=== PATIENT | female | born 1950 | race African-American/Black ===

== ENCOUNTER 2021-05-09 13:47 | Outpatient (CLI) | payer MEDICARE, OTHER, SELFPAY ==
--- NOTE | 2021-05-16 09:19 | WPDPFTINT ---
PFT Procedure Performed PFT Procedure Performed Spirometry with Pre/Post Bronchodilator Plethysmography (Lung Vol) Diffusing Cap (DLCO) Flow Vol Loop PFT Interpretation This is a pulmonary function test with pre and post-bronchodilator spirometry, plethysmography and diffusing capacity. The test was performed and results interpreted in accordance with the 2019 and 2005 ATS/ERS Task Force guidelines respectively using the Global Lung Function Initiative-2012 reference equations. Patient demonstrated good effort and cooperation. Reproducibility criteria were met. The quality of the pre bronchodilator spirometry maneuver was Grade A and post bronchodilator spirometry maneuver was Grade A. Findings: Spirometry: There is decreased maximal expiratory airflow at all lung volumes with concave expiratory flow tracing. The pre bronchodilator FVC is 1.08 L, 51% predicted. The pre bronchodilator FEV1 is 0.53 L, 31% predicted. The FEV1: FVC ratio is 49%. The post bronchodilator FVC is 1.04 L, representing a 4% decrease. The post bronchodilator FEV1 is 0.46 L, representing a 13% decrease. Plethysmography: The total lung capacity is 3.74 L, 96% predicted. The functional residual capacity is 2.91 L, 125% predicted. The residual volume is 2.65 L, 147% predicted. Diffusing capacity: The absolute diffusion capacity is 1.3, 7 % predicted, the diffusing capacity corrected for alveolar volume is 1.62, 36% predicted. Impression: There is a very severe obstructive abnormality without significant improvement after inhaling a single dose of albuterol. The increase in residual volume is consistent with air trapping from an obstructive abnormality. The absolute diffusing capacity is severely decreased and remains severely decreased when corrected for alveolar volume. There are no prior studies for comparison
== END 2021-05-09 13:48 | disposition home or self-care (01) ==
LOC: ANHPFT 13:54
PROVIDERS: PCP Internal Medicine; Visit Provider Nurse Practitioner
DX: J44.9 Chronic obstructive pulmonary disease, unspecified (principal); R94.2 Abnormal results of pulmonary function studies
CPT/HCPCS: 94060; 94726; 94729

== ENCOUNTER 2021-09-17 11:42 | Emergency (ER) | payer MEDICARE, OTHER, SELFPAY ==
--- NOTE | ~2021-09-17 | XR_ITS ---
XR chest 2V DATE: 09/17/2021 15:38 INDICATION: Shortness of breath. History of COPD. TECHNIQUE: AP and lateral views COMPARISON: 10/16/2018 portable AP chest 10/11/2018 CTA chest FINDINGS: There is mild discoid atelectasis or scarring in the mid and lower lung zones, greater on t he left. No pulmonary consolidation, pleural effusion, pulmonary vascular congestion or pneumothorax is evident. Emphysema is demonstrated to better advantage on 10/11/2018 CT chest examination. Heart size appears within normal limits. No hilar or mediastinal enlargement. Prominent pancreatic calcifications, consistent with chronic pancreatitis. Diffuse osteopenia. Left glenohumeral joint replacement. IMPRESSION: Mild discoid atelectasis or scarring in the mid and lower lung zones, primarily on the le ft Emphysema Chronic pancreatitis Diffuse atrophy. Left glenohumeral joint replacement Reviewed, dictated and finalized at location B. EL POWERPLANT SUPERVISOR IMPRESSION: Mild discoid atelectasis or scarring in the mid and lower lung zone s, primarily on the left Emphysema Chronic pancreatitis Diffuse atrophy. Left glenohumeral joint replacement
[2021-09-17 11:48] VITALS: BP 153/65; PULSE 66; RESP 20; TEMP 36.2; O2SAT 100
[2021-09-17 14:28] VITALS: BP 159/76; PULSE 80; RESP 23; O2SAT 100
[2021-09-17 14:32] VITALS: BP 173/75; PULSE 72; RESP 20; O2SAT 100
--- NOTE | 2021-09-17 14:35 | ECG_ITS ---
Measurements Intervals [place] Rate: 69 P: 80 TX: 144 QRS: -35 QRSD: 93 T: -10 QT: 383 QTc: 412 Interpretive Statements SINUS RHYTHM LEFT AXIS DEVIATION VOLTAGE CRITERIA FOR LVH BORDERLINE ST-T WAVE ABNORMALITY- INFERIOR LEADS BASELINE ARTIFACT- I, II, III, AVR, AVL,A VF, V2-V6 BORDERLINE ECG Electronically Signed On 09-17-2021 15:03:49 SUSPENSION CORD TIER by Barrington Castano D.O.
[2021-09-17 14:40] VITALS: O2SAT 100
[2021-09-17 17:09] LABS: Basophils Percent Auto 0.3 % (0.2-1.2); Eosinophils Absolute Auto 0.1 K/mm3 (0-0.3); Eosinophils Percent Auto 0.5 % (0-4.4); Hematocrit 33.2 % (37.0-47.0); Hemoglobin 9.3 g/dL (12.0-15.0); Immature Granulocyte Absolute 0.08 K/mm3 (0.00-0.031); Immature Granulocyte Percent A 0.6 % (0-0.5); Lymphocytes Absolute Auto 1.11 K/mm3 (0.9-3.2); Lymphocytes Percent Auto 8.7 % (18.3-44.2); Mean Corpuscular Hemoglobin 30.6 pg (26-34); Mean Corpuscular Volume 109.2 fl (80-100); Mean Platelet Volume 12.9 fl (7.4-10.4); Monocytes Absolute Auto 0.4 K/mm3 (0.1-0.6); Monocytes Percent Auto 3.2 % (2.6-8.5); Neutrophils Absolute Auto 11.1 K/mm3 (1.3-6.7); Neutrophils Percent Auto 86.7 % (45.5-73.1); Platelet Count Result 175 k/mm3 (150-375); Red Blood Count 3.04 M/mm3 (4.2-5.4); Red Cell Distribution Width 14.6 % (11.5-14.5); White Blood Count 12.8 K/mm3 (4.5-10.0)
[2021-09-17 17:19] LABS: Prothrombin Time 12.6 Seconds (11.1-14.7)
[2021-09-17 17:20] LABS: Partial Thromboplastin Time 24.1 SECONDS (22.3-36.8)
[2021-09-17 17:22] LABS: Alanine Aminotransferase 18 U/L (4-35); Albumin Level 3.7 g/dL (3.5-5.1); Alkaline Phosphatase 73 U/L (38-126); Anion Gap 2 mmol/L (8-16); Aspartate Amino Transferase 28 U/L (14-36); Bilirubin,Total 0.3 mg/dL (0.2-1.3); Blood Urea Nitrogen 12 mg/dL (7-17); Calcium 9.1 mg/dL (8.4-10.2); Carbon Dioxide 29 mmol/L (22-30); Chloride 103 mmol/L (98-107); Estimated CRCL calculation 29 ml/min; Estimated Glomerular Filt Rate 49; Glucose 111 mg/dL (65-110); Potassium 5.4 mmol/L (3.4-5.0); Sodium 134 mmol/L (137-145)
[2021-09-17 17:31] LABS: NT Pro B Type Natriuretic Pept 375 pg/mL (5-100)
[2021-09-17 17:35] LABS: Platelet Estimate Adequate (Adequate)
[2021-09-17 17:36] LABS: Anisocytosis 1+ (NORMAL); Hypochromasia 1+ (NORMAL)
[2021-09-17] MEDS: ALBUTEROL SULFATE NEB 2.5 MG/0.5 ML INH 5 MG INHALATION (18:12)
[2021-09-17] MEDS: IPRATROPIUM BR 0.02% INH SOLN 0.5 MG/2.5 ML VIAL INHALATION (18:13)
--- NOTE | 2021-09-17 19:07 | ED.SOB ---
HPI - SOB/Dyspnea General Chief Complaint: Shortness of Breath/Dyspnea Stated Complaint: short of breath/chest pain Time Seen by Provider: 09/17/21 14:36 History of Present Illness HPI Narrative: Patient is a 71-year-old female who presents ER with shortness of breath. Progressed over the last couple of days. Concerned she may have congestive heart failure. No new swelling in her legs. No new oxygen requirement. Wears 4 L chronically. She is on prednisone for which she has been told by her doctor she needs to start tapering down. No fevers or sweats but she has had some mild chills at home. No urinary frequency urgency or dysuria. She denies chest pain or chest pressure. Related Data Home Medications Medication Instructions Recorded Confirmed albuterol sulfate 90 mcg/actuation 2 puff INHALATION Q4H PRN g 11/29/20 aerosol inhaler carvedilol 6.25 mg tablet 6.25 mg PO Q12H 11/29/20 clopidogrel 75 mg tablet 75 mg PO DAILY 11/29/20 fluticasone 250 mcg-salmeterol 50 1 inh INHALATION BID 11/29/20 mcg/dose blistr powdr for inhalation hydralazine 10 mg tablet 10 mg PO BID 11/29/20 [id number]-ccxcikzv-[id number] 1 cap PO TID 11/29/20 24,000-76,000-120,000 unit capsule,delayed rel mirtazapine 15 mg tablet 15 mg PO QHS 11/29/20 pantoprazole 40 mg tablet,delayed 40 mg PO QAM 11/29/20 release prednisone 5 mg tablet 5 mg PO DAILY 11/29/20 thiamine HCl (vitamin B1) 100 mg 100 mg PO DAILY 11/29/20 tablet tiotropium bromide 2.5 1 puff INHALATION QAM g 11/29/20 mcg/actuation mist for inhalation Allergies Allergy/AdvReac Type Severity Reaction Status Date / Time Sulfa (Sulfonamide Allergy Intermediate hives Verified 10/08/18 21:41 Antibiotics) Review of Systems Review of Systems: All systems reviewed & are unremarkable except as noted in HPI and below Constitutional: Constitutional: Reports chills, Denies fever(s) and Denies weakness ENT: Denies nasal congestion and Denies sore throat Cardiovascular: Cardiovascular: Denies chest pain, Denies rapid heart rate and Denies radiating jaw, neck or arm pain Respiratory: Respiratory: Denies chest congestion, Denies cough, Reports dyspnea and Denies wheezing Gastrointestinal: Gastrointestinal: Denies nausea and Denies vomiting PMFSH Past Medical History Medical History (Updated 09/17/21 @ 19:20 by Juve Thornton MD) COPD (chronic obstructive pulmonary disease) CVA (cerebral vascular accident) Diabetes Hyperlipidemia Pancreatitis Surgical History Surgical History (Updated 09/17/21 @ 19:09 by Juve Thornton MD) History of hysterectomy Social History Social History Smoking status: Never smoker Exam Narrative: GENERAL: Well-appearing, well-nourished, and in no acute distress. HEAD: Normocephalic, atraumatic. EYES: PERRL and EOMI. CHEST: Clear to auscultation. No respiratory distress. HEART: Regular rate and rhythm. Normal peripheral pulses. ABDOMEN: Soft, nontender, nondistended. EXTREMITIES: Normal range of motion. No edema. Chronic weakness left leg. SKIN: Warm, dry, no rash. NEURO: Alert and oriented x3. PSYCH: Normal mood and affect. Course Course Emergency Course: Normal lung sounds. Feels improved with nebulizer treatment. White count felt to be elevated related to chronic prednisone use. Patient will follow up with her PCP. Discussed return precautions which patient verbalized. Vital Signs Vital signs: Vital Signs Temperature 97.1 F L 09/17/21 11:48 Pulse Rate 66 09/17/21 11:48 Respiratory Rate 09/17/21 11:48 Blood Pressure 153/65 H 09/17/21 11:48 Pulse Oximetry 100 09/17/21 11:48 Temperature 97.1 F L 09/17/21 11:48 Pulse Rate 72 09/17/21 14:32 Respiratory Rate 20 09/17/21 14:32 Blood Pressure 173/75 H 09/17/21 14:32 Pulse Oximetry 100 09/17/21 14:40 MDM - SOB/Dyspnea Lab Data Result diagrams: 09/17/21 16:50 09/17/21 16:50 Labs:
== END 2021-09-17 19:58 | disposition home or self-care (01) ==
PROVIDERS: Emergency Provider Emergency Medicine; PCP Internal Medicine
DX: R06.00 Dyspnea, unspecified (principal); Z86.73 Personal history of transient ischemic attack (TIA), and cerebral infarction without residual deficits; E11.9 Type 2 diabetes mellitus without complications; E78.5 Hyperlipidemia, unspecified; J43.9 Emphysema, unspecified; K86.1 Other chronic pancreatitis; Z96.612 Presence of left artificial shoulder joint; R94.31 Abnormal electrocardiogram [ECG] [EKG]
CPT/HCPCS: 36415; 71046; 80053; 83880; 85025; 85610; 85730; 93005; 94640; 99283

== ENCOUNTER 2021-11-10 10:18 | Emergency (ER) | payer MEDICARE, OTHER, SELFPAY ==
--- NOTE | ~2021-11-10 | XR_ITS ---
EXAMINATION: XR foot LT min 3V DATE: 11/10/2021 10:47 INDICATION: Left foot pain TECHNIQUE: Dorsoplantar, lateral, and 2 oblique views of the left foot were obtained. COMPARISON: None. FINDINGS: The bones are osteopenic which limits the sensitivity for fracture however none is seen. Th ere is soft tissue swelling of ankle. Mild to moderate osteoarthritis is noted in multiple interphala ngeal joints. IMPRESSION: 1. No acute osseous abnormality comments sensitivity limited by osteopenia. Reviewed, dictated and finalized at location A. RTISING ACCOUNT REPRESENTATIVE
--- NOTE | ~2021-11-10 | XR_ITS ---
EXAMINATION: XR ankle LT min 3V DATE: 11/10/2021 10:47 INDICATION: Left ankle pain TECHNIQUE: Anteroposterior, lateral, mortise, and additional oblique view of the ankle were obtained. COMPARISON: None. FINDINGS: There is soft tissue swelling of ankle. The bones are osteopenic which limits the sensitivi ty for fracture however no ankle fracture is seen. IMPRESSION: 1. Ankle soft tissue swelling without acute osseous abnormality of the ankle identified, sensitivity limited by osteopenia Reviewed, dictated and finalized at location A. MANAGER IMPRESSION: 1. Ankle soft tissue swelling without acute osseous abnormality of the ankle id entified, sensitivity limited by osteopenia
[2021-11-10 10:24] VITALS: BP 145/50; PULSE 52; RESP 18; TEMP 36.4; O2SAT 100
--- NOTE | 2021-11-10 10:32 | ED.LOWEXIN ---
HPI - Extremity Injury (Lower) General Chief Complaint: Extremity Injury, Lower Stated Complaint: Left Foot Pain Time Seen by Provider: 11/10/21 10:21 Source: patient Mode of arrival: wheelchair Limitations: no limitations History of Present Illness HPI Narrative: This is a 71 year old female that presents to the ER for left ankle pain after an injury last night. Reports she slipped and twisted the ankle. Since she has had pain and swelling of the ankle and foot. Reports decreased range of motion of the ankle due to pain. Denies hitting her head or loss of consciousness. Denies other injuries, or numbness. Related Data Home Medications Medication Instructions Recorded Confirmed albuterol sulfate 90 mcg/actuation 2 puff INHALATION Q4H PRN g 11/29/20 aerosol inhaler carvedilol 6.25 mg tablet 6.25 mg PO Q12H 11/29/20 clopidogrel 75 mg tablet 75 mg PO DAILY 11/29/20 fluticasone 250 mcg-salmeterol 50 1 inh INHALATION BID 11/29/20 mcg/dose blistr powdr for inhalation hydralazine 10 mg tablet 10 mg PO BID 11/29/20 [id number]-[id number]-[id number] 1 cap PO TID 11/29/20 24,000-76,000-120,000 unit capsule,delayed rel mirtazapine 15 mg tablet 15 mg PO QHS 11/29/20 pantoprazole 40 mg tablet,delayed 40 mg PO QAM 11/29/20 release prednisone 5 mg tablet 5 mg PO DAILY 11/29/20 thiamine HCl (vitamin B1) 100 mg 100 mg PO DAILY 11/29/20 tablet tiotropium bromide 2.5 1 puff INHALATION QAM g 11/29/20 mcg/actuation mist for inhalation Allergies Allergy/AdvReac Type Severity Reaction Status Date / Time Sulfa (Sulfonamide Allergy Intermediate hives Verified 10/08/18 21:41 Antibiotics) Review of Systems Review of Systems: CONSTITUTIONAL: Denies fever MUSCULOSKELETAL: Reports joint pain, and myalgia. NEUROLOGIC: Denies numbness, or weakness. All systems reviewed & are unremarkable except as noted in HPI and below PMFSH Past Medical History Medical History (Updated 11/10/21 @ 11:30 by Jovita Shane PA-C) COPD (chronic obstructive pulmonary disease) CVA (cerebral vascular accident) Diabetes Hyperlipidemia Pancreatitis Surgical History Surgical History (Updated 09/17/21 @ 19:09 by Juve Thornton MD) History of hysterectomy Social History Social History Smoking status: Never smoker Exam Narrative: GENERAL: Well-appearing, well-nourished, and in no acute distress. HEAD: Normocephalic, atraumatic. EYES: EOMI. CHEST: Clear to auscultation. No respiratory distress. No wheezes rales or rhonchi HEART: Regular rate and rhythm. No murmur heard. Normal peripheral pulses. ABDOMEN: Soft, nontender, nondistended, normal active bowel sounds. EXTREMITIES: Decreased active range of motion in left ankle. No obvious deformities. Normal DP pulses. Normal sensation SKIN: Warm, dry, no rash. NEURO: No focal deficits. Alert and oriented x3. PSYCH: Normal mood and affect Course Vital Signs Vital signs: Vital Signs Temperature 97.6 F 11/10/21 10:24 Pulse Rate 52 L 11/10/21 10:24 Respiratory Rate 18 11/10/21 10:24 Blood Pressure 145/50 H 11/10/21 10:24 Pulse Oximetry 100 11/10/21 10:24 Temperature 97.6 F 11/10/21 10:24 Pulse Rate 52 L 11/10/21 10:24 Respiratory Rate 18 11/10/21 10:24 Blood Pressure 145/50 H 11/10/21 10:24 Pulse Oximetry 100 11/10/21 10:24 MDM - Extremity Injury (Lower) MDM Narrative Medical decision making narrative: Patient presents to the emergency department for left ankle and foot pain after a twisting injury yesterday. Patient is neurovascularly intact. Left ankle x-rays are without acute osseous abnormalities. Patient placed in Darryl wrap and instructed to use her walker. She is to follow-up with primary care doctor. She was given warnings to return to the ER Imaging Data Radiologist's impression: ITS Impressions Ankle X-Ray 11/10/21 11:01 IMPRESSION: 1. Ankle soft tissue swelling without acute osseous abnormality of the
== END 2021-11-10 11:50 | disposition home or self-care (01) ==
PROVIDERS: Emergency Provider Emergency Medicine; PCP Internal Medicine
DX: S93.402A Sprain of unspecified ligament of left ankle, initial encounter (principal); S96.912A Strain of unspecified muscle and tendon at ankle and foot level, left foot, initial encounter; J44.9 Chronic obstructive pulmonary disease, unspecified; Z86.73 Personal history of transient ischemic attack (TIA), and cerebral infarction without residual deficits; E11.9 Type 2 diabetes mellitus without complications; Z79.02 Long term (current) use of antithrombotics/antiplatelets; X50.9XXA Other and unspecified overexertion or strenuous movements or postures, initial encounter
CPT/HCPCS: 73610; 73630; 99283

== ENCOUNTER 2022-06-19 10:25 | Inpatient (IN) | payer MEDICARE, OTHER, SELFPAY ==
[2022-06-19] VITALS (19 sets, daily range): BP systolic 156–177; BP diastolic 63–69; PULSE 63–79; RESP 17–29; TEMP 36.4–36.7; O2SAT 99–100; BMI 20.1
--- NOTE | ~2022-06-19 | XR_ITS ---
XR chest 1V portable 06/19/2022 10:59 Indication: Cough and shortness of breath. History of asthma. Procedure: AP portable chest Comparison: Comparison to multiple prior studies sequentially, with oldest reviewed study dated 10/16. Findings: Heart size normal. No pleural effusion or pneumothorax. Partially visualized left shoulder arthroplasty. Healed right proximal humeral fracture. There are patchy bilateral infiltrates, suspici ous for pneumonia. The lungs are hyperinflated which is consistent with, but not diagnostic of chroni c obstructive pulmonary disease. Impression: 1: Patchy bilateral infiltrates, suspicious for pneumonia. Reviewed, dictated and finalized at location A. Impression: 1: Patchy bilateral infiltrates, suspicious for pneumonia.
--- NOTE | ~2022-06-19 | CT_ITS ---
EXAMINATION:CT chest high resolution wo nc DATE: 06/21/2022 10:03 INDICATION: Cough. Shortness of breath. Chills. Left chest pain. TECHNIQUE: Computed tomography (CT) of the chest was performed without intravenous contrast. Automate d exposure control and iterative reconstruction technique were employed. The dose-length product (DLP ) was 129.75 mGy-cm. COMPARISON: Chest CT 10/11/2018 FINDINGS: There is severe emphysema. There are subsegmental airspace opacities with volume loss in th e lower lobes, consistent with atelectasis. There are subsegmental tree-in-bud opacities in left uppe r lobe, consistent with pneumonia. There is a trace left pleural effusion. The heart size is normal. There is a small pericardial effusion. There are calcifications in the pancreas, consistent with quality assurance calibrator zuly pancreatitis. There is a left shoulder arthroplasty. There is severe right glenohumeral joint ost eoarthritis. There is a chronic compression fracture of L2. IMPRESSION: 1. Mild subsegmental pneumonia in left upper lobe. 2. Severe emphysema. 3. Small pericardial effusion. Reviewed, dictated and finalized at location A.
--- NOTE | 2022-06-19 10:35 | ECG_ITS ---
Measurements Intervals [place] Rate: 72 P: 78 SD: 158 QRS: -39 QRSD: 89 T: 3 QT: 358 QTc: 394 Interpretive Statements SINUS RHYTHM LEFT AXIS DEVIATION LEFT VENTRICULAR HYPERTROPHY AND ST-T CHANGE CANNOT RULE OUT SEPTAL INFARCT, AGE INDETERMINATE BORDERLINE ST-T WAVE ABNORMALITY- INFERIOR LEADS BASELINE ARTIFACT- V6 ABNORMAL ECG COMPARED TO ECG 09/17/2021 14:35:02 NO SIGNIFICANT CHANGES Electronically Signed On 06-19-2022 12:03:08 CDT by Barrington Castano D.O.
--- NOTE | 2022-06-19 10:35 | ED.SOB ---
HPI - SOB/Dyspnea General Chief Complaint: Shortness of Breath/Dyspnea Stated Complaint: SOB, L side pain Time Seen by Provider: 06/19/22 10:27 History of Present Illness HPI Narrative: Patient presents emergency room from home for shortness of breath. Patient symptoms began yesterday. States that she has been feeling short of breath and has been associated with a cough this been nonproductive. States that she has a history of COPD and is chronically on 4 L nasal cannula at all times. She denies any fevers or chills she denies any abdominal pain nausea or vomiting. She states that she has been having some intermittent left-sided chest pain but denies any pain at this Related Data Home Medications Medication Instructions Recorded Confirmed albuterol sulfate 90 mcg/actuation 2 puff inhalation Q4H PRN 11/29/20 aerosol inhaler carvedilol 6.25 mg tablet 6.25 mg PO Q12H 11/29/20 clopidogrel 75 mg tablet (Plavix) 75 mg PO DAILY 11/29/20 fluticasone 250 mcg-salmeterol 50 1 inh inhalation BID 11/29/20 mcg/dose blistr powdr for inhalation (Wixela Inhub) hydralazine 10 mg tablet 10 mg PO BID 11/29/20 mxkelc-wklycedz-zscipnq 1 cap PO TID 11/29/20 24,000-76,000-120,000 unit capsule,delayed rel (Creon) mirtazapine 15 mg tablet 15 mg PO QHS 11/29/20 pantoprazole 40 mg tablet,delayed 40 mg PO QAM 11/29/20 release (Protonix) prednisone 5 mg tablet 5 mg PO DAILY 11/29/20 thiamine HCl (vitamin B1) 100 mg 100 mg PO DAILY 11/29/20 tablet tiotropium bromide 2.5 1 puff inhalation QAM 11/29/20 mcg/actuation mist for inhalation (Spiriva Respimat) Allergies Allergy/AdvReac Type Severity Reaction Status Date / Time Sulfa (Sulfonamide Allergy Intermediate hives Verified 10/08/18 21:41 Antibiotics) Review of Systems Review of Systems: Gen.: Denies fevers or chills Eyes: Denies eye pain or visual change ENT: Denies congestion Respiratory: See HPI CV: Reports intermittent left-sided chest pain GI: Denies abdominal pain nausea, emesis or diarrhea Musculoskeletal: Denies back pain or muscle pain Neuro: Denies numbness, tingling, weakness or focal weakness Skin: Denies rash Except as documented, all other systems reviewed and negative [facility] Past Medical History Medical History COPD (chronic obstructive pulmonary disease) CVA (cerebral vascular accident) Diabetes Hyperlipidemia Pancreatitis Surgical History Surgical History (Updated 09/17/21 @ 19:09 by Juve Thornton MD) History of hysterectomy Social History Social History Smoking status: Never smoker Exam Narrative: APPEARANCE: No acute distress, nontoxic, resting in bed EYES: EOMI HEENT: Normocephalic, atraumatic, OMM RESPIRATORY: No respiratory distress decreased breath sounds throughout the bilateral lung jung with mild wheezing in the upper lung field CARDIOVASCULAR: Regular rate and rhythm without murmurs rubs or gallops. ABDOMINAL: Soft, nontender, nondistended, no rebound or guarding MUSCULOSKELETAl: Moves all extremities. No clubbing, cyanosis or edema. NEURO: Awake and alert. Following commands, speech normal, no focal deficits SKIN:: Warm, dry. No rashes lesions or abrasions PSYCHIATRIC: Normal affect/mood, Course Course Emergency Course: Discussed with Dr. Davila presentation work-up agrees with admission at this time Discussed with patient and family results of workup and diagnosis. Discussed need for admission. Patient and family understand and agree to current treatment plan Vital Signs Vital signs: Vital Signs Temperature 97.6 F 06/19/22 10:34 Pulse Rate 69 06/19/22 10:34 Respiratory Rate 23 H 06/19/22 10:34 Pulse Oximetry 100 06/19/22 10:34 Oxygen Delivery Nasal Cannula 06/19/22 10:34 Oxygen Flow Rate 4 06/19/22 10:34 Temperature 97.6 F 06/19/22 10:34 Pulse Rate 67
[2022-06-19] MEDS: ALBUTEROL SULFATE NEB 2.5 MG/3 ML INH 5 MG INHALATION ×3 (10:50→20:00)
[2022-06-19] MEDS: IPRATROPIUM BR 0.02% INH SOLN 0.5 MG/2.5 ML VIAL INHALATION ×3 (10:51→20:00)
[2022-06-19 11:26] LABS: Basophils Absolute Auto 0.1 K/mm3 (0.0-0.1); Basophils Percent Auto 0.4 % (0.2-1.2); Eosinophils Absolute Auto 0.5 K/mm3 (0-0.3); Eosinophils Percent Auto 3.5 % (0-4.4); Hematocrit 33.8 % (37.0-47.0); Hemoglobin 9.5 g/dL (12.0-15.0); Immature Granulocyte Absolute 0.04 K/mm3 (0.00-0.031); Immature Granulocyte Percent A 0.3 % (0-0.5); Lymphocytes Absolute Auto 1.38 K/mm3 (0.9-3.2); Lymphocytes Percent Auto 10.1 % (18.3-44.2); Mean Corpuscular HGB Conc 28.1 g/dl (32-36); Mean Corpuscular Volume 106.6 fl (80-100); Mean Platelet Volume 12.8 fl (7.4-10.4); Monocytes Absolute Auto 0.4 K/mm3 (0.1-0.6); Monocytes Percent Auto 3.2 % (2.6-8.5); Neutrophils Absolute Auto 11.2 K/mm3 (1.3-6.7); Neutrophils Percent Auto 82.5 % (45.5-73.1); Platelet Count Result 174 k/mm3 (150-375); Red Blood Count 3.17 M/mm3 (4.2-5.4); Red Cell Distribution Width 12.8 % (11.5-14.5); SARS-CoV-2 RNA PCR Negative; White Blood Count 13.6 K/mm3 (4.5-10.0)
[2022-06-19 11:38] LABS: INR 1.1; Partial Thromboplastin Time 21.1 SECONDS (22.3-36.8); Prothrombin Time 13.8 Seconds (11.1-14.7)
[2022-06-19 11:42] LABS: Alanine Aminotransferase 14 U/L (6-35); Albumin Level 3.8 g/dL (3.5-5.1); Alkaline Phosphatase 88 U/L (38-126); Anion Gap 10 mmol/L (8-16); Aspartate Amino Transferase 23 U/L (14-36); Bilirubin,Total 0.2 mg/dL (0.2-1.3); Blood Urea Nitrogen 29 mg/dL (7-17); Calcium 9.8 mg/dL (8.4-10.2); Carbon Dioxide 33 mmol/L (22-30); Chloride 99 mmol/L (98-107); Estimated CRCL calculation 32 ml/min; Estimated Glomerular Filt Rate 60; Glucose 112 mg/dL (65-110); Potassium 4.8 mmol/L (3.4-5.0); Sodium 142 mmol/L (137-145)
[2022-06-19 11:53] LABS: Hypochromasia 1+ (NORMAL); Platelet Estimate Adequate (Adequate); Schistocytes None Seen (NORMAL); Stomatocytes 1+ (NORMAL)
[2022-06-19 11:54] LABS: Atypical Lymphocytes Present; NT Pro B Type Natriuretic Pept 317 pg/mL (5-100); Troponin I 0.012 ng/mL (0.000-0.034)
[2022-06-19] MEDS: methylPREDNISolone SOD SUCC 125 MG VIAL IV PUSH (12:55)
--- NOTE | 2022-06-19 13:35 | ADMGEN ---
This patient, Conchita Espinoza, was admitted to Medical Room 245-. Patient/family oriented to hospital policies and general routines including ID bracelet, bed and alarms, visiting hours, pain management, procedures, bathroom and other care routines, personal items, smoking policy, room service/diet, and visiting hours. Information on how to activate the Rapid Response Team has been discussed. Patient/Family are encouraged to report perceived risks to care and to ask questions if they do not understand what they are told or what they should do.
[2022-06-19 16:09] LABS: Troponin I < 0.012 ng/mL (0.000-0.034)
[2022-06-19 19:13] LABS: Lactic Acid Reflex 2.3 mmol/L (0.7-2.0)
[2022-06-19 19:26] LABS: Troponin I < 0.012 ng/mL (0.000-0.034)
[2022-06-19 22:00] LABS: Reflex Lactic Acid Yes or No Add Lactic
--- NOTE | 2022-06-19 22:39 | PM.IMHP ---
[facility] Past Medical History Medical History COPD (chronic obstructive pulmonary disease) CVA (cerebral vascular accident) Diabetes Hyperlipidemia Pancreatitis Surgical History Surgical History (Updated 09/17/21 @ 19:09 by Juve Thornton MD) History of hysterectomy Family History Family History (Updated 06/19/22 @ 14:27 by Stacey Dozier RN) Mother Hypertension Sibling Hypertension Diabetes mellitus Social History Social History Years smoked: 50 Smoking status: Former smoker Tobacco type: cigarettes Alcohol intake: former Substance use: never Spiritual care concerns: No Meds Home Medications and Allergies Home Medications Medication Instructions Recorded Confirmed Type albuterol sulfate 90 mcg/actuation 2 puff inhalation Q4H PRN 11/29/20 06/19/22 History aerosol inhaler Shortness Of Breath Or Wheezing carvedilol 6.25 mg tablet 6.25 mg PO Q12H 11/29/20 06/19/22 History clopidogrel 75 mg tablet (Plavix) 75 mg PO DAILY 11/29/20 06/19/22 History hydralazine 10 mg tablet 10 mg PO DAILY 11/29/20 06/19/22 History keglmv-dbysefgz-zqgevug 1 cap PO TID 11/29/20 06/19/22 History 24,000-76,000-120,000 unit capsule,delayed rel (Creon) mirtazapine 15 mg tablet 15 mg PO QHS 11/29/20 06/19/22 History prednisone 5 mg tablet 5 mg PO EVERY OTHER DAY 11/29/20 06/19/22 History thiamine HCl (vitamin B1) 100 mg 100 mg PO DAILY 11/29/20 06/19/22 History tablet cholecalciferol (vitamin D3) 50 50 mcg PO DAILY 06/19/22 06/19/22 History mcg (2,000 unit) capsule folic acid 1 mg tablet 1 mg PO DAILY 06/19/22 06/19/22 History tiotropium bromide 2.5 2 puff inhalation DAILY 06/19/22 06/19/22 History mcg/actuation mist for inhalation (Spiriva Respimat) Allergies Allergy/AdvReac Type Severity Reaction Status Date / Time No Known Allergies Allergy Verified 06/19/22 14:09 Vital Signs Vital Signs - 24 hr 06/19/22 10:34 06/19/22 10:51 06/19/22 11:09 Temperature 97.6 F Pulse Rate 69 70 71 Respiratory Rate 23 H 29 H 28 H Blood Pressure Pulse Oximetry 100 Oxygen Delivery Nasal Cannula Oxygen Flow Rate 4 06/19/22 10:47 06/19/22 11:51 06/19/22 12:00 Temperature Pulse Rate 70 64 69 Respiratory Rate 25 H 21 H 27 H Blood Pressure Pulse Oximetry 100 100 100 Oxygen Delivery Oxygen Flow Rate 06/19/22 12:01 06/19/22 14:00 06/19/22 14:33 Temperature 98.0 F Pulse Rate 67 79 Respiratory Rate 23 H 20 Blood Pressure 177/69 H 156/65 H Pulse Oximetry 100 100 100 Oxygen Delivery Nasal Cannula Oxygen Flow Rate 4 06/19/22 14:36 06/19/22 14:46 06/19/22 16:00 Temperature Pulse Rate 73 70 71 Respiratory Rate 24 H 24 H Blood Pressure Pulse Oximetry Oxygen Delivery Oxygen Flow Rate 06/19/22 20:01 06/19/22 20:02 06/19/22 20:12 Temperature Pulse Rate 69 69 63 Respiratory Rate 22 H 22 H Blood Pressure Pulse Oximetry 99 Oxygen Delivery Nasal Cannula Oxygen Flow Rate 4 06/19/22 21:16 06/19/22 14:09 06/19/22 14:39 Temperature 98.0 F 98.0 F Pulse Rate 63 79 73 Respiratory Rate 17 20 24 H Blood Pressure 171/63 H 156/65 H Pulse Oximetry 100 Oxygen Delivery Oxygen Flow Rate
[2022-06-19] MEDS: methylPREDNISolone SOD SUCC 125 MG VIAL 60 MG IV PUSH (22:41)
[2022-06-19 22:52] LABS: Lactic Acid 1.9 mmol/L (0.7-2.0)
[2022-06-20] VITALS (21 sets, daily range): BP systolic 149–152; BP diastolic 55–68; PULSE 62–95; RESP 17–22; TEMP 36.6–36.8; O2SAT 99–100; BMI 20.1
[2022-06-20] MEDS: carvediloL 6.25 MG TABLET PO ×3 (00:32→21:19)
[2022-06-20] MEDS: MIRTAZAPINE 15 MG TABLET PO ×2 (00:32→21:19)
[2022-06-20] MEDS: ALBUTEROL SULFATE NEB 2.5 MG/3 ML INH 5 MG INHALATION ×4 (02:15→20:30)
[2022-06-20] MEDS: IPRATROPIUM BR 0.02% INH SOLN 0.5 MG/2.5 ML VIAL INHALATION ×4 (02:15→20:30)
--- NOTE | 2022-06-20 04:45 | PM.IMHP ---
H&P: HPI History of Present Illness Date/Time: 06/20/22 2734 Chief Complaint: Shortness of breath Narrative: Patient is 71-year-old female with a past medical history of COPD, CVA, diabetes, hyperlipidemia who presented to the ED with complaints shortness of breath. Patient stated that it all started about Friday. She stated that she had a hard time sleeping and could not lay flat. She started getting chills and chest pain yesterday morning. She states that her shortness of breath is happening when she is at rest and gets worse with activity. Patient stated she has not been able to get upper walk around. She also stated that her appetite been liking she has been very weak and tired. She states that she does have a cough however in the ED noted says that she has a nonproductive cough. She is on 4 L nasal cannula chronically. She also stated that her feet are swollen most of the time the left greater than the right. She denies any nausea, vomiting, body aches, sweats, fevers, diarrhea, constipation. She denies any urinary issues including urgency, frequency, retention or burning pain. She did state that she is feeling pretty good. She also states that she is mostly bed ridden she does get up and cooks and does the bathroom however she does not do much activity need further. 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 Currently, the patient appears comfortable and denies any pain. Patient is being admitted to the hospitalist service under observation Review of Systems Review of Systems: All systems reviewed & are unremarkable except as noted in HPI and below PMFSH Past Medical History Medical History (Updated 06/20/22 @ 07:08 by STACEY Perez) CKD (chronic kidney disease) COPD (chronic obstructive pulmonary disease) CVA (cerebral vascular accident) Diabetes Hyperlipidemia Hypertension Pancreatitis Surgical History Surgical History History of hysterectomy Family History Family History Mother Hypertension Cerebrovascular accident Diabetes mellitus Sibling Hypertension Diabetes mellitus Breast cancer Father Hypertension Heart disease Social History Social History Social History: Patient elects Jazmine to be her surrogate with which is her . She wishes to be a full code at this time and denies any pets at the house. 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 Gender identity (if verbalized by the patient): Female Sexual Orientation (if Verbalized by the Patient): Straight or Heterosexual Spiritual care concerns: No Agree to blood products: Yes Meds Home Medications and Allergies Home Medications Medication Instructions Recorded Confirmed Type albuterol sulfate 90 mcg/actuation 2 puff inhalation Q4H PRN 11/29/20 06/19/22 History aerosol inhaler Shortness Of Breath Or Wheezing carvedilol 6.25 mg tablet 6.25 mg PO Q12H 11/29/20 06/19/22 History clopidogrel 75 mg tablet (Plavix) 75 mg PO DAILY 11/29/20 06/19/22 History hydralazine 10 mg tablet 10 mg PO DAILY 11/29/20 06/19/22 History syvoqt-[id number]-[id number] 1 cap PO TID 11/29/20 06/19/22 History 24,000-76,000-120,000 unit capsule,delayed rel (Creon) mirtazapine 15 mg tablet 15 mg PO QHS 11/29/20 06/19/22 History prednisone 5 mg tablet 5 mg PO EVERY OTHER DAY 11/29/20 06/19/22 History thiamine HCl (vitamin B1) 100 mg 100 mg PO DAILY 11/29/20 06/19/22 History tablet cholecalciferol (vitamin D3) 50 50 mcg P
[2022-06-20 05:34] LABS: Basophils Percent Auto 0.1 % (0.2-1.2); Hematocrit 32.9 % (37.0-47.0); Hemoglobin 9.6 g/dL (12.0-15.0); Immature Granulocyte Absolute 0.08 K/mm3 (0.00-0.031); Immature Granulocyte Percent A 0.5 % (0-0.5); Immature Platelet Fraction Pct 15.8 % (0.9-11.2); Lymphocytes Absolute Auto 1.28 K/mm3 (0.9-3.2); Mean Corpuscular HGB Conc 29.2 g/dl (32-36); Mean Corpuscular Hemoglobin 29.9 pg (26-34); Mean Corpuscular Volume 102.5 fl (80-100); Mean Platelet Volume 13.7 fl (7.4-10.4); Monocytes Absolute Auto 0.1 K/mm3 (0.1-0.6); Monocytes Percent Auto 0.6 % (2.6-8.5); Neutrophils Absolute Auto 14.6 K/mm3 (1.3-6.7); Neutrophils Percent Auto 90.8 % (45.5-73.1); Platelet Count Result 182 k/mm3 (150-375); Red Blood Count 3.21 M/mm3 (4.2-5.4); Red Cell Distribution Width 12.4 % (11.5-14.5); White Blood Count 16.1 K/mm3 (4.5-10.0)
[2022-06-20 05:42] LABS: Alanine Aminotransferase 15 U/L (6-35); Albumin Level 3.9 g/dL (3.5-5.1); Alkaline Phosphatase 82 U/L (38-126); Anion Gap 8 mmol/L (8-16); Aspartate Amino Transferase 24 U/L (14-36); Bilirubin,Total < 0.1 mg/dL (0.2-1.3); Blood Urea Nitrogen 28 mg/dL (7-17); Calcium 9.3 mg/dL (8.4-10.2); Carbon Dioxide 34 mmol/L (22-30); Chloride 98 mmol/L (98-107); Estimated CRCL calculation 31 ml/min; Estimated Glomerular Filt Rate 54; Glucose 148 mg/dL (65-110); Potassium 5.8 mmol/L (3.4-5.0); Sodium 140 mmol/L (137-145)
[2022-06-20] MEDS: methylPREDNISolone SOD SUCC 125 MG VIAL 60 MG IV PUSH ×3 (06:36→21:19)
[2022-06-20 07:25] LABS: Hemoglobin A1C 4.5 % (<5.7)
[2022-06-20 07:42] LABS: Cholesterol 173 mg/dL (0-200); HDL Direct 60 mg/dL; Triglycerides 87 mg/dL (<150)
[2022-06-20 07:42] LABS: Iron 39 ug/dL (37-170)
[2022-06-20 07:44] LABS: Transferrin 219 mg/dL (206-381)
[2022-06-20 07:52] LABS: LDL Cholesterol Direct 52 mg/dL
[2022-06-20 07:57] LABS: Percent Iron Saturation 13 % (20-50)
[2022-06-20 08:41] LABS: Folic Acid > 20.0 ng/mL (2.76->20)
[2022-06-20] MEDS: CHOLECALCIFEROL 1,000 UNITS TABLET 2000 UNITS PO (08:53)
[2022-06-20] MEDS: hydrALAZINE 10 MG TABLET PO (08:53)
[2022-06-20] MEDS: CLOPIDOGREL BISULFATE 75 MG TABLET PO (08:53)
[2022-06-20] MEDS: LIPASE/AMYLASE/PROTEASE 12,000 UNITS CAP 2 CAP PO ×3 (08:53→16:49)
[2022-06-20] MEDS: THIAMINE HCL 100 MG TABLET PO (08:53)
[2022-06-20] MEDS: FOLIC ACID 1 MG TABLET PO (08:53)
[2022-06-20] MEDS: FUROSEMIDE INJ 40 MG/4 ML VIAL IV PUSH (08:54)
[2022-06-20] MEDS: ENOXAPARIN 40 MG/0.4 ML SYRINGE SUB-Q (09:19)
--- NOTE | 2022-06-20 14:44 | PCNSR ---
On 06/20/22, the student, Milan Holt, provided care and [facility]. I have reviewed the student's documentation and agree with the findings.
[2022-06-20] MEDS: HYDROcodone/acetaminophen (*CRX) 5-325 MG TABLET 1 TAB PO (16:50)
[2022-06-20 17:28] LABS: Potassium 5.2 mmol/L (3.4-5.0)
[2022-06-21] VITALS (20 sets, daily range): BP systolic 152–170; BP diastolic 66–79; PULSE 64–85; RESP 16–20; TEMP 36.7–37; O2SAT 99–100
[2022-06-21] MEDS: IPRATROPIUM BR 0.02% INH SOLN 0.5 MG/2.5 ML VIAL INHALATION ×4 (02:02→20:26)
[2022-06-21] MEDS: ALBUTEROL SULFATE NEB 2.5 MG/3 ML INH 5 MG INHALATION ×4 (02:02→20:27)
[2022-06-21] MEDS: methylPREDNISolone SOD SUCC 125 MG VIAL 60 MG IV PUSH ×2 (05:52→15:08)
[2022-06-21 05:54] LABS: Basophils Percent Auto 0.1 % (0.2-1.2); Hematocrit 31.6 % (37.0-47.0); Hemoglobin 9.3 g/dL (12.0-15.0); Immature Granulocyte Percent A 0.8 % (0-0.5); Lymphocytes Absolute Auto 0.95 K/mm3 (0.9-3.2); Lymphocytes Percent Auto 3.8 % (18.3-44.2); Mean Corpuscular HGB Conc 29.4 g/dl (32-36); Mean Corpuscular Hemoglobin 30.1 pg (26-34); Mean Corpuscular Volume 102.3 fl (80-100); Mean Platelet Volume 13.9 fl (7.4-10.4); Monocytes Absolute Auto 0.4 K/mm3 (0.1-0.6); Monocytes Percent Auto 1.5 % (2.6-8.5); Neutrophils Absolute Auto 23.2 K/mm3 (1.3-6.7); Neutrophils Percent Auto 93.8 % (45.5-73.1); Platelet Count Result 204 k/mm3 (150-375); Red Blood Count 3.09 M/mm3 (4.2-5.4); Red Cell Distribution Width 12.8 % (11.5-14.5); White Blood Count 24.7 K/mm3 (4.5-10.0)
[2022-06-21 06:32] LABS: Anisocytosis 1+ (NORMAL); Hypochromasia 1+ (NORMAL); Platelet Estimate Adequate (Adequate); Poikilocytosis 1+ (NORMAL); Stomatocytes 1+ (NORMAL)
[2022-06-21 06:36] LABS: Schistocytes None Seen (NORMAL)
[2022-06-21] MEDS: carvediloL 6.25 MG TABLET PO ×2 (09:00→21:07)
[2022-06-21] MEDS: ENOXAPARIN 40 MG/0.4 ML SYRINGE SUB-Q (09:00)
[2022-06-21] MEDS: LIPASE/AMYLASE/PROTEASE 12,000 UNITS CAP 2 CAP PO ×3 (09:03→17:26)
[2022-06-21] MEDS: CHOLECALCIFEROL 1,000 UNITS TABLET 2000 UNITS PO (09:04)
[2022-06-21] MEDS: hydrALAZINE 10 MG TABLET PO (09:04)
[2022-06-21] MEDS: FOLIC ACID 1 MG TABLET PO (09:04)
[2022-06-21] MEDS: CLOPIDOGREL BISULFATE 75 MG TABLET PO (09:04)
[2022-06-21] MEDS: THIAMINE HCL 100 MG TABLET PO (09:04)
[2022-06-21 09:10] LABS: Anion Gap 7 mmol/L (8-16); Blood Urea Nitrogen 44 mg/dL (7-17); Calcium 8.8 mg/dL (8.4-10.2); Carbon Dioxide 32 mmol/L (22-30); Chloride 98 mmol/L (98-107); Estimated CRCL calculation 31 ml/min; Estimated Glomerular Filt Rate 54; Glucose 160 mg/dL (65-110); Potassium 5.3 mmol/L (3.4-5.0); Sodium 137 mmol/L (137-145)
--- NOTE | 2022-06-21 09:18 | PCPTNOTE ---
Patient refused treatment this session due to patient reporting she needs to rest at this time.
--- NOTE | 2022-06-21 09:48 | P.PNIM_ITS ---
Progress Note: A&P Assessment and Plan (1) Sepsis: Code(s): A41.9 - Sepsis, unspecified organism Status: Acute Assessment and Plan: * Meets SIRS criteria with leukocytosis, tachypnea, and lactic acidosis * Source of infection PNA * Chest xray suspects PNA * Blood cultures ordered and pending * Lactic acid has improved * continue Rocephin and azithromycin (2) Community acquired pneumonia: Code(s): J18.9 - Pneumonia, unspecified organism Status: Acute Assessment and Plan: * Chest xray notes patchy bilateral infiltrates, suspicious for PNA * white blood cell count is elevated. She does not feel any better and has no worsening respiratory status. * Will check CT scan (3) COPD (chronic obstructive pulmonary disease): Code(s): J44.9 - Chronic obstructive pulmonary disease, unspecified Status: Acute Assessment and Plan: * Admits to increase in wheezes and shortness of breath * Denies any increase in sputum * Could be in exacerbation * Methylprednisolone 60mg IV Q8H, titrate as appropiate * Supplemental oxygen, 4L chronic at home * Trend SPO2 * Neb treatments ordered (4) Diabetes: Code(s): E11.9 - Type 2 diabetes mellitus without complications Status: Acute Assessment and Plan: * History of diabetes * Not currently treated for diabetes * A1c ordered * Current glucose is 148 * Accu cheks due to hyperglycemia * Consider insulin sliding scale * Trend glucose * Adjust therapy as indicated (5) Hyperlipidemia: Code(s): E78.5 - Hyperlipidemia, unspecified Status: Acute Assessment and Plan: * Not on a statin currently * Lipid panel ordered (6) CKD (chronic kidney disease): Code(s): N18.9 - Chronic kidney disease, unspecified Status: Acute Assessment and Plan: * Current Cr is 1.20 * Baseline appears to be about 1.30 * Continue to trend labs * Stable at this time * Trend labs at this time (7) Hyperkalemia: Code(s): E87.5 - Hyperkalemia Status: Acute Assessment and Plan: * Current K is 5.8 * Continue to trend labs * EKG SR No real T wave changes * Consider Lokelma or Kayexalate * Furosemide 40mg IV x 1 (8) Hypertension: Code(s): I10 - Essential (primary) hypertension Status: Acute Assessment and Plan: * Current BP is 150/68 * Continue hydralazine 10mg PO Daily, carvedilol 6.25mg PO Q12H * Trend BP * adjust therapy as indicated Subjective Date/time seen: 06/21/22 09:48 Patient denies any worsening shortness of breath. Exam Const: General: cooperative, comfortable, no acute distress, well developed, alert, awake, ill appearing and tired appearing Nutritional Appearance: well nourished Orientation/consciousness: oriented to person, oriented to place, oriented to time and patient oriented x3 Limitations: no limitations HENMT: Head: normal to inspection Ears: hearing grossly normal bilaterally General nose exam: Normal external nose present Mouth: Yes Normal oral and palatal mucosa present, Yes lip normal and Yes tongue normal Teeth and gingiva: abnormal tooth and associated gingiva and poor dentition Eyes: General: appearance normal, both eyes and all related structures Pupils: Equal, round a
[2022-06-21] MEDS: MIRTAZAPINE 15 MG TABLET PO (21:07)
[2022-06-22] VITALS (18 sets, daily range): BP systolic 130–167; BP diastolic 57–87; PULSE 60–100; RESP 12–18; TEMP 36.7–37.1; O2SAT 99–100
[2022-06-22] MEDS: IPRATROPIUM BR 0.02% INH SOLN 0.5 MG/2.5 ML VIAL INHALATION ×4 (02:48→20:48)
[2022-06-22] MEDS: ALBUTEROL SULFATE NEB 2.5 MG/3 ML INH 5 MG INHALATION ×4 (02:48→20:48)
[2022-06-22] MEDS: methylPREDNISolone SOD SUCC 125 MG VIAL 60 MG IV PUSH ×3 (06:03→21:21)
[2022-06-22 06:17] LABS: Basophils Percent Auto 0.1 % (0.2-1.2); Eosinophils Percent Auto 0.2 % (0-4.4); Hematocrit 29.5 % (37.0-47.0); Hemoglobin 8.6 g/dL (12.0-15.0); Immature Granulocyte Absolute 0.14 K/mm3 (0.00-0.031); Immature Granulocyte Percent A 0.7 % (0-0.5); Immature Platelet Fraction Pct 20.1 % (0.9-11.2); Lymphocytes Absolute Auto 0.82 K/mm3 (0.9-3.2); Lymphocytes Percent Auto 4.1 % (18.3-44.2); Mean Corpuscular HGB Conc 29.2 g/dl (32-36); Mean Corpuscular Volume 102.8 fl (80-100); Mean Platelet Volume 14.2 fl (7.4-10.4); Monocytes Absolute Auto 0.7 K/mm3 (0.1-0.6); Monocytes Percent Auto 3.4 % (2.6-8.5); Neutrophils Absolute Auto 18.3 K/mm3 (1.3-6.7); Neutrophils Percent Auto 91.5 % (45.5-73.1); Platelet Count Result 164 k/mm3 (150-375); Red Blood Count 2.87 M/mm3 (4.2-5.4); Red Cell Distribution Width 12.9 % (11.5-14.5)
[2022-06-22 06:20] LABS: Anion Gap 8 mmol/L (8-16); Blood Urea Nitrogen 50 mg/dL (7-17); Calcium 8.1 mg/dL (8.4-10.2); Carbon Dioxide 31 mmol/L (22-30); Chloride 98 mmol/L (98-107); Estimated CRCL calculation 31 ml/min; Estimated Glomerular Filt Rate 54; Glucose 216 mg/dL (65-110); Potassium 4.6 mmol/L (3.4-5.0); Sodium 137 mmol/L (137-145)
[2022-06-22 07:32] LABS: Platelet Estimate Adequate (Adequate); Poikilocytosis 1+ (NORMAL)
[2022-06-22 07:33] LABS: Anisocytosis 1+ (NORMAL); Hypochromasia 1+ (NORMAL); Schistocytes None Seen (NORMAL)
[2022-06-22] MEDS: carvediloL 6.25 MG TABLET PO ×2 (09:11→21:22)
[2022-06-22] MEDS: CHOLECALCIFEROL 1,000 UNITS TABLET 2000 UNITS PO (09:11)
[2022-06-22] MEDS: CLOPIDOGREL BISULFATE 75 MG TABLET PO (09:12)
[2022-06-22] MEDS: FOLIC ACID 1 MG TABLET PO (09:12)
[2022-06-22] MEDS: THIAMINE HCL 100 MG TABLET PO (09:12)
[2022-06-22] MEDS: ENOXAPARIN 40 MG/0.4 ML SYRINGE SUB-Q (09:12)
[2022-06-22] MEDS: LIPASE/AMYLASE/PROTEASE 12,000 UNITS CAP 2 CAP PO ×3 (09:12→17:04)
[2022-06-22] MEDS: hydrALAZINE 10 MG TABLET PO (10:07)
--- NOTE | 2022-06-22 10:10 | PM.IMPN ---
Progress Note: A&P Assessment and Plan (1) Sepsis: Code(s): A41.9 - Sepsis, unspecified organism Status: Acute Assessment and Plan: Meets SIRS criteria with leukocytosis, tachypnea, and lactic acidosis Source of infection PNA Chest xray suspects PNA Blood cultures ordered and pending Lactic acid has improved continue Rocephin and azithromycin (2) Community acquired pneumonia: Code(s): J18.9 - Pneumonia, unspecified organism Status: Acute Assessment and Plan: Chest xray notes patchy bilateral infiltrates, suspicious for PNA white blood cell count is elevated. She does not feel any better and has no worsening respiratory status. Will check CT scan (3) COPD (chronic obstructive pulmonary disease): Code(s): J44.9 - Chronic obstructive pulmonary disease, unspecified Status: Acute Assessment and Plan: Admits to increase in wheezes and shortness of breath Denies any increase in sputum Could be in exacerbation Methylprednisolone 60mg IV Q8H, titrate as appropiate Supplemental oxygen, 4L chronic at home Trend SPO2 Neb treatments ordered (4) Diabetes: Code(s): E11.9 - Type 2 diabetes mellitus without complications Status: Acute Assessment and Plan: History of diabetes Not currently treated for diabetes A1c ordered Current glucose is 148 Accu cheks due to hyperglycemia Consider insulin sliding scale Trend glucose Adjust therapy as indicated (5) Hyperlipidemia: Code(s): E78.5 - Hyperlipidemia, unspecified Status: Acute Assessment and Plan: Not on a statin currently Lipid panel ordered (6) CKD (chronic kidney disease): Code(s): N18.9 - Chronic kidney disease, unspecified Status: Acute Assessment and Plan: Current Cr is 1.20 Baseline appears to be about 1.30 Continue to trend labs Stable at this time Trend labs at this time (7) Hyperkalemia: Code(s): E87.5 - Hyperkalemia Status: Acute Assessment and Plan: Current K is 5.8 Continue to trend labs EKG SR No real T wave changes Consider Lokelma or Kayexalate Furosemide 40mg IV x 1 (8) Hypertension: Code(s): I10 - Essential (primary) hypertension Status: Acute Assessment and Plan: Current BP is 150/68 Continue hydralazine 10mg PO Daily, carvedilol 6.25mg PO Q12H Trend BP adjust therapy as indicated Subjective Date/time seen: 06/22/22 10:10 No new complaints Exam Const: General: cooperative, comfortable, no acute distress, well developed, alert, awake, ill appearing and tired appearing Nutritional Appearance: well nourished Orientation/consciousness: oriented to person, oriented to place, oriented to time and patient oriented x3 Limitations: no limitations HENMT: Head: normal to inspection Ears: hearing grossly normal bilaterally General nose exam: Normal external nose present Mouth: Yes Normal oral and palatal mucosa present, Yes lip normal and Yes tongue normal Teeth and gingiva: abnormal tooth and associated gingiva and poor dentition Eyes: General: appearance normal, both eyes and all related structures Pupils: Equal, round and reactive pupils present Neck: Neck: normal visual inspection, full ROM, trachea midline and supple Chest: Chest palpation & inspection: normal inspection of the chest Resp: Effort & Inspection: normal respiratory effort and able to speak in complete sentences Auscultation: clear to auscultation bilaterally and diminished lung sounds bilateral in the lower lung jung Cardio: Jugular venous distension: no JVD Rate: regular rate Rhythm: regular rhythm Heart sounds: S1 normal heart sound present and S2 normal heart sound present Peripheral pulses: Peripheral pulses 2+ throughout GI: Inspection: normal to inspection Auscultation: normal bowel sounds
[2022-06-22] MEDS: MIRTAZAPINE 15 MG TABLET PO (21:22)
[2022-06-23] VITALS (14 sets, daily range): BP systolic 152–180; BP diastolic 68–80; PULSE 65–93; RESP 12–20; TEMP 36.3–36.4; O2SAT 100
[2022-06-23] MEDS: ALBUTEROL SULFATE NEB 2.5 MG/3 ML INH 5 MG INHALATION ×3 (02:14→12:43)
[2022-06-23] MEDS: IPRATROPIUM BR 0.02% INH SOLN 0.5 MG/2.5 ML VIAL INHALATION ×2 (02:14→08:10)
[2022-06-23] MEDS: methylPREDNISolone SOD SUCC 125 MG VIAL 60 MG IV PUSH ×2 (06:47→13:49)
[2022-06-23] MEDS: ENOXAPARIN 40 MG/0.4 ML SYRINGE SUB-Q (09:27)
[2022-06-23] MEDS: LIPASE/AMYLASE/PROTEASE 12,000 UNITS CAP 2 CAP PO ×2 (09:27→11:05)
[2022-06-23] MEDS: carvediloL 6.25 MG TABLET PO (09:27)
[2022-06-23] MEDS: CHOLECALCIFEROL 1,000 UNITS TABLET 2000 UNITS PO (09:27)
[2022-06-23] MEDS: THIAMINE HCL 100 MG TABLET PO (09:28)
[2022-06-23] MEDS: CLOPIDOGREL BISULFATE 75 MG TABLET PO (09:28)
[2022-06-23] MEDS: FOLIC ACID 1 MG TABLET PO (09:28)
[2022-06-23] MEDS: hydrALAZINE 10 MG TABLET PO (09:28)
--- NOTE | 2022-06-23 14:27 | PM.DS ---
DS: Admitting Diagnosis Discharge Date 06/23/22 Admitting Diagnosis pna DS: Discharge Diagnosis Discharge Diagnosis (1) Sepsis: Code(s): A41.9 - Sepsis, unspecified organism Status: Acute (2) Community acquired pneumonia: Code(s): J18.9 - Pneumonia, unspecified organism Status: Acute (3) COPD (chronic obstructive pulmonary disease): Code(s): J44.9 - Chronic obstructive pulmonary disease, unspecified Status: Acute (4) Diabetes: Code(s): E11.9 - Type 2 diabetes mellitus without complications Status: Acute (5) Hyperlipidemia: Code(s): E78.5 - Hyperlipidemia, unspecified Status: Acute (6) CKD (chronic kidney disease): Code(s): N18.9 - Chronic kidney disease, unspecified Status: Acute (7) Hyperkalemia: Code(s): E87.5 - Hyperkalemia Status: Acute (8) Hypertension: Code(s): I10 - Essential (primary) hypertension Status: Acute DS: Summary Hospital Course Hospital Course: admited for pneumonia - started on rocephin and azithromycin - did well clinically, never required additional oxygen from baseline. CX negative, will be sent homeon oral omnicef Time Spent with Patient Time attestation: Total time spent providing and/or coordinating discharge services: Exam Narrative: General: alert and oriented Psych: appropriate mood nad affect Eyes: PERRLA Neck: Trachea midline, no new lesions Skin: no changes Lungs: CTA Cardiac: Normal S1,S2, no MGR ABD: soft, nd, nt, nbs Ext: no new lesions, no cce Vasc: Pulses intact DS: Data Data Completed and Pending Labs on day of discharge: Preliminary micro results at discharge 06/19/22 15:33 Blood Culture - Preliminary Blood 06/19/22 15:31 Blood Culture - Preliminary Blood Discharge Plan Discharge Attending physician on discharge: Vivek Quijano Discharging Clinician: Vivek Quijano Patient Disposition: Home, Self-Care Activity: no preference Diet: as tolerated Discharge Instructions: per care coordination, [facility] is arranged for RN, PT/OT evaluations and treatment. [facility] can be reached at [phone]. [facility] will contact you to arrange first visit. RN, please fax discharge instructions to [phone] once complete. Thank you. Patient Instructions: Antibiotic Form, Clopidogrel (By mouth), Heart Failure (GEN) Stand Alone Forms: General Discharge Information Follow-up/Referrals: Gm,Kael Tate MD [Primary Care Provider] - Discharge Medications: New cefdinir 300 mg capsule 300 mg PO Q12H Qty: 10 0RF Continued albuterol sulfate 90 mcg/actuation HFA aerosol inhaler 2 puff inhalation Q4H PRN (Reason: Shortness Of Breath Or Wheezing) carvedilol 6.25 mg tablet 6.25 mg PO Q12H Rx Instructions: must administer with a meal/food Creon 24,000-76,000 -120,000 unit capsule,delayed release(DR/EC) 1 cap PO TID Rx Instructions: administer with meals and/or snacks mirtazapine 15 mg tablet 15 mg PO QHS clopidogrel [Plavix] 75 mg tablet 75 mg PO DAILY prednisone 5 mg tablet 5 mg PO EVERY OTHER DAY thiamine HCl (vitamin B1) 100 mg tablet 100 mg PO DAILY hydralazine 10 mg tablet 10 mg PO DAILY folic acid 1 mg tablet 1 mg PO DAILY cholecalciferol (vitamin D3) 50 mcg (2,000 unit) Capsule 50 mcg PO DAILY Spiriva Respimat 2.5 mcg/actuation Mist 2 puff INHALATION DAILY Date of admission: 06/21/22 10:52 Primary Care Provider: GmKael Admitting Provider: Meagan Davila Attending physician on admission: Meagan Davila Condition: Stable
== END 2022-06-23 15:19 | disposition home health service (06) | DRG 194 ==
LOC: ANHED 12:06 → ANH2MED 12:26
PROVIDERS: Nurse Practitioner; Admitting Provider Family Medicine; Emergency Provider Emergency Medicine; PCP Internal Medicine Gastroenterology; Visit Provider Chiropractor
DX: J18.9 Pneumonia, unspecified organism (principal); J44.0 Chronic obstructive pulmonary disease with (acute) lower respiratory infection; E87.5 Hyperkalemia; I12.9 Hypertensive chronic kidney disease with stage 1 through stage 4 chronic kidney disease, or unspecified chronic kidney disease; N18.9 Chronic kidney disease, unspecified; E11.22 Type 2 diabetes mellitus with diabetic chronic kidney disease; E78.5 Hyperlipidemia, unspecified; D64.9 Anemia, unspecified; Z20.822 Contact with and (suspected) exposure to COVID-19; Z99.81 Dependence on supplemental oxygen; Z86.73 Personal history of transient ischemic attack (TIA), and cerebral infarction without residual deficits; Z79.01 Long term (current) use of anticoagulants; Z87.891 Personal history of nicotine dependence
CPT/HCPCS: 36415; 36569; 71045; 71250; 80048; 80053; 80061; 82607; 82728; 82746; 83036; 83540; 83550; 83605; 83880; 84132; 84443; 84466; 84484; 85025; 85055; 85610; 85730; 87040; 93005; 94640; 96365; 96366; 96368; 96372; 96375; 96376; 97161; 97165; 97530; 97535; 99285; A9270; C1751; C9803; G0378; J0456; J0696; J1650; J1940; J2930; U0003; U0005

== ENCOUNTER 2022-09-02 21:40 | Inpatient (IN) | payer MEDICARE, OTHER, SELFPAY ==
--- NOTE | ~2022-09-02 | XR_ITS ---
EXAMINATION: XR chest PICC line DATE: 09/12/2022 13:54 INDICATION: Central line placement. TECHNIQUE: A single frontal view of the chest was obtained. COMPARISON: Chest single view 09/08/2022 FINDINGS: The lungs demonstrate lucencies and interstitial opacities, consistent with emphysema. Ther e are mild airspace opacities in right lower lung zone and left mid and lower lung zones. No pleural effusion or pneumothorax. The heart size is normal. There is a left shoulder arthroplasty. There is a dvanced osteoarthritis of right glenohumeral joint. A right upper extremity peripherally inserted lavern tral venous catheter (PICC) is seen with tip in the superior vena cava. IMPRESSION: 1. PICC tip in the superior vena cava. 2. Stable airspace opacities in right lower lung zone and left mid and lower lung zones, consistent w ith atelectasis/scarring versus pneumonia. 3. Severe emphysema. Reviewed, dictated and finalized at location A. CAR INSPECTOR IMPRESSION: 1. PICC tip in the superior vena cava. 2. Stable airspace opacities in right lower lung zone and left mid and lower gonzalez ng zones, consistent with atelectasis/scarring versus pneumonia. 3. Severe emphysema.
--- NOTE | ~2022-09-02 | XR_ITS ---
EXAMINATION: XR chest 1V portable Exam Date/Time: 09/02/2022 22:50 TOPOLOGY TEACHER HISTORY: dyspnea, LETHARGIC, HX COPD, HX HTN Comparison: 06/19/2022, CT chest 06/21/2022. RESULT: Lines, tubes, and devices: Left shoulder arthroplasty. Lungs and pleura: Slightly increased peripheral reticular reticulonodular opacities, overlying a jakob kground of emphysematous change and scarring. Tenting of the left hemidiaphragm. Cardiomediastinal silhouette: Stable. Other: No acute osseous or upper abdominal finding. IMPRESSION: Pulmonary opacities may reflect mild interstitial edema and/or atypical infection. Reviewed, dictated and finalized at location K. LOGY TEACHER IMPRESSION: Pulmonary opacities may reflect mild interstitial edema and/or atypical infecti on.
--- NOTE | ~2022-09-02 | CT_ITS ---
EXAMINATION: CT forearm LT wo con DATE: 09/11/2022 21:04 INDICATION: Left arm swelling. TECHNIQUE: Computed tomography (CT) of the left upper limb was performed without intravenous contrast . Automated exposure control and iterative reconstruction technique were employed. The dose-length pr oduct was 665.19 mGy-cm. COMPARISON: None FINDINGS: The left upper limb demonstrates normal bone alignment. No fracture. There is a large subcu taneous hematoma in the left forearm. There is a large predominantly intramuscular hematoma in the me dial left upper arm. There is soft tissue edema in the left upper limb. IMPRESSION: 1. Large hematomas in the left forearm and left upper arm. Reviewed, dictated and finalized at location A. S OPERATOR [employer]
--- NOTE | ~2022-09-02 | XR_ITS ---
EXAMINATION: XR chest 1V portable DATE: 09/08/2022 00:13 INDICATION: Atrial fibrillation. Shortness of breath. TECHNIQUE: A single frontal view of the chest was obtained. COMPARISON: Chest single view 09/04/2022, chest CT 06/21/2022 FINDINGS: The lungs are hyperexpanded with chronic interstitial opacities, consistent with emphysema. There is mild atelectasis versus scarring in the lower lung zones and left midlung zone. No pleural effusion or pneumothorax. The heart size is normal. There is a total left shoulder arthroplasty. Ther e is an old healed fracture deformity of proximal right humerus. IMPRESSION: 1. Stable mild atelectasis versus scarring in the lower lung zones and left midlung zone. 2. Emphysema. Reviewed, dictated and finalized at location A. ENT SUPPORT ASSOCIATE IMPRESSION: 1. Stable mild atelectasis versus scarring in the lower lung zones and left mid lung zone. 2. Emphysema.
--- NOTE | ~2022-09-02 | US_ITS ---
EXAMINATION: US soft tissue UE LT DATE: 09/09/2022 22:42 INDICATION: New mass on lower arm. . TECHNIQUE: Grayscale and Doppler ultrasound images of the left arm were obtained. COMPARISON: None. FINDINGS: Hypoechoic heterogeneous subcutaneous collection in the area of interest measuring 7.0 x 3. 9 x 5.4 cm no significant internal color flow. IMPRESSION: 7 cm subcutaneous cystic mass or fluid collection at the medial elbow. This may represent a hematoma, or depending on its precise location, bursitis could also be considered. Abscess is not excluded, bu t considered less likely based on the sonographic appearance. Reviewed, dictated and finalized at location K. LESOFT HR DEVELOPER IMPRESSION: 7 cm subcutaneous cystic mass or fluid collection at the medial elbow. This may represent a hematoma, or depending on its precise location, bursitis could als o be considered. Abscess is not excluded, but considered less likely based on t he sonographic appearance.
--- NOTE | ~2022-09-02 | CT_ITS ---
EXAMINATION: CT chest abdomen pelvis wo con DATE: 09/11/2022 21:03 INDICATION: Anemia. TECHNIQUE: Computed tomography (CT) of the chest, abdomen, and pelvis was performed without intraveno us contrast. Automated exposure control and iterative reconstruction technique were employed. The dos e-length product was 441.23 mGy-cm. COMPARISON: Chest CT 06/21/2022, ultrasound 09/09/2022 FINDINGS: CHEST CT: There is severe emphysema. There are airspace opacities in the lower lobes and posterior aspects of t he upper lobes. There is a small left pleural effusion. The heart size is normal. There is a small pe ricardial effusion. There is a left shoulder arthroplasty. Partially visualized is a hematoma in left upper arm. ABDOMEN/PELVIS CT: The liver, gallbladder, spleen, and normal. There are calcifications in the pancreas, consistent with chronic pancreatitis. The adrenal glands and kidneys are normal. There is no urolithiasis. There is diverticulosis of the colon without evidence of diverticulitis. The appendix is normal. There are no dilated loops of bowel. There is fat stranding at the root of the small bowel mesentery. There are no pathologically enlarged lymph nodes. There is no free intraperitoneal fluid. Small subcutaneous mass es in anterior abdominal wall are likely injection sites. There are old healed fractures of left supe rior and inferior pubic rami. There are bilateral hip arthroplasties. A plate and cables are noted in proximal left femur. There is no fracture deformity of right sacral ala. There is a chronic compress ion fracture of L2. IMPRESSION: 1. Airspace opacities in the lower lobes and posterior aspects of the upper lobes, consistent with at electasis/scarring versus pneumonia. 2. Severe emphysema. 3. Small left pleural effusion. 4. Chronic small pericardial effusion. 5. Partially visualized hematoma in left upper arm. 6. Fat stranding at the root of the small bowel mesentery, consistent with edema versus inflammation/ scarring (mesenteric panniculitis). Reviewed, dictated and finalized at location A. DITOR IMPRESSION: 1. Airspace opacities in the lower lobes and posterior aspects of the upper lob es, consistent with atelectasis/scarring versus pneumonia. 2. Severe emphysema. 3. Small left pleural effusion. 4. Chronic small pericardial effusion. 5. Partially visualized hematoma in left upper arm. 6. Fat stranding at the root of the small bowel mesentery, consistent with jason a versus inflammation/scarring (mesenteric panniculitis).
--- NOTE | ~2022-09-02 | XR_ITS ---
EXAMINATION: XR chest 1V portable DATE: 09/04/2022 06:21 INDICATION: Shortness of breath TECHNIQUE: frontal view of the chest was obtained. COMPARISON: Chest radiograph dated 09/02/[address] dated 06/21/2022 FINDINGS: Stable appearance of small triangular opacity along the left hemidiaphragm and scattered linear and m ild interstitial opacities in the bilateral mid and lower lung zones. Underlying emphysema better vish reciated on prior CT. No pleural effusion or pneumothorax. The cardiomediastinal silhouette is within normal limits for AP technique. Old proximal right humeral fracture. Left total shoulder arthroplast y. IMPRESSION: 1. Emphysema with interval appearance of opacities in bilateral mid and lower lung zones consistent w ith atelectasis and potentially superimposed mild pulmonary edema and/or pneumonia. Reviewed, dictated and finalized at location A. PATIAL DEVELOPER IMPRESSION: 1. Emphysema with interval appearance of opacities in bilateral mid and lower l jairo zones consistent with atelectasis and potentially superimposed mild pulmona ry edema and/or pneumonia.
[2022-09-02 22:00] VITALS: BP 178/97; PULSE 103; RESP 26; O2SAT 100
[2022-09-02 22:07] VITALS: O2SAT 100
[2022-09-02 23:00] VITALS: PULSE 100; RESP 40
[2022-09-02] MEDS: ALBUTEROL SULFATE NEB 2.5 MG/3 ML INH 5 MG INHALATION (23:00)
[2022-09-02] MEDS: IPRATROPIUM BR 0.02% INH SOLN 0.5 MG/2.5 ML VIAL INHALATION (23:00)
[2022-09-02 23:08] LABS: Alveolar/Arterial O2 Gradient 14.1 mmHg; Base Excess ABG 4.3 mEq/l (+/-2.0); Fractional Inspired Oxygen 40 %; HCO3 ABG 32.6 mEq/l (22.0-26.0); Oxygen Content ABG 15.8 %vol (16.0-22.0); Oxygen Saturation ABG 99.1 % (95.0-100.0); Oxyhemoglobin 97.9 % THb (90.0-100.0); PO2 ABG 190.4 mmHg (80.0-100.0); PO2 FiO2 Ratio Arterial Blood 4.76 %; Total Hemoglobin 11.2 g/dL (12.0-18.0)
[2022-09-02 23:12] LABS: Device NASAL CANNULA; Modified Allen's Test Pass; PCO2 ABG 70.2 mmHg (35.0-45.0); Site Drawn RIGHT BRACHIAL
[2022-09-02 23:20] VITALS: PULSE 100; RESP 39; O2SAT 100
[2022-09-02 23:23] LABS: Basophils Percent Auto 0.4 % (0.2-1.2); Eosinophils Absolute Auto 0.3 K/mm3 (0-0.3); Eosinophils Percent Auto 2.8 % (0-4.4); Hematocrit 36.3 % (37.0-47.0); Hemoglobin 10.7 g/dL (12.0-15.0); Immature Granulocyte Absolute 0.04 K/mm3 (0.00-0.031); Immature Granulocyte Percent A 0.4 % (0-0.5); Immature Platelet Fraction Pct 14.9 % (0.9-11.2); Lymphocytes Absolute Auto 1.13 K/mm3 (0.9-3.2); Lymphocytes Percent Auto 11.4 % (18.3-44.2); Mean Corpuscular HGB Conc 29.5 g/dl (32-36); Mean Corpuscular Hemoglobin 30.4 pg (26-34); Mean Corpuscular Volume 103.1 fl (80-100); Mean Platelet Volume 13.5 fl (7.4-10.4); Monocytes Absolute Auto 0.9 K/mm3 (0.1-0.6); Neutrophils Absolute Auto 7.5 K/mm3 (1.3-6.7); Platelet Count Result 161 k/mm3 (150-375); Red Blood Count 3.52 M/mm3 (4.2-5.4); Red Cell Distribution Width 12.6 % (11.5-14.5); White Blood Count 9.9 K/mm3 (4.5-10.0)
[2022-09-02 23:32] LABS: INR 1.1; Prothrombin Time 14.1 Seconds (11.1-14.7)
[2022-09-02 23:33] LABS: Partial Thromboplastin Time 26.5 SECONDS (22.3-36.8)
[2022-09-02 23:39] LABS: Appearance Urine Clear (Clear); Bilirubin Urine Negative (Negative); Blood Urine 1+ (Negative); Color Urine Yellow (Yellow); Glucose Urine UA Negative (Negative); Ketones Urine Negative (Negative); Leukocyte Esterase Ur Negative LEU/UL (Negative); Nitrate Urine Negative (Negative); Protein Urine 2+ mg/dL (Negative); Urobilinogen Urine 0.2 mg/dL (<2.0); pH Urine 5.5 (5.0-9.0)
[2022-09-02 23:43] LABS: Alanine Aminotransferase 10 U/L (6-35); Albumin Level 4.2 g/dL (3.5-5.1); Alkaline Phosphatase 99 U/L (38-126); Anion Gap 5 mmol/L (8-16); Aspartate Amino Transferase 29 U/L (14-36); Bilirubin,Total 0.3 mg/dL (0.2-1.3); Blood Urea Nitrogen 28 mg/dL (7-17); Calcium 9.5 mg/dL (8.4-10.2); Carbon Dioxide 34 mmol/L (22-30); Chloride 95 mmol/L (98-107); Estimated CRCL calculation 29 ml/min; Estimated Glomerular Filt Rate 49; Glucose 97 mg/dL (65-110); Magnesium 1.4 mg/dL (1.6-2.3); Potassium 6.8 mmol/L (3.4-5.0); Sodium 134 mmol/L (137-145)
[2022-09-02 23:47] LABS: WBC Urine 0-3 /hpf
[2022-09-02 23:53] LABS: Add Urine Microscopic? YES
[2022-09-02 23:54] LABS: NT Pro B Type Natriuretic Pept 710 pg/mL (5-100); Troponin I 0.072 ng/mL (0.000-0.034)
[2022-09-02] MEDS: methylPREDNISolone SOD SUCC 125 MG VIAL IV PUSH (23:54)
[2022-09-02 23:57] LABS: Influenza A QL RT-PCR Negative (Negative); Influenza B QL RT-PCR Negative (Negative); RSV RNA, RT-PCR Positive (Negative); SARS-CoV-2 RNA PCR Negative
[2022-09-03] VITALS (30 sets, daily range): BP systolic 135–179; BP diastolic 64–100; PULSE 83–110; RESP 16–26; TEMP 36.4–37.7; O2SAT 90–100; BMI 23.1
--- NOTE | 2022-09-03 00:13 | ECG_ITS ---
Measurements Intervals [place] Rate: 99 P: AK: 0 QRS: -53 QRSD: 95 T: 55 QT: 306 QTc: 394 Interpretive Statements SINUS RHYTHM LEFT ANTERIOR FASCICULAR BLOCK [QRS AXIS <= -45, QR IN I, RS IN II] NONSPECIFIC ST AND T-WAVE ABNORMALITY COMPARED TO ECG 06/19/2022 10:32:55 NO SIGNIFICANT CHANGES Electronically Signed On 09-03-2022 15:28:05 UM NURSE by Luther Kendrick M.D.
[2022-09-03 00:15] LABS: Procalcitonin 0.2 ng/mL
--- NOTE | 2022-09-03 01:21 | ED.GENADULT ---
HPI - General Adult General Chief complaint: Shortness of Breath/Dyspnea Stated complaint: Unspecified Time Seen by Provider: 09/02/22 22:37 History of Present Illness HPI narrative: Patient is a 72-year-old female presents emerged department with chief complaint of shortness of breath. Patient reports that she is a little cough at home and reports that she has history of COPD and has been having increasing shortness of breath throughout the day. Patient states she had very shallow respirations and reports it feels similar to whenever she had pneumonia a couple months ago. Related Data Home Medications Medication Instructions Recorded Confirmed albuterol sulfate 90 mcg/actuation 2 puff inhalation Q4H PRN 11/29/20 06/19/22 aerosol inhaler Shortness Of Breath Or Wheezing carvedilol 6.25 mg tablet 6.25 mg PO Q12H 11/29/20 06/19/22 clopidogrel 75 mg tablet (Plavix) 75 mg PO DAILY 11/29/20 06/19/22 hydralazine 10 mg tablet 10 mg PO DAILY 11/29/20 06/19/22 [id number] 1 cap PO TID 11/29/20 06/19/22 24,000-76,000-120,000 unit capsule,delayed rel (Creon) mirtazapine 15 mg tablet 15 mg PO QHS 11/29/20 06/19/22 prednisone 5 mg tablet 5 mg PO EVERY OTHER DAY 11/29/20 06/19/22 thiamine HCl (vitamin B1) 100 mg 100 mg PO DAILY 11/29/20 06/19/22 tablet cholecalciferol (vitamin D3) 50 50 mcg PO DAILY 06/19/22 06/19/22 mcg (2,000 unit) capsule folic acid 1 mg tablet 1 mg PO DAILY 06/19/22 06/19/22 tiotropium bromide 2.5 2 puff inhalation DAILY 06/19/22 06/19/22 mcg/actuation mist for inhalation (Spiriva Respimat) Allergies Allergy/AdvReac Type Severity Reaction Status Date / Time No Known Allergies Allergy Verified 06/19/22 14:09 Review of Systems Review of Systems: A 10 system review of systems was completed on the patient and is negative except for what is stated in the HPI. Nursing and ancillary documentation was reviewed. [facility] Past Medical History Medical History CKD (chronic kidney disease) COPD (chronic obstructive pulmonary disease) CVA (cerebral vascular accident) Diabetes Hyperlipidemia Hypertension Pancreatitis Surgical History Surgical History History of hysterectomy Family History Family History Mother Hypertension Cerebrovascular accident Diabetes mellitus Sibling Hypertension Diabetes mellitus Breast cancer Father Hypertension Heart disease Social History Social History Social History: Patient elects Jazmine to be her surrogate with which is her . She wishes to be a full code at this time and denies any pets at the house. 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 HEAD: Normocephalic, atraumatic. EYES: PERRLA and EOMI. ENT: Nares clear, no rhinorrhea or epistaxis. Mucous membranes moist. NECK: Supple. CHEST: Respirations scattered wheezes present. HEART: Regular rate and rhythm. No murmur heard. Normal peripheral pulses. ABDOMEN: Soft, nontender, nondistended, normal active bowel sounds. EXTREMITIES: Normal range of motion. No edema. SKIN: Warm, dry, no rash. NEURO: No focal deficits. Alert and oriented x3. PSYCH: Normal mood and affect.
[2022-09-03] MEDS: DEXTROSE 50% 25 GM/50 ML SYRINGE IV PUSH (01:41)
[2022-09-03] MEDS: CALCIUM GLUCONATE 1,000 MG/10 ML VIAL 1000 MG IV PUSH (01:41)
[2022-09-03] MEDS: INSULIN HUMAN REGULAR (*BKC) 100 UNITS/ML 10 UNITS IV PUSH (01:42)
[2022-09-03] MEDS: ASPIRIN 81 MG CHEWABLE TABLET 324 MG PO (01:53)
[2022-09-03] MEDS: MAGNESIUM SULF 2 GM/WATER 50ML 2 GM/50 ML BAG IVPB (01:59)
[2022-09-03 02:01] LABS: Potassium 5.6 mmol/L (3.4-5.0)
[2022-09-03] MEDS: SODIUM ZIRCONIUM CYCLOSILICATE 10 GM POWD.PACK PO (02:10)
[2022-09-03 02:30] LABS: Troponin I 0.229 ng/mL (0.000-0.034)
[2022-09-03] MEDS: SODIUM CHLORIDE 0.9% IV 1,000 ML 125 ML IV CONT (03:09)
[2022-09-03] MEDS: IPRATROPIUM BR 0.02% INH SOLN 0.5 MG/2.5 ML VIAL INHALATION ×4 (03:47→21:36)
[2022-09-03] MEDS: ALBUTEROL SULFATE NEB 2.5 MG/3 ML INH 5 MG INHALATION ×4 (03:47→21:36)
--- NOTE | 2022-09-03 07:05 | PC.NURSE ---
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 pt laying in darkened room for comfort with family member at bedside. pt tolerating bipap well. continue waiting bed in imu
[2022-09-03 07:21] LABS: Troponin I 0.466 ng/mL (0.000-0.034)
[2022-09-03 07:47] LABS: Creatine Kinase 47 U/L (30-135)
--- NOTE | 2022-09-03 08:07 | PC.NURSE ---
pt sleeping on stretcher with family at bedside. no distress noted.
[2022-09-03] MEDS: methylPREDNISolone SOD SUCC 125 MG VIAL 60 MG IV PUSH ×4 (08:12→23:37)
--- NOTE | 2022-09-03 08:25 | PM.IMHP ---
H&P: HPI History of Present Illness Date/Time: 09/03/22 08:25 Chief Complaint: shortness of breath Narrative: Patient is a 72-year-old female presents emerged department with chief complaint of shortness of breath.? Patient reports that she is a little cough at home and reports that she has history of COPD and has been having increasing shortness of breath throughout the day and hence came to the ER via ambulance.? Patient states she had very shallow respirations and reports it feels similar to whenever she had pneumonia a couple months ago patient was tested positive for RSV and was febrile. ABG showed evidence of it has CO2 retention and was started on BiPAP. She also was hyperkalemic at 6.8 for which is she received treatment in the ER lactic acid was normal procalcitonin was 0.2 ABG was 7.28/70/190. She was diagnosed with acute exacerbation of COPD along with RSV infection and was admitted for further evaluation and treatment Review of Systems Review of Systems: - CONSTITUTIONAL: Denies weight loss, reports fever and chills. - HEENT: Denies changes in vision and hearing - RESPIRATORY: reports SOB and cough. - CV: Denies palpitations and CP. - GI: Denies abdominal pain, nausea, vomiting and diarrhea. - : Denies dysuria and urinary frequency. - MSK: Denies myalgia and joint pain. - SKIN: Denies rash and pruritus. - NEUROLOGICAL: Denies headache and syncope. - PSYCHIATRIC: Denies recent changes in mood. Denies anxiety and depression. PMFSH Past Medical History Medical History CKD (chronic kidney disease) COPD (chronic obstructive pulmonary disease) CVA (cerebral vascular accident) Diabetes Hyperlipidemia Hypertension Pancreatitis Surgical History Surgical History History of hysterectomy Family History Family History Mother Hypertension Cerebrovascular accident Diabetes mellitus Sibling Hypertension Diabetes mellitus Breast cancer Father Hypertension Heart disease Social History Social History Social History: Patient elects Jazmine to be her surrogate with which is her . She wishes to be a full code at this time and denies any pets at the house. 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 Gender identity (if verbalized by the patient): Female Sexual Orientation (if Verbalized by the Patient): Straight or Heterosexual Spiritual care concerns: No (Holiness) Agree to blood products: Yes Meds Home Medications and Allergies Home Medications Medication Instructions Recorded Confirmed Type albuterol sulfate 90 mcg/actuation 2 puff inhalation Q4H PRN 11/29/20 09/03/22 History aerosol inhaler Shortness Of Breath Or Wheezing carvedilol 6.25 mg tablet 6.25 mg PO Q12H 11/29/20 09/03/22 History clopidogrel 75 mg tablet (Plavix) 75 mg PO DAILY 11/29/20 09/03/22 History hydralazine 10 mg tablet 10 mg PO DAILY 11/29/20 09/03/22 History [id number]-[id number] 1 cap PO TID 11/29/20 09/03/22 History 24,000-76,000-120,000 unit capsule,delayed rel (Creon) mirtazapine 15 mg tablet 15 mg PO QHS 11/29/20
[2022-09-03 08:55] LABS: Alanine Aminotransferase 10 U/L (6-35); Albumin Level 3.6 g/dL (3.5-5.1); Alkaline Phosphatase 92 U/L (38-126); Anion Gap 8 mmol/L (8-16); Aspartate Amino Transferase 38 U/L (14-36); Bilirubin,Total 0.3 mg/dL (0.2-1.3); Blood Urea Nitrogen 27 mg/dL (7-17); Calcium 9.6 mg/dL (8.4-10.2); Carbon Dioxide 28 mmol/L (22-30); Chloride 95 mmol/L (98-107); Estimated CRCL calculation 29 ml/min; Estimated Glomerular Filt Rate 49; Glucose 126 mg/dL (65-110); Magnesium 2.5 mg/dL (1.6-2.3); Potassium 4.6 mmol/L (3.4-5.0); Sodium 131 mmol/L (137-145)
[2022-09-03 08:57] LABS: Alveolar/Arterial O2 Gradient 74.7 mmHg; Base Excess ABG 3.9 mEq/l (+/-2.0); Fractional Inspired Oxygen 30 %; HCO3 ABG 30.5 mEq/l (22.0-26.0); Oxygen Content ABG 13.7 %vol (16.0-22.0); Oxygen Saturation ABG 93.6 % (95.0-100.0); Oxyhemoglobin 93.4 % THb (90.0-100.0); PCO2 ABG 56.5 mmHg (35.0-45.0); PO2 ABG 72.8 mmHg (80.0-100.0); PO2 FiO2 Ratio Arterial Blood 2.43 %; Total Hemoglobin 10.4 g/dL (12.0-18.0)
[2022-09-03 08:58] LABS: Device NON-INVASIVE VENT; Site Drawn RIGHT BRACHIAL
[2022-09-03 08:59] LABS: Non-Invasive Expiratory Pressure 5 CMH2O; Non-Invasive Vent Rate 16 /MIN
[2022-09-03 09:00] LABS: Non-Invasive Inspiratory Pressure 14 CMH2O
[2022-09-03 09:36] LABS: Basophils Percent Auto 0.2 % (0.2-1.2); Hemoglobin 9.7 g/dL (12.0-15.0); Immature Granulocyte Absolute 0.04 K/mm3 (0.00-0.031); Immature Granulocyte Percent A 0.4 % (0-0.5); Immature Platelet Fraction Pct 12.6 % (0.9-11.2); Lymphocytes Absolute Auto 0.91 K/mm3 (0.9-3.2); Lymphocytes Percent Auto 10.1 % (18.3-44.2); Mean Corpuscular HGB Conc 29.4 g/dl (32-36); Mean Corpuscular Hemoglobin 30.4 pg (26-34); Mean Corpuscular Volume 103.4 fl (80-100); Mean Platelet Volume 13.4 fl (7.4-10.4); Monocytes Absolute Auto 0.1 K/mm3 (0.1-0.6); Neutrophils Absolute Auto 7.9 K/mm3 (1.3-6.7); Neutrophils Percent Auto 88.3 % (45.5-73.1); Platelet Count Result 134 k/mm3 (150-375); Red Blood Count 3.19 M/mm3 (4.2-5.4); Red Cell Distribution Width 12.5 % (11.5-14.5)
[2022-09-03] MEDS: ENOXAPARIN 30 MG/0.3 ML SYRINGE SUB-Q (09:42)
[2022-09-03] MEDS: carvediloL 6.25 MG TABLET PO ×2 (17:34→21:30)
[2022-09-03] MEDS: LIPASE/AMYLASE/PROTEASE 12,000 UNITS CAP 2 CAP PO (17:35)
[2022-09-03] MEDS: CLOPIDOGREL BISULFATE 75 MG TABLET PO (17:37)
[2022-09-03] MEDS: FOLIC ACID 1 MG TABLET PO (17:38)
[2022-09-03] MEDS: hydrALAZINE 10 MG TABLET PO (17:38)
[2022-09-03] MEDS: MIRTAZAPINE 15 MG TABLET PO (21:30)
[2022-09-03] MEDS: FLUTICASONE/SALMETEROL 115-21 MCG INHALER 1 PUFF 2 PUFF INHALATION (21:36)
[2022-09-04] VITALS (23 sets, daily range): BP systolic 150–176; BP diastolic 70–88; PULSE 78–108; RESP 16–26; TEMP 36.5–37.3; O2SAT 98–100; BMI 20.9
--- NOTE | 2022-09-04 | ECHO_ITS ---
Patient Info Name: Conchita Espinoza Age: 72 years : 1950 Gender: Female Ht: 62 in Wt: 114 lbs BSA: 1.50 m2 HR: 101 bpm BP: 179 / 84 mmHg Heart Rhythm: Sinus Rhythm Technical Quality: Fair Exam Date: 09/04/2022 1:45 PM Exam Location: [facility] Patient Status: Inpatient Admit Date: 09/03/2022 Staff Ordering Physician: Emeka Astudillo MD Crocheter Hand: Theodora Jones RDCS Attending Provider: Emeka Astudillo MD Exam Type: CA echo doppler color flow Study Info Indications - elevated troponin Complete two-dimensional, color flow and Doppler transthoracic echocardiogram is performed. Summary 1. Complete two-dimensional, color flow and Doppler transthoracic echocardiogram is performed. 2. Left ventricular systolic function is normal, estimated at 50-55%. 3. The left ventricular diastolic function is grade I diastolic dysfunction. 4. Right ventricular systolic function is normal. 5. There is mild tricuspid valve regurgitation. Left Ventricle Left ventricular chamber dimension is normal. Left ventricular systolic function is normal, estimated at 50-55%. There is no increased left ventricular wall thickness. The left ventricular diastolic function is grade I diastolic dysfunction. Right Ventricle Right ventricular chamber dimension is normal. Right ventricular systolic function is normal. Left Atria Left atrial chamber dimension is normal. Right Atria Right atrial chamber dimension is normal. Atrial Septum Intact interatrial septum visualized by color flow imaging. Aortic Valve The aortic valve is probable trileaflet. There is mild aortic valve sclerosis. There is no aortic valve stenosis. There is no aortic valve regurgitation. Pulmonic Valve The pulmonic valve is not well visualized. Mitral Valve The mitral valve has thickened leaflets. There is no mitral valve stenosis. There is no mitral valve regurgitation. Tricuspid Valve There is no significant tricuspid valve stenosis. There is mild tricuspid valve regurgitation. Pericardium/Pleural There is no pericardial effusion. Inferior Vena Cava Normal inferior vena cava with <50% collapse upon inspiration consistent with elevated right atrial pressure. Aorta The aortic root size at the sinus of Valsalva is normal. Left Ventricular Outflow Tract Name Value Normal LVOT 2D LVOT Diameter 2.0 cm LVOT Doppler LVOT Peak Gradient 3 mmHg LVOT Mean Gradient 1 mmHg LVOT VTI 17 cm LVOT VTI/AV VTI Ratio 0.8 LVOT Stroke Volume 52 ml LVOT CO 4.1 l/min LVOT CI 2.7 l/min/m2 Pulmonic Valve Name Value Normal RVOT Doppler RVOT Peak Gradient
[2022-09-04] MEDS: ALBUTEROL SULFATE NEB 2.5 MG/3 ML INH 5 MG INHALATION ×4 (02:15→21:35)
[2022-09-04] MEDS: IPRATROPIUM BR 0.02% INH SOLN 0.5 MG/2.5 ML VIAL INHALATION ×4 (02:15→21:35)
[2022-09-04] MEDS: ACETAMINOPHEN 500 MG TABLET PO (03:25)
[2022-09-04 04:52] LABS: Basophils Percent Auto 0.2 % (0.2-1.2); Hematocrit 29.2 % (37.0-47.0); Hemoglobin 8.9 g/dL (12.0-15.0); Immature Granulocyte Absolute 0.07 K/mm3 (0.00-0.031); Immature Granulocyte Percent A 0.6 % (0-0.5); Immature Platelet Fraction Pct 15.7 % (0.9-11.2); Lymphocytes Absolute Auto 0.78 K/mm3 (0.9-3.2); Lymphocytes Percent Auto 6.6 % (18.3-44.2); Mean Corpuscular HGB Conc 30.5 g/dl (32-36); Mean Corpuscular Volume 98.3 fl (80-100); Mean Platelet Volume 13.8 fl (7.4-10.4); Monocytes Absolute Auto 0.4 K/mm3 (0.1-0.6); Monocytes Percent Auto 3.4 % (2.6-8.5); Neutrophils Absolute Auto 10.6 K/mm3 (1.3-6.7); Neutrophils Percent Auto 89.2 % (45.5-73.1); Platelet Count Result 138 k/mm3 (150-375); Red Blood Count 2.97 M/mm3 (4.2-5.4); Red Cell Distribution Width 12.6 % (11.5-14.5); White Blood Count 11.9 K/mm3 (4.5-10.0)
[2022-09-04 05:24] LABS: Alveolar/Arterial O2 Gradient 54.7 mmHg; Base Excess ABG 6.8 mEq/l (+/-2.0); Carboxyhemoglobin 0.3 % THb (0-2.0); Fractional Inspired Oxygen 32 %; HCO3 ABG 34.5 mEq/l (22.0-26.0); Methemoglobin ABG 0.5 %THb (0-1.5); Oxygen Content ABG 17.7 %vol (16.0-22.0); Oxyhemoglobin 96.1 % THb (90.0-100.0); PO2 ABG 98.5 mmHg (80.0-100.0); PO2 FiO2 Ratio Arterial Blood 3.08 %; Reduced Hemoglobin 3.1 %THb (0-5.0); pH ABG 7.349 (7.350-7.450)
[2022-09-04 05:27] LABS: Device NASAL CANNULA; Modified Allen's Test Pass; PCO2 ABG 64.1 mmHg (35.0-45.0); Site Drawn RIGHT BRACHIAL
[2022-09-04 08:18] LABS: Alanine Aminotransferase 11 U/L (6-35); Albumin Level 3.4 g/dL (3.5-5.1); Alkaline Phosphatase 71 U/L (38-126); Anion Gap 3 mmol/L (8-16); Aspartate Amino Transferase 26 U/L (14-36); Bilirubin,Total 0.1 mg/dL (0.2-1.3); Blood Urea Nitrogen 30 mg/dL (7-17); Calcium 8.4 mg/dL (8.4-10.2); Carbon Dioxide 36 mmol/L (22-30); Chloride 96 mmol/L (98-107); Estimated CRCL calculation 31 ml/min; Estimated Glomerular Filt Rate 54; Glucose 216 mg/dL (65-110); Magnesium 1.9 mg/dL (1.6-2.3); Potassium 4.4 mmol/L (3.4-5.0); Sodium 135 mmol/L (137-145)
[2022-09-04] MEDS: CHOLECALCIFEROL 1,000 UNITS TABLET 2000 UNITS PO (08:54)
[2022-09-04] MEDS: THIAMINE HCL 100 MG TABLET PO (08:55)
[2022-09-04] MEDS: FERROUS SULFATE 324 MG TABLET PO (08:55)
[2022-09-04] MEDS: CLOPIDOGREL BISULFATE 75 MG TABLET PO (08:55)
[2022-09-04] MEDS: ENOXAPARIN 30 MG/0.3 ML SYRINGE SUB-Q (08:55)
[2022-09-04] MEDS: LIPASE/AMYLASE/PROTEASE 12,000 UNITS CAP 2 CAP PO ×3 (08:56→18:06)
[2022-09-04] MEDS: predniSONE 5 MG TABLET PO (08:56)
[2022-09-04] MEDS: traMADol HCL (*CRX) 50 MG TABLET 100 MG PO (08:56)
[2022-09-04] MEDS: hydrALAZINE 10 MG TABLET PO (08:59)
[2022-09-04] MEDS: carvediloL 6.25 MG TABLET PO ×2 (08:59→21:29)
[2022-09-04] MEDS: MULTIVITAMINS THERAPEUTIC TAB (*BKC) 1 TABLET PO (09:11)
[2022-09-04] MEDS: ASPIRIN 81 MG ENTERIC TABLET PO (09:11)
[2022-09-04] MEDS: UMECLIDINIUM BROMIDE 62.5 MCG ELLIPTA 1 PUFF INHALATION (09:28)
[2022-09-04] MEDS: FLUTICASONE/SALMETEROL 115-21 MCG INHALER 1 PUFF 2 PUFF INHALATION ×2 (09:29→21:36)
--- NOTE | 2022-09-04 09:38 | PM.IMPN ---
Progress Note: A&P Assessment and Plan (1) Acute exacerbation of chronic obstructive airways disease: Code(s): J44.1 - Chronic obstructive pulmonary disease with (acute) exacerbation Status: Acute Assessment and Plan: Initially requiring BiPAP support, now weaned to 3 L nasal cannula Continue steroids, nebulizers Started on Rocephin azithromycin in the ER, will continue this for now (2) Respiratory syncytial virus (RSV) infection: Code(s): B33.8 - Other specified viral diseases Status: Acute Assessment and Plan: Supportive care, as above (3) Elevated troponin: Code(s): R77.8 - Other specified abnormalities of plasma proteins Status: Acute Assessment and Plan: Do not suspect acute cardiac etiology, likely type 2 demand ischemia (4) Acute hypercapnic respiratory failure: Code(s): J96.02 - Acute respiratory failure with hypercapnia Status: Acute Assessment and Plan: As above (5) Hypertension: Code(s): I10 - Essential (primary) hypertension Status: Acute Assessment and Plan: Stable, monitor (6) Hyperkalemia: Code(s): E87.5 - Hyperkalemia Status: Acute Assessment and Plan: Given Lokelma in the ER, monitor, resolved (7) CKD (chronic kidney disease): Code(s): N18.9 - Chronic kidney disease, unspecified Status: Acute Assessment and Plan: Stable, at baseline (8) Diabetes: Code(s): E11.9 - Type 2 diabetes mellitus without complications Status: Acute Assessment and Plan: Accu-Cheks plus sliding scale insulin, A1c pending Last A1c was 4.5, uncertain if patient officially has diabetes diagnosis (9) Hyperlipidemia: Code(s): E78.5 - Hyperlipidemia, unspecified Status: Acute Assessment and Plan: Stable (10) Sepsis: Code(s): A41.9 - Sepsis, unspecified organism Status: Acute Assessment and Plan: As above Blood cultures pending (11) Community acquired pneumonia: Code(s): J18.9 - Pneumonia, unspecified organism Status: Acute Assessment and Plan: Continue antibiotics Plan DVT prophylaxis with Lovenox GI prophylaxis with Pepcid Code status full code Subjective Date/time seen: 09/04/22 09:38 Interval history: No overnight events noted. No chest pain or shortness of breath. No nausea, vomiting or diarrhea. No fevers or chills. Patient states she feels better than yesterday. She states she feels quite weak. Stable on 3 L nasal cannula. Review of Systems Review of Systems: 12 point review of systems was assessed and was negative except as noted in the HPI Exam Narrative: General: No acute distress, alert and oriented per baseline HEENT: Atraumatic, normocephalic, mucous membranes moist CV: Regular rate and rhythm, S1, S2 Lungs: Clear to auscultation bilaterally, no rales or crackles noted, no wheezes, good air entry Abdomen: Soft, nontender, nondistended Extremities: Normal to inspection Skin: No rashes noted, no lesions or wounds seen Psych: Euthymic, normal affect Objective Data Vital Signs Vital Signs: Vital Signs - 24 hr 09/03/22 10:45 09/03/22 10:48 09/03/22 11:49 Temperature Pulse Rate 92 90 96 Respiratory Rate 25 H 25 H 23 H Blood Pressure 172/80 H Pulse Oximetry 100 100 96 Oxygen Delivery BiPAP Oxygen Flow Rate 09/03/22 12:25 09/03/22 12:50 09/03/22 14:15 Temperature Pulse Rate 101 H 91 Respiratory Rate 20 16 Blood Pressure 167/91 H Pulse Oximetry 100 100 100 Oxygen Delivery Nasal Cannula Oxygen Flow Rate 4 09/03/22 14:40 09/03/22 15:13 09/03/22 15:23 Temperature 97.6 F Pulse Rate 101 H 110 H 103 H Respiratory Rate 20 22 H 20 Blood Pressure 179/84 H Pulse Oximetry 100 Oxygen Delivery Oxygen Flow Rate 09/03/22 16:00 09/03/22 16:00 09/03/22 17:34 Temperature 98.7 F Pulse Rate 94 96 97 Respiratory Rate 18 Blood
[2022-09-04] MEDS: FOLIC ACID 1 MG TABLET PO (10:27)
[2022-09-04] MEDS: FAMOTIDINE 20 MG/2 ML VIAL IV PUSH ×2 (10:30→21:28)
[2022-09-04] MEDS: methylPREDNISolone SOD SUCC 125 MG VIAL 60 MG IV PUSH ×2 (12:59→18:07)
[2022-09-04] MEDS: SENNA/DOCUSATE SODIUM TABLET 1 TAB PO ×2 (15:44→21:28)
[2022-09-04 16:38] LABS: Glucose Point of Care 243 mg/dl (65-105)
[2022-09-04 19:33] LABS: Hemoglobin A1C 5.1 % (<5.7)
[2022-09-04 21:07] LABS: Glucose Point of Care 214 mg/dl (65-105)
[2022-09-04] MEDS: MIRTAZAPINE 15 MG TABLET PO (21:28)
[2022-09-05] VITALS (19 sets, daily range): BP systolic 154–197; BP diastolic 82–102; PULSE 80–112; RESP 16–24; TEMP 36.6–37; O2SAT 96–100
[2022-09-05] MEDS: methylPREDNISolone SOD SUCC 125 MG VIAL 60 MG IV PUSH ×5 (01:12→23:38)
[2022-09-05] MEDS: IPRATROPIUM BR 0.02% INH SOLN 0.5 MG/2.5 ML VIAL INHALATION ×3 (02:45→21:25)
[2022-09-05] MEDS: ALBUTEROL SULFATE NEB 2.5 MG/3 ML INH 5 MG INHALATION ×3 (02:45→21:25)
[2022-09-05 08:35] LABS: Glucose Point of Care 210 mg/dl (65-105)
[2022-09-05] MEDS: UMECLIDINIUM BROMIDE 62.5 MCG ELLIPTA 1 PUFF INHALATION (08:48)
[2022-09-05] MEDS: FLUTICASONE/SALMETEROL 115-21 MCG INHALER 1 PUFF 2 PUFF INHALATION ×2 (08:48→21:25)
[2022-09-05] MEDS: CLOPIDOGREL BISULFATE 75 MG TABLET PO (09:12)
[2022-09-05] MEDS: ENOXAPARIN 30 MG/0.3 ML SYRINGE SUB-Q (09:12)
[2022-09-05] MEDS: SENNA/DOCUSATE SODIUM TABLET 1 TAB PO (09:12)
[2022-09-05] MEDS: CHOLECALCIFEROL 1,000 UNITS TABLET 2000 UNITS PO (09:12)
[2022-09-05] MEDS: FAMOTIDINE 20 MG/2 ML VIAL IV PUSH ×2 (09:12→20:57)
[2022-09-05] MEDS: FOLIC ACID 1 MG TABLET PO (09:12)
[2022-09-05] MEDS: THIAMINE HCL 100 MG TABLET PO (09:13)
[2022-09-05] MEDS: hydrALAZINE 10 MG TABLET PO (09:13)
[2022-09-05] MEDS: FERROUS SULFATE 324 MG TABLET PO (09:13)
[2022-09-05] MEDS: MULTIVITAMINS THERAPEUTIC TAB (*BKC) 1 TABLET PO (09:13)
[2022-09-05] MEDS: carvediloL 6.25 MG TABLET PO ×2 (09:13→20:57)
[2022-09-05] MEDS: LIPASE/AMYLASE/PROTEASE 12,000 UNITS CAP 2 CAP PO ×3 (09:15→17:03)
[2022-09-05] MEDS: ASPIRIN 81 MG ENTERIC TABLET PO (09:20)
--- NOTE | 2022-09-05 10:48 | PM.IMPN ---
Progress Note: A&P Assessment and Plan (1) Acute exacerbation of chronic obstructive airways disease: Code(s): J44.1 - Chronic obstructive pulmonary disease with (acute) exacerbation Status: Acute Assessment and Plan: Initially requiring BiPAP support, now weaned to 2 L nasal cannula Continue steroids, nebulizers Started on Rocephin and azithromycin in the ER, will continue this for now (2) Respiratory syncytial virus (RSV) infection: Code(s): B33.8 - Other specified viral diseases Status: Acute Assessment and Plan: Supportive care, as above (3) Elevated troponin: Code(s): R77.8 - Other specified abnormalities of plasma proteins Status: Acute Assessment and Plan: Do not suspect acute cardiac etiology, likely type 2 demand ischemia Echo showed EF of 50-55% with grade 1 diastolic dysfunction, no significant valvular abnormalities noted (4) Acute hypercapnic respiratory failure: Code(s): J96.02 - Acute respiratory failure with hypercapnia Status: Acute Assessment and Plan: As above (5) Hypertension: Code(s): I10 - Essential (primary) hypertension Status: Acute Assessment and Plan: Stable, monitor (6) Hyperkalemia: Code(s): E87.5 - Hyperkalemia Status: Acute Assessment and Plan: Given Lokelma in the ER, monitor, resolved (7) CKD (chronic kidney disease): Code(s): N18.9 - Chronic kidney disease, unspecified Status: Acute Assessment and Plan: Stable, at baseline (8) Diabetes: Code(s): E11.9 - Type 2 diabetes mellitus without complications Status: Acute Assessment and Plan: No diagnosis of diabetes, d/c accuchecks and SSI (9) Hyperlipidemia: Code(s): E78.5 - Hyperlipidemia, unspecified Status: Acute Assessment and Plan: Stable (10) Sepsis: Code(s): A41.9 - Sepsis, unspecified organism Status: Acute Assessment and Plan: As above Blood cultures NGTD (11) Community acquired pneumonia: Code(s): J18.9 - Pneumonia, unspecified organism Status: Acute Assessment and Plan: Continue antibiotics Plan DVT prophylaxis with Lovenox GI prophylaxis with Pepcid Code status full code Subjective Date/time seen: 09/05/22 10:48 Interval history: No overnight events noted. No chest pain or shortness of breath. No nausea, vomiting or diarrhea. No fevers or chills. Patient states she feels about the same as yesterday. Stable on 2 L nasal cannula. Review of Systems Review of Systems: 12 point review of systems was assessed and was negative except as noted in the HPI Exam Narrative: General: No acute distress, alert and oriented per baseline HEENT: Atraumatic, normocephalic, mucous membranes moist CV: Regular rate and rhythm, S1, S2 Lungs: Moderate air entry, somewhat diminished Abdomen: Soft, nontender, nondistended Extremities: Normal to inspection Skin: No rashes noted, no lesions or wounds seen Objective Data Vital Signs Vital Signs: Vital Signs - 24 hr 09/04/22 12:00 09/04/22 14:30 09/04/22 14:49 Temperature 99.2 F Pulse Rate 81 78 82 Respiratory Rate 20 20 20 Blood Pressure 165/71 H Pulse Oximetry 100 Oxygen Delivery Oxygen Flow Rate 09/04/22 12:00 09/04/22 12:00 09/04/22 14:00 Temperature Pulse Rate 81 78 Respiratory Rate Blood Pressure Pulse Oximetry 100 Oxygen Delivery Nasal Cannula Oxygen Flow Rate 2 09/04/22 16:00 09/04/22 16:00 09/04/22 18:00 Temperature 97.7 F Pulse Rate 87 87 88 Respiratory Rate 16 Blood Pressure 155/70 H Pulse Oximetry 100 Oxygen Delivery Oxygen Flow Rate 09/04/22 16:00 09/04/22 20:00 09/04/22 20:00 Temperature 98.4 F Pulse Rate 82 82 Respiratory Rate 18 18 Blood Pressure 161/83 H Pulse Oximetry 100 100 100 Oxygen Delivery Nasal Cannula Nasal Cannula Oxygen Flow Rate 2 2
--- NOTE | 2022-09-05 10:59 | ECG_ITS ---
Measurements Intervals [place] Rate: 79 P: 86 [place]: 149 QRS: -37 QRSD: 95 T: -55 QT: 400 QTc: 460 Interpretive Statements SINUS RHYTHM MARKED LEFT AXIS DEVIATION [QRS AXIS < -30] MARKED T-WAVE ABNORMALITY, CONSIDER ANTERIOR ISCHEMIA [-0.5+ mV T WAVE IN V3/V4] MODERATE T-WAVE ABNORMALITY, CONSIDER INFERIOR ISCHEMIA [-0.1+ mV T WAVE IN II/aVF] COMPARED TO ECG 09/03/2022 00:13:10 THERE IS NOW SIGNIFICANT T-WAVE ABNORMALITY Electronically Signed On 09-06-2022 7:40:59 PAD HAND by Vivek Berg M.D.
[2022-09-05 11:30] LABS: Alanine Aminotransferase 13 U/L (6-35); Albumin Level 3.8 g/dL (3.5-5.1); Alkaline Phosphatase 75 U/L (38-126); Anion Gap 5 mmol/L (8-16); Aspartate Amino Transferase 31 U/L (14-36); Bilirubin,Total 0.2 mg/dL (0.2-1.3); Blood Urea Nitrogen 30 mg/dL (7-17); Calcium 8.1 mg/dL (8.4-10.2); Carbon Dioxide 34 mmol/L (22-30); Chloride 96 mmol/L (98-107); Estimated CRCL calculation 31 ml/min; Estimated Glomerular Filt Rate 54; Glucose 144 mg/dL (65-110); Potassium 4.1 mmol/L (3.4-5.0); Sodium 135 mmol/L (137-145)
[2022-09-05 11:31] LABS: Basophils Percent Auto 0.1 % (0.2-1.2); Hemoglobin 9.8 g/dL (12.0-15.0); Immature Granulocyte Absolute 0.15 K/mm3 (0.00-0.031); Immature Granulocyte Percent A 1.1 % (0-0.5); Immature Platelet Fraction Pct 16.5 % (0.9-11.2); Lymphocytes Absolute Auto 0.67 K/mm3 (0.9-3.2); Lymphocytes Percent Auto 4.9 % (18.3-44.2); Mean Corpuscular HGB Conc 28.8 g/dl (32-36); Mean Corpuscular Hemoglobin 29.7 pg (26-34); Mean Platelet Volume 13.7 fl (7.4-10.4); Monocytes Absolute Auto 0.4 K/mm3 (0.1-0.6); Monocytes Percent Auto 2.6 % (2.6-8.5); Neutrophils Absolute Auto 12.4 K/mm3 (1.3-6.7); Neutrophils Percent Auto 91.3 % (45.5-73.1); Nucleated Red Blood Cells Perc 0.1 % (0.0-0.2); Platelet Count Result 148 k/mm3 (150-375); Red Cell Distribution Width 12.7 % (11.5-14.5); White Blood Count 13.6 K/mm3 (4.5-10.0)
[2022-09-05 11:48] LABS: Troponin I 0.075 ng/mL (0.000-0.034)
[2022-09-05 11:58] LABS: Hypochromasia 1+ (NORMAL); Platelet Estimate Adequate (Adequate); Poikilocytosis 1+ (NORMAL); Schistocytes None Seen (NORMAL)
[2022-09-05 12:55] LABS: Glucose Point of Care 141 mg/dl (65-105)
--- NOTE | 2022-09-05 15:56 | PCRCNOTE ---
Window of time for administration has passed. See next scheduled administration.
[2022-09-05 17:32] LABS: Glucose Point of Care 305 mg/dl (65-105)
[2022-09-05] MEDS: hydrOXYzine HCL 25 MG TABLET PO ×2 (18:42→23:39)
[2022-09-05 20:57] LABS: Glucose Point of Care 149 mg/dl (65-105)
[2022-09-05] MEDS: MIRTAZAPINE 15 MG TABLET PO (20:57)
[2022-09-06] VITALS (22 sets, daily range): BP systolic 154–188; BP diastolic 68–87; PULSE 75–100; RESP 16–20; TEMP 36.3–36.5; O2SAT 88–100
[2022-09-06] MEDS: ALBUTEROL SULFATE NEB 2.5 MG/3 ML INH 5 MG INHALATION ×4 (02:32→21:57)
[2022-09-06] MEDS: IPRATROPIUM BR 0.02% INH SOLN 0.5 MG/2.5 ML VIAL INHALATION ×4 (02:33→21:58)
[2022-09-06] MEDS: hydrOXYzine HCL 25 MG TABLET PO ×3 (05:16→17:15)
[2022-09-06 06:03] LABS: Basophils Percent Auto 0.2 % (0.2-1.2); Hematocrit 33.9 % (37.0-47.0); Hemoglobin 10.1 g/dL (12.0-15.0); Immature Granulocyte Absolute 0.12 K/mm3 (0.00-0.031); Immature Platelet Fraction Pct 17.6 % (0.9-11.2); Lymphocytes Absolute Auto 0.84 K/mm3 (0.9-3.2); Lymphocytes Percent Auto 6.7 % (18.3-44.2); Mean Corpuscular HGB Conc 29.8 g/dl (32-36); Mean Corpuscular Hemoglobin 29.4 pg (26-34); Mean Corpuscular Volume 98.5 fl (80-100); Mean Platelet Volume 13.5 fl (7.4-10.4); Monocytes Absolute Auto 0.5 K/mm3 (0.1-0.6); Monocytes Percent Auto 4.3 % (2.6-8.5); Neutrophils Percent Auto 87.8 % (45.5-73.1); Nucleated Red Blood Cells Perc 0.2 % (0.0-0.2); Platelet Count Result 138 k/mm3 (150-375); Red Blood Count 3.44 M/mm3 (4.2-5.4); Red Cell Distribution Width 12.5 % (11.5-14.5); White Blood Count 12.5 K/mm3 (4.5-10.0)
[2022-09-06 06:14] LABS: Alanine Aminotransferase 15 U/L (6-35); Albumin Level 3.7 g/dL (3.5-5.1); Alkaline Phosphatase 71 U/L (38-126); Aspartate Amino Transferase 32 U/L (14-36); Bilirubin,Total 0.2 mg/dL (0.2-1.3); Blood Urea Nitrogen 30 mg/dL (7-17); Calcium 7.8 mg/dL (8.4-10.2); Carbon Dioxide > 40 mmol/L (22-30); Chloride 94 mmol/L (98-107); Estimated CRCL calculation 30 ml/min; Estimated Glomerular Filt Rate 54; Glucose 146 mg/dL (65-110); Potassium 3.6 mmol/L (3.4-5.0); Sodium 136 mmol/L (137-145)
[2022-09-06] MEDS: LIPASE/AMYLASE/PROTEASE 12,000 UNITS CAP 2 CAP PO ×3 (08:28→17:13)
[2022-09-06] MEDS: carvediloL 6.25 MG TABLET PO ×2 (08:29→22:19)
[2022-09-06] MEDS: CLOPIDOGREL BISULFATE 75 MG TABLET PO (08:29)
[2022-09-06] MEDS: THIAMINE HCL 100 MG TABLET PO (08:30)
[2022-09-06] MEDS: CHOLECALCIFEROL 1,000 UNITS TABLET 2000 UNITS PO (08:30)
[2022-09-06] MEDS: MULTIVITAMINS THERAPEUTIC TAB (*BKC) 1 TABLET PO (08:30)
[2022-09-06] MEDS: FERROUS SULFATE 324 MG TABLET PO (08:30)
[2022-09-06] MEDS: FAMOTIDINE 20 MG/2 ML VIAL IV PUSH ×2 (08:30→22:19)
[2022-09-06] MEDS: FOLIC ACID 1 MG TABLET PO (08:30)
[2022-09-06] MEDS: hydrALAZINE 10 MG TABLET PO (08:30)
[2022-09-06] MEDS: methylPREDNISolone SOD SUCC 125 MG VIAL 60 MG IV PUSH ×3 (08:31→17:15)
[2022-09-06] MEDS: predniSONE 5 MG TABLET PO (08:31)
[2022-09-06] MEDS: ENOXAPARIN 30 MG/0.3 ML SYRINGE SUB-Q (08:32)
[2022-09-06] MEDS: traMADol HCL (*CRX) 50 MG TABLET 100 MG PO (08:41)
[2022-09-06] MEDS: UMECLIDINIUM BROMIDE 62.5 MCG ELLIPTA 1 PUFF INHALATION (08:55)
[2022-09-06] MEDS: FLUTICASONE/SALMETEROL 115-21 MCG INHALER 1 PUFF 2 PUFF INHALATION (08:55)
[2022-09-06] MEDS: ASPIRIN 81 MG ENTERIC TABLET PO (09:57)
--- NOTE | 2022-09-06 12:33 | PM.IMPN ---
Progress Note: A&P Assessment and Plan (1) Acute exacerbation of chronic obstructive airways disease: Code(s): J44.1 - Chronic obstructive pulmonary disease with (acute) exacerbation Status: Acute Assessment and Plan: Initially requiring BiPAP support, now weaned to 2 L nasal cannula Continue steroids, nebulizers Started on Rocephin and azithromycin in the ER, will continue this, 09/07 his last stay for azithromycin, 09/09 will be last day for Rocephin or cefdinir if transitioned to oral (2) Respiratory syncytial virus (RSV) infection: Code(s): B33.8 - Other specified viral diseases Status: Acute Assessment and Plan: Supportive care, as above (3) Elevated troponin: Code(s): R77.8 - Other specified abnormalities of plasma proteins Status: Acute Assessment and Plan: Do not suspect acute cardiac etiology, likely type 2 demand ischemia Echo showed EF of 50-55% with grade 1 diastolic dysfunction, no significant valvular abnormalities noted (4) Acute hypercapnic respiratory failure: Code(s): J96.02 - Acute respiratory failure with hypercapnia Status: Acute Assessment and Plan: As above (5) Hypertension: Code(s): I10 - Essential (primary) hypertension Status: Acute Assessment and Plan: Stable, monitor (6) Hyperkalemia: Code(s): E87.5 - Hyperkalemia Status: Acute Assessment and Plan: Given Lokelma in the ER, monitor, resolved (7) CKD (chronic kidney disease): Code(s): N18.9 - Chronic kidney disease, unspecified Status: Acute Assessment and Plan: Stable, at baseline (8) Diabetes: Code(s): E11.9 - Type 2 diabetes mellitus without complications Status: Acute Assessment and Plan: No diagnosis of diabetes, d/c accuchecks and SSI (9) Hyperlipidemia: Code(s): E78.5 - Hyperlipidemia, unspecified Status: Acute Assessment and Plan: Stable (10) Sepsis: Code(s): A41.9 - Sepsis, unspecified organism Status: Acute Assessment and Plan: As above Blood cultures NGTD (11) Community acquired pneumonia: Code(s): J18.9 - Pneumonia, unspecified organism Status: Acute Assessment and Plan: Continue antibiotics (12) Hallucination, visual: Code(s): R44.1 - Visual hallucinations Status: Acute Assessment and Plan: Unsure of etiology, completely resolved at this time, suspect secondary to delirium/sundowning, will monitor for now Plan DVT prophylaxis with Lovenox GI prophylaxis with Pepcid Code status full code Subjective Date/time seen: 09/06/22 12:33 Interval history: No overnight events noted. No chest pain or shortness of breath. No nausea, vomiting or diarrhea. No fevers or chills. Patient reported some hallucinations this morning. She is requesting cough syrup. Stable at 94% on 2 L nasal cannula. Review of Systems Review of Systems: 12 point review of systems was assessed and was negative except as noted in the HPI Exam Narrative: General: No acute distress, alert and oriented per baseline HEENT: Atraumatic, normocephalic, mucous membranes moist CV: Regular rate and rhythm, S1, S2 Lungs: Moderate air entry, somewhat diminished Abdomen: Soft, nontender, nondistended Extremities: Normal to inspection Skin: No rashes noted, no lesions or wounds seen Objective Data Vital Signs Vital Signs: Vital Signs - 24 hr 09/05/22 15:08 09/05/22 16:00 09/05/22 16:00 Temperature 98.6 F Pulse Rate 112 H 104 H Respiratory Rate 16 Blood Pressure 189/96 H Pulse Oximetry 99 Oxygen Delivery Nasal Cannula Oxygen Flow Rate 2 09/05/22 20:57 09/05/22 20:00 09/05/22 21:26 Temperature 98.3 F Pulse Rate 110 H 80 90 Respiratory Rate 18 20 Blood Pressure 197/102 H Pulse Oximetry 100 Oxygen Delivery Oxygen Flow Rate 09/05/22 20:00 09/05/22 23:46 09/06/22
--- NOTE | 2022-09-06 14:39 | PCRCNOTE ---
HOME O2 EVAL: PT HAS HOME O2 AND WEARS IT AT 4 L CONTINUOUSLY, HAS BEEN WEANED DOWN BUT STATED SHE IS GOING TO USE 4L BECAUSE IT HELPS HER BREATHE. WE DISCUSSED THAT SHE NEEDS TO KEEP IT ON 1 L AT REST AND UP TO 2 WITH EXERTION. WE SAT UP, STOOD AND BACK INTO BED. PT FEELS WEAK. PT HAS O2 AT HOME WITH [facility].
[2022-09-06] MEDS: MIRTAZAPINE 15 MG TABLET PO (22:18)
[2022-09-07] VITALS (28 sets, daily range): BP systolic 96–172; BP diastolic 40–89; PULSE 66–137; RESP 16–24; TEMP 36.1–36.9; O2SAT 96–100
[2022-09-07] MEDS: hydrOXYzine HCL 25 MG TABLET PO ×4 (01:00→17:10)
[2022-09-07] MEDS: methylPREDNISolone SOD SUCC 125 MG VIAL 60 MG IV PUSH ×4 (01:00→17:10)
[2022-09-07] MEDS: ALBUTEROL SULFATE NEB 2.5 MG/3 ML INH 5 MG INHALATION ×4 (03:16→20:41)
[2022-09-07] MEDS: IPRATROPIUM BR 0.02% INH SOLN 0.5 MG/2.5 ML VIAL INHALATION ×4 (03:17→20:41)
[2022-09-07 06:35] LABS: Basophils Percent Auto 0.2 % (0.2-1.2); Hemoglobin 9.9 g/dL (12.0-15.0); Immature Granulocyte Absolute 0.12 K/mm3 (0.00-0.031); Immature Granulocyte Percent A 1.2 % (0-0.5); Immature Platelet Fraction Pct 18.3 % (0.9-11.2); Lymphocytes Absolute Auto 0.93 K/mm3 (0.9-3.2); Lymphocytes Percent Auto 9.6 % (18.3-44.2); Mean Corpuscular Hemoglobin 34.5 pg (26-34); Mean Corpuscular Volume 104.5 fl (80-100); Mean Platelet Volume 13.8 fl (7.4-10.4); Monocytes Absolute Auto 0.3 K/mm3 (0.1-0.6); Neutrophils Absolute Auto 8.3 K/mm3 (1.3-6.7); Platelet Count Result 140 k/mm3 (150-375); Red Blood Count 2.87 M/mm3 (4.2-5.4); Red Cell Distribution Width 13.3 % (11.5-14.5); White Blood Count 9.6 K/mm3 (4.5-10.0)
[2022-09-07 06:53] LABS: Alanine Aminotransferase 16 U/L (6-35); Albumin Level 3.5 g/dL (3.5-5.1); Alkaline Phosphatase 69 U/L (38-126); Aspartate Amino Transferase 29 U/L (14-36); Bilirubin,Total 0.2 mg/dL (0.2-1.3); Blood Urea Nitrogen 38 mg/dL (7-17); Calcium 7.5 mg/dL (8.4-10.2); Carbon Dioxide > 40 mmol/L (22-30); Chloride 95 mmol/L (98-107); Estimated CRCL calculation 30 ml/min; Estimated Glomerular Filt Rate 54; Glucose 136 mg/dL (65-110); Potassium 3.8 mmol/L (3.4-5.0); Sodium 139 mmol/L (137-145)
[2022-09-07] MEDS: LIPASE/AMYLASE/PROTEASE 12,000 UNITS CAP 2 CAP PO ×3 (10:10→17:10)
[2022-09-07] MEDS: THIAMINE HCL 100 MG TABLET PO (10:10)
[2022-09-07] MEDS: hydrALAZINE 10 MG TABLET PO (10:10)
[2022-09-07] MEDS: ENOXAPARIN 30 MG/0.3 ML SYRINGE SUB-Q (10:10)
[2022-09-07] MEDS: MULTIVITAMINS THERAPEUTIC TAB (*BKC) 1 TABLET PO (10:10)
[2022-09-07] MEDS: ASPIRIN 81 MG ENTERIC TABLET PO (10:10)
[2022-09-07] MEDS: FAMOTIDINE 20 MG/2 ML VIAL IV PUSH ×2 (10:10→21:38)
[2022-09-07] MEDS: CLOPIDOGREL BISULFATE 75 MG TABLET PO (10:10)
[2022-09-07] MEDS: FOLIC ACID 1 MG TABLET PO (10:10)
[2022-09-07] MEDS: FERROUS SULFATE 324 MG TABLET PO (10:10)
[2022-09-07] MEDS: CHOLECALCIFEROL 1,000 UNITS TABLET 2000 UNITS PO (10:10)
[2022-09-07] MEDS: carvediloL 6.25 MG TABLET PO ×2 (10:10→21:38)
[2022-09-07 10:55] LABS: Alanine Aminotransferase 17 U/L (6-35); Alkaline Phosphatase 74 U/L (38-126); Anion Gap 7 mmol/L (8-16); Aspartate Amino Transferase 33 U/L (14-36); Bilirubin,Total 0.3 mg/dL (0.2-1.3); Blood Urea Nitrogen 39 mg/dL (7-17); Calcium 7.9 mg/dL (8.4-10.2); Carbon Dioxide 35 mmol/L (22-30); Chloride 93 mmol/L (98-107); Estimated CRCL calculation 30 ml/min; Estimated Glomerular Filt Rate 54; Glucose 167 mg/dL (65-110); Sodium 135 mmol/L (137-145)
--- NOTE | 2022-09-07 11:48 | PCRCNOTE ---
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 See next scheduled administration.
[2022-09-07] MEDS: UMECLIDINIUM BROMIDE 62.5 MCG ELLIPTA 1 PUFF INHALATION (11:50)
[2022-09-07] MEDS: FLUTICASONE/SALMETEROL 115-21 MCG INHALER 1 PUFF 2 PUFF INHALATION ×2 (11:51→20:41)
--- NOTE | 2022-09-07 13:05 | PM.IMPN ---
Progress Note: A&P Assessment and Plan (1) Acute exacerbation of chronic obstructive airways disease: Code(s): J44.1 - Chronic obstructive pulmonary disease with (acute) exacerbation Status: Acute Assessment and Plan: Patient advice to quit smoking. Bronchodilators. Routine exercises. Pneumoniae and flu vaccines as advised Pulmonary rehab if indicated. 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 now weaned to 2 L nasal cannula Rocephin and azithromycin ER, will continue this, 09/09 will be last day for Rocephin or cefdinir if transitioned to oral (2) Respiratory syncytial virus (RSV) infection: Code(s): B33.8 - Other specified viral diseases Status: Acute Assessment and Plan: Supportive care, as above (3) Elevated troponin: Code(s): R77.8 - Other specified abnormalities of plasma proteins Status: Acute Assessment and Plan: Echo showed EF of 50-55% with grade 1 diastolic dysfunction, no significant valvular abnormalities noted (4) Acute hypercapnic respiratory failure: Code(s): J96.02 - Acute respiratory failure with hypercapnia Status: Acute Assessment and Plan: As above (5) Hypertension: Code(s): I10 - Essential (primary) hypertension Status: Acute Assessment and Plan: blood pressure still running a little high. Will start amlodipine 5 mg q.day patient already on carvedilol and hydralazine (6) Hyperkalemia: Code(s): E87.5 - Hyperkalemia Status: Acute Assessment and Plan: she has halfresolved (7) CKD (chronic kidney disease): Code(s): N18.9 - Chronic kidney disease, unspecified Status: Acute Assessment and Plan: Stable, at baseline (8) Diabetes: Code(s): E11.9 - Type 2 diabetes mellitus without complications Status: Acute Assessment and Plan: No diagnosis of diabetes, d/c accuchecks and SSI (9) Hyperlipidemia: Code(s): E78.5 - Hyperlipidemia, unspecified Status: Acute Assessment and Plan: Stable (10) Sepsis: Code(s): A41.9 - Sepsis, unspecified organism Status: Acute Assessment and Plan: As above Blood cultures NGTD (11) Community acquired pneumonia: Code(s): J18.9 - Pneumonia, unspecified organism Status: Acute Assessment and Plan: Continue antibiotics (12) Hallucination, visual: Code(s): R44.1 - Visual hallucinations Status: Acute Assessment and Plan: , completely resolved at this time, suspect secondary to delirium/sundowning, will monitor for now Plan DVT prophylaxis. GI prophylaxis. All records reviewed Discussed plan of care with the nursing staff and with the patient in detail. Answered all questions and concerns from the patient. All labs have been reviewed. Code status updated dictation may have been done utilizing a voice recognition system. Attempts have been made to correct errors. However, there may be uncorrected grammatical, spelling, and recognition errors present. she Code status full code Time Spent With Patient Time with patient: 25 - 35 minutes Subjective Date/time seen: 09/07/22 13:05 Interval history: still has cough with yellow sputum Review of Systems Review of Systems: All systems reviewed & are unremarkable except as noted in HPI and below Exam Const: General: comfortable HENMT: Ears: TM's normal bilaterally Mouth: Yes moist mucous membranes Eyes: General: appearance normal, both eyes and all related structures Pupils: Equal, round and reactive pupils present Neck: Neck: supple and no JVD Resp: Effort & Inspection: normal respiratory effort Auscultation: clear to auscultation bilaterally Cardio: Rate: regular rate Rhythm: regular rhythm GI: GI Palp: Yes Soft to palpation Auscultation: normal bowel sounds Skin: General
--- NOTE | 2022-09-07 13:21 | PC.NURSE ---
called pharmacy to ask for 0900 amlodipine dose that was added recently to morning medications by provider. will give when received
[2022-09-07] MEDS: amLODIPine BESYLATE 5 MG TABLET PO (13:52)
[2022-09-07] MEDS: guaiFENesin/CODEINE (*CRX) 200/20 MG 10 ML SYRUP PO (17:10)
[2022-09-07] MEDS: MIRTAZAPINE 15 MG TABLET PO (21:38)
[2022-09-07] MEDS: CEFDINIR 300 MG CAPSULE PO (21:38)
--- NOTE | 2022-09-07 22:20 | ECG_ITS ---
Measurements Intervals Anthony Rate: 111 P: ND: 0 QRS: -37 QRSD: 98 T: -85 QT: 353 QTc: 481 Interpretive Statements ATRIAL FIBRILLATION WITH RAPID VENTRICULAR RESPONSE WITH ABERRANT CONDUCTION OR VENTRICULAR PREMATURE COMPLEXES LEFTWARD AXIS PRECORDIAL AND INFERIOR T-WAVE INVERSION LEFT VENTRICULAR HYPERTROPHY BY VOLTAGE CRITERIA COMPARED TO ECG 09/05/2022 14:11:34 ATRIAL FIBRILLATION HAS REPLACED SINUS RHYTHM T-WAVE INVERSIONS WHILE STILL PRESENT HAVE IMPROVED Electronically Signed On 09-08-2022 8:38:48 [employer] by Vivek Berg M.D.
[2022-09-07] MEDS: METOPROLOL TARTRATE INJ 5 MG/5 ML VIAL IV PUSH (22:30)
[2022-09-07] MEDS: dilTIAZem HCL 30 MG TABLET PO (23:23)
[2022-09-07] MEDS: dilTIAZem HCl INJ 25 MG/5 ML VIAL IV PUSH (23:24)
[2022-09-07 23:50] LABS: Troponin I 0.048 ng/mL (0.000-0.034)
[2022-09-08] VITALS (26 sets, daily range): BP systolic 101–176; BP diastolic 57–81; PULSE 72–110; RESP 14–22; TEMP 35.9–36.9; O2SAT 97–100
[2022-09-08] MEDS: FUROSEMIDE INJ 40 MG/4 ML VIAL 20 MG IV PUSH (00:10)
[2022-09-08] MEDS: hydrOXYzine HCL 25 MG TABLET PO ×5 (01:16→23:13)
[2022-09-08] MEDS: methylPREDNISolone SOD SUCC 125 MG VIAL 60 MG IV PUSH ×5 (01:16→23:13)
[2022-09-08 02:19] LABS: Troponin I 0.045 ng/mL (0.000-0.034)
--- NOTE | 2022-09-08 02:25 | PM.EVENT ---
Event Note Event Note Event Note: The patient went into new onset of AFib with RVR. She was given Lopressor and the charge nurse gave her IV Cardizem. She was started on p.o. Cardizem. The patient was ordered Lasix. The patient was diaphoretic and restless during the event. Cardiology has been consulted. The patient was started on subcu Lovenox
[2022-09-08] MEDS: ALBUTEROL SULFATE NEB 2.5 MG/3 ML INH 5 MG INHALATION ×4 (03:30→20:11)
[2022-09-08] MEDS: IPRATROPIUM BR 0.02% INH SOLN 0.5 MG/2.5 ML VIAL INHALATION ×4 (03:30→20:11)
[2022-09-08] MEDS: ENOXAPARIN 60 MG/0.6 ML SYRINGE 50 MG SUB-Q ×2 (03:32→18:21)
[2022-09-08] MEDS: dilTIAZem HCL 30 MG TABLET PO ×4 (06:41→23:13)
[2022-09-08 07:01] LABS: Alanine Aminotransferase 17 U/L (6-35); Albumin Level 3.7 g/dL (3.5-5.1); Alkaline Phosphatase 89 U/L (38-126); Anion Gap 5 mmol/L (8-16); Aspartate Amino Transferase 26 U/L (14-36); Bilirubin,Total 0.3 mg/dL (0.2-1.3); Blood Urea Nitrogen 54 mg/dL (7-17); Calcium 7.7 mg/dL (8.4-10.2); Carbon Dioxide 39 mmol/L (22-30); Chloride 92 mmol/L (98-107); Estimated CRCL calculation 26 ml/min; Estimated Glomerular Filt Rate 45; Glucose 191 mg/dL (65-110); Potassium 3.5 mmol/L (3.4-5.0); Sodium 136 mmol/L (137-145)
[2022-09-08 07:35] LABS: Basophils Percent Auto 0.3 % (0.2-1.2); Hematocrit 31.8 % (37.0-47.0); Hemoglobin 9.7 g/dL (12.0-15.0); Immature Granulocyte Absolute 0.19 K/mm3 (0.00-0.031); Immature Granulocyte Percent A 1.7 % (0-0.5); Lymphocytes Absolute Auto 0.81 K/mm3 (0.9-3.2); Lymphocytes Percent Auto 7.2 % (18.3-44.2); Mean Corpuscular HGB Conc 30.5 g/dl (32-36); Mean Corpuscular Hemoglobin 29.8 pg (26-34); Mean Corpuscular Volume 97.8 fl (80-100); Mean Platelet Volume 14.3 fl (7.4-10.4); Monocytes Absolute Auto 0.3 K/mm3 (0.1-0.6); Monocytes Percent Auto 2.8 % (2.6-8.5); Neutrophils Absolute Auto 9.9 K/mm3 (1.3-6.7); Nucleated Red Blood Cells Perc 0.4 % (0.0-0.2); Platelet Count Result 158 k/mm3 (150-375); Red Blood Count 3.25 M/mm3 (4.2-5.4); Red Cell Distribution Width 13.2 % (11.5-14.5); White Blood Count 11.2 K/mm3 (4.5-10.0)
--- NOTE | 2022-09-08 07:45 | PC.NURSE ---
Pt converted to A-fib/RVR at 09/07. Kimberly Cancino on floor and notified at 2209. 5mg IV Lopressor given at 2229 and EKG taken confirming A-fib/RVR at 2237. Higher acuity bed was not available and at 2319 order was received to push 25mg IV cardizem, this medication was administered by the warehouse hand Kenny and patient was closely monitored. Pt rate control was achieved after IV cardizem admin. Pt remains in Afib at this time.
[2022-09-08] MEDS: UMECLIDINIUM BROMIDE 62.5 MCG ELLIPTA 1 PUFF INHALATION (08:50)
[2022-09-08] MEDS: FLUTICASONE/SALMETEROL 115-21 MCG INHALER 1 PUFF 2 PUFF INHALATION ×2 (08:50→20:11)
[2022-09-08] MEDS: carvediloL 6.25 MG TABLET PO ×2 (09:58→20:31)
[2022-09-08] MEDS: ASPIRIN 81 MG ENTERIC TABLET PO (09:58)
[2022-09-08] MEDS: CEFDINIR 300 MG CAPSULE PO ×2 (09:59→20:31)
[2022-09-08] MEDS: FERROUS SULFATE 324 MG TABLET PO (09:59)
[2022-09-08] MEDS: CLOPIDOGREL BISULFATE 75 MG TABLET PO (09:59)
[2022-09-08] MEDS: THIAMINE HCL 100 MG TABLET PO (09:59)
[2022-09-08] MEDS: predniSONE 5 MG TABLET PO (09:59)
[2022-09-08] MEDS: FAMOTIDINE 20 MG/2 ML VIAL IV PUSH ×2 (09:59→20:31)
[2022-09-08] MEDS: LIPASE/AMYLASE/PROTEASE 12,000 UNITS CAP 2 CAP PO ×3 (09:59→18:21)
[2022-09-08] MEDS: FOLIC ACID 1 MG TABLET PO (09:59)
[2022-09-08] MEDS: CHOLECALCIFEROL 1,000 UNITS TABLET 2000 UNITS PO (09:59)
[2022-09-08] MEDS: MULTIVITAMINS THERAPEUTIC TAB (*BKC) 1 TABLET PO (09:59)
[2022-09-08 11:59] LABS: Hematocrit 30.3 % (37.0-47.0); Hemoglobin 10.2 g/dL (12.0-15.0); Mean Corpuscular HGB Conc 33.7 g/dl (32-36); Mean Corpuscular Hemoglobin 34.8 pg (26-34); Mean Corpuscular Volume 103.4 fl (80-100); Mean Platelet Volume 13.3 fl (7.4-10.4); Platelet Count Result 179 k/mm3 (150-375); Red Blood Count 2.93 M/mm3 (4.2-5.4); White Blood Count 10.3 K/mm3 (4.5-10.0)
[2022-09-08] MEDS: ALBUTEROL SULFATE (*SP) AEROSOL 1 PUFF 2 PUFF INHALATION (11:59)
[2022-09-08 12:19] LABS: Alanine Aminotransferase 20 U/L (6-35); Albumin Level 3.8 g/dL (3.5-5.1); Alkaline Phosphatase 84 U/L (38-126); Anion Gap 6 mmol/L (8-16); Aspartate Amino Transferase 29 U/L (14-36); Bilirubin,Total 0.3 mg/dL (0.2-1.3); Blood Urea Nitrogen 55 mg/dL (7-17); Calcium 7.8 mg/dL (8.4-10.2); Carbon Dioxide 39 mmol/L (22-30); Chloride 93 mmol/L (98-107); Estimated CRCL calculation 26 ml/min; Estimated Glomerular Filt Rate 45; Glucose 315 mg/dL (65-110); Potassium 3.8 mmol/L (3.4-5.0); Sodium 138 mmol/L (137-145)
--- NOTE | 2022-09-08 13:00 | PM.IMPN ---
Progress Note: A&P Assessment and Plan (1) Acute exacerbation of chronic obstructive airways disease: Code(s): J44.1 - Chronic obstructive pulmonary disease with (acute) exacerbation Status: Acute Assessment and Plan: Patient advice to quit smoking. Bronchodilators. Routine exercises. Pneumoniae and flu vaccines as advised Pulmonary rehab if indicated. O2 is currently 2 L Rocephin and azithromycin has been discontinued started cefdinir 300 mg twice a day (2) Respiratory syncytial virus (RSV) infection: Code(s): B33.8 - Other specified viral diseases Status: Acute Assessment and Plan: Supportive care, as above (3) Elevated troponin: Code(s): R77.8 - Other specified abnormalities of plasma proteins Status: Acute Assessment and Plan: Echo showed EF of 50-55% with grade 1 diastolic dysfunction, no significant valvular abnormalities noted (4) Acute hypercapnic respiratory failure: Code(s): J96.02 - Acute respiratory failure with hypercapnia Status: Acute Assessment and Plan: As above (5) Hypertension: Code(s): I10 - Essential (primary) hypertension Status: Acute Assessment and Plan: patient's blood pressure has started improved dramatically after Cardizem drip. Will discontinue amlodipine discontinue hydralazine, optimize carvedilol (6) Hyperkalemia: Code(s): E87.5 - Hyperkalemia Status: Acute Assessment and Plan: she has halfresolved (7) CKD (chronic kidney disease): Code(s): N18.9 - Chronic kidney disease, unspecified Status: Acute Assessment and Plan: Stable, at baseline (8) Diabetes: Code(s): E11.9 - Type 2 diabetes mellitus without complications Status: Acute Assessment and Plan: No diagnosis of diabetes, d/c accuchecks and SSI (9) Hyperlipidemia: Code(s): E78.5 - Hyperlipidemia, unspecified Status: Acute Assessment and Plan: Stable (10) Sepsis: Code(s): A41.9 - Sepsis, unspecified organism Status: Acute Assessment and Plan: As above Blood cultures NGTD (11) Community acquired pneumonia: Code(s): J18.9 - Pneumonia, unspecified organism Status: Acute Assessment and Plan: Continue antibiotics (12) Hallucination, visual: Code(s): R44.1 - Visual hallucinations Status: Acute Assessment and Plan: , completely resolved at this time, suspect secondary to delirium/sundowning, will monitor for now (13) Atrial fibrillation with rapid ventricular response: Code(s): I48.91 - Unspecified atrial fibrillation Status: Acute Assessment and Plan: patient has new onset AFib with rapid ventricular rate. Cardizem drip has been started and also started on Lovenox. Check for 2D echo. ejection fraction 55% no valvular or ventricular abnormality noted Cardiology consult Optimize beta blockers. Monitor blood pressure. Possible cause of AFib could be nebulized treatments will check thyroid panel as well keeping in view patient's age continue aspirin and Lovenox and discontinue Plavix continue GI prophylaxis Plan DVT prophylaxis. GI prophylaxis. All records reviewed Discussed plan of care with the nursing staff and with the patient in detail. Answered all questions and concerns from the patient. All labs have been reviewed. Code status updated dictation may have been done utilizing a voice recognition system. Attempts have been made to correct errors. However, there may be uncorrected grammatical, spelling, and recognition errors present. she Code status full code Time Spent With Patient Time with patient: 25 - 35 minutes Subjective Date/time seen: 09/08/22 13:00 Interval history: patient complains of shortness of breath last night she converted to atrial fibrillation with rapid ventricular rate Cardizem drip was started cardiology Ibrahima
[2022-09-08] MEDS: PANTOPRAZOLE 40 MG TABLET PO (13:38)
[2022-09-08] MEDS: MIRTAZAPINE 15 MG TABLET PO (20:31)
[2022-09-08] MEDS: ACETAMINOPHEN 500 MG TABLET PO (22:18)
[2022-09-09] VITALS (20 sets, daily range): BP systolic 128–177; BP diastolic 61–73; PULSE 63–108; RESP 16–24; TEMP 36.1–36.9; O2SAT 99–100
[2022-09-09] MEDS: IPRATROPIUM BR 0.02% INH SOLN 0.5 MG/2.5 ML VIAL INHALATION ×4 (02:52→20:42)
[2022-09-09] MEDS: ALBUTEROL SULFATE NEB 2.5 MG/3 ML INH 5 MG INHALATION ×4 (02:52→20:42)
[2022-09-09] MEDS: ENOXAPARIN 60 MG/0.6 ML SYRINGE 50 MG SUB-Q (03:12)
[2022-09-09] MEDS: dilTIAZem HCL 30 MG TABLET PO (05:04)
[2022-09-09] MEDS: hydrOXYzine HCL 25 MG TABLET PO ×4 (05:04→23:55)
[2022-09-09] MEDS: methylPREDNISolone SOD SUCC 125 MG VIAL 60 MG IV PUSH ×2 (05:04→12:24)
[2022-09-09 05:52] LABS: Alanine Aminotransferase 18 U/L (6-35); Albumin Level 3.6 g/dL (3.5-5.1); Alkaline Phosphatase 85 U/L (38-126); Anion Gap 6 mmol/L (8-16); Aspartate Amino Transferase 26 U/L (14-36); Bilirubin,Total 0.3 mg/dL (0.2-1.3); Blood Urea Nitrogen 58 mg/dL (7-17); Calcium 7.8 mg/dL (8.4-10.2); Carbon Dioxide 39 mmol/L (22-30); Chloride 90 mmol/L (98-107); Estimated CRCL calculation 27 ml/min; Estimated Glomerular Filt Rate 45; Glucose 210 mg/dL (65-110); Potassium 3.7 mmol/L (3.4-5.0); Sodium 135 mmol/L (137-145)
[2022-09-09 06:06] LABS: Basophils Percent Auto 0.1 % (0.2-1.2); Hematocrit 27.7 % (37.0-47.0); Hemoglobin 9.7 g/dL (12.0-15.0); Immature Granulocyte Absolute 0.32 K/mm3 (0.00-0.031); Immature Platelet Fraction Pct 7.2 % (0.9-11.2); Lymphocytes Absolute Auto 0.96 K/mm3 (0.9-3.2); Lymphocytes Percent Auto 5.9 % (18.3-44.2); Mean Corpuscular Hemoglobin 36.2 pg (26-34); Mean Corpuscular Volume 103.4 fl (80-100); Mean Platelet Volume 13.2 fl (7.4-10.4); Monocytes Absolute Auto 0.2 K/mm3 (0.1-0.6); Monocytes Percent Auto 1.4 % (2.6-8.5); Neutrophils Absolute Auto 14.7 K/mm3 (1.3-6.7); Neutrophils Percent Auto 90.6 % (45.5-73.1); Nucleated Red Blood Cells Perc 0.2 % (0.0-0.2); Platelet Count Result 203 k/mm3 (150-375); Red Blood Count 2.68 M/mm3 (4.2-5.4); Red Cell Distribution Width 13.3 % (11.5-14.5); White Blood Count 16.3 K/mm3 (4.5-10.0)
--- NOTE | 2022-09-09 07:14 | PM.CNCAR ---
Assessment and Plan Assessment and plan (1) Atrial fibrillation with rapid ventricular response: Code(s): I48.91 - Unspecified atrial fibrillation Status: Acute Plan This is a 72-year-old black female who has severe COPD and is hospitalized for the last 6 days to treated exacerbation of this. Yesterday she had an episode of atrial fibrillation that appears to have been self-limited. She was given some diltiazem to treat this but no other specific antiarrhythmic therapy. She is back in sinus rhythm and I do not believe has any previous history of AFib. Almost certainly this is triggered by her chronic lung disease and/or the beta agonist inhalers that are being used to treat this. At this time I believe the only significant decision is that she should be systemically anticoagulated. She reports a prior history of a stroke about 5 or 6 years ago which left her with some left hemiparesis. I will discontinue her aspirin/clopidogrel and replace that with Xarelto. We will follow her cardiac rhythm with you but at this time I do not believe I would start specific antiarrhythmic therapy. Vivek Berg MD [facility] History of Present Illness History of Present Illness Consult date/time: 09/09/22 07:14 Consult reason: atrial fibrillation Reason For Visit: COPD Exac,hypercapnic resp,elevated troponin,RSV, Narrative: This is a 72-year-old woman who I am seeing this morning at the request of the hospitalist because of atrial fibrillation. I do not believe I have seen her in the past. She is a lady with chronic relatively severe COPD who is hospitalized for shortness of breath and COPD exacerbation Force the last 6 days. Yesterday the patient went into atrial fibrillation with moderately rapid ventricular response. Looks like she was given some diltiazem and at this time she is back in sinus rhythm. The nursing staff were caring for her today can not really tell me when she converted back to sinus rhythm or whether she had any symptoms or hemodynamic disturbances when she was in atrial fibrillation. She does not report any significant previous cardiac history other than she states she was evaluated by a ladle repairer a number of years ago at [place] and there was some discussion as to whether she might need a pacemaker implanted or not. She states that after being followed for a while it was determined that was not necessary. I had do not have access to those records as I dictate this note. She was sleeping flat in bed when I came in the room to see her. The patient does not report any symptoms of chest pain pressure or heaviness. She she thinks that when the she was atrial fibrillation yesterday and the staff or attending to her sure her shortness of breath was somewhat worse although she states she is always somewhat short of breath with her chronic lung disease. PFTs that are in the chart indicated severe obstructive lung disease. Her chest x-ray also is consistent with pad. She did have an echocardiogram done earlier in the hospitalization which was read by 1 of my partners as demonstrating normal left ventricular systolic function I do not believe there was any significant valvular disease identified. She does have an abnormal electrocardiogram with inferolateral T-wave inversions. She does report that she had a stroke about 5 or 6 years ago. Was evaluated/hospitalized elsewhere. She cannot remember any of the details of that other than she it has left her with a mild left hemiplegia she says her left foot does drag. Review of Systems Constitutional: Constitutional: Reports lethargy Eyes: Eyes: Reports no additional eye complaints ENT: Reports system reviewed and no additional complaints, except as documented Cardiovascular: Cardiovascular: Reports no additional cardiovascular complaints Respiratory: Respiratory: Reports cough and Reports dyspnea Gastrointestinal: Gastrointestinal: Reports no additional gastrointestinal compla
[2022-09-09] MEDS: carvediloL 6.25 MG TABLET PO ×2 (08:00→22:56)
[2022-09-09] MEDS: CEFDINIR 300 MG CAPSULE PO (08:00)
[2022-09-09] MEDS: CHOLECALCIFEROL 1,000 UNITS TABLET 2000 UNITS PO (08:01)
[2022-09-09] MEDS: FAMOTIDINE 20 MG/2 ML VIAL IV PUSH (08:01)
[2022-09-09] MEDS: FERROUS SULFATE 324 MG TABLET PO (08:01)
[2022-09-09] MEDS: LIPASE/AMYLASE/PROTEASE 12,000 UNITS CAP 2 CAP PO ×3 (08:01→17:05)
[2022-09-09] MEDS: THIAMINE HCL 100 MG TABLET PO (08:02)
[2022-09-09] MEDS: MULTIVITAMINS THERAPEUTIC TAB (*BKC) 1 TABLET PO (08:02)
[2022-09-09] MEDS: FOLIC ACID 1 MG TABLET PO (08:04)
--- NOTE | 2022-09-09 09:01 | PCOTNOTE ---
Attempted to see patient this AM for OT, patient sitting EOB upon therapist's entry into room. Patient reports not having a good morning, wanting to drink her ensure while waiting for a replacement breakfast tray as patient was not happy with her option. CANVAS CUTTER reported to patient that a new tray may take some time and therapy is here to work with you. Patient declined therapy at this time... return at your convenience per patient.
[2022-09-09] MEDS: UMECLIDINIUM BROMIDE 62.5 MCG ELLIPTA 1 PUFF INHALATION (10:25)
[2022-09-09] MEDS: FLUTICASONE/SALMETEROL 115-21 MCG INHALER 1 PUFF 2 PUFF INHALATION ×2 (10:25→20:42)
[2022-09-09 10:46] LABS: Alanine Aminotransferase 19 U/L (6-35); Albumin Level 3.4 g/dL (3.5-5.1); Alkaline Phosphatase 63 U/L (38-126); Anion Gap 5 mmol/L (8-16); Aspartate Amino Transferase 33 U/L (14-36); Bilirubin,Total 0.4 mg/dL (0.2-1.3); Blood Urea Nitrogen 62 mg/dL (7-17); Calcium 7.1 mg/dL (8.4-10.2); Carbon Dioxide 39 mmol/L (22-30); Chloride 88 mmol/L (98-107); Estimated CRCL calculation 31 ml/min; Estimated Glomerular Filt Rate 54; Glucose 296 mg/dL (65-110); Potassium 3.9 mmol/L (3.4-5.0); Sodium 132 mmol/L (137-145)
--- NOTE | 2022-09-09 11:57 | PM.IMPN ---
Progress Note: A&P Assessment and Plan (1) Acute exacerbation of chronic obstructive airways disease: Code(s): J44.1 - Chronic obstructive pulmonary disease with (acute) exacerbation Status: Acute Assessment and Plan: doing well possible discharge tomorrow morning O2 is currently 2 L Rocephin and azithromycin has been discontinued started cefdinir 300 mg twice a day (2) Respiratory syncytial virus (RSV) infection: Code(s): B33.8 - Other specified viral diseases Status: Acute Assessment and Plan: Supportive care, as above (3) Elevated troponin: Code(s): R77.8 - Other specified abnormalities of plasma proteins Status: Acute Assessment and Plan: Echo showed EF of 50-55% with grade 1 diastolic dysfunction, no significant valvular abnormalities noted (4) Acute hypercapnic respiratory failure: Code(s): J96.02 - Acute respiratory failure with hypercapnia Status: Acute Assessment and Plan: As above (5) Hypertension: Code(s): I10 - Essential (primary) hypertension Status: Acute Assessment and Plan: patient's blood pressure has started improved dramatically after Cardizem drip. but noted to have high blood pressure again today will start patient on Cardizem orally and possible discharge patient on the same drugs. (6) Hyperkalemia: Code(s): E87.5 - Hyperkalemia Status: Acute Assessment and Plan: she has halfresolved (7) CKD (chronic kidney disease): Code(s): N18.9 - Chronic kidney disease, unspecified Status: Acute Assessment and Plan: Stable, at baseline (8) Diabetes: Code(s): E11.9 - Type 2 diabetes mellitus without complications Status: Acute Assessment and Plan: No diagnosis of diabetes, d/c accuchecks and SSI (9) Hyperlipidemia: Code(s): E78.5 - Hyperlipidemia, unspecified Status: Acute Assessment and Plan: Stable (10) Sepsis: Code(s): A41.9 - Sepsis, unspecified organism Status: Acute Assessment and Plan: As above Blood cultures NGTD (11) Community acquired pneumonia: Code(s): J18.9 - Pneumonia, unspecified organism Status: Acute Assessment and Plan: Continue antibiotics (12) Hallucination, visual: Code(s): R44.1 - Visual hallucinations Status: Acute Assessment and Plan: , completely resolved at this time, suspect secondary to delirium/sundowning, will monitor for now (13) Atrial fibrillation with rapid ventricular response: Code(s): I48.91 - Unspecified atrial fibrillation Status: Acute Assessment and Plan: patient has new onset AFib with rapid ventricular rate. Cardizem drip has been started and also started on Lovenox. Check for 2D echo. ejection fraction 55% no valvular or ventricular abnormality noted Cardiology consult appreciated. Will agree to discontinue aspirin and Plavix and continue on Xarelto Optimize beta blockers. Monitor blood pressure. Possible cause of AFib could be nebulized treatments will check thyroid panel as well Plan DVT prophylaxis. GI prophylaxis. All records reviewed Discussed plan of care with the nursing staff and with the patient in detail. Answered all questions and concerns from the patient. All labs have been reviewed. Code status updated dictation may have been done utilizing a voice recognition system. Attempts have been made to correct errors. However, there may be uncorrected grammatical, spelling, and recognition errors present. she Code status full code Time Spent With Patient Time with patient: 25 - 35 minutes Subjective Date/time seen: 09/09/22 11:57 Interval history: patient still has some cough seen by cardiology today. Converted back to sinus rhythm today from AFib Review of Systems Review of Systems: All systems reviewed & are unremarkable except as noted in HPI a
[2022-09-09] MEDS: RIVAROXABAN 20 MG TABLET PO (17:05)
[2022-09-09] MEDS: ACETAMINOPHEN 500 MG TABLET PO (17:07)
[2022-09-09] MEDS: traMADol HCL (*CRX) 50 MG TABLET 100 MG PO (20:36)
[2022-09-09] MEDS: MIRTAZAPINE 15 MG TABLET PO (22:56)
[2022-09-09] MEDS: FAMOTIDINE 20 MG TABLET PO (23:55)
[2022-09-10] VITALS (21 sets, daily range): BP systolic 104–143; BP diastolic 50–80; PULSE 74–105; RESP 16–20; TEMP 36.1–36.3; O2SAT 97–100
[2022-09-10] MEDS: MORPHINE SULFATE (*CRX) 2 MG/ML INJ IV PUSH (00:42)
[2022-09-10] MEDS: traMADol HCL (*CRX) 50 MG TABLET PO ×4 (01:39→20:58)
[2022-09-10] MEDS: IPRATROPIUM BR 0.02% INH SOLN 0.5 MG/2.5 ML VIAL INHALATION ×4 (02:04→21:13)
[2022-09-10] MEDS: ALBUTEROL SULFATE NEB 2.5 MG/3 ML INH 5 MG INHALATION ×4 (02:04→21:13)
--- NOTE | 2022-09-10 04:00 | PC.NURSE ---
(09/09) Pt educated at on S/S of compartment syndrome and verbalized they will call if there is any change in sensation in affected limb. Pt also encouraged to utilized ice and elevate limb to help reduce swelling, pt refusing ice at 1999. (09/10) Pt oxygen saturations 100% and pulse is still easily located with doppler, swelling has continued to worsen distal to hematoma, pt again encouraged to ice affected area and is agreeable to ice at this time. elevation of affected limb was increased at this time as well. Dr South notified of intensified swelling, no new orders received continue to monitor closely.
[2022-09-10 04:36] LABS: IFOB Positive Control Positive; Immunochemical Fecal Occult Bl Positive (N)
[2022-09-10] MEDS: hydrOXYzine HCL 25 MG TABLET PO ×3 (06:07→17:22)
[2022-09-10 06:20] LABS: Alanine Aminotransferase 17 U/L (6-35); Alkaline Phosphatase 55 U/L (38-126); Anion Gap 6 mmol/L (8-16); Aspartate Amino Transferase 21 U/L (14-36); Bilirubin,Total 0.2 mg/dL (0.2-1.3); Blood Urea Nitrogen 79 mg/dL (7-17); Calcium 6.9 mg/dL (8.4-10.2); Carbon Dioxide 36 mmol/L (22-30); Chloride 88 mmol/L (98-107); Estimated CRCL calculation 21 ml/min; Estimated Glomerular Filt Rate 34; Glucose 274 mg/dL (65-110); Potassium 4.2 mmol/L (3.4-5.0); Sodium 130 mmol/L (137-145)
[2022-09-10 07:12] LABS: Basophils Absolute Auto 0.1 K/mm3 (0.0-0.1); Basophils Percent Auto 0.2 % (0.2-1.2); Hematocrit 22.8 % (37.0-47.0); Hemoglobin 7.1 g/dL (12.0-15.0); Immature Granulocyte Absolute 0.52 K/mm3 (0.00-0.031); Immature Granulocyte Percent A 2.3 % (0-0.5); Lymphocytes Absolute Auto 1.01 K/mm3 (0.9-3.2); Lymphocytes Percent Auto 4.5 % (18.3-44.2); Mean Corpuscular HGB Conc 31.1 g/dl (32-36); Mean Corpuscular Hemoglobin 30.9 pg (26-34); Mean Corpuscular Volume 99.1 fl (80-100); Mean Platelet Volume 14.2 fl (7.4-10.4); Monocytes Percent Auto 4.6 % (2.6-8.5); Neutrophils Absolute Auto 19.8 K/mm3 (1.3-6.7); Neutrophils Percent Auto 88.4 % (45.5-73.1); Nucleated Red Blood Cells Absolute Auto 0.1 K/mm3 (0.0-0.012); Nucleated Red Blood Cells Perc 0.4 % (0.0-0.2); Platelet Count Result 203 k/mm3 (150-375); Red Cell Distribution Width 13.1 % (11.5-14.5); White Blood Count 22.4 K/mm3 (4.5-10.0)
[2022-09-10] MEDS: FERROUS SULFATE 324 MG TABLET PO (08:22)
[2022-09-10] MEDS: carvediloL 6.25 MG TABLET PO ×2 (08:22→20:53)
[2022-09-10] MEDS: CHOLECALCIFEROL 1,000 UNITS TABLET 2000 UNITS PO (08:22)
[2022-09-10] MEDS: MULTIVITAMINS THERAPEUTIC TAB (*BKC) 1 TABLET PO (08:22)
[2022-09-10] MEDS: LIPASE/AMYLASE/PROTEASE 12,000 UNITS CAP 2 CAP PO ×3 (08:22→17:22)
[2022-09-10] MEDS: predniSONE 5 MG TABLET PO (08:23)
[2022-09-10] MEDS: dilTIAZem HCL CD 180 MG CAP.ER.24H PO (08:23)
[2022-09-10] MEDS: FAMOTIDINE 20 MG TABLET PO ×2 (08:23→20:54)
[2022-09-10] MEDS: FOLIC ACID 1 MG TABLET PO (08:23)
[2022-09-10] MEDS: THIAMINE HCL 100 MG TABLET PO (08:23)
[2022-09-10] MEDS: UMECLIDINIUM BROMIDE 62.5 MCG ELLIPTA 1 PUFF INHALATION (08:43)
[2022-09-10] MEDS: FLUTICASONE/SALMETEROL 115-21 MCG INHALER 1 PUFF 2 PUFF INHALATION ×2 (08:44→21:13)
--- NOTE | 2022-09-10 09:53 | PM.IMPN ---
Progress Note: A&P Assessment and Plan (1) Acute exacerbation of chronic obstructive airways disease: Code(s): J44.1 - Chronic obstructive pulmonary disease with (acute) exacerbation Status: Acute Assessment and Plan: doing well possible discharge in am O2 is currently 2 L started cefdinir 300 mg twice a day (2) Respiratory syncytial virus (RSV) infection: Code(s): B33.8 - Other specified viral diseases Status: Acute Assessment and Plan: Supportive care, as above (3) Elevated troponin: Code(s): R77.8 - Other specified abnormalities of plasma proteins Status: Acute Assessment and Plan: Echo showed EF of 50-55% with grade 1 diastolic dysfunction, no significant valvular abnormalities noted (4) Acute hypercapnic respiratory failure: Code(s): J96.02 - Acute respiratory failure with hypercapnia Status: Acute Assessment and Plan: As above (5) Hypertension: Code(s): I10 - Essential (primary) hypertension Status: Acute Assessment and Plan: patient's blood pressure has started improved dramatically patient started on Cardizem 180 mg q.day (6) Hyperkalemia: Code(s): E87.5 - Hyperkalemia Status: Acute Assessment and Plan: she has halfresolved (7) CKD (chronic kidney disease): Code(s): N18.9 - Chronic kidney disease, unspecified Status: Acute Assessment and Plan: Stable, at baseline (8) Diabetes: Code(s): E11.9 - Type 2 diabetes mellitus without complications Status: Acute Assessment and Plan: No diagnosis of diabetes, d/c accuchecks and SSI (9) Hyperlipidemia: Code(s): E78.5 - Hyperlipidemia, unspecified Status: Acute Assessment and Plan: Stable (10) Sepsis: Code(s): A41.9 - Sepsis, unspecified organism Status: Acute Assessment and Plan: As above Blood cultures NGTD (11) Community acquired pneumonia: Code(s): J18.9 - Pneumonia, unspecified organism Status: Acute Assessment and Plan: Continue antibiotics (12) Hallucination, visual: Code(s): R44.1 - Visual hallucinations Status: Acute Assessment and Plan: , completely resolved at this time, suspect secondary to delirium/sundowning, will monitor for now (13) Atrial fibrillation with rapid ventricular response: Code(s): I48.91 - Unspecified atrial fibrillation Status: Acute Assessment and Plan: patient has new onset AFib with rapid ventricular rate. Cardizem drip has been started and also started on Lovenox. Check for 2D echo. ejection fraction 55% no valvular or ventricular abnormality noted Cardiology consult appreciated. Will agree to discontinue aspirin and Plavix and continue on Xarelto Optimize beta blockers. Monitor blood pressure. Possible cause of AFib could be nebulized treatments will check thyroid panel as well (14) Hematoma: Code(s): T14.8XXA - Other injury of unspecified body region, initial encounter Status: Acute Assessment and Plan: large hematoma of the left forearm noted tender to touch good pulses the . Blisters noted possibly from using ice on that site for too long. No active bleeding possible cause of hematoma is IV site malfunction patient has limited range of motion. compartment syndrome less likely will get Ortho consult may be needed CT of the arm (15) Occult blood in stools: Code(s): R19.5 - Other fecal abnormalities Status: Acute Assessment and Plan: patient noted to have occult blood positive. Patient currently on Xarelto. Will continue to monitor H& H. Will need anticoagulation due to new onset AFib. Aspirin and Plavix has been discontinued. Plan DVT prophylaxis. GI prophylaxis. All records reviewed Discussed plan of care with the nursing staff and with the patient in detail. Answered all questions and concer
--- NOTE | 2022-09-10 10:35 | PM.PNCARD ---
Progress Note: A&P Assessment and Plan (1) Atrial fibrillation with rapid ventricular response: Code(s): I48.91 - Unspecified atrial fibrillation Status: Acute Assessment and Plan: Occurrence of atrial fibrillation during this hospitalization with spontaneous pentecostal of sinus rhythm after being given diltiazem. She has remained in sinus rhythm. No need for any antiarrhythmic therapy in this situation. She has been placed on systemic a/c with Xarelto. Will arrange follow up in our office. Cardiology will sign off please do not hesitate to contact us with any questions. Subjective Date/time seen: 09/10/22 10:35 Cardiology follow up for atrial fibrillation Remains in sinus rhythm today. Short run of SVT noted on telemetry yesterday afternoon. She does not report feeling any palpitations. Review of Systems Constitutional: Constitutional: Reports lethargy Eyes: Eyes: Reports no additional eye complaints ENT: Reports system reviewed and no additional complaints, except as documented Cardiovascular: Cardiovascular: Reports no additional cardiovascular complaints and Reports dyspnea Respiratory: Respiratory: Reports cough and Reports dyspnea Gastrointestinal: Gastrointestinal: Reports no additional gastrointestinal complaints Musculoskeletal: Musculoskeletal: Reports back pain Integumentary/Breasts: Skin/Breast: Reports system reviewed and no additional complaints, except as docu Neurologic: Reports system reviewed and no additional complaints, except as documented Endocrine: Endocrine: Reports no additional endocrine complaints Hematologic/Lymphatic: Hematologic/Lymphatic: Reports no additional hematologic/lymphatic complaints Allergic/Immunologic: Allergic/Immunologic: Reports no additional allergic/immunologic complaints Exam Const: General: comfortable and no acute distress HENMT: Mouth: Yes moist mucous membranes Eyes: Sclera: sclerae normal Neck: Neck: supple Thyroid: thyroid normal Resp: Effort & Inspection: normal respiratory effort Auscultation: not clear to auscultation bilaterally and wheezes Cardio: Rate: regular rate Rhythm: regular rhythm Heart sounds: no gallops, no murmurs and no rubs GI: Auscultation: normal bowel sounds Skin: General skin exam: normal color Neuro: Other: Alert and oriented x3 Extrem: Other: Patient has no edema distal pulses are intact Objective Data Vital Signs Vital Signs: Vital Signs - 24 hr 09/09/22 10:37 09/09/22 12:00 09/09/22 14:01 Temperature 36.9 C Pulse Rate 74 76 78 Respiratory Rate 20 18 Blood Pressure 146/69 H Pulse Oximetry 100 Oxygen Delivery Oxygen Flow Rate 09/09/22 14:41 09/09/22 15:12 09/09/22 15:28 Temperature Pulse Rate 80 82 Respiratory Rate 22 H 22 H Blood Pressure Pulse Oximetry Oxygen Delivery Nasal Cannula Oxygen Flow Rate 3 09/09/22 16:00 09/09/22 19:34 09/09/22 20:44 Temperature 36.6 C Pulse Rate 97 102 H Respiratory Rate 18 Blood Pressure 128/73 Pulse Oximetry 100 100 Oxygen Delivery Nasal Cannula Oxygen Flow Rate 3 09/09/22 20:45 09/09/22 21:00 09/09/22 23:00 Temperature 36.5 C Pulse Rate 100 101 H 101 H Respiratory Rate 20 20 16 Blood Pressure 135/73 Pulse Oximetry 100 Oxygen Delivery Oxygen Flow Rate 09/09/22 22:56 09/10/22 02:06 09/10/22 03:00 Temperature 36.3 C L Pulse Rate 108 H 90 95 Respiratory Rate 18 16 Blood Pressure 134/80 Pulse Oximetry 100 Oxygen Delivery Oxygen Flow Rate 09/10/22 02:20 09/09/22 20:00 09/10/22 00:00 Temperature Pulse Rate 94 102 H 94 Respiratory Rate 18 Blood Pressure Pulse Oximetry Oxygen Delivery Oxygen Flow Rate 09/10/22 04:00 09/10/22 08:22 09/10/22 08:40 Temperature Pulse Rate 90 102 H Respiratory Rate Blood Pressure Pulse Oximetry 98 Oxygen Delivery Nasal Cannula Oxygen Flow Rate 2 09/10/22 08:40 12
[2022-09-10] MEDS: ACETAMINOPHEN 500 MG TABLET PO (11:14)
--- NOTE | 2022-09-10 13:00 | PM.CNOR ---
Assessment and Plan Assessment and plan (1) IV infiltrate: Qualifiers: Encounter type: initial encounter Qualified Code(s): T80.1XXA - Vascular complications following infusion, transfusion and therapeutic injection, initial encounter Code(s): T80.1XXA - Vascular complications following infusion, transfusion and therapeutic injection, initial encounter Status: Acute (2) Localized swelling of left forearm: Code(s): R22.32 - Localized swelling, mass and lump, left upper limb Status: Acute Assessment and Plan: asked to see patient for what appears to be an infiltration of the left forearm IV site. There is moderate swelling. Minimal pain with motion and no other signs of compartment syndrome. Good vascularity to the fingers and thumb. Neurovascular intact. There is quite a bit of swelling however. Recommend edema control with elevation and warm compress. Continue to observe closely for any changes in exam or findings consistent with compartment syndrome. History of Present Illness HPI Consult date: 09/10/22 Requesting physician: Shorty Hair MD Chief complaint: left arm swelling Narrative: 72-year-old woman admitted for COPD and AFib noted to have left forearm swelling and elbow swelling yesterday with problems with IV site. Forearm wrist and hand swelling with blisters on the dorsal aspect. Patient states forearm swollen but not too painful if at rest. Review of Systems Constitutional: Constitutional: Denies fever(s) Eyes: Eyes: Denies blurry vision ENT: Reports Normal hearing present Cardiovascular: Cardiovascular: Denies chest pain and Denies dyspnea Respiratory: Respiratory: Denies dyspnea and Denies wheezing Gastrointestinal: Gastrointestinal: Denies abdominal pain Genitourinary: Genitourinary: Denies urinary urgency Musculoskeletal: Musculoskeletal: Reports as per HPI and Denies numbness Integumentary/Breasts: Skin/Breast: Denies changing lesions and Denies sores Neurologic: Reports Normal hearing present, Denies behavioral changes, Denies confusion, Denies numbness and Denies convulsions Psychiatric: Psychiatric: Denies behavioral changes, Denies confusion and Denies hallucinations Endocrine: Endocrine: Denies heat intolerance Hematologic/Lymphatic: Hematologic/Lymphatic: Denies easy bleeding Allergic/Immunologic: Allergic/Immunologic: Denies wheezing [facility] Past Medical History Medical History (Updated 09/10/22 @ 13:04 by Inderjit Santa MD) CKD (chronic kidney disease) COPD (chronic obstructive pulmonary disease) CVA (cerebral vascular accident) Diabetes Hyperlipidemia Hypertension IV infiltrate Localized swelling of left forearm Pancreatitis Surgical History Surgical History History of hysterectomy Family History Family History Mother Hypertension Cerebrovascular accident Diabetes mellitus Sibling Hypertension Diabetes mellitus Breast cancer Father Hypertension Heart disease Social History Social History Social History: Patient elects Jazmine to be her surrogate with which is her . She wishes to be a full code at this time and denies any pets at the house. Smoking packs per day: 0.5 Smoking cigarettes per day: 10.0 Years smoked: 50 Smoking pack-years: 25.00 Smoking status: Former smoker Tobacco type: cigarettes Smoking end date: 09/29/19 Alcohol intake: never Alcohol use details: Quit About 4 years ago Substance use: never Lack of Transportation: No Lack of Food: Never True Current Housing: I Have Housing Concerned About Future Housing: No Difficulty Paying Gas/Electric Bills: No Difficulty Paying for Meds: No Currently Unemployed: No Education: High School Diploma/GED Difficulty w/ Childcare or Family Care: No Ad
[2022-09-10] MEDS: MIRTAZAPINE 15 MG TABLET PO (20:54)
[2022-09-10] MEDS: SENNA/DOCUSATE SODIUM TABLET 1 TAB PO (20:59)
[2022-09-10] MEDS: guaiFENesin/CODEINE (*CRX) 200/20 MG 10 ML SYRUP PO (20:59)
[2022-09-11] VITALS (29 sets, daily range): BP systolic 104–151; BP diastolic 48–76; PULSE 67–106; RESP 14–28; TEMP 36–36.7; O2SAT 96–100
[2022-09-11] MEDS: hydrOXYzine HCL 25 MG TABLET PO ×4 (01:05→18:36)
[2022-09-11] MEDS: ALBUTEROL SULFATE NEB 2.5 MG/3 ML INH 5 MG INHALATION ×3 (02:56→15:25)
[2022-09-11] MEDS: IPRATROPIUM BR 0.02% INH SOLN 0.5 MG/2.5 ML VIAL INHALATION ×3 (02:56→15:27)
--- NOTE | 2022-09-11 03:06 | PCRCNOTE ---
patient continues to refuse use of NIV; pt is resting comfortably on 2L of oxygen
[2022-09-11] MEDS: traMADol HCL (*CRX) 50 MG TABLET PO ×3 (05:19→18:35)
[2022-09-11] MEDS: guaiFENesin/CODEINE (*CRX) 200/20 MG 10 ML SYRUP PO ×2 (05:21→18:38)
[2022-09-11 06:26] LABS: Alanine Aminotransferase 20 U/L (6-35); Alkaline Phosphatase 66 U/L (38-126); Anion Gap 9 mmol/L (8-16); Aspartate Amino Transferase 24 U/L (14-36); Bilirubin,Total 0.3 mg/dL (0.2-1.3); Blood Urea Nitrogen 99 mg/dL (7-17); Calcium 7.3 mg/dL (8.4-10.2); Carbon Dioxide 34 mmol/L (22-30); Chloride 86 mmol/L (98-107); Estimated CRCL calculation 15 ml/min; Estimated Glomerular Filt Rate 23; Glucose 218 mg/dL (65-110); Sodium 129 mmol/L (137-145)
--- NOTE | 2022-09-11 08:05 | PM.IMPN ---
Progress Note: A&P Assessment and Plan (1) Hematoma: Code(s): T14.8XXA - Other injury of unspecified body region, initial encounter Status: Acute Assessment and Plan: Unclear how this hematoma/swelling developed. Was on apixaban, aspirin and clopidogrel, which have been discontinued. Dopplerable pulse. Per nursing the swelling is unchanged but patient feels it has worsened. Unable to get imaging with contrast due to acute kidney injury. Despite elevation and other conservative measures, the pain associated with the swelling also has not lessened. -CT left forearm without contrast -Creatine Kinase -Appreciate Orthopedic Surgery recommendations -Acetaminophen 650 q6h scheduled for pain -[place] 5/325 PRN q8h -Continue tramadol (2) Acute blood loss anemia: Code(s): D62 - Acute posthemorrhagic anemia Status: Acute Assessment and Plan: FOBT positive 09/10. Unclear etiology. Patient says her vision is too poor to see the color of her stools. Concern for possible hematoma in LUE but given the small size of the compartment and patient remains neurovascularly intact. H/H 02/13 this morning. Will defer GI consult until completion of CT abdomen pelvis and LUE CT -Transfuse 1 unit PRBC -Post transfusion H/H -CT abdomen pelvis without contrast -PPI BID -Anticoagulation discontinued 09/10/22 (3) [id number] kidney injury: Code(s): N17.9 - Acute kidney failure, unspecified; N18.9 - Chronic kidney disease, unspecified Status: Acute Assessment and Plan: No nephrotoxic medications noted. No recent contrast. Echo 09/04/22 with decent EF 50-55%. No hypotension. -Urine sodium -Urine protein -Urine creatinine -CK -Nephrology consult for AM (4) Leukocytosis: Code(s): D72.829 - Elevated white blood cell count, unspecified Status: Acute Assessment and Plan: Treatment for pneumonia with ceftriaxone and azithromycin from 09/02-09/06 and then transitioned to oral cefdinir from 09/07-09/09. Has been on steroids since admission. Leukocytosis has continued to increase despite de-escalation of steroid from methylprednisolone to prednisone. -CT chest, abdomen and pelvis without contrast -UA -Imipenem and vancomycin (5) Acute exacerbation of chronic obstructive airways disease: Code(s): J44.1 - Chronic obstructive pulmonary disease with (acute) exacerbation Status: Acute Assessment and Plan: Present on admission. This appears to have resolved. -Continue fluticasone/salmeterol 2 puffs BID -Discontinue albuterol & ipratropium scheduled -Continue albuterol PRN (6) Respiratory syncytial virus (RSV) infection: Code(s): B33.8 - Other specified viral diseases Status: Acute Assessment and Plan: Supportive care, as above (7) Elevated troponin: Code(s): R77.8 - Other specified abnormalities of plasma proteins Status: Acute Assessment and Plan: Echo showed EF of 50-55% with grade 1 diastolic dysfunction, no significant valvular abnormalities noted (8) Acute hypercapnic respiratory failure: Code(s): J96.02 - Acute respiratory failure with hypercapnia Status: Acute Assessment and Plan: As above (9) Hypertension: Code(s): I10 - Essential (primary) hypertension Status: Acute Assessment and Plan: BP improved but still elevated to SBP 150s at times, which may be due to pain from LUE swelling. Will continue antihypertensives at current dose and work on pain control. -Continue diltiazem 180 mg po qam -Continue carvedilol 6.25 mg BID (10) Hyperkalemia: Code(s): E87.5 - Hyperkalemia Status: Acute Assessment and Plan: Resolved. (11) CKD (chronic kidney disease): Code(s): N18.9 - Chronic kidney disease, unspecified Status: Acute Assessment and Plan: See #3. (12) Diabetes: C
--- NOTE | 2022-09-11 08:16 | PM.PNORT ---
Progress Note: A&P Assessment and Plan (1) Localized swelling of left forearm: Code(s): R22.32 - Localized swelling, mass and lump, left upper limb Status: Acute Assessment and Plan: Increased blistering of the skin but muscles remained soft. Appreciate wound consult. Agree with antibiotic ointment and light dressing. Continue with edema control with elevation and warm compress. Continue observation. Subjective Subjective Date/Time Seen: 09/11/22 08:16 Principal diagnosis: Left arm swelling Interval history: patient states left arm started to drain yesterday. Pain with motion. Comfortable at rest. Exam Const: General: cooperative, healthy appearing, no acute distress, well developed and alert; No confusion Orientation/consciousness: No confusion HENMT: Head: normal to inspection, normocephalic and atraumatic Eyes: Conjunctivae: conjunctivae normal Sclera: sclerae normal Neck: Neck: supple and nontender Chest: Chest palpation & inspection: normal inspection of the chest Resp: Effort & Inspection: normal respiratory effort and no audible wheezes Cardio: Rate: regular rate Rhythm: regular rhythm : General: Yes deferred Skin: General skin exam: no rashes or lesions noted Neuro: General: No confusion Motor exam (neuro): Normal motor muscle tone present throughout Sensory Exam: Sensory deficit (Neuro) (Decrease sensation to light touch thumb, index, middle and radial ring eris) and Upper extremity sensory exam abnormal Deep tendon reflexes (DTR's): Right triceps reflex intensity grade: 2+, Left triceps reflex intensity grade: 2+, Rt Biceps (C5, C6): 2+, Left biceps reflex intensity grade: 2+, Right brachioradialis reflex intensity grade: 2+ and Left brachioradialis reflex intensity grade: 2+ Extrem: General: capillary refill normal Right upper extremity: normal to inspection, full ROM, normal capillary refill and wrist normal vascular exam, radial pulse present and normal Hesham's test; Tinel's positive (Positive median nerve compression test. Positive tinels) and Phalen's positive Left upper extremity: normal to inspection and wrist normal vascular exam, radial pulse present and normal Hesham's test; Tinel's positive (Positive median nerve compression test. Positive Tinels) and Phalen's positive Right lower extremity: normal to inspection Left lower extremity: normal to inspection Other: Left forearm moderate swelling extend the wrist and hand. Multiple blisters on the dorsal aspect of the distal forearm- Increased in size, serous fluid. Tender to palpation throughout. Able to actively move elbow wrist fingers and thumb with mild pain. No pain with passive motion. increased swelling medial elbow, subcutaneous. Serous drainage. Good sensation to touch to the fingers and thumb. Good capillary refill. Palpable radial pulse. No active drainage or erythema. Psych: Affect: normal affect Objective Data Vital Signs Vital Signs: Vital Signs - 24 hr 09/10/22 08:22 09/10/22 08:40 09/10/22 08:40 Temperature Pulse Rate 102 H 105 H Respiratory Rate 20 Blood Pressure Pulse Oximetry 98 Oxygen Delivery Nasal Cannula Oxygen Flow Rate 2 09/10/22 08:52 09/10/22 08:30 09/10/22 08:30 Temperature Pulse Rate 100 100 Respiratory Rate 20 Blood Pressure Pulse Oximetry 97 Oxygen Delivery Nasal Cannula Oxygen Flow Rate 2 09/10/22 11:57 09/10/22 13:57 09/10/22 14:15 Temperature 96.9 F L Pulse Rate 81 74 86 Respiratory Rate 16 20 20 Blood Pressure 104/50 L Pulse Oximetry 100 Oxygen Delivery Oxygen Flow Rate 09/10/22 14:45 09/10/22 12:00 09/10/22 16:00 Temperature 97.2 F L Pulse Rate 80 83 83 Respiratory Rate 16 Blood Pressure 143/59 H Pulse Oximetry 100 Oxygen Delivery Oxygen Flow Rate 09/10/22 18:18 09/10/22 20:14 09/10/22 20:53 Temperature 97.4 F L 97.1 F L Pulse Rate 94 98 100 Respiratory Rate 16 18 Blood
[2022-09-11] MEDS: LIPASE/AMYLASE/PROTEASE 12,000 UNITS CAP 2 CAP PO ×3 (08:31→18:36)
[2022-09-11 08:34] LABS: Basophils Percent Auto 0.1 % (0.2-1.2); Eosinophils Percent Auto 0.1 % (0-4.4); Immature Granulocyte Absolute 0.79 K/mm3 (0.00-0.031); Immature Platelet Fraction Pct 19.7 % (0.9-11.2); Lymphocytes Absolute Auto 1.61 K/mm3 (0.9-3.2); Lymphocytes Percent Auto 6.1 % (18.3-44.2); Mean Corpuscular HGB Conc 31.2 g/dl (32-36); Mean Corpuscular Hemoglobin 29.9 pg (26-34); Mean Corpuscular Volume 95.9 fl (80-100); Mean Platelet Volume 14.1 fl (7.4-10.4); Monocytes Absolute Auto 1.7 K/mm3 (0.1-0.6); Monocytes Percent Auto 6.6 % (2.6-8.5); Neutrophils Absolute Auto 22.1 K/mm3 (1.3-6.7); Neutrophils Percent Auto 84.1 % (45.5-73.1); Nucleated Red Blood Cells Perc 0.2 % (0.0-0.2); Platelet Count Result 183 k/mm3 (150-375); Red Blood Count 1.94 M/mm3 (4.2-5.4); Red Cell Distribution Width 13.3 % (11.5-14.5); White Blood Count 26.3 K/mm3 (4.5-10.0)
[2022-09-11] MEDS: FOLIC ACID 1 MG TABLET PO (08:36)
[2022-09-11] MEDS: CHOLECALCIFEROL 1,000 UNITS TABLET 2000 UNITS PO (08:36)
[2022-09-11] MEDS: dilTIAZem HCL CD 180 MG CAP.ER.24H PO (08:36)
[2022-09-11] MEDS: MULTIVITAMINS THERAPEUTIC TAB (*BKC) 1 TABLET PO (08:36)
[2022-09-11] MEDS: THIAMINE HCL 100 MG TABLET PO (08:36)
[2022-09-11] MEDS: FERROUS SULFATE 324 MG TABLET PO (08:37)
[2022-09-11] MEDS: carvediloL 6.25 MG TABLET PO ×2 (08:37→22:46)
[2022-09-11] MEDS: FAMOTIDINE 20 MG TABLET PO (08:37)
[2022-09-11 08:47] LABS: Hemoglobin 5.8 g/dL (12.0-15.0)
[2022-09-11 08:48] LABS: Hematocrit 18.6 % (37.0-47.0)
[2022-09-11 08:49] LABS: Hypochromasia 2+ (NORMAL); Microcytosis 1+ (NORMAL); Platelet Estimate Adequate (Adequate)
[2022-09-11 08:50] LABS: Atypical Lymphocytes Present; Schistocytes None Seen (NORMAL)
--- NOTE | 2022-09-11 11:39 | PCNFU ---
Nutrition Follow-Up Complete: Inadequate oral intake related to loss of appetite, acute illness as evidenced by 35% average intakes, pt report goal: Adequate PO intake at least 75% meals Patient has limited progress towards goal. We will continue current goal. Pt current nutrition is Heart Healthy. Last recorded weight is 54 kg. Bowel Motility: +Bm reported 09/10 Labs Reviewed:Glu 218, GFR 23, BUN 99, Cr 2.5,Na 129 Meds Noted:Lovenox,Remeron, Vit D, Thiamine, Folic Acid Skin: WNL Additional Notes: Patient remains on heart healthy diet. Refused breakfast today. She will drink Ensure, providing an additional 350 kcals and 20 gms protein. PO intake encouraged. Agree with diet orders at this time. Monitoring intakes, weights, labs, supplements tolerance, plan of care Follow up in 7 days
[2022-09-11] MEDS: SODIUM CHLORIDE 0.9% IV 250 ML 30 ML IV CONT (12:20)
[2022-09-11 19:21] LABS: Hemoglobin 7.8 g/dL (12.0-15.0)
[2022-09-11 19:37] LABS: Hematocrit 18.3 % (37.0-47.0)
[2022-09-11 20:07] LABS: Creatine Kinase 80 U/L (30-135)
[2022-09-11] MEDS: ALBUTEROL SULFATE (*SP) AEROSOL 1 PUFF 2 PUFF INHALATION (20:35)
--- NOTE | 2022-09-11 20:53 | PC.NURSE ---
pt to CT scan by bed with 2L NC via transporter 2033
[2022-09-11] MEDS: PANTOPRAZOLE 40 MG TABLET PO (22:47)
[2022-09-11] MEDS: MIRTAZAPINE 15 MG TABLET PO (22:47)
[2022-09-12] VITALS (27 sets, daily range): BP systolic 121–175; BP diastolic 50–89; PULSE 53–96; RESP 14–22; TEMP 36.2–37.1; O2SAT 98–100
[2022-09-12] MEDS: HYDROcodone/acetaminophen (*CRX) 5-325 MG TABLET 1 TAB PO (00:06)
[2022-09-12] MEDS: ACETAMINOPHEN 325 MG TABLET 650 MG PO ×3 (00:22→18:02)
[2022-09-12] MEDS: hydrOXYzine HCL 25 MG TABLET PO ×3 (00:23→16:27)
[2022-09-12] MEDS: FLUTICASONE/SALMETEROL 115-21 MCG INHALER 1 PUFF 2 PUFF INHALATION ×2 (00:44→17:18)
[2022-09-12 05:50] LABS: Basophils Absolute Auto 0.1 K/mm3 (0.0-0.1); Basophils Percent Auto 0.2 % (0.2-1.2); Eosinophils Absolute Auto 0.1 K/mm3 (0-0.3); Eosinophils Percent Auto 0.3 % (0-4.4); Immature Granulocyte Absolute 0.61 K/mm3 (0.00-0.031); Immature Granulocyte Percent A 2.4 % (0-0.5); Immature Platelet Fraction Pct 20.5 % (0.9-11.2); Lymphocytes Absolute Auto 1.36 K/mm3 (0.9-3.2); Lymphocytes Percent Auto 5.4 % (18.3-44.2); Mean Corpuscular HGB Conc 42.3 g/dl (32-36); Mean Corpuscular Volume 101.8 fl (80-100); Mean Platelet Volume 14.2 fl (7.4-10.4); Monocytes Absolute Auto 1.3 K/mm3 (0.1-0.6); Monocytes Percent Auto 5.2 % (2.6-8.5); Neutrophils Absolute Auto 21.8 K/mm3 (1.3-6.7); Neutrophils Percent Auto 86.5 % (45.5-73.1); Nucleated Red Blood Cells Absolute Auto 0.1 K/mm3 (0.0-0.012); Nucleated Red Blood Cells Perc 0.2 % (0.0-0.2); Platelet Count Result 188 k/mm3 (150-375); Red Blood Count 1.65 M/mm3 (4.2-5.4); White Blood Count 25.2 K/mm3 (4.5-10.0)
[2022-09-12 06:01] LABS: Alanine Aminotransferase 19 U/L (6-35); Albumin Level 2.8 g/dL (3.5-5.1); Alkaline Phosphatase 95 U/L (38-126); Anion Gap 3 mmol/L (8-16); Aspartate Amino Transferase 25 U/L (14-36); Bilirubin,Total 0.3 mg/dL (0.2-1.3); Blood Urea Nitrogen 93 mg/dL (7-17); Calcium 7.8 mg/dL (8.4-10.2); Carbon Dioxide 39 mmol/L (22-30); Chloride 86 mmol/L (98-107); Estimated CRCL calculation 16 ml/min; Estimated Glomerular Filt Rate 24; Glucose 250 mg/dL (65-110); Potassium 4.1 mmol/L (3.4-5.0); Sodium 128 mmol/L (137-145)
[2022-09-12 06:04] LABS: Hemoglobin 7.1 g/dL (12.0-15.0)
[2022-09-12 06:05] LABS: Hematocrit 16.8 % (37.0-47.0)
[2022-09-12 06:06] LABS: Platelet Estimate Adequate (Adequate)
[2022-09-12 06:07] LABS: Hypochromasia 2+ (NORMAL)
[2022-09-12 06:08] LABS: Anisocytosis 1+ (NORMAL); Schistocytes 1+ (NORMAL)
[2022-09-12 07:06] LABS: Creatinine Urine 67.5 mg/dL; Sodium Urine Random 32 meq/L
--- NOTE | 2022-09-12 07:37 | PM.IMPN ---
Progress Note: A&P Assessment and Plan (1) Hematoma: Code(s): T14.8XXA - Other injury of unspecified body region, initial encounter Status: Acute Assessment and Plan: Unclear how this hematoma/swelling developed. Was on apixaban, aspirin and clopidogrel, which have been discontinued. Dopplerable pulse. Per nursing the swelling is unchanged but patient feels it has worsened. Unable to get imaging with contrast due to acute kidney injury. Despite elevation and other conservative measures, the pain associated with the swelling also has not lessened. CT left forearm shows large hemotma in lawrence left forearm and upper arm. CK normal. Improved pain with increase in pain medication. Hematoma may be the source of infection. Patient discussed with Dr. Weiss from plastic surgery. -Consult Plastic Surgery -Appreciate Orthopedic Surgery recommendations -Acetaminophen 650 q6h scheduled for pain -[place] 5/325 PRN q8h -Continue tramadol (2) Acute blood loss anemia: Code(s): D62 - Acute posthemorrhagic anemia Status: Acute Assessment and Plan: FOBT positive 09/10. Unclear etiology. Patient says her vision is too poor to see the color of her stools. Concern for possible hematoma in LUE but given the small size of the compartment and patient remains neurovascularly intact. CT chest abdomen pelvis did not reveal a source of bleeding. Hemoglobin continues to be 6. Patient discussed with Dr. Hernandez at bedside. -Transfuse 1 unit PRBC -Post transfusion H/H -Gastroenterology consulted - appreciate recommendations -PPI BID -Anticoagulation discontinued 09/10/22 (3) Ydrsd-uy-deuhumf kidney injury: Code(s): N17.9 - Acute kidney failure, unspecified; N18.9 - Chronic kidney disease, unspecified Status: Acute Assessment and Plan: No nephrotoxic medications noted. No recent contrast. Echo 09/04/22 with decent EF 50-55%. No hypotension. Creatinine improved today. -Nephrology consulted - appreciate recommendations (4) Leukocytosis: Code(s): D72.829 - Elevated white blood cell count, unspecified Status: Acute Assessment and Plan: Treatment for pneumonia with ceftriaxone and azithromycin from 09/02-09/06 and then transitioned to oral cefdinir from 09/07-09/09. Has been on steroids since admission. Leukocytosis has continued to increase despite de-escalation of steroid from methylprednisolone to prednisone. CT abdomen pelvis wiht fat stranding around the root of the cristel bowel mesentary. No pathologically enlarged lymph nodes. Unable to start imipenem overnight due to depressed renal function, so patient was started on cefepime plus vancomycin. -Cefepime and vancomycin (5) Acute exacerbation of chronic obstructive airways disease: Code(s): J44.1 - Chronic obstructive pulmonary disease with (acute) exacerbation Status: Acute Assessment and Plan: Present on admission. This appears to have resolved. -Continue fluticasone/salmeterol 2 puffs BID -Discontinue albuterol & ipratropium scheduled -Continue albuterol PRN (6) Respiratory syncytial virus (RSV) infection: Code(s): B33.8 - Other specified viral diseases Status: Acute Assessment and Plan: Supportive care, as above (7) Elevated troponin: Code(s): R77.8 - Other specified abnormalities of plasma proteins Status: Acute Assessment and Plan: Echo showed EF of 50-55% with grade 1 diastolic dysfunction, no significant valvular abnormalities noted (8) Acute hypercapnic respiratory failure: Code(s): J96.02 - Acute respiratory failure with hypercapnia Status: Acute Assessment and Plan: As above (9) Hypertension: Code(s): I10 - Essential (primary) hypertension Status: Acute Assessment and Plan: BP improved but still elevated to SBP 150s at times, which may be due to pain from LUE swelling. Will con
[2022-09-12] MEDS: predniSONE 5 MG TABLET PO (09:44)
[2022-09-12] MEDS: carvediloL 6.25 MG TABLET PO ×2 (09:44→21:52)
[2022-09-12] MEDS: CHOLECALCIFEROL 1,000 UNITS TABLET 2000 UNITS PO (09:44)
[2022-09-12] MEDS: LIPASE/AMYLASE/PROTEASE 12,000 UNITS CAP 2 CAP PO ×2 (09:44→16:27)
[2022-09-12] MEDS: THIAMINE HCL 100 MG TABLET PO (09:44)
[2022-09-12] MEDS: FOLIC ACID 1 MG TABLET PO (09:45)
[2022-09-12] MEDS: PANTOPRAZOLE 40 MG TABLET PO ×2 (09:45→21:52)
[2022-09-12] MEDS: MULTIVITAMINS THERAPEUTIC TAB (*BKC) 1 TABLET PO (09:45)
[2022-09-12] MEDS: dilTIAZem HCL CD 180 MG CAP.ER.24H PO (09:45)
[2022-09-12] MEDS: FERROUS SULFATE 324 MG TABLET PO (09:45)
[2022-09-12] MEDS: traMADol HCL (*CRX) 50 MG TABLET PO ×2 (10:00→16:27)
--- NOTE | 2022-09-12 11:34 | WPDCN ---
Assessment and Plan Assessment and plan (1) Hematoma: Code(s): T14.8XXA - Other injury of unspecified body region, initial encounter Status: Acute Assessment and Plan: Large subcutaneous hematoma of left arm and forearm without direct neuromuscular compromise. Plan Explore and drain hematoma of left arm under general anesthesia with Dr Santa. HPI Data of Consult Date/Time: 09/12/22 11:34 Requesting Physician: Emeka Astudillo MD Primary Care Provider: Kael WorrellMD Consult Narrative Narrative: Conchita Espinoza is a 72 year old female with cardiac, pulmonary and renal problems who was admitted to the hospital about a week ago with pulmonary complaints. During this admission she received some steroid injection through the IV placed in the proximal left forearm. That was noted to infiltrate in the arm and the nurse was asked to remove the IV and did so. This region has sense become very swollen there is marked bulla formation over the dorsum of her forearm and hand the arm is heavy and boggy. My exam today is limited however she has been seen a couple times by Dr. quesada who felt that her neurovascular function to her hand was normal. The patient has had a left shoulder arthroplasty. She was able to move her shoulder today. There are no open wounds on her arm or forearm but the blisters are profuse. She is in pain. I have reviewed the CT scan and the ultrasound of the left upper extremity with Dr. spicer he and he is confident that a large amount of blood has hemorrhaged into the subcutaneous tissue. The patient is afebrile she was alert and conversant. The white cell count has crept up to 25,000 in the past couple days. Various renal functions tests have show deterioration.. Her hemoglobin has steadily dropped to 7.1. Various other systems are being evaluated by GI and Cardiology. I have spoken with her who tells me that she has had a great many health issues and the family had worried previously that they might lose her. [facility] Past Medical History Medical History (Updated 09/11/22 @ 18:49 by Meagan Davila MD) CKD (chronic kidney disease) COPD (chronic obstructive pulmonary disease) CVA (cerebral vascular accident) Diabetes Hyperlipidemia Hypertension IV infiltrate Localized swelling of left forearm Pancreatitis Surgical History Surgical History History of hysterectomy Family History Family History Mother Hypertension Cerebrovascular accident Diabetes mellitus Sibling Hypertension Diabetes mellitus Breast cancer Father Hypertension Heart disease Social History Social History Social History: Patient elects Jazmine to be her surrogate with which is her . She wishes to be a full code at this time and denies any pets at the house. 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
[2022-09-12 11:40] LABS: Lactic Acid Reflex 1.3 mmol/L (0.7-2.0)
--- NOTE | 2022-09-12 12:18 | WPDHPUPDATE1 ---
History and Physical Update Update Date/Time: 09/12/22 12:18 History and Physical has been reviewed, including an updated exam of the patient. There are NO changes in the patient's condition. Risks, benefits, and alternatives have been discussed and questions answered. Patient agrees to proceed with procedure.
--- NOTE | 2022-09-12 13:19 | SUR.PREOP ---
1245 SURGERY CANCELLED AT THIS TIME. PT RETURNED TO FLOOR PER BED.
[2022-09-12] MEDS: SODIUM CHLORIDE 0.9% IV 250 ML 30 ML IV CONT (14:10)
--- NOTE | 2022-09-12 15:31 | PM.CNNEP ---
Assessment and Plan Assessment and plan (1) TUCKER (acute kidney injury): Code(s): N17.9 - Acute kidney failure, unspecified Status: Acute Assessment and Plan: etiology not entirely clear suspicion falls on possible sepsis versus anemia CT imaging mentions no kidney pathology check urine electrolytes and CPK consider trial of IVFs follow repeat labs and UOP (2) Stage 3a chronic kidney disease: Code(s): N18.31 - Chronic kidney disease, stage 3a Status: Chronic Assessment and Plan: baseline creatinine runs ~ 1.1- 1.3mg/dl presumably due to HTN, DM, and vascular disease (3) Acute hypercapnic respiratory failure: Code(s): J96.02 - Acute respiratory failure with hypercapnia Status: Acute Assessment and Plan: due to COPD exacerbation + RSV infection + pneumonia clinical improvement with interventions to date continue supportive therapy (4) Acute blood loss anemia: Code(s): D62 - Acute posthemorrhagic anemia Status: Acute Assessment and Plan: guaiac positive GI planning EGD tomorrow partly due to left arm hematoma(?) follow trend of H/H (5) Hematoma: Code(s): T14.8XXA - Other injury of unspecified body region, initial encounter Status: Acute Assessment and Plan: being followed by Plastic and Orthopedic Surgery tentative plan for intervention in the OR continue current therapy (6) Diabetes: Code(s): E11.9 - Type 2 diabetes mellitus without complications Status: Chronic Assessment and Plan: follow accuchecks glycemic control Will continue to follow. History of Present Illness Reason for Consult Consult date: 09/12/22 Reason for consult: acute renal failure (on chronic kidney disease) Chief Complaint Chief complaint: left arm swelling History of Present Illness Narrative: Patient is a 72-year-old female with a past medical history as outlined below who presented to [facility] Emergency room for further evaluation of shortness of breath. The patient reports that she has noted increase in her cough at home in association with increasing shortness of breath for last few days but seems to have worsened on the day of admission. She does have a known history of COPD and has some chronic shortness of breath at baseline. She called EMS to transfer her to the ER for further assessment. Workup and evaluation emergency room demonstrated the patient to be febrile all along with her symptoms of shortness of breath. She feels like her breathing is apparently similar to when she had pneumonia a couple months ago. An ABG was done which demonstrated CO2 retention enhance the patient was placed on BiPAP for treatment of this. Routine blood test demonstrated an elevated BUN and creatinine above her baseline association with hyperkalemia but her lactic acid and procalcitonin levels were within normal limits. It was felt that the patient had an acute exacerbation receive PD complicated by RSV infection and possibly pneumonia. Given this complex history in conjunction with her symptoms led to her presentation, she was admitted the hospital for further evaluation and therapy. Since her admission, her potassium is normalized but her kidney function is still somewhat above baseline. Furthermore, she has been noted to have a drop in her hemoglobin hematocrit in association with guaiac-positive stools. She has also developed a significantly large hematoma in her left arm which is quite painful and somewhat concerning for the possibility of compartmental syndrome. Renal consultation was requested due to her acute kidney injury on top of her baseline chronic kidney disease. For review her records, the patient has a baseline creatinine runs around 1.1-1.3 mg/dL with a likely etiology being her hypertension, diabetes, and vascular disease. Her creatinine has risen to as high as 2.4 mg/dL bu
--- NOTE | 2022-09-12 16:38 | PM.PNORT ---
Progress Note: A&P Assessment and Plan (1) Localized swelling of left forearm: Code(s): R22.32 - Localized swelling, mass and lump, left upper limb Status: Acute Assessment and Plan: Increased blistering of the skin and swelling. CT scan arm reviewed- hematoma ulna aspect forearm. D/W Dr. Willis- plan for left arm debridement when stable. blood transfusion for acute anemia Subjective Subjective Date/Time Seen: 09/12/22 11:00 Principal diagnosis: Left arm swelling Interval history: patient states left arm more swelling. Pain with motion. Comfortable at rest. Exam Const: General: cooperative, healthy appearing, no acute distress, well developed and alert; No confusion Orientation/consciousness: No confusion HENMT: Head: normal to inspection, normocephalic and atraumatic Eyes: Conjunctivae: conjunctivae normal Sclera: sclerae normal Neck: Neck: supple and nontender Chest: Chest palpation & inspection: normal inspection of the chest Resp: Effort & Inspection: normal respiratory effort and no audible wheezes Cardio: Rate: regular rate Rhythm: regular rhythm : General: Yes deferred Skin: General skin exam: no rashes or lesions noted Neuro: General: No confusion Motor exam (neuro): Normal motor muscle tone present throughout Sensory Exam: Sensory deficit (Neuro) (Decrease sensation to light touch thumb, index, middle and radial ring eris) and Upper extremity sensory exam abnormal Deep tendon reflexes (DTR's): Right triceps reflex intensity grade: 2+, Left triceps reflex intensity grade: 2+, Rt Biceps (C5, C6): 2+, Left biceps reflex intensity grade: 2+, Right brachioradialis reflex intensity grade: 2+ and Left brachioradialis reflex intensity grade: 2+ Extrem: General: capillary refill normal Right upper extremity: normal to inspection, full ROM, normal capillary refill and wrist normal vascular exam, radial pulse present and normal Hesham's test; Tinel's positive (Positive median nerve compression test. Positive tinels) and Phalen's positive Left upper extremity: normal to inspection and wrist normal vascular exam, radial pulse present and normal Hesham's test; Tinel's positive (Positive median nerve compression test. Positive Tinels) and Phalen's positive Right lower extremity: normal to inspection Left lower extremity: normal to inspection Other: Left forearm moderate swelling extend the wrist and hand. Multiple blisters on the dorsal aspect of the distal forearm- Increased in size, serous fluid. Tender to palpation throughout. Able to actively move elbow wrist fingers and thumb with mild pain. No pain with passive motion. increased swelling medial elbow, subcutaneous. Serous drainage. Good sensation to touch to the fingers and thumb. Good capillary refill. Palpable radial pulse. No active drainage or erythema. Psych: Affect: normal affect Objective Data Vital Signs Vital Signs: Vital Signs - 24 hr 09/11/22 18:00 09/11/22 22:46 09/11/22 23:19 Temperature 97.3 F L 98.1 F Pulse Rate 71 71 83 Respiratory Rate 18 14 Blood Pressure 124/76 144/62 H Pulse Oximetry 100 100 Oxygen Delivery Oxygen Flow Rate Fraction of Inspired Oxygen 09/11/22 22:00 09/11/22 21:00 09/11/22 21:10 Temperature Pulse Rate 80 80 79 Respiratory Rate 18 20 20 Blood Pressure Pulse Oximetry 96 Oxygen Delivery Nasal Cannula Oxygen Flow Rate 1 Fraction of Inspired Oxygen 24 09/12/22 01:40 09/12/22 06:00 09/11/22 20:00 Temperature 98.7 F 97.6 F Pulse Rate 71 63 78 Respiratory Rate 16 16 Blood Pressure 145/50 H 121/53 L Pulse Oximetry 100 100 Oxygen Delivery Oxygen Flow Rate Fraction of Inspired Oxygen 09/12/22 00:00 09/12/22 04:00 09/12/22 08:00 Temperature Pulse Rate 80 66 62 Respiratory Rate Blood Pressure Pulse Oximetry Oxygen Delivery Oxygen Flow Rate Fraction of Inspired Oxygen 09/12/22 10:00 09/12/22 12:23 08/29
--- NOTE | 2022-09-12 18:21 | WPDGICN ---
Assessment and Plan Assessment and plan (1) Acute blood loss anemia: Code(s): D62 - Acute posthemorrhagic anemia Status: Acute Assessment and Plan: Some of the anemia could be due to the hematoma but given the occult blood in stool I will schedule her for an EGD to be done tomorrow. She states that she has had a colonoscopy recently. she thought that the procedure was done here but I do not see any record of that. I suspect that it had been done at [facility] where she receives much of her care. (2) Acute exacerbation of chronic obstructive airways disease: Code(s): J44.1 - Chronic obstructive pulmonary disease with (acute) exacerbation Status: Acute Assessment and Plan: She states that she is breathing much better now than she was on admission. (3) Hematoma: Code(s): T14.8XXA - Other injury of unspecified body region, initial encounter Status: Acute Assessment and Plan: she has been found to have a hematoma of the left forearm. This is being followed by orthopedic surgery and Plastic surgery. The plan is a debridement to remove the pressure when she is stable. I doubt that this hematoma would account for all of her blood loss. Plan EGD with possible biopsy or dilatation or cautery. GI Consult Note Consult date/time: 09/12/22 18:21 HPI: Conchita Espinoza is a 72 year old female with chronic lung disease and was admitted with an exacerbation with shortness of breath and cough at home. Her respirations apparently were quite shallow at 1st. She is recovering from RSV which she had a couple of months ago. He has had a gradual drop in her blood counts from 9.7 a couple days ago to 5.8. Now it is 7.1 she does take iron at home. She is also on Plavix and aspirin at home. She denies seen any blood her stools are having dark stools she does have some chronic pain in the epigastric area. She denies using NSAIDs recently Review of Systems Review of Systems: All systems reviewed & are unremarkable except as noted in HPI and below PMFSH Past Medical History Medical History CKD (chronic kidney disease) COPD (chronic obstructive pulmonary disease) CVA (cerebral vascular accident) Diabetes Hyperlipidemia Hypertension IV infiltrate Localized swelling of left forearm Pancreatitis Surgical History Surgical History History of hysterectomy Family History Family History Mother Hypertension Cerebrovascular accident Diabetes mellitus Sibling Hypertension Diabetes mellitus Breast cancer Father Hypertension Heart disease Social History Social History Social History: Patient elects Jazmine to be her surrogate with which is her . She wishes to be a full code at this time and denies any pets at the house. 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
--- NOTE | 2022-09-12 21:04 | PCRCNOTE ---
RT to administer mdi @ 1999, NOV showed med was scanned at 1715.
[2022-09-12] MEDS: MIRTAZAPINE 15 MG TABLET PO (21:52)
[2022-09-12] MEDS: SODIUM CHLORIDE 0.9% IV 250 ML 30 ML (22:30)
[2022-09-13] VITALS (25 sets, daily range): BP systolic 123–197; BP diastolic 55–120; PULSE 59–96; RESP 15–25; TEMP 36.2–37.1; O2SAT 97–100
[2022-09-13] MEDS: ACETAMINOPHEN 325 MG TABLET 650 MG PO ×3 (00:14→18:52)
[2022-09-13] MEDS: hydrOXYzine HCL 25 MG TABLET PO ×3 (00:14→18:52)
[2022-09-13] MEDS: SODIUM CHLORIDE 0.9% IV 250 ML 30 ML IV CONT (02:17)
[2022-09-13] MEDS: FUROSEMIDE INJ 40 MG/4 ML VIAL IV PUSH (03:56)
[2022-09-13 05:30] LABS: Alanine Aminotransferase 20 U/L (6-35); Albumin Level 3.1 g/dL (3.5-5.1); Alkaline Phosphatase 70 U/L (38-126); Anion Gap 2 mmol/L (8-16); Aspartate Amino Transferase 31 U/L (14-36); Bilirubin,Total 0.5 mg/dL (0.2-1.3); Blood Urea Nitrogen 81 mg/dL (7-17); Calcium 8.3 mg/dL (8.4-10.2); Carbon Dioxide 39 mmol/L (22-30); Chloride 87 mmol/L (98-107); Estimated CRCL calculation 20 ml/min; Estimated Glomerular Filt Rate 32; Glucose 187 mg/dL (65-110); Potassium 4.6 mmol/L (3.4-5.0); Sodium 128 mmol/L (137-145)
[2022-09-13 07:03] LABS: Add Urine Microscopic? YES; Appearance Urine Clear (Clear); Bilirubin Urine Negative (Negative); Blood Urine Trace-Intact (Negative); Color Urine Light Yellow (Yellow); Glucose Urine UA Negative (Negative); Ketones Urine Negative (Negative); Leukocyte Esterase Ur 1+ LEU/UL (NEGATIVE); Nitrate Urine Negative (Negative); Protein Urine Trace mg/dL (Negative); Urobilinogen Urine 0.2 mg/dL (<2.0); pH Urine 6.5 (5.0-9.0)
--- NOTE | 2022-09-13 07:44 | PM.IMPN ---
Progress Note: A&P Assessment and Plan (1) Hematoma: Code(s): T14.8XXA - Other injury of unspecified body region, initial encounter Status: Acute Assessment and Plan: Unclear how this hematoma/swelling developed. Was on apixaban, aspirin and clopidogrel, which have been discontinued. Dopplerable pulse. Per nursing the swelling is unchanged but patient feels it has worsened. Unable to get imaging with contrast due to acute kidney injury. Despite elevation and other conservative measures, the pain associated with the swelling also has not lessened. CT left forearm shows large hematoma in the left forearm and upper arm. CK normal. Improved pain with increase in pain medication. Hematoma may be the source of infection. Planned for OR today. -Appreciate Plastic Surgery recommendations -Appreciate Orthopedic Surgery recommendations -Acetaminophen 650 q6h scheduled for pain -Aurelia 5/325 PRN q8h -Continue tramadol (2) Acute blood loss anemia: Code(s): D62 - Acute posthemorrhagic anemia Status: Acute Assessment and Plan: FOBT positive 09/10. Unclear etiology. Patient says her vision is too poor to see the color of her stools. Concern for possible hematoma in LUE but given the small size of the compartment and patient remains neurovascularly intact. CT chest abdomen pelvis did not reveal a source of bleeding. Hemoglobin continues to be 6. Patient discussed with Dr. Hernandez at bedside. Anticoagulation discontinued 09/10/22. Transfused 4 units over the past 24 hours. H/H . Planned for EGD today. -Appreciate Gastroenterology recommendations -PPI BID (3) Eomkv-yz-eovctyb kidney injury: Code(s): N17.9 - Acute kidney failure, unspecified; N18.9 - Chronic kidney disease, unspecified Status: Acute Assessment and Plan: No nephrotoxic medications noted. No recent contrast. Echo 09/04/22 with decent EF 50-55%. No hypotension. Creatinine improved today. -Appreciate Nephrology recommendations (4) Leukocytosis: Code(s): D72.829 - Elevated white blood cell count, unspecified Status: Acute Assessment and Plan: Treatment for pneumonia with ceftriaxone and azithromycin from 09/02-09/06 and then transitioned to oral cefdinir from 09/07-09/09. Has been on steroids since admission. Leukocytosis has continued to increase despite de-escalation of steroid from methylprednisolone to prednisone. CT abdomen pelvis with fat stranding around the root of the small bowel mesentery. No pathologically enlarged lymph nodes. Unable to start imipenem due to depressed renal function on 09/11. Leukocytosis worsened today but planned to go to the operatin room for evacuation of the hematoma. Will monitor for today. -continue Cefepime and vancomycin (5) Acute exacerbation of chronic obstructive airways disease: Code(s): J44.1 - Chronic obstructive pulmonary disease with (acute) exacerbation Status: Acute Assessment and Plan: Present on admission. This appears to have resolved. -Continue fluticasone/salmeterol 2 puffs BID -Continue albuterol PRN (6) Respiratory syncytial virus (RSV) infection: Code(s): B33.8 - Other specified viral diseases Status: Acute Assessment and Plan: Supportive care, as above (7) Elevated troponin: Code(s): R77.8 - Other specified abnormalities of plasma proteins Status: Acute Assessment and Plan: Echo showed EF of 50-55% with grade 1 diastolic dysfunction, no significant valvular abnormalities noted (8) Acute hypercapnic respiratory failure: Code(s): J96.02 - Acute respiratory failure with hypercapnia Status: Acute Assessment and Plan: As above (9) Hypertension: Code(s): I10 - Essential (primary) hypertension Status: Acute Assessment and Plan: BP improved but still elevated to SBP 150s at times, which may be due to
--- NOTE | 2022-09-13 07:45 | WPDPN ---
Progress Note: A&P Assessment and Plan (1) Localized swelling of left forearm: Code(s): R22.32 - Localized swelling, mass and lump, left upper limb Status: Acute Assessment and Plan: see next. (2) Hematoma: Code(s): T14.8XXA - Other injury of unspecified body region, initial encounter Status: Acute Plan Generally stable in past 2 days, but left upper extremity is worsening due to possibly expanding hematoma or resulting edema. Pt is on the schedule for surgery today. Time Spent With Patient Time with patient: less than 15 minutes Subjective Date/time seen: 09/13/22 07:45 Interval history: Alert, conversant, says she has no other problems but her breathing and her arm. Speech is breathy. Exam Narrative: Increasingly edematous left RU from fingers to shoulder. Multiple bullae dorsal and volar umu in forearm. Many have ruptured umu in volar aspect. Skin is tight in several areas umu in medial epicondylar area and volar forearm. Says she can feel touch in all finger tips, but reduced in some. Hand and wrist in claw position. She is able to flex and extend each digit, but cannot oppose thumb to index nor make a fist. Able to extend and flex wrist. No obvious full thickness skin compromise, but will need to be examined in the OR. Morning labs pending, requires RN draw from [facility]. Vitals are stable. Coags are ordered now STAT. Appears to have been transfused 3 units PRBC last night. No new radiographs. GI evaluated. EGD pending for noon. Beginning to show signs of compartment pressure injury. To OR today for decompression, evacuation of hematoma. This is scheduled to not overlap with EGD. No clear evidence for abscess. Objective Data Vital Signs Vital Signs: Vital Signs - 24 hr 09/12/22 08:00 09/12/22 10:00 09/12/22 12:23 Temperature 97.4 F L 97.5 F L Pulse Rate 62 65 68 Respiratory Rate 16 18 Blood Pressure 147/50 H 141/51 H Pulse Oximetry 100 100 Oxygen Delivery Room Air Oxygen Flow Rate Fraction of Inspired Oxygen 09/12/22 12:00 09/12/22 14:34 09/12/22 14:50 Temperature 97.6 F 97.9 F Pulse Rate 71 64 61 Respiratory Rate 22 H 22 H Blood Pressure 160/51 H 138/62 Pulse Oximetry 100 100 Oxygen Delivery Oxygen Flow Rate Fraction of Inspired Oxygen 09/12/22 15:50 09/12/22 16:05 09/12/22 16:00 Temperature 98.3 F 98.3 F Pulse Rate 58 L 58 L 58 L Respiratory Rate 16 16 Blood Pressure 124/51 L 124/51 L Pulse Oximetry 100 100 Oxygen Delivery Oxygen Flow Rate Fraction of Inspired Oxygen 09/12/22 16:50 09/12/22 17:35 09/12/22 18:38 Temperature 98.4 F 97.2 F L 97.4 F L Pulse Rate 53 L 54 L 56 L Respiratory Rate 16 20 20 Blood Pressure 175/50 H 156/62 H 147/67 H Pulse Oximetry 100 100 100 Oxygen Delivery Oxygen Flow Rate Fraction of Inspired Oxygen 09/12/22 18:54 09/12/22 19:54 09/12/22 21:02 Temperature 97.3 F L 98.0 F Pulse Rate 57 L 63 64 Respiratory Rate 20 16 Blood Pressure 151/55 H 148/62 H Pulse Oximetry 99 100 98 Oxygen Delivery Nasal Cannula Oxygen Flow Rate 1 Fraction of Inspired Oxygen 09/12/22 20:54 09/12/22 21:09 09/12/22 21:52 Temperature 98.0 F 98.0 F Pulse Rate 67 67 96 Respiratory Rate 16 16 Blood Pressure 152/65 H 152/65 H Pulse Oximetry 100 100 Oxygen Delivery Oxygen Flow Rate Fraction of Inspired Oxygen 09/12/22 20:00 09/12/22 22:30 09/13/22 00:26 Temperature 97.7 F 97.7 F Pulse Rate 96 76 96 Respiratory Rate 16 16 16 Blood Pressure 123/89 123/89 Pulse Oximetry 100 100 100 Oxygen Delivery Nasal Cannula Oxygen Flow Rate 1 Fraction of Inspired Oxygen 24 09/12/22 22:45 09/12/22 23:45 09/12/22 20:00 Temperature 97.8 F 98.0 F Pulse Rate 79 82 72 Respiratory Rate 14 16 Blood Pressure 129/82 131/77 Pulse Oximetry 99 100 Oxygen Delivery Oxygen Flow Rate Fraction of Inspired Oxygen 09/13/22 00:00 09/13/22 00
[2022-09-13 07:47] LABS: RBC Urine 0-2 /hpf (0-2); Squamous Epithelial Cell Urine Rare /hpf (Few)
[2022-09-13] MEDS: FLUTICASONE/SALMETEROL 115-21 MCG INHALER 1 PUFF 2 PUFF INHALATION ×2 (08:16→20:46)
[2022-09-13] MEDS: UMECLIDINIUM BROMIDE 62.5 MCG ELLIPTA 1 PUFF INHALATION (08:17)
[2022-09-13 08:33] LABS: INR 1.2; Prothrombin Time 14.4 Seconds (11.1-14.7)
[2022-09-13 08:38] LABS: Basophils Absolute Auto 0.1 K/mm3 (0.0-0.1); Basophils Percent Auto 0.2 % (0.2-1.2); Eosinophils Percent Auto 0.1 % (0-4.4); Hematocrit 38.6 % (37.0-47.0); Hemoglobin 12.6 g/dL (12.0-15.0); Immature Granulocyte Absolute 0.34 K/mm3 (0.00-0.031); Immature Granulocyte Percent A 1.2 % (0-0.5); Lymphocytes Absolute Auto 1.15 K/mm3 (0.9-3.2); Lymphocytes Percent Auto 3.9 % (18.3-44.2); Mean Corpuscular HGB Conc 32.6 g/dl (32-36); Mean Corpuscular Hemoglobin 28.5 pg (26-34); Mean Corpuscular Volume 87.3 fl (80-100); Mean Platelet Volume 13.3 fl (7.4-10.4); Monocytes Absolute Auto 1.2 K/mm3 (0.1-0.6); Monocytes Percent Auto 4.2 % (2.6-8.5); Neutrophils Absolute Auto 26.6 K/mm3 (1.3-6.7); Neutrophils Percent Auto 90.4 % (45.5-73.1); Platelet Count Result 150 k/mm3 (150-375); Red Blood Count 4.42 M/mm3 (4.2-5.4); Red Cell Distribution Width 15.2 % (11.5-14.5); White Blood Count 29.4 K/mm3 (4.5-10.0)
--- NOTE | 2022-09-13 08:50 | PCPTNOTE ---
Physical therapy treatment on hold for today per RN. The RN states that the pt is going to be going down for several procedures today and thinks it would be best to hold off until tomorrow. Will continue per PT plan of care.
--- NOTE | 2022-09-13 08:56 | PCOTNOTE ---
Per [employer]ER, treatment on hold for today per RN. The RN states that the pt is going to be going down for several procedures today and thinks it would be best to hold off. Will continue per OT plan of care.
[2022-09-13 09:07] LABS: Platelet Estimate Adequate (Adequate)
[2022-09-13 09:19] LABS: Anisocytosis 1+ (NORMAL); Atypical Lymphocytes Present; Schistocytes None Seen (NORMAL)
[2022-09-13 09:20] LABS: Polychromasia 1+ (NORMAL)
[2022-09-13] MEDS: dilTIAZem HCL CD 180 MG CAP.ER.24H PO (09:41)
[2022-09-13] MEDS: LACTATED RINGERS 1,000 ML 150 ML IV CONT (10:59)
[2022-09-13 11:43] LABS: Glucose Point of Care 235 mg/dl (65-105)
[2022-09-13] MEDS: BENZOCAINE (*SP) 60 ML SPRAY CAN (HURRICAINE) 1 SPRAY MUCOUS MEM (11:50)
--- NOTE | 2022-09-13 12:30 | SUR.PHASEII ---
Patient complaining of pain in left arm during post op. States pain is 10/10. Informed Dr. Hernandez. No new orders at this time due to patient going to OR for debridement. Will inform inpatient nurse of patient's pain.
--- NOTE | 2022-09-13 12:43 | SUR.PHASEII ---
REPORT CALLED TO SHELIA ROSE IN SURGERY. PT TAKEN PER STRETCHER TO SURGERY PREOP 11.
[2022-09-13 13:40] LABS: Glucose Point of Care 196 mg/dl (65-105)
--- NOTE | 2022-09-13 14:04 | WPDANESEPPF ---
Anes - Initial Pre Proc Eval Procedure: Operation Date: 09/12/22 13:30 Proposed Procedures p Incision & Drainage Left Upper Extremity(Left) - Bertram Weiss MD Operation Date: 09/13/22 11:30 Proposed Procedures p Esophagogastroduodenoscopy - Parth Hernandez MD Operation Date: 09/13/22 15:00 Proposed Procedures p Incicsion & Drainage Left Upper Extremity(Left) - Bertram Weiss MD Date/Time: 09/13/22 14:04 Surgeon: Emeka Astudillo MD Pre Op Diagnosis: left arm swelling Patient Data Age: 72 Gender: F Height: 1.57 m Weight: 51.2 kg Last Vital Signs Temp 36.2 C L 09/13/22 10:55 Pulse 67 09/13/22 12:25 Resp 22 H 09/13/22 12:25 BP 140/55 L 09/13/22 12:25 Pulse Ox 100 09/13/22 12:25 O2 Del Method Room Air 09/13/22 12:25 O2 Flow Rate 2 09/13/22 10:55 FiO2 24 09/12/22 20:00 Allergies Allergy/AdvReac Type Severity Reaction Status Date / Time No Known Allergies Allergy Verified 09/13/22 10:53 Home Medications Medication Instructions Recorded Confirmed Type albuterol sulfate 90 mcg/actuation 2 puff inhalation Q4H PRN 11/29/20 09/03/22 History aerosol inhaler Shortness Of Breath Or Wheezing carvedilol 6.25 mg tablet 6.25 mg PO Q12H 11/29/20 09/03/22 History clopidogrel 75 mg tablet (Plavix) 75 mg PO DAILY 11/29/20 09/03/22 History hydralazine 10 mg tablet 10 mg PO DAILY 11/29/20 09/03/22 History urfkqi-uymwckav-ttfckrw 1 cap PO TID 11/29/20 09/03/22 History 24,000-76,000-120,000 unit capsule,delayed rel (Creon) mirtazapine 15 mg tablet 15 mg PO QHS 11/29/20 09/03/22 History prednisone 5 mg tablet 5 mg PO EVERY OTHER DAY 11/29/20 09/03/22 History thiamine HCl (vitamin B1) 100 mg 100 mg PO DAILY 11/29/20 09/03/22 History tablet cholecalciferol (vitamin D3) 50 50 mcg PO DAILY 06/19/22 09/03/22 History mcg (2,000 unit) capsule folic acid 1 mg tablet 1 mg PO DAILY 06/19/22 09/03/22 History tiotropium bromide 2.5 2 puff inhalation DAILY 06/19/22 09/03/22 History mcg/actuation mist for inhalation (Spiriva Respimat) acetaminophen 500 mg tablet 500 mg PO QID PRN Pain 09/03/22 09/03/22 History aspirin 81 mg capsule 81 mg PO DAILY 09/03/22 09/03/22 History ferrous sulfate 325 mg (65 mg 325 mg PO DAILY 09/03/22 09/03/22 History iron) capsule,extended release fluticasone 250 mcg-salmeterol 50 1 inh inhalation Q12H 09/03/22 09/03/22 History mcg/dose blistr powdr for inhalation (Wixela Inhub) multivitamin 1 tablet PO DAILY 09/03/22 09/03/22 History tramadol 50 mg tablet 100 mg PO DAILY 09/03/22 09/03/22 History Laboratory Tests 09/11/22 09/13/22 09/13/22 10:05 04:45 04:46 WBC 29.4 K/mm3 H K/mm3 (4.5-10.0) RBC 4.42 M/mm3 M/mm3 (4.2-5.4) Hgb 12.6 g/dL D g/dL (12.0-15.0) Hct 38.6 % % (37.0-47.0) MCV 87.3 fl D fl (80-100) MCH 28.5 pg D pg (26-34) MCHC 32.6 g/dl g/dl (32-36) RDW 15.2 % H % (11.5-14.5) Plt Count 150 k/mm3 k/mm3 (150-375) MPV 13.3 fl H fl (7.4-10.4) Immature Gran % (Auto) 1.2 % H % (0-0.5) Neut % (Auto) 90.4 % H % (45.5-73.1) Lymph % (Auto) 3.9 % L % (18.3-44.2) [place] % (Auto) 4.2 % % (2.6-8.5) Eos % (Auto) 0.1 % % (0-4.4) Baso % (Auto) 0.2 % % (0.2-1.2) Lymph # (Auto) 1.15 K/mm3 K/mm3 (0.9-3.2) [place] # (Auto) 1.2 K/mm3 H K/mm3 (0.1-0.6) Eos # (Auto) 0.0 K/mm3 K/mm3 (0-0.3) Baso # (Auto) 0.1 K/mm3 K/mm3 (0.0-0.1) Abs Immat Gran (auto) 0.34 K/mm3 H K/mm3 (0.00-0.031) Absolute Neuts (auto) 26.6 K/mm3 H K/mm3 (1.3-6.7) Absolute Nucleated RBC 0.0 K/mm3 K/mm3 (0.0-0.012) Nucleated RBC % 0.0 % % (0.0-0.2) Atypical Lymphocytes Present Platelet Estimate Adequate (Adequate) Polychromasia 1+ (NORMAL) Anisocytosis 1+
--- NOTE | 2022-09-13 14:52 | WPDHPUPDATE1 ---
History and Physical Update Update Date/Time: 09/13/22 14:52 History and Physical has been reviewed, including an updated exam of the patient. There are NO changes in the patient's condition. Risks, benefits, and alternatives have been discussed and questions answered. Patient agrees to proceed with procedure.
[2022-09-13] MEDS: SODIUM CHLORIDE 0.9% IV 500 ML 30 ML IV CONT (15:00)
--- NOTE | 2022-09-13 15:31 | SUR.OPER ---
cultures obtained in the OR given to DC Can. Received in lab by Ese at [id number]
--- NOTE | 2022-09-13 16:44 | P.OP_ITS ---
Procedure Note - Detailed Date of Procedure 09/13/22 Pre-op Diagnosis Left arm swelling with hematoma. Post-op Diagnosis Other (Hematoma of left upper extremity. Early compartment syndrome. Cutaneous pressure necrosis .) Procedure Performed 1. Evacuation of hematoma from the arm and forearm. 2. Sub fascial exploration of the volar forearm for compartment syndrome. 3. Sub fascial exploration of the intrinsic muscles of the left hand for compartment syndrome. 4. Left carpal tunnel release Surgeon Bertram Weiss MD Accounts Payable Coordinator Inderjit Santa MD Anesthesia General Indications Worsening signs of pressure injury from hematoma. Findings Hematoma of arm and forearm without abscess or compartment necrosis in forearm or hand. Description of Procedure The patient was brought to the OR for the above procedure. An amendment was made to her consent for fasciotomy due to her worsening condition. She was able to sign the amended consent and the left upper extremity was marked with yes . She was taken to the operating room where she was placed supine on the operating table. SCDs were applied to lower extremities. She was given general endotracheal anesthesia. The left upper extremity was prepped and draped in the usual fashion. A pneumatic tourniquet was not utilized. The extremity was examined locating the skin sites under greatest tension. A marking was made for the full upper extremity fasciotomy if needed. This included markings for carpal tunnel release and dorsal aspect interosseous decompression. No local anesthetic was used. The initial incision was a curving incision over the proximal volar forearm. A large quantity of clotted blood was immediately identified in the subcutaneous plane. This was extruded or retrieved digitally. The skin and dermis in the region appeared to be ischemic. A 3 cm 2nd incision was made on the medial forearm paralleling the medial biceps. Clot was found in this area contiguous with the prior clot. No significant active bleeding was noted. The site of the original bleed was not identified. A tunnel release was performed with the finding of edema and congested synovial tissue. Incisions were made between the 2nd and 3rd metacarpals and the 4th and 5th metacarpals exposing the dorsal and palmar interosseous muscles. These muscles were pink and appeared not to have been damaged by increased subfascial pressure. Cultures for aerobes, anaerobes and Gram stain were taken from the initial wound as it was opened. All wounds were irrigated. All wounds were explored for active bleeding. Bleeding was controlled with electrocautery. Despite the poor condition of the external skin on the volar forearm there appeared to be perfusion of the subdermal tissue. The carpal tunnel wound was closed with interrupted 5 0 nylon. The long volar forearm wound was partially closed with a few interrupted silk stitches to cover underlying structures. A bulky bandage was applied over Xeroform 3 x 8s. The patient was discharged from the operating room and stable condition Estimated Blood Loss 20 Tourniquet Time 0 Urine Output 500 Drains No Packing No Pathology Other (culture for Aerobes and Anaerobes and GS) Complications No immediate complications Condition Stable Disposition PACU
--- NOTE | 2022-09-13 16:45 | SUR.PHASEI ---
RN called respiratory and asked if patient could get her scheduled treatments. RN hears audible wheezes and patient appears to be in some distress.
[2022-09-13 17:00] LABS: Glucose Point of Care 181 mg/dl (65-105)
[2022-09-13] MEDS: ALBUTEROL SULFATE (*SP) AEROSOL 1 PUFF 2 PUFF INHALATION (17:04)
[2022-09-13] MEDS: hydrALAZINE HCL 20 MG/ML VIAL 2.5 MG IV PUSH (17:21)
[2022-09-13] MEDS: carvediloL 6.25 MG TABLET PO (18:52)
[2022-09-13] MEDS: PANTOPRAZOLE 40 MG TABLET PO (20:39)
[2022-09-13] MEDS: MIRTAZAPINE 15 MG TABLET PO (20:39)
[2022-09-13] MEDS: CENTRAL LINE FLUSH 10 ML IV PUSH (23:10)
[2022-09-14] VITALS (15 sets, daily range): BP systolic 154–166; BP diastolic 51–85; PULSE 55–72; RESP 18–26; TEMP 36.4–37.1; O2SAT 92–100
[2022-09-14] MEDS: ACETAMINOPHEN 325 MG TABLET 650 MG PO ×5 (01:02→23:46)
[2022-09-14] MEDS: hydrOXYzine HCL 25 MG TABLET PO ×5 (01:06→23:46)
[2022-09-14] MEDS: CENTRAL LINE FLUSH 10 ML IV PUSH ×3 (05:46→21:07)
--- NOTE | 2022-09-14 06:13 | WPDGIPROGNO ---
Progress Note: A&P Assessment and Plan (1) Acute blood loss anemia: Code(s): D62 - Acute posthemorrhagic anemia Status: Acute Assessment and Plan: Some of the anemia could be due to the hematoma but given the occult blood in stool I will schedule her for an EGD to be done tomorrow. She states that she has had a colonoscopy recently. she thought that the procedure was done here but I do not see any record of that. I suspect that it had been done at [facility] where she receives much of her care. 09/14/2022 her EGD showed only mild reflux esophagitis with some desquamation of the distal esophagus. There were no findings that would suggest upper gastrointestinal bleeding. (2) Acute exacerbation of chronic obstructive airways disease: Code(s): J44.1 - Chronic obstructive pulmonary disease with (acute) exacerbation Status: Acute Assessment and Plan: She states that she is breathing much better now than she was on admission. (3) Hematoma: Code(s): T14.8XXA - Other injury of unspecified body region, initial encounter Status: Acute Assessment and Plan: she has been found to have a hematoma of the left forearm. This is being followed by orthopedic surgery and Plastic surgery. The plan is a debridement to remove the pressure when she is stable. I doubt that this hematoma would account for all of her blood loss. 09/14/2022 successful debridement of large hematoma from left arm yesterday by Dr. Weiss. I am guessing much of her anemia was due to this. Plan EGD with possible biopsy or dilatation or cautery. Subjective Date/time seen: 09/14/22 06:13 no new complaints. She underwent surgery yesterday for removal of large hematomas from her left forearm due to compartment syndrome. She had stated that she had colonoscopy at [facility]. I will try to obtain those records. Exam Const: General: alert and thin Nutritional Appearance: thin and other ( somewhat frail-appearing) Orientation/consciousness: patient oriented x3 Resp: Auscultation: clear to auscultation bilaterally Cardio: Rhythm: regular rhythm GI: Inspection: normal to inspection Auscultation: normal bowel sounds Neuro: General: patient oriented x3 Objective Data Vital Signs Vital Signs: Vital Signs - 24 hr 09/13/22 08:19 09/13/22 10:55 09/13/22 12:05 Temperature 36.2 C L Pulse Rate 75 67 72 Respiratory Rate 16 19 15 Blood Pressure 147/78 H 138/58 L Pulse Oximetry 100 100 Oxygen Delivery Nasal Cannula Room Air Oxygen Flow Rate 2 Fraction of Inspired Oxygen 09/13/22 12:15 09/13/22 12:25 09/13/22 16:23 Temperature 37.1 C Pulse Rate 68 67 59 L Respiratory Rate 25 H 22 H 20 Blood Pressure 127/81 140/55 L 163/75 H Pulse Oximetry 100 100 100 Oxygen Delivery Room Air Room Air Simple Face Mask Oxygen Flow Rate 6 Fraction of Inspired Oxygen 09/13/22 16:35 09/13/22 16:50 09/13/22 17:05 Temperature Pulse Rate 62 63 64 Respiratory Rate 18 21 H 24 H Blood Pressure 183/81 H 197/73 H 141/120 H Pulse Oximetry 100 100 98 Oxygen Delivery Simple Face Mask Simple Face Mask Nasal Cannula Oxygen Flow Rate 6 6 1 Fraction of Inspired Oxygen 09/13/22 17:20 09/13/22 17:35 09/13/22 17:50 Temperature Pulse Rate 66 70 70 Respiratory Rate 22 H 23 H 25 H Blood Pressure 183/91 H 160/96 H 182/75 H Pulse Oximetry 97 98 98 Oxygen Delivery Nasal Cannula Nasal Cannula Nasal Cannula Oxygen Flow Rate 1 1 1 Fraction of Inspired Oxygen 09/13/22 08:00 09/13/22 12:00 09/13/22 18:45 Temperature 37.1 C Pulse Rate 64 71 Respiratory Rate 18 Blood Pressure 179/78 H Pulse Oximetry 98 98 Oxygen Delivery Nasal Cannula Oxygen Flow Rate 1 Fraction of Inspired Oxygen 24 09/13/22 19:00 09/13/22 19:49 09/13/22 20:48 Temperature 37.1 C 36.4 C Pulse Rate 70 65 70 Respiratory Rate 18 18 15 Blood Pressure 188/74 H 153/66
[2022-09-14 06:15] LABS: Basophils Percent Auto 0.1 % (0.2-1.2); Eosinophils Absolute Auto 0.1 K/mm3 (0-0.3); Eosinophils Percent Auto 0.2 % (0-4.4); Hematocrit 30.8 % (37.0-47.0); Hemoglobin 10.8 g/dL (12.0-15.0); Immature Granulocyte Absolute 0.28 K/mm3 (0.00-0.031); Immature Granulocyte Percent A 1.1 % (0-0.5); Immature Platelet Fraction Pct 14.3 % (0.9-11.2); Lymphocytes Absolute Auto 1.05 K/mm3 (0.9-3.2); Mean Corpuscular HGB Conc 35.1 g/dl (32-36); Mean Corpuscular Hemoglobin 33.8 pg (26-34); Mean Corpuscular Volume 96.3 fl (80-100); Monocytes Absolute Auto 1.5 K/mm3 (0.1-0.6); Monocytes Percent Auto 5.6 % (2.6-8.5); Neutrophils Absolute Auto 23.2 K/mm3 (1.3-6.7); Platelet Count Result 178 k/mm3 (150-375); Red Cell Distribution Width 17.5 % (11.5-14.5); White Blood Count 26.1 K/mm3 (4.5-10.0)
[2022-09-14 06:29] LABS: Alanine Aminotransferase 20 U/L (6-35); Albumin Level 2.9 g/dL (3.5-5.1); Alkaline Phosphatase 62 U/L (38-126); Anion Gap 4 mmol/L (8-16); Aspartate Amino Transferase 33 U/L (14-36); Blood Urea Nitrogen 70 mg/dL (7-17); Calcium 7.9 mg/dL (8.4-10.2); Carbon Dioxide 38 mmol/L (22-30); Chloride 88 mmol/L (98-107); Estimated CRCL calculation 20 ml/min; Estimated Glomerular Filt Rate 32; Glucose 282 mg/dL (65-110); Potassium 4.7 mmol/L (3.4-5.0); Sodium 130 mmol/L (137-145)
[2022-09-14] MEDS: UMECLIDINIUM BROMIDE 62.5 MCG ELLIPTA 1 PUFF INHALATION (08:46)
[2022-09-14] MEDS: FLUTICASONE/SALMETEROL 115-21 MCG INHALER 1 PUFF 2 PUFF INHALATION ×2 (08:46→22:14)
[2022-09-14 08:53] LABS: Glucose Point of Care 201 mg/dl (65-105)
[2022-09-14] MEDS: CHOLECALCIFEROL 1,000 UNITS TABLET 2000 UNITS PO (09:17)
[2022-09-14] MEDS: carvediloL 6.25 MG TABLET PO ×2 (09:18→20:59)
[2022-09-14] MEDS: FOLIC ACID 1 MG TABLET PO (09:18)
[2022-09-14] MEDS: THIAMINE HCL 100 MG TABLET PO (09:18)
[2022-09-14] MEDS: MULTIVITAMINS THERAPEUTIC TAB (*BKC) 1 TABLET PO (09:18)
[2022-09-14] MEDS: traMADol HCL (*CRX) 50 MG TABLET PO (09:18)
[2022-09-14] MEDS: predniSONE 5 MG TABLET PO (09:18)
[2022-09-14] MEDS: dilTIAZem HCL CD 180 MG CAP.ER.24H PO (09:18)
[2022-09-14] MEDS: FERROUS SULFATE 324 MG TABLET PO (09:18)
[2022-09-14] MEDS: LIPASE/AMYLASE/PROTEASE 12,000 UNITS CAP 2 CAP PO ×3 (09:18→19:10)
[2022-09-14] MEDS: PANTOPRAZOLE 40 MG TABLET PO ×2 (09:18→20:59)
--- NOTE | 2022-09-14 11:35 | P.PNNP_ITS ---
Progress Note: A&P Assessment and Plan (1) TUCKER (acute kidney injury): Code(s): N17.9 - Acute kidney failure, unspecified Status: Acute Assessment and Plan: * doing a bit better * etiology not entirely clear * suspicion falls on possible sepsis versus anemia * evaluation to date: * urine electrolytes slightly prerenal * CT imaging mentions no kidney pathology * CPK gopi * consider trial of IVFs if deteriorates further * follow repeat labs and UOP (2) Stage 3a chronic kidney disease: Code(s): N18.31 - Chronic kidney disease, stage 3a Status: Chronic Assessment and Plan: * baseline creatinine runs ~ 1.1- 1.3mg/dl * presumably due to HTN, DM, and vascular disease (3) Acute hypercapnic respiratory failure: Code(s): J96.02 - Acute respiratory failure with hypercapnia Status: Acute Assessment and Plan: * due to COPD exacerbation + RSV infection + pneumonia * clinical improvement with interventions to date * continue supportive therapy (4) Acute blood loss anemia: Code(s): D62 - Acute posthemorrhagic anemia Status: Acute Assessment and Plan: * guaiac positive * EGD results noted * partly due to left arm hematoma(?) * follow trend of H/H (5) Hematoma: Code(s): T14.8XXA - Other injury of unspecified body region, initial encounter Status: Acute Assessment and Plan: * being followed by Plastic and Orthopedic Surgery * s/p intervnetion in OR (on 07/14/22) * continue current therapy (6) Diabetes: Code(s): E11.9 - Type 2 diabetes mellitus without complications Status: Chronic Assessment and Plan: * follow accuchecks * glycemic control Will continue to follow. Subjective Date/time seen: 09/14/22 11:35 Unable to see yesterday as she was in the OR for her left arm/hand surgical intervention -- she tolerated the procedure reasonably well; no acute complaints voiced at this time. Exam Narrative: General: ill appearing AA female in NAD Heart: normal S1 and S2; no rub Lungs: coarse breath sound with scattered rhonchi Abdomen: soft, nontender, nondistended, positive bowel sounds Extremities: left arm/forearm with dressings in place Skin: warm and dry Objective Data Vital Signs Vital Signs: Vital Signs Temp Pulse Resp BP Pulse Ox O2 Del Method O2 Flow Rate 09/14/22 11:00 97.6 F 71 18 162/82 H 100 09/14/22 09:20 95 Nasal Cannula 1 09/14/22 08:00 66 09/14/22 09:18 70 09/14/22 09:12 70 20 164/85 H 100 09/14/22 08:47 67 18 09/14/22 08:47 67 92 Nasal Cannula 0.5 09/14/22 08:00 98.7 F 67 18 154/60 H 97 09/14/22 04:00 67 09/14/22 00:00 72 09/14/22 03:49 98.6 F 68 18 156/59 H 97 09/13/22 23:49 97.4 F L 68 18 153/66 H 100 09/13/22 20:48 70 15 09/13/22 19:49 97.6 F 65 18 153/66 H 98 09/13/22 19:00 98.7 F 70 18 188/74 H 100 09/13/22 18:45 98.7 F 71 18 179/78 H 98 09/13/22 17:50 70 25 H 182/75 H 98 Nasal Cannula 1 09/13/22 17:35 70 23 H 160/96 H 98 Nasal Cannula 1 09/13/22 17:20 66 22 H 183/91 H 97 Nasal Cannula 1 09/13/22 17:05 64 24 H 141/120 H 98 Nasal Cannula 1
--- NOTE | 2022-09-14 11:35 | PM.PNNEP ---
Progress Note: A&P Assessment and Plan (1) TUCKER (acute kidney injury): Code(s): N17.9 - Acute kidney failure, unspecified Status: Acute Assessment and Plan: doing a bit better etiology not entirely clear suspicion falls on possible sepsis versus anemia evaluation to date: urine electrolytes slightly prerenal CT imaging mentions no kidney pathology CPK gopi consider trial of IVFs if deteriorates further follow repeat labs and UOP (2) Stage 3a chronic kidney disease: Code(s): N18.31 - Chronic kidney disease, stage 3a Status: Chronic Assessment and Plan: baseline creatinine runs ~ 1.1- 1.3mg/dl presumably due to HTN, DM, and vascular disease (3) Acute hypercapnic respiratory failure: Code(s): J96.02 - Acute respiratory failure with hypercapnia Status: Acute Assessment and Plan: due to COPD exacerbation + RSV infection + pneumonia clinical improvement with interventions to date continue supportive therapy (4) Acute blood loss anemia: Code(s): D62 - Acute posthemorrhagic anemia Status: Acute Assessment and Plan: guaiac positive EGD results noted partly due to left arm hematoma(?) follow trend of H/H (5) Hematoma: Code(s): T14.8XXA - Other injury of unspecified body region, initial encounter Status: Acute Assessment and Plan: being followed by Plastic and Orthopedic Surgery s/p intervnetion in OR (on 07/14/22) continue current therapy (6) Diabetes: Code(s): E11.9 - Type 2 diabetes mellitus without complications Status: Chronic Assessment and Plan: follow accuchecks glycemic control Will continue to follow. Subjective Date/time seen: 09/14/22 11:35 Unable to see yesterday as she was in the OR for her left arm/hand surgical intervention -- she tolerated the procedure reasonably well; no acute complaints voiced at this time. Exam Narrative: General: ill appearing AA female in NAD Heart: normal S1 and S2; no rub Lungs: coarse breath sound with scattered rhonchi Abdomen: soft, nontender, nondistended, positive bowel sounds Extremities: left arm/forearm with dressings in place Skin: warm and dry Objective Data Vital Signs Vital Signs: Vital Signs Temp Pulse Resp BP Pulse Ox O2 Del Method O2 Flow Rate 09/14/22 11:00 97.6 F 71 18 162/82 H 100 09/14/22 09:20 95 Nasal Cannula 1 09/14/22 08:00 66 09/14/22 09:18 70 09/14/22 09:12 70 20 164/85 H 100 09/14/22 08:47 67 18 09/14/22 08:47 67 92 Nasal Cannula 0.5 09/14/22 08:00 98.7 F 67 18 154/60 H 97 09/14/22 04:00 67 09/14/22 00:00 72 09/14/22 03:49 98.6 F 68 18 156/59 H 97 09/13/22 23:49 97.4 F L 68 18 153/66 H 100 09/13/22 20:48 70 15 09/13/22 19:49 97.6 F 65 18 153/66 H 98 09/13/22 19:00 98.7 F 70 18 188/74 H 100 09/13/22 18:45 98.7 F 71 18 179/78 H 98 09/13/22 17:50 70 25 H 182/75 H 98 Nasal Cannula 1 09/13/22 17:35 70 23 H 160/96 H 98 Nasal Cannula 1 09/13/22 17:20 66 22 H 183/91 H 97 Nasal Cannula 1 09/13/22 17:05 64 24 H 141/120 H 98 Nasal Cannula 1 09/13/22 16:50 63 21 H 197/73 H 100 Simple Face Mask 6 09/13/22 16:35 62 18 183/81 H 100 Simple Face Mask 6 09/13/22 16:23 98.7 F 59 L 20 163/75 H 100 Simple Face Mask 6 Intake/Output Intake/Output: Intake & Output 09/11/22 09/12/22 09/13/22 09/14/22 23:59 23:59 23:59 23:59 Intake Total 590 1273 950 772 Output Total 476 886 0552 Balance 190 473 -400 772 Meds/Results Medications: Active Medications Generic Name Dose Route Start Last Admin Trade Name Freq PRN Reason Stop Dose Admin Acetaminophen 500 mg 09/03/22 15:03 09/10/22 11:14 Acetaminophen 500 Mg Tablet PO 500 mg QID PRN Administration Pain 1-3 Acetaminophen 650 mg 09/12/22 00:0
--- NOTE | 2022-09-14 12:35 | PC.NURSE ---
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 Left message with on phone number provided on chart.
[2022-09-14 12:46] LABS: Glucose Point of Care 260 mg/dl (65-105)
[2022-09-14] MEDS: INSULIN ASPART (*BKC) 100 UNITS/ML SUB-Q (12:55)
--- NOTE | 2022-09-14 14:40 | PC.NURSE ---
release of records faxed to [facility]
--- NOTE | 2022-09-14 17:21 | PM.IMPN ---
Progress Note: A&P Assessment and Plan (1) Hematoma: Code(s): T14.8XXA - Other injury of unspecified body region, initial encounter Status: Acute Assessment and Plan: Unclear how this hematoma/swelling developed. Was on apixaban, aspirin and clopidogrel, which have been discontinued. Dopplerable pulse. Per nursing the swelling is unchanged but patient feels it has worsened. Unable to get imaging with contrast due to acute kidney injury. Despite elevation and other conservative measures, the pain associated with the swelling also has not lessened. CT left forearm shows large hematoma in the left forearm and upper arm. CK normal. Evacuated in OR 09/13/22. (2) Acute blood loss anemia: Code(s): D62 - Acute posthemorrhagic anemia Status: Acute Assessment and Plan: FOBT positive 09/10. Unclear etiology. Patient says her vision is too poor to see the color of her stools. Concern for possible hematoma in LUE but given the small size of the compartment and patient remains neurovascularly intact. CT chest abdomen pelvis did not reveal a source of bleeding. Hemoglobin continues to be 6. Patient discussed with Dr. Hernandez at bedside. Anticoagulation discontinued 09/10/22. Transfused 4 units since admission. 09/13 EGD showed reflux espophagitis 09/14 Hgb 10.8 (3) Ecabf-gn-oeopyqn kidney injury: Code(s): N17.9 - Acute kidney failure, unspecified; N18.9 - Chronic kidney disease, unspecified Status: Acute Assessment and Plan: Likely due to sepsis, anemia. No nephrotoxic medications noted. No recent contrast. Echo 09/04/22 with decent EF 50-55%. No hypotension. Creatinine 2.4 at admission 09/14: Creatinine 1.9 (4) Leukocytosis: Code(s): D72.829 - Elevated white blood cell count, unspecified Status: Acute Assessment and Plan: Treatment for pneumonia with ceftriaxone and azithromycin from 09/02-09/06 and then transitioned to oral cefdinir from 09/07-09/09. Has been on steroids since admission. Leukocytosis has continued to increase despite de-escalation of steroid from methylprednisolone to prednisone (now at home dose). CT abdomen pelvis with fat stranding around the root of the small bowel mesentery. No pathologically enlarged lymph nodes. -continue Cefepime and vancomycin 09/14 day 4 with WBC down to 26.1, blood cultures and gm stain from hematoma negative for organisms (5) Diabetes: Code(s): E11.9 - Type 2 diabetes mellitus without complications Status: Acute Assessment and Plan: Not on medication for this at home Continue SSI 09/14 add Basal Lantus due to persistent hyperglycemia (6) Acute exacerbation of chronic obstructive airways disease: Code(s): J44.1 - Chronic obstructive pulmonary disease with (acute) exacerbation Status: Acute Assessment and Plan: Present on admission. This appears to have resolved. -Continue fluticasone/salmeterol 2 puffs BID -Continue albuterol PRN - Continue home dose of prednisone 5mg every other day (7) Respiratory syncytial virus (RSV) infection: Code(s): B33.8 - Other specified viral diseases Status: Acute Assessment and Plan: Supportive care, as above (8) Elevated troponin: Code(s): R77.8 - Other specified abnormalities of plasma proteins Status: Acute Assessment and Plan: Echo showed EF of 50-55% with grade 1 diastolic dysfunction, no significant valvular abnormalities noted (9) Acute hypercapnic respiratory failure: Code(s): J96.02 - Acute respiratory failure with hypercapnia Status: Acute Assessment and Plan: As above (10) Hypertension: Code(s): I10 - Essential (primary) hypertension Status: Acute Assessment and Plan: BP improved but still elevated to SBP 150s at times, which may be due to pain from LUE swelling. Will continue antihypertensives at current dose
[2022-09-14 18:35] LABS: Glucose Point of Care 140 mg/dl (65-105)
--- NOTE | 2022-09-14 19:11 | WPDPN ---
Progress Note: A&P Assessment and Plan (1) Hematoma: Code(s): T14.8XXA - Other injury of unspecified body region, initial encounter Status: Acute Plan S/p drainage of large hematoma causing areas of skin necrosis, and early signs muscle weakness and sensory branch compression in the hand. Dressing change at the bedside. Anticipating return to surgery on Friday or Friday to reevaluate the wound condition. Pt being seen by OT. Time Spent With Patient Time with patient: 15 - 25 minutes Subjective Date/time seen: 09/14/22 19:11 Interval history: When I arrived, Pt was sleeping as her slept in a chair. She says she has been getting enough pain medicine when needed. She is anxious to be able to use her hand again. She is LH dominant. Exam Narrative: Pt alert and willing to talk. Bandage intact without having been soiled or changed overnight. Pt able to assist in dressing change. Some dried blood from last night. Little serous drainage. Dorsal hand and forearm show large patches of deepithelialized skin. Unsutured incisions not draining. Volar forearm shows some dermal ischemia, area undetermined at this time. No purulence or odor. Medial arm incision not bleeding, no ischemia. Pt flexes and extends fingers and wrist. Can oppose thumb to index but unable to snap yet. She feels weak and there is some hypoesthesia. Right medial arm bruise unchanged. Pt aware and reports she is unconcerned. Stat gram stain: No organisms. WBC: 26, Hb 10.8. Objective Data Vital Signs Vital Signs: Vital Signs - 24 hr 09/13/22 19:49 09/13/22 20:48 09/13/22 23:49 Temperature 97.6 F 97.4 F L Pulse Rate 65 70 68 Respiratory Rate 18 15 18 Blood Pressure 153/66 H 153/66 H Pulse Oximetry 98 100 Oxygen Delivery Oxygen Flow Rate 09/14/22 03:49 09/14/22 00:00 09/14/22 04:00 Temperature 98.6 F Pulse Rate 68 72 67 Respiratory Rate 18 Blood Pressure 156/59 H Pulse Oximetry 97 Oxygen Delivery Oxygen Flow Rate 09/14/22 08:00 09/14/22 08:47 09/14/22 08:47 Temperature 98.7 F Pulse Rate 67 67 67 Respiratory Rate 18 18 Blood Pressure 154/60 H Pulse Oximetry 97 92 Oxygen Delivery Nasal Cannula Oxygen Flow Rate 0.5 09/14/22 09:12 09/14/22 09:18 09/14/22 08:00 Temperature Pulse Rate 70 70 66 Respiratory Rate 20 Blood Pressure 164/85 H Pulse Oximetry 100 Oxygen Delivery Oxygen Flow Rate 09/14/22 09:20 09/14/22 12:00 09/14/22 12:00 Temperature 97.6 F Pulse Rate 55 L 71 Respiratory Rate 18 Blood Pressure 162/82 H Pulse Oximetry 95 100 Oxygen Delivery Nasal Cannula Oxygen Flow Rate 1 09/14/22 16:00 Temperature Pulse Rate 57 L Respiratory Rate Blood Pressure Pulse Oximetry Oxygen Delivery Oxygen Flow Rate Intake/Output Intake/Output: Intake & Output 09/11/22 09/12/22 09/13/22 09/14/22 23:59 23:59 23:59 23:59 Intake Total 590 1273 950 772 Output Total 770 321 5095 Balance 190 473 -400 772 Meds/Results Medications: Active Medications Generic Name Dose Route Start Last Admin Trade Name Freq PRN Reason Stop Dose Admin Acetaminophen 500 mg 09/03/22 15:03 09/10/22 11:14 Acetaminophen 500 Mg Tablet PO 500 mg QID PRN Administration Pain 1-3 Acetaminophen 650 mg 09/12/22 00:00 09/14/22 19:10 Acetaminophen 325 Mg Tablet PO 650 mg Q6HR FANG Administration Hydrocodone Bitart/Acetaminophen 1 tab 09/11/22 18:38 09/12/22 00:06 Hydrocodone/Acetaminophen (*Crx) 5-325 Mg Tablet PO 1 tab Q8H PRN Administration Pain Rated 4-6 Albuterol 2 puff 09/03/22 15:03 09/13/22 17:04 Albuterol Sulfate (*Sp) Aerosol 1 Puff INHALATION 2 puff Q4H PRN Administration Shortness Of Breath Or Wheezin Lipase/Protease/Amylase 2 cap 09/03/22 17:00 09/14/22 19:10 Lipase/Amylase/Protease 12,000 Units Cap PO 10/03/22 16:59 2 cap TID FANG Administration Carvedilol 6.25 m
[2022-09-14 20:08] LABS: Vancomycin Trough 10.9 ug/mL (10.0-20.0)
[2022-09-14 20:11] LABS: Glucose Point of Care 69 mg/dl (65-105)
[2022-09-14] MEDS: MIRTAZAPINE 15 MG TABLET PO (20:59)
[2022-09-15] VITALS (16 sets, daily range): BP systolic 146–159; BP diastolic 50–54; PULSE 56–90; RESP 17–97; TEMP 36.6–37.1; O2SAT 94–100
[2022-09-15] MEDS: CENTRAL LINE FLUSH 10 ML IV PUSH ×3 (05:19→21:02)
[2022-09-15] MEDS: ACETAMINOPHEN 325 MG TABLET 650 MG PO ×3 (05:19→23:56)
[2022-09-15] MEDS: hydrOXYzine HCL 25 MG TABLET PO ×4 (05:19→23:56)
[2022-09-15 05:25] LABS: Basophils Percent Auto 0.1 % (0.2-1.2); Eosinophils Absolute Auto 0.2 K/mm3 (0-0.3); Eosinophils Percent Auto 0.7 % (0-4.4); Hematocrit 27.6 % (37.0-47.0); Hemoglobin 9.4 g/dL (12.0-15.0); Immature Granulocyte Absolute 0.33 K/mm3 (0.00-0.031); Immature Granulocyte Percent A 1.3 % (0-0.5); Lymphocytes Absolute Auto 1.45 K/mm3 (0.9-3.2); Lymphocytes Percent Auto 5.7 % (18.3-44.2); Mean Corpuscular HGB Conc 34.1 g/dl (32-36); Mean Corpuscular Hemoglobin 32.1 pg (26-34); Mean Corpuscular Volume 94.2 fl (80-100); Mean Platelet Volume 12.1 fl (7.4-10.4); Monocytes Absolute Auto 1.7 K/mm3 (0.1-0.6); Monocytes Percent Auto 6.7 % (2.6-8.5); Neutrophils Absolute Auto 21.6 K/mm3 (1.3-6.7); Neutrophils Percent Auto 85.5 % (45.5-73.1); Platelet Count Result 166 k/mm3 (150-375); Red Blood Count 2.93 M/mm3 (4.2-5.4); Red Cell Distribution Width 16.3 % (11.5-14.5); White Blood Count 25.3 K/mm3 (4.5-10.0)
[2022-09-15 05:37] LABS: Alanine Aminotransferase 19 U/L (6-35); Albumin Level 2.9 g/dL (3.5-5.1); Alkaline Phosphatase 60 U/L (38-126); Anion Gap 1 mmol/L (8-16); Aspartate Amino Transferase 30 U/L (14-36); Bilirubin,Total 0.7 mg/dL (0.2-1.3); Blood Urea Nitrogen 69 mg/dL (7-17); Carbon Dioxide 38 mmol/L (22-30); Chloride 92 mmol/L (98-107); Estimated CRCL calculation 16 ml/min; Estimated Glomerular Filt Rate 24; Glucose 117 mg/dL (65-110); Potassium 4.6 mmol/L (3.4-5.0); Sodium 131 mmol/L (137-145)
[2022-09-15 06:07] LABS: Cortisol Random 5.99 ug/dL
[2022-09-15 09:41] LABS: Glucose Point of Care 132 mg/dl (65-105)
[2022-09-15] MEDS: carvediloL 6.25 MG TABLET PO ×2 (10:15→20:42)
[2022-09-15] MEDS: CHOLECALCIFEROL 1,000 UNITS TABLET 2000 UNITS PO (10:15)
[2022-09-15] MEDS: dilTIAZem HCL CD 180 MG CAP.ER.24H PO (10:15)
[2022-09-15] MEDS: LIPASE/AMYLASE/PROTEASE 12,000 UNITS CAP 2 CAP PO ×3 (10:16→18:23)
[2022-09-15] MEDS: MULTIVITAMINS THERAPEUTIC TAB (*BKC) 1 TABLET PO (10:16)
[2022-09-15] MEDS: FERROUS SULFATE 324 MG TABLET PO (10:16)
[2022-09-15] MEDS: FOLIC ACID 1 MG TABLET PO (10:16)
[2022-09-15] MEDS: PANTOPRAZOLE 40 MG TABLET PO ×2 (10:16→20:42)
[2022-09-15] MEDS: THIAMINE HCL 100 MG TABLET PO (10:16)
[2022-09-15] MEDS: FLUTICASONE/SALMETEROL 115-21 MCG INHALER 1 PUFF 2 PUFF INHALATION ×2 (11:54→21:05)
[2022-09-15] MEDS: UMECLIDINIUM BROMIDE 62.5 MCG ELLIPTA 1 PUFF INHALATION (11:55)
--- NOTE | 2022-09-15 12:35 | P.PNIM_ITS ---
Progress Note: A&P Assessment and Plan (1) Hematoma: Code(s): T14.8XXA - Other injury of unspecified body region, initial encounter Status: Acute Assessment and Plan: Unclear how this hematoma/swelling developed. Was on apixaban, aspirin and clopidogrel, which have been discontinued. Dopplerable pulse. Per nursing the swelling is unchanged but patient feels it has worsened. Unable to get imaging with contrast due to acute kidney injury. Despite elevation and other conservative measures, the pain associated with the swelling also has not lessened. CT left forearm shows large hematoma in the left forearm and upper arm. CK normal. Evacuated in OR 09/13/22. question plan for additional surgery Friday or Friday. (2) Acute blood loss anemia: Code(s): D62 - Acute posthemorrhagic anemia Status: Acute Assessment and Plan: FOBT positive 09/10. Unclear etiology. Patient says her vision is too poor to see the color of her stools. Concern for possible hematoma in LUE but given the small size of the compartment and patient remains neurovascularly intact. CT chest abdomen pelvis did not reveal a source of bleeding. Hemoglobin continues to be 6. Patient discussed with Dr. Hernandez at bedside. Anticoagulation discontinued 09/10/22. Transfused 4 units since admission. 09/13 EGD showed reflux espophagitis 09/14 Hgb 10.8 (3) [id number] kidney injury: Code(s): N17.9 - Acute kidney failure, unspecified; N18.9 - Chronic kidney disease, unspecified Status: Acute Assessment and Plan: Likely due to sepsis, anemia. No nephrotoxic medications noted. No recent contrast. Echo 09/04/22 with decent EF 50-55%. No hypotension. Creatinine 2.4 at admission 09/14: Creatinine 1.9 (4) Leukocytosis: Code(s): D72.829 - Elevated white blood cell count, unspecified Status: Acute Assessment and Plan: Treatment for pneumonia with ceftriaxone and azithromycin from 09/02-09/06 and then transitioned to oral cefdinir from 09/07-09/09. Has been on steroids since admission. Leukocytosis has continued to increase despite de-escalation of steroid from methylprednisolone to prednisone (now at home dose). CT abdomen pelvis with fat stranding around the root of the small bowel mesentery. No pathologically enlarged lymph nodes. -continue Cefepime and vancomycin 09/14 day 4 with WBC down to 26.1, blood cultures and gm stain from hematoma negative for organisms (5) Diabetes: Code(s): E11.9 - Type 2 diabetes mellitus without complications Status: Acute Assessment and Plan: Not on medication for this at home Continue SSI 09/14 add Basal Lantus due to persistent hyperglycemia (6) Acute exacerbation of chronic obstructive airways disease: Code(s): J44.1 - Chronic obstructive pulmonary disease with (acute) exacerbation Status: Acute Assessment and Plan: Present on admission. This appears to have resolved. -Continue fluticasone/salmeterol 2 puffs BID -Continue albuterol PRN - Continue home dose of prednisone 5mg every other day (7) Respiratory syncytial virus (RSV) infection: Code(s): B33.8 - Other specified viral diseases Status: Acute Assessment and Plan: Supportive care, as above (8) Elevated troponin: Code(s): R77.8 - Other specified abnormalities of plasma proteins Status: Acute Assessment and Plan: Echo showed EF of 50-55% with grade 1 diastolic dysfunction, no significant valvular abnormalities noted
[2022-09-15 12:36] LABS: Glucose Point of Care 160 mg/dl (65-105)
[2022-09-15] MEDS: SODIUM CHLORIDE 0.9% IV 1,000 ML 75 ML IV CONT (13:13)
[2022-09-15] MEDS: HYDROcodone/acetaminophen (*CRX) 5-325 MG TABLET 1 TAB PO ×2 (13:14→21:04)
--- NOTE | 2022-09-15 13:14 | PM.PNNEP ---
Progress Note: A&P Assessment and Plan (1) TUCKER (acute kidney injury): Code(s): N17.9 - Acute kidney failure, unspecified Status: Acute Assessment and Plan: doing a bit better etiology not entirely clear suspicion falls on possible sepsis versus anemia evaluation to date: urine electrolytes slightly prerenal CT imaging mentions no kidney pathology CPK gopi start trial of IVFs today follow repeat labs and UOP (2) Stage 3a chronic kidney disease: Code(s): N18.31 - Chronic kidney disease, stage 3a Status: Chronic Assessment and Plan: baseline creatinine runs ~ 1.1- 1.3mg/dl presumably due to HTN, DM, and vascular disease (3) Acute hypercapnic respiratory failure: Code(s): J96.02 - Acute respiratory failure with hypercapnia Status: Acute Assessment and Plan: due to COPD exacerbation + RSV infection + pneumonia clinical improvement with interventions to date continue supportive therapy (4) Acute blood loss anemia: Code(s): D62 - Acute posthemorrhagic anemia Status: Acute Assessment and Plan: guaiac positive EGD results noted partly due to left arm hematoma(?) follow trend of H/H (5) Hematoma: Code(s): T14.8XXA - Other injury of unspecified body region, initial encounter Status: Acute Assessment and Plan: being followed by Plastic and Orthopedic Surgery s/p intervnetion in OR (on 07/14/22) continue current therapy (6) Diabetes: Code(s): E11.9 - Type 2 diabetes mellitus without complications Status: Chronic Assessment and Plan: follow accuchecks glycemic control Will continue to follow. Subjective Date/time seen: 09/15/22 13:14 No acute issues or complaints to report on my visit with her today; creatinine up a bit since last checked; pain control seems satisfactory; no events overnight or earlier this AM; still seems a bit weak but better overall since surgical intervention. Exam Narrative: General: ill appearing AA female in NAD Heart: normal S1 and S2; no rub Lungs: coarse breath sound with scattered rhonchi Abdomen: soft, nontender, nondistended, positive bowel sounds Extremities: left arm/forearm with dressings in place Skin: warm and intact Objective Data Vital Signs Vital Signs: Vital Signs Temp Pulse Resp BP Pulse Ox O2 Del Method O2 Flow Rate 09/15/22 12:00 59 L 09/15/22 11:56 94 Nasal Cannula 1 09/15/22 10:15 100 Nasal Cannula 1 09/15/22 10:28 66 09/15/22 10:15 70 09/15/22 10:14 66 20 159/54 H 100 09/15/22 06:00 97.9 F 62 20 149/54 H 100 09/15/22 04:00 59 L 09/15/22 00:00 63 09/14/22 20:00 63 09/14/22 22:15 94 Nasal Cannula 1 09/14/22 19:49 98.8 F 61 26 H 166/51 H 100 09/14/22 20:00 100 Nasal Cannula 1 09/14/22 20:59 72 09/14/22 18:00 97.6 F 72 18 156/70 H 100 Intake/Output Intake/Output: Intake & Output 09/12/22 09/13/22 09/14/22 09/15/22 23:59 23:59 23:59 23:59 Intake Total 1273 1000 1744 612 Output Total 800 1350 Balance 473 -350 1744 612 Meds/Results Medications: Active Medications Generic Name Dose Route Start Last Admin Trade Name Freq PRN Reason Stop Dose Admin Acetaminophen 500 mg 09/03/22 15:03 09/10/22 11:14 Acetaminophen 500 Mg Tablet PO 500 mg QID PRN Administration Pain 1-3 Acetaminophen 650 mg 09/12/22 00:00 09/15/22 13:09 Acetaminophen 325 Mg Tablet PO Not Given Q6HR FANG Hydrocodone Bitart/Acetaminophen 1 tab 09/11/22 18:38 09/15/22 13:14 Hydrocodone/Acetaminophen (*Crx) 5-325 Mg Tablet PO 1 tab Q8H PRN Administration Pain Rated 4-6 Albuterol 2 puff 09/03/22 15:03 09/13/22 17:04 Albuterol Sulfate (*Sp) Aerosol 1 Puff INHALATION 2 puff Q4H PRN Administration Shortness Of Breath Or Wheezin Lipase/Protease/Amylase
--- NOTE | 2022-09-15 13:14 | P.PNNP_ITS ---
Progress Note: A&P Assessment and Plan (1) TUCKER (acute kidney injury): Code(s): N17.9 - Acute kidney failure, unspecified Status: Acute Assessment and Plan: * doing a bit better * etiology not entirely clear * suspicion falls on possible sepsis versus anemia * evaluation to date: * urine electrolytes slightly prerenal * CT imaging mentions no kidney pathology * CPK gopi * start trial of IVFs today * follow repeat labs and UOP (2) Stage 3a chronic kidney disease: Code(s): N18.31 - Chronic kidney disease, stage 3a Status: Chronic Assessment and Plan: * baseline creatinine runs ~ 1.1- 1.3mg/dl * presumably due to HTN, DM, and vascular disease (3) Acute hypercapnic respiratory failure: Code(s): J96.02 - Acute respiratory failure with hypercapnia Status: Acute Assessment and Plan: * due to COPD exacerbation + RSV infection + pneumonia * clinical improvement with interventions to date * continue supportive therapy (4) Acute blood loss anemia: Code(s): D62 - Acute posthemorrhagic anemia Status: Acute Assessment and Plan: * guaiac positive * EGD results noted * partly due to left arm hematoma(?) * follow trend of H/H (5) Hematoma: Code(s): T14.8XXA - Other injury of unspecified body region, initial encounter Status: Acute Assessment and Plan: * being followed by Plastic and Orthopedic Surgery * s/p intervnetion in OR (on 07/14/22) * continue current therapy (6) Diabetes: Code(s): E11.9 - Type 2 diabetes mellitus without complications Status: Chronic Assessment and Plan: * follow accuchecks * glycemic control Will continue to follow. Subjective Date/time seen: 09/15/22 13:14 No acute issues or complaints to report on my visit with her today; creatinine up a bit since last checked; pain control seems satisfactory; no events overnight or earlier this AM; still seems a bit weak but better overall since surgical intervention. Exam Narrative: General: ill appearing AA female in NAD Heart: normal S1 and S2; no rub Lungs: coarse breath sound with scattered rhonchi Abdomen: soft, nontender, nondistended, positive bowel sounds Extremities: left arm/forearm with dressings in place Skin: warm and intact Objective Data Vital Signs Vital Signs: Vital Signs Temp Pulse Resp BP Pulse Ox O2 Del Method O2 Flow Rate 09/15/22 12:00 59 L 09/15/22 11:56 94 Nasal Cannula 1 09/15/22 10:15 100 Nasal Cannula 1 09/15/22 10:28 66 09/15/22 10:15 70 09/15/22 10:14 66 20 159/54 H 100 09/15/22 06:00 97.9 F 62 20 149/54 H 100 09/15/22 04:00 59 L 09/15/22 00:00 63 09/14/22 20:00 63 09/14/22 22:15 94 Nasal Cannula 1 09/14/22 19:49 98.8 F 61 26 H 166/51 H 100 09/14/22 20:00 100 Nasal Cannula 1 09/14/22 20:59 72 09/14/22 18:00 97.6 F 72 18 156/70 H 100 Intake/Output Intake/Output: Intake & Output 09/12/22 09/13/22 09/14/22 09/15/22 23:59 23:59 23:59 23:59 Intake Total 1273 1000 1744 612 Output Total 800 1350 Balance 473 350 1744 612
--- NOTE | 2022-09-15 14:59 | WPDPN ---
Progress Note: A&P Assessment and Plan (1) Hematoma: Code(s): T14.8XXA - Other injury of unspecified body region, initial encounter Status: Acute Assessment and Plan: Plan S/P evacuation of large subcutaneous hematoma. Time Spent With Patient Time with patient: less than 15 minutes Subjective Date/time seen: 09/15/22 14:59 POD 2 Evacuation of left UE hematoma and subfascial exploration. Interval history: Pt is alert and asking about next stage of her treatment. Voice stronger today. Exam Narrative: Quite talkative today. Says L hand is stinging. Reports less feeling in 5th digit than others. Unable to perform composite flexion of the index. Dressing not soiled and was not changed today. WBC showing slight downward trend but ~26K Hb just below 10. Wound culture no growth so far. Now off Vancomycin. Prednisone 5 mg q 48H Const: General: comfortable Objective Data Vital Signs Vital Signs: Vital Signs - 24 hr 09/14/22 16:00 09/14/22 18:00 09/14/22 20:59 Temperature 97.6 F Pulse Rate 57 L 72 72 Respiratory Rate 18 Blood Pressure 156/70 H Pulse Oximetry 100 Oxygen Delivery Oxygen Flow Rate 09/14/22 20:00 09/14/22 19:49 09/14/22 22:15 Temperature 98.8 F Pulse Rate 61 Respiratory Rate 26 H Blood Pressure 166/51 H Pulse Oximetry 100 100 94 Oxygen Delivery Nasal Cannula Nasal Cannula Oxygen Flow Rate 1 1 09/14/22 20:00 09/15/22 00:00 09/15/22 04:00 Temperature Pulse Rate 63 63 59 L Respiratory Rate Blood Pressure Pulse Oximetry Oxygen Delivery Oxygen Flow Rate 09/15/22 06:00 09/15/22 10:14 09/15/22 10:15 Temperature 97.9 F Pulse Rate 62 66 70 Respiratory Rate 20 20 Blood Pressure 149/54 H 159/54 H Pulse Oximetry 100 100 Oxygen Delivery Oxygen Flow Rate 09/15/22 10:28 09/15/22 10:15 09/15/22 11:56 Temperature Pulse Rate 66 Respiratory Rate Blood Pressure Pulse Oximetry 100 94 Oxygen Delivery Nasal Cannula Nasal Cannula Oxygen Flow Rate 1 1 09/15/22 12:00 Temperature Pulse Rate 59 L Respiratory Rate Blood Pressure Pulse Oximetry Oxygen Delivery Oxygen Flow Rate Intake/Output Intake/Output: Intake & Output 1209/13/22 09/14/22 09/15/22 23:59 23:59 23:59 23:59 Intake Total 1273 1000 1744 612 Output Total 800 1350 Balance 473 -350 1744 612 Meds/Results Medications: Active Medications Generic Name Dose Route Start Last Admin Trade Name Freq PRN Reason Stop Dose Admin Acetaminophen 500 mg 09/03/22 15:03 09/10/22 11:14 Acetaminophen 500 Mg Tablet PO 500 mg QID PRN Administration Pain 1-3 Acetaminophen 650 mg 09/12/22 00:00 09/15/22 13:09 Acetaminophen 325 Mg Tablet PO Not Given Q6HR FANG Hydrocodone Bitart/Acetaminophen 1 tab 09/11/22 18:38 09/15/22 13:14 Hydrocodone/Acetaminophen (*Crx) 5-325 Mg Tablet PO 1 tab Q8H PRN Administration Pain Rated 4-6 Albuterol 2 puff 09/03/22 15:03 09/13/22 17:04 Albuterol Sulfate (*Sp) Aerosol 1 Puff INHALATION 2 puff Q4H PRN Administration Shortness Of Breath Or Wheezin Lipase/Protease/Amylase 2 cap 09/03/22 17:00 09/15/22 13:13 Lipase/Amylase/Protease 12,000 Units Cap PO 10/03/22 16:59 2 cap TID FANG Administration Carvedilol 6.25 mg 09/03/22 16:00 09/15/22 10:15 Carvedilol 6.25 Mg Tablet PO 6.25 mg Q12HR FANG Administration Dextrose 12.5 gm 09/14/22 10:52 Dextrose 50% 25 Gm/50 Ml Syringe IV PUSH PRN PRN Hypoglycemia Protocol Diltiazem HCl 180 mg 09/10/22 09:00 09/15/22 10:15 Diltiazem Hcl Cd 180 Mg Cap.Er.24h PO 180 mg QAM FANG Administration Ferrous Sulfate 324 mg 09/04/22 09:00 09/15/22 10:16 Ferrous Sulfate 324 Mg Tablet PO 10/04/22 08:59 324 mg DAILY FANG Administration Folic Acid 1 mg 09/03/22 16:00 09/15/22 10:16 Folic Acid 1 Mg Tablet PO 1 mg DAILY FANG Ad
[2022-09-15 18:12] LABS: Glucose Point of Care 181 mg/dl (65-105)
[2022-09-15] MEDS: MIRTAZAPINE 15 MG TABLET PO (20:42)
[2022-09-15] MEDS: INSULIN GLARGINE (*BKC) 100 UNITS/ML 11 UNITS SUB-Q (20:45)
[2022-09-15 21:26] LABS: Glucose Point of Care 143 mg/dl (65-105)
[2022-09-16] VITALS (15 sets, daily range): BP systolic 151–176; BP diastolic 48–72; PULSE 57–83; RESP 17–20; TEMP 36.3–36.8; O2SAT 95–100
[2022-09-16] MEDS: CENTRAL LINE FLUSH 10 ML IV PUSH ×3 (05:17→21:27)
[2022-09-16] MEDS: ACETAMINOPHEN 325 MG TABLET 650 MG PO ×3 (05:17→17:11)
[2022-09-16] MEDS: hydrOXYzine HCL 25 MG TABLET PO ×3 (05:17→17:10)
[2022-09-16 05:39] LABS: Basophils Percent Auto 0.1 % (0.2-1.2); Eosinophils Absolute Auto 0.2 K/mm3 (0-0.3); Eosinophils Percent Auto 1.1 % (0-4.4); Hematocrit 25.9 % (37.0-47.0); Hemoglobin 8.8 g/dL (12.0-15.0); Immature Granulocyte Absolute 0.16 K/mm3 (0.00-0.031); Immature Granulocyte Percent A 0.8 % (0-0.5); Lymphocytes Absolute Auto 1.28 K/mm3 (0.9-3.2); Lymphocytes Percent Auto 6.3 % (18.3-44.2); Mean Corpuscular Hemoglobin 34.8 pg (26-34); Mean Corpuscular Volume 102.4 fl (80-100); Monocytes Absolute Auto 1.8 K/mm3 (0.1-0.6); Neutrophils Absolute Auto 16.7 K/mm3 (1.3-6.7); Neutrophils Percent Auto 82.7 % (45.5-73.1); Platelet Count Result 186 k/mm3 (150-375); Red Blood Count 2.53 M/mm3 (4.2-5.4); Red Cell Distribution Width 17.9 % (11.5-14.5); White Blood Count 20.2 K/mm3 (4.5-10.0)
[2022-09-16 05:52] LABS: Alanine Aminotransferase 18 U/L (6-35); Albumin Level 2.7 g/dL (3.5-5.1); Alkaline Phosphatase 54 U/L (38-126); Anion Gap 0 mmol/L (8-16); Aspartate Amino Transferase 24 U/L (14-36); Bilirubin,Total 0.5 mg/dL (0.2-1.3); Blood Urea Nitrogen 54 mg/dL (7-17); Calcium 7.9 mg/dL (8.4-10.2); Carbon Dioxide 36 mmol/L (22-30); Chloride 97 mmol/L (98-107); Estimated CRCL calculation 19 ml/min; Estimated Glomerular Filt Rate 30; Glucose 84 mg/dL (65-110); Potassium 4.4 mmol/L (3.4-5.0); Sodium 133 mmol/L (137-145)
[2022-09-16 08:29] LABS: Glucose Point of Care 74 mg/dl (65-105)
--- NOTE | 2022-09-16 09:24 | P.PNNP_ITS ---
Progress Note: A&P Assessment and Plan (1) TUCKER (acute kidney injury): Code(s): N17.9 - Acute kidney failure, unspecified Status: Acute Assessment and Plan: * acute kidney injury. * evaluation to date: * urine electrolytes slightly prerenal * CT imaging mentions no kidney pathology * CPK gopi * Most likely due to pre renal azotemia, and infection. * Latest chest x-ray shows stable airspace opacities in the right lower and mid left lower lung zones consistent with atelectasis or pneumonia. Severe emphysema. There does not seem to be any sign of fluid. She has no swelling and she is on room air. * Her creatinine delfino from 2-2.4 yesterday. She got some IV fluids yesterday and now the creatinine is back to 2.0 * Will encourage p.o. intake right now and see how her creatinine looks tomorrow. (2) Stage 3a chronic kidney disease: Code(s): N18.31 - Chronic kidney disease, stage 3a Status: Chronic Assessment and Plan: * baseline creatinine runs ~ 1.1- 1.3mg/dl * presumably due to HTN, DM, and vascular disease (3) Acute hypercapnic respiratory failure: Code(s): J96.02 - Acute respiratory failure with hypercapnia Status: Acute Assessment and Plan: * due to COPD exacerbation + RSV infection + pneumonia * clinical improvement with interventions to date * white count still 20,000. * She is only on 1L of oxygen (4) Acute blood loss anemia: Code(s): D62 - Acute posthemorrhagic anemia Status: Acute Assessment and Plan: * guaiac positive * EGD results noted * partly due to left arm hematoma(?) * hemoglobin down to 8.8. * Will start Epogen (5) Hematoma: Code(s): T14.8XXA - Other injury of unspecified body region, initial encounter Status: Acute Assessment and Plan: * being followed by Plastic and Orthopedic Surgery * s/p intervnetion in OR (on 07/14/22) * continue current therapy (6) Diabetes: Code(s): E11.9 - Type 2 diabetes mellitus without complications Status: Chronic Assessment and Plan: * management per hospitalist Subjective Date/time seen: 09/16/22 09:24 Interval history: patient feels a little better. She still has a cough. She is coughing up some sputum. No chest pain or shortness of breath Exam Narrative: General: ill appearing AA female in NAD Heart: normal S1 and S2; no rub Lungs: coarse breath sound with scattered rhonchi bilaterally Abdomen: bowel sounds positive and soft. Extremities: left arm/forearm with dressings in place Skin: No rash Objective Data Vital Signs Vital Signs: Vital Signs - 24 hr 09/15/22 10:14 09/15/22 10:15 09/15/22 10:28 Temperature Pulse Rate 66 70 66 Respiratory Rate 20 Blood Pressure 159/54 H Pulse Oximetry 100 Oxygen Delivery Oxygen Flow Rate 09/15/22 10:15 09/15/22 11:56 09/15/22 12:00 Temperature Pulse Rate 59 L Respiratory Rate Blood Pressure Pulse Oximetry 100 94 Oxygen Delivery Nasal Cannula Nasal Cannula Oxygen Flow Rate 1 1 09/15/22 16:00 09/15/22 14:00 09/15/22 20:42 Temperature 98 F Pulse Rate 56 L 62 60 Respiratory Rate 20 Blood Pressure 155/50 H
--- NOTE | 2022-09-16 09:24 | PM.PNNEP ---
Progress Note: A&P Assessment and Plan (1) TUCKER (acute kidney injury): Code(s): N17.9 - Acute kidney failure, unspecified Status: Acute Assessment and Plan: acute kidney injury. evaluation to date: urine electrolytes slightly prerenal CT imaging mentions no kidney pathology CPK gopi Most likely due to pre renal azotemia, and infection. Latest chest x-ray shows stable airspace opacities in the right lower and mid left lower lung zones consistent with atelectasis or pneumonia. Severe emphysema. There does not seem to be any sign of fluid. She has no swelling and she is on room air. Her creatinine delfino from 2-2.4 yesterday. She got some IV fluids yesterday and now the creatinine is back to 2.0 Will encourage p.o. intake right now and see how her creatinine looks tomorrow. (2) Stage 3a chronic kidney disease: Code(s): N18.31 - Chronic kidney disease, stage 3a Status: Chronic Assessment and Plan: baseline creatinine runs ~ 1.1- 1.3mg/dl presumably due to HTN, DM, and vascular disease (3) Acute hypercapnic respiratory failure: Code(s): J96.02 - Acute respiratory failure with hypercapnia Status: Acute Assessment and Plan: due to COPD exacerbation + RSV infection + pneumonia clinical improvement with interventions to date white count still 20,000. She is only on 1L of oxygen (4) Acute blood loss anemia: Code(s): D62 - Acute posthemorrhagic anemia Status: Acute Assessment and Plan: guaiac positive EGD results noted partly due to left arm hematoma(?) hemoglobin down to 8.8. Will start Epogen (5) Hematoma: Code(s): T14.8XXA - Other injury of unspecified body region, initial encounter Status: Acute Assessment and Plan: being followed by Plastic and Orthopedic Surgery s/p intervnetion in OR (on 07/14/22) continue current therapy (6) Diabetes: Code(s): E11.9 - Type 2 diabetes mellitus without complications Status: Chronic Assessment and Plan: management per hospitalist Subjective Date/time seen: 09/16/22 09:24 Interval history: patient feels a little better. She still has a cough. She is coughing up some sputum. No chest pain or shortness of breath Exam Narrative: General: ill appearing AA female in NAD Heart: normal S1 and S2; no rub Lungs: coarse breath sound with scattered rhonchi bilaterally Abdomen: bowel sounds positive and soft. Extremities: left arm/forearm with dressings in place Skin: No rash Objective Data Vital Signs Vital Signs: Vital Signs - 24 hr 09/15/22 10:14 09/15/22 10:15 09/15/22 10:28 Temperature Pulse Rate 66 70 66 Respiratory Rate 20 Blood Pressure 159/54 H Pulse Oximetry 100 Oxygen Delivery Oxygen Flow Rate 09/15/22 10:15 09/15/22 11:56 09/15/22 12:00 Temperature Pulse Rate 59 L Respiratory Rate Blood Pressure Pulse Oximetry 100 94 Oxygen Delivery Nasal Cannula Nasal Cannula Oxygen Flow Rate 1 1 09/15/22 16:00 09/15/22 14:00 09/15/22 20:42 Temperature 98 F Pulse Rate 56 L 62 60 Respiratory Rate 20 Blood Pressure 155/50 H Pulse Oximetry 100 Oxygen Delivery Oxygen Flow Rate 09/15/22 21:14 09/15/22 21:15 09/15/22 21:16 Temperature Pulse Rate 90 90 90 Respiratory Rate 20 20 97 H Blood Pressure Pulse Oximetry 97 97 Oxygen Delivery Nasal Cannula Nasal Cannula Oxygen Flow Rate 2 1 09/15/22 20:00 09/15/22 21:42 09/15/22 20:00 Temperature 98.8 F Pulse Rate 61 60 Respiratory Rate 17 Blood Pressure 146/52 H Pulse Oximetry 100 100 Oxygen Delivery Nasal Cannula Oxygen Flow Rate 1 09/16/22 00:00 09/16/22 04:00 09/16/22 05:36 Temperature 98.2 F Pulse Rate 61 62 64 Respiratory Rate 17 Blood Pressure 155/58 H Pulse Oximetry 100 Oxygen Delivery Oxygen Flow Rate Intake/Output Intake/Output:
[2022-09-16] MEDS: THIAMINE HCL 100 MG TABLET PO (10:01)
[2022-09-16] MEDS: FOLIC ACID 1 MG TABLET PO (10:01)
[2022-09-16] MEDS: carvediloL 6.25 MG TABLET PO ×2 (10:01→21:23)
[2022-09-16] MEDS: PANTOPRAZOLE 40 MG TABLET PO ×2 (10:01→21:23)
[2022-09-16] MEDS: dilTIAZem HCL CD 180 MG CAP.ER.24H PO (10:01)
[2022-09-16] MEDS: FERROUS SULFATE 324 MG TABLET PO (10:01)
[2022-09-16] MEDS: LIPASE/AMYLASE/PROTEASE 12,000 UNITS CAP 2 CAP PO ×3 (10:01→17:10)
[2022-09-16] MEDS: MULTIVITAMINS THERAPEUTIC TAB (*BKC) 1 TABLET PO (10:01)
[2022-09-16] MEDS: CHOLECALCIFEROL 1,000 UNITS TABLET 2000 UNITS PO (10:01)
[2022-09-16] MEDS: predniSONE 5 MG TABLET PO (10:01)
--- NOTE | 2022-09-16 11:18 | P.PNIM_ITS ---
Progress Note: A&P Assessment and Plan (1) Hematoma: Code(s): T14.8XXA - Other injury of unspecified body region, initial encounter Status: Acute Assessment and Plan: Unclear how this hematoma/swelling developed. Was on apixaban, aspirin and clopidogrel, which have been discontinued. Dopplerable pulse. Per nursing the swelling is unchanged but patient feels it has worsened. Unable to get imaging with contrast due to acute kidney injury. Despite elevation and other conservative measures, the pain associated with the swelling also has not lessened. CT left forearm shows large hematoma in the left forearm and upper arm. CK normal. Evacuated in OR 09/13/22. question plan for additional surgery Friday or Friday. (2) Acute blood loss anemia: Code(s): D62 - Acute posthemorrhagic anemia Status: Acute Assessment and Plan: esophagitis noted monitor hemoglobin (3) [id number] kidney injury: Code(s): N17.9 - Acute kidney failure, unspecified; N18.9 - Chronic kidney disease, un specified Status: Acute Assessment and Plan: Likely due to sepsis, anemia. No nephrotoxic medications noted. No recent contrast. Echo 09/04/22 with decent EF 50-55%. No hypotension. Creatinine 2.4 at admission 09/14: Creatinine 1.9 (4) Leukocytosis: Code(s): D72.829 - Elevated white blood cell count, unspecified Status: Acute Assessment and Plan: Treatment for pneumonia with ceftriaxone and azithromycin from 09/02-09/06 and then transitioned to oral cefdinir from 09/07-09/09. Has been on steroids since admission. Leukocytosis has continued to increase despite de-escalation of steroid from methylprednisolone to prednisone (now at home dose). CT abdomen pelvis with fat stranding around the root of the small bowel mesentery. No pathologically enlarged lymph nodes. -continue Cefepime and vancomycin 09/14 day 4 with WBC down to 26.1, blood cultures and gm stain from hematoma negative for organisms (5) Diabetes: Code(s): E11.9 - Type 2 diabetes mellitus without complications Status: Chronic Assessment and Plan: Not on medication for this at home Continue SSI 09/14 add Basal Lantus due to persistent hyperglycemia (6) Acute exacerbation of chronic obstructive airways disease: Code(s): J44.1 - Chronic obstructive pulmonary disease with (acute) exacerbation Status: Acute Assessment and Plan: Present on admission. This appears to have resolved. -Continue fluticasone/salmeterol 2 puffs BID -Continue albuterol PRN - Continue home dose of prednisone 5mg every other day (7) Respiratory syncytial virus (RSV) infection: Code(s): B33.8 - Other specified viral diseases Status: Acute Assessment and Plan: Supportive care, as above (8) Elevated troponin: Code(s): R77.8 - Other specified abnormalities of plasma proteins Status: Acute Assessment and Plan: Echo showed EF of 50-55% with grade 1 diastolic dysfunction, no significant valvular abnormalities noted (9) Acute hypercapnic respiratory failure: Code(s): J96.02 - Acute respiratory failure with hypercapnia Status: Acute Assessment and Plan: As above (10) Hypertension: Code(s): I10 - Essential (primary) hypertension Status: Acute Assessment and Plan: BP improved but still elevated to SBP 150s at times, which may be due to pain from LUE swelling. Will continue antih
--- NOTE | 2022-09-16 12:16 | WPDPN ---
Progress Note: A&P Assessment and Plan (1) Hematoma: Code(s): T14.8XXA - Other injury of unspecified body region, initial encounter Status: Acute Assessment and Plan: POD 3 Evacuation of large hematoma of left forearm and arm. All wounds healing. No sepsis related to that problem. Some motor and sensory deficits possibly related to compartment pressure. Anemia seems to be an ongoing issue, probably not related to the UE hematoma. Plan No additional surgery planned for the left UE at this time. Dressing care and OT as ordered. Subjective Date/time seen: 09/16/22 12:16 Interval history: Pt fully alert and able to help with dressing change. Exam Narrative: Dressing change at bedside: Small serous and blood drainage into bandage. All blisters have ruptured. Epithelialization progressing. Most areas of discolored skin of the volar forearm reveal vascular supply with improved color and turgor. No purulence or odor. Sensation to the 5th digit remains compromised. Not able to define the specific area or degree. Extrinsic flexors show some decreased function in the index and thumb, probably consistent with the area of greatest compression by hematoma. Intrinsics not well examined today. Extrinsic extensors appear intact. Appreciate GI and Nephrology consults. Objective Data Vital Signs Vital Signs: Vital Signs - 24 hr 09/15/22 16:00 09/15/22 14:00 09/15/22 20:42 Temperature 98 F Pulse Rate 56 L 62 60 Respiratory Rate 20 Blood Pressure 155/50 H Pulse Oximetry 100 Oxygen Delivery Oxygen Flow Rate 09/15/22 21:14 09/15/22 21:15 09/15/22 21:16 Temperature Pulse Rate 90 90 90 Respiratory Rate 20 20 97 H Blood Pressure Pulse Oximetry 97 97 Oxygen Delivery Nasal Cannula Nasal Cannula Oxygen Flow Rate 2 1 09/15/22 20:00 09/15/22 21:42 09/15/22 20:00 Temperature 98.8 F Pulse Rate 61 60 Respiratory Rate 17 Blood Pressure 146/52 H Pulse Oximetry 100 100 Oxygen Delivery Nasal Cannula Oxygen Flow Rate 1 09/16/22 00:00 09/16/22 04:00 09/16/22 05:36 Temperature 98.2 F Pulse Rate 61 62 64 Respiratory Rate 17 Blood Pressure 155/58 H Pulse Oximetry 100 Oxygen Delivery Oxygen Flow Rate 09/16/22 09:59 09/16/22 10:01 09/16/22 08:00 Temperature Pulse Rate 64 68 62 Respiratory Rate 20 Blood Pressure 168/72 H Pulse Oximetry 100 Oxygen Delivery Oxygen Flow Rate 09/16/22 10:00 Temperature Pulse Rate Respiratory Rate Blood Pressure Pulse Oximetry 100 Oxygen Delivery Nasal Cannula Oxygen Flow Rate 1 Intake/Output Intake/Output: Intake & Output 09/13/22 09/14/22 09/15/22 09/16/22 23:59 23:59 23:59 23:59 Intake Total 1000 1744 1578 240 Output Total 1350 Balance -350 1744 1578 240 Meds/Results Medications: Active Medications Generic Name Dose Route Start Last Admin Trade Name Freq PRN Reason Stop Dose Admin Acetaminophen 500 mg 09/03/22 15:03 09/10/22 11:14 Acetaminophen 500 Mg Tablet PO 500 mg QID PRN Administration Pain 1-3 Acetaminophen 650 mg 09/12/22 00:00 09/16/22 05:17 Acetaminophen 325 Mg Tablet PO 650 mg Q6HR FANG Administration Hydrocodone Bitart/Acetaminophen 1 tab 09/11/22 18:38 09/15/22 21:04 Hydrocodone/Acetaminophen (*Crx) 5-325 Mg Tablet PO 1 tab Q8H PRN Administration Pain Rated 4-6 Albuterol 2 puff 09/03/22 15:03 09/13/22 17:04 Albuterol Sulfate (*Sp) Aerosol 1 Puff INHALATION 2 puff Q4H PRN Administration Shortness Of Breath Or Wheezin Lipase/Protease/Amylase 2 cap 09/03/22 17:00 09/16/22 10:01 Lipase/Amylase/Protease 12,000 Units Cap PO 10/03/22 16:59 2 cap TID FANG Administration Carvedilol 6.25 mg 09/03/22 16:00 09/16/22 10:01 Carvedilol 6.25 Mg Tablet PO 6.25 mg Q12HR FANG Administration Dextrose 12.5 gm 09/14/22 10:52 Dextrose 50% 25 Gm/50 Ml Syringe IV
[2022-09-16 12:43] LABS: Glucose Point of Care 104 mg/dl (65-105)
[2022-09-16] MEDS: FLUTICASONE/SALMETEROL 115-21 MCG INHALER 1 PUFF 2 PUFF INHALATION ×2 (13:53→22:30)
--- NOTE | 2022-09-16 14:09 | PCRCNOTE ---
Inhaler not available; pharmacy called for a refill.
--- NOTE | 2022-09-16 17:05 | PCOTNOTE ---
Larger L wrist splint necessary for pt. Ordered from central supply. Will fit with pt. tomorrow when available.
[2022-09-16] MEDS: EPOETIN ALFA-EPBX 10,000 UNITS/ML VIAL 10000 UNITS SUB-Q (17:14)
[2022-09-16 17:46] LABS: Glucose Point of Care 144 mg/dl (65-105)
[2022-09-16] MEDS: MIRTAZAPINE 15 MG TABLET PO (21:23)
[2022-09-16] MEDS: INSULIN GLARGINE (*BKC) 100 UNITS/ML 11 UNITS SUB-Q (21:26)
[2022-09-16] MEDS: HYDROcodone/acetaminophen (*CRX) 5-325 MG TABLET 1 TAB PO (21:29)
[2022-09-16] MEDS: SENNA/DOCUSATE SODIUM TABLET 1 TAB PO (21:32)
[2022-09-16 21:42] LABS: Glucose Point of Care 220 mg/dl (65-105)
[2022-09-17] VITALS (10 sets, daily range): BP systolic 149–160; BP diastolic 55–77; PULSE 61–74; RESP 16–18; TEMP 36.4–36.9; O2SAT 97–100
[2022-09-17] MEDS: ACETAMINOPHEN 325 MG TABLET 650 MG PO ×4 (00:12→17:05)
[2022-09-17] MEDS: hydrOXYzine HCL 25 MG TABLET PO ×4 (00:12→17:06)
[2022-09-17] MEDS: CENTRAL LINE FLUSH 10 ML IV PUSH (05:30)
[2022-09-17 06:08] LABS: Basophils Percent Auto 0.1 % (0.2-1.2); Eosinophils Absolute Auto 0.2 K/mm3 (0-0.3); Eosinophils Percent Auto 0.8 % (0-4.4); Hemoglobin 8.8 g/dL (12.0-15.0); Immature Granulocyte Absolute 0.15 K/mm3 (0.00-0.031); Immature Granulocyte Percent A 0.8 % (0-0.5); Lymphocytes Absolute Auto 1.33 K/mm3 (0.9-3.2); Mean Corpuscular HGB Conc 32.6 g/dl (32-36); Mean Corpuscular Hemoglobin 32.4 pg (26-34); Mean Corpuscular Volume 99.3 fl (80-100); Monocytes Absolute Auto 1.4 K/mm3 (0.1-0.6); Monocytes Percent Auto 7.6 % (2.6-8.5); Neutrophils Percent Auto 83.7 % (45.5-73.1); Platelet Count Result 186 k/mm3 (150-375); Red Blood Count 2.72 M/mm3 (4.2-5.4); Red Cell Distribution Width 16.4 % (11.5-14.5)
[2022-09-17 06:18] LABS: Alanine Aminotransferase 21 U/L (6-35); Albumin Level 2.8 g/dL (3.5-5.1); Alkaline Phosphatase 67 U/L (38-126); Anion Gap 0 mmol/L (8-16); Aspartate Amino Transferase 26 U/L (14-36); Bilirubin,Total 0.6 mg/dL (0.2-1.3); Blood Urea Nitrogen 43 mg/dL (7-17); Calcium 8.1 mg/dL (8.4-10.2); Carbon Dioxide 34 mmol/L (22-30); Chloride 102 mmol/L (98-107); Estimated CRCL calculation 21 ml/min; Estimated Glomerular Filt Rate 34; Glucose 121 mg/dL (65-110); Phosphorus 3.4 mg/dL (2.5-4.5); Potassium 4.5 mmol/L (3.4-5.0); Sodium 136 mmol/L (137-145)
--- NOTE | 2022-09-17 09:03 | P.PNNP_ITS ---
Progress Note: A&P Assessment and Plan (1) TUCKER (acute kidney injury): Code(s): N17.9 - Acute kidney failure, unspecified Status: Acute Assessment and Plan: * acute kidney injury. * evaluation to date: * urine electrolytes slightly prerenal * CT imaging mentions no kidney pathology * CPK gopi * Most likely due to pre renal azotemia, and infection. * Latest chest x-ray shows stable airspace opacities in the right lower and mid left lower lung zones consistent with atelectasis or pneumonia. Severe emphysema. There does not seem to be any sign of fluid. She has no swelling and she is on 1L oxygen * Her creatinine has fallen from 2.4 to 2.0 to 1.8 today. (2) Stage 3a chronic kidney disease: Code(s): N18.31 - Chronic kidney disease, stage 3a Status: Chronic Assessment and Plan: * baseline creatinine runs ~ 1.1- 1.3mg/dl * presumably due to HTN, DM, and vascular disease (3) Acute hypercapnic respiratory failure: Code(s): J96.02 - Acute respiratory failure with hypercapnia Status: Acute Assessment and Plan: * due to COPD exacerbation + RSV infection + pneumonia * clinical improvement with interventions to date * white count still 20,000. * She is only on 1L of oxygen (4) Acute blood loss anemia: Code(s): D62 - Acute posthemorrhagic anemia Status: Acute Assessment and Plan: * guaiac positive * EGD results noted * partly due to left arm hematoma(?) * hemoglobin down to 8.8. * Will start Epogen (5) Hematoma: Code(s): T14.8XXA - Other injury of unspecified body region, initial encounter Status: Acute Assessment and Plan: * being followed by Plastic and Orthopedic Surgery * s/p intervnetion in OR (on 07/14/22) * continue current therapy (6) Diabetes: Code(s): E11.9 - Type 2 diabetes mellitus without complications Status: Chronic Assessment and Plan: * management per hospitalist Subjective Date/time seen: 09/17/22 09:03 Interval history: patient feels a little better. no sob. cough better. Exam Narrative: General: ill appearing AA female in NAD Heart: normal S1 and S2; no rub or gallop Lungs: coarse breath sound with scattered rhonchi bilaterally Abdomen: bowel sounds positive and soft. Extremities: left arm/forearm with dressings in place from hematoma evacuation by Dr Weiss Skin: No rash or sq nodules Objective Data Vital Signs Vital Signs: Vital Signs - 24 hr 09/16/22 09:59 09/16/22 10:01 09/16/22 10:00 Temperature Pulse Rate 64 68 Respiratory Rate 20 Blood Pressure 168/72 H Pulse Oximetry 100 100 Oxygen Delivery Nasal Cannula Oxygen Flow Rate 1 Fraction of Inspired Oxygen 09/16/22 12:00 09/16/22 13:58 09/16/22 15:30 Temperature 97.4 F L Pulse Rate 57 L 63 Respiratory Rate 18 Blood Pressure 176/69 H Pulse Oximetry 98 100 Oxygen Delivery Nasal Cannula Oxygen Flow Rate 1 Fraction of Inspired Oxygen 09/16/22 16:00 09/16/22 21:18 09/16/22 21:23 Temperature 97.4 F L Pulse Rate 61 76 61 Respiratory Rate 18 Blood Pressure 151/48 H Pulse Oximetry 100 Oxygen Delivery
--- NOTE | 2022-09-17 09:03 | PM.PNNEP ---
Progress Note: A&P Assessment and Plan (1) TUCKER (acute kidney injury): Code(s): N17.9 - Acute kidney failure, unspecified Status: Acute Assessment and Plan: acute kidney injury. evaluation to date: urine electrolytes slightly prerenal CT imaging mentions no kidney pathology CPK gopi Most likely due to pre renal azotemia, and infection. Latest chest x-ray shows stable airspace opacities in the right lower and mid left lower lung zones consistent with atelectasis or pneumonia. Severe emphysema. There does not seem to be any sign of fluid. She has no swelling and she is on 1L oxygen Her creatinine has fallen from 2.4 to 2.0 to 1.8 today. (2) Stage 3a chronic kidney disease: Code(s): N18.31 - Chronic kidney disease, stage 3a Status: Chronic Assessment and Plan: baseline creatinine runs ~ 1.1- 1.3mg/dl presumably due to HTN, DM, and vascular disease (3) Acute hypercapnic respiratory failure: Code(s): J96.02 - Acute respiratory failure with hypercapnia Status: Acute Assessment and Plan: due to COPD exacerbation + RSV infection + pneumonia clinical improvement with interventions to date white count still 20,000. She is only on 1L of oxygen (4) Acute blood loss anemia: Code(s): D62 - Acute posthemorrhagic anemia Status: Acute Assessment and Plan: guaiac positive EGD results noted partly due to left arm hematoma(?) hemoglobin down to 8.8. Will start Epogen (5) Hematoma: Code(s): T14.8XXA - Other injury of unspecified body region, initial encounter Status: Acute Assessment and Plan: being followed by Plastic and Orthopedic Surgery s/p intervnetion in OR (on 07/14/22) continue current therapy (6) Diabetes: Code(s): E11.9 - Type 2 diabetes mellitus without complications Status: Chronic Assessment and Plan: management per hospitalist Subjective Date/time seen: 09/17/22 09:03 Interval history: patient feels a little better. no sob. cough better. Exam Narrative: General: ill appearing AA female in NAD Heart: normal S1 and S2; no rub or gallop Lungs: coarse breath sound with scattered rhonchi bilaterally Abdomen: bowel sounds positive and soft. Extremities: left arm/forearm with dressings in place from hematoma evacuation by Dr Weiss Skin: No rash or sq nodules Objective Data Vital Signs Vital Signs: Vital Signs - 24 hr 09/16/22 09:59 09/16/22 10:01 09/16/22 10:00 Temperature Pulse Rate 64 68 Respiratory Rate 20 Blood Pressure 168/72 H Pulse Oximetry 100 100 Oxygen Delivery Nasal Cannula Oxygen Flow Rate 1 Fraction of Inspired Oxygen 09/16/22 12:00 09/16/22 13:58 09/16/22 15:30 Temperature 97.4 F L Pulse Rate 57 L 63 Respiratory Rate 18 Blood Pressure 176/69 H Pulse Oximetry 98 100 Oxygen Delivery Nasal Cannula Oxygen Flow Rate 1 Fraction of Inspired Oxygen 09/16/22 16:00 09/16/22 21:18 09/16/22 21:23 Temperature 97.4 F L Pulse Rate 61 76 61 Respiratory Rate 18 Blood Pressure 151/48 H Pulse Oximetry 100 Oxygen Delivery Oxygen Flow Rate Fraction of Inspired Oxygen 09/16/22 20:00 09/16/22 23:24 09/16/22 20:00 Temperature Pulse Rate 83 Respiratory Rate Blood Pressure Pulse Oximetry 100 95 Oxygen Delivery Nasal Cannula Room Air Oxygen Flow Rate 1 Fraction of Inspired Oxygen 09/17/22 00:00 09/17/22 04:47 09/17/22 04:00 Temperature 97.5 F L Pulse Rate 63 70 64 Respiratory Rate 18 Blood Pressure 154/77 H Pulse Oximetry 100 Oxygen Delivery Oxygen Flow Rate Fraction of Inspired Oxygen Intake/Output Intake/Output: Intake & Output 09/14/22 09/15/22 09/16/22 09/17/22 23:59 23:59 23:59 23:59 Intake Total 1744 1578 1000 1920 Balance 1744 1578 1000 1920 Meds/Results Medications: Active Medications Generi
[2022-09-17 09:09] LABS: Glucose Point of Care 91 mg/dl (65-105)
[2022-09-17] MEDS: dilTIAZem HCL CD 180 MG CAP.ER.24H PO (10:04)
[2022-09-17] MEDS: FOLIC ACID 1 MG TABLET PO (10:04)
[2022-09-17] MEDS: LIPASE/AMYLASE/PROTEASE 12,000 UNITS CAP 2 CAP PO ×3 (10:04→17:06)
[2022-09-17] MEDS: CHOLECALCIFEROL 1,000 UNITS TABLET 2000 UNITS PO (10:04)
[2022-09-17] MEDS: MULTIVITAMINS THERAPEUTIC TAB (*BKC) 1 TABLET PO (10:05)
[2022-09-17] MEDS: carvediloL 6.25 MG TABLET PO ×2 (10:05→20:37)
[2022-09-17] MEDS: FERROUS SULFATE 324 MG TABLET PO (10:06)
[2022-09-17] MEDS: THIAMINE HCL 100 MG TABLET PO (10:06)
[2022-09-17] MEDS: PANTOPRAZOLE 40 MG TABLET PO ×2 (10:06→20:38)
--- NOTE | 2022-09-17 10:38 | PCRCNOTE ---
Window of time for administration has passed. See next scheduled administration.
--- NOTE | 2022-09-17 12:13 | PM.DS ---
DS: Admitting Diagnosis Discharge Date September 17, 2022 Admitting Diagnosis left arm hematoma DS: Discharge Diagnosis Discharge Diagnosis (1) Hematoma: Code(s): T14.8XXA - Other injury of unspecified body region, initial encounter Status: Acute Assessment and Plan: Unclear how this hematoma/swelling developed. Was on apixaban, aspirin and clopidogrel, which have been discontinued. Dopplerable pulse. Per nursing the swelling is unchanged but patient feels it has worsened. Unable to get imaging with contrast due to acute kidney injury. Despite elevation and other conservative measures, the pain associated with the swelling also has not lessened. CT left forearm shows large hematoma in the left forearm and upper arm. CK normal. Evacuated in OR 09/13/22. question plan for additional surgery Friday or Friday. (2) Acute blood loss anemia: Code(s): D62 - Acute posthemorrhagic anemia Status: Acute Assessment and Plan: esophagitis noted monitor hemoglobin (3) Xfupl-kc-[id number] kidney injury: Code(s): N17.9 - Acute kidney failure, unspecified; N18.9 - Chronic kidney disease, unspecified Status: Acute Assessment and Plan: Likely due to sepsis, anemia. No nephrotoxic medications noted. No recent contrast. Echo 09/04/22 with decent EF 50-55%. No hypotension. Creatinine 2.4 at admission 09/14: Creatinine 1.9 (4) Leukocytosis: Code(s): D72.829 - Elevated white blood cell count, unspecified Status: Acute Assessment and Plan: Treatment for pneumonia with ceftriaxone and azithromycin from 09/02-09/06 and then transitioned to oral cefdinir from 09/07-09/09. Has been on steroids since admission. Leukocytosis has continued to increase despite de-escalation of steroid from methylprednisolone to prednisone (now at home dose). CT abdomen pelvis with fat stranding around the root of the small bowel mesentery. No pathologically enlarged lymph nodes. -continue Cefepime and vancomycin 09/14 day 4 with WBC down to 26.1, blood cultures and gm stain from hematoma negative for organisms (5) Diabetes: Code(s): E11.9 - Type 2 diabetes mellitus without complications Status: Chronic Assessment and Plan: Not on medication for this at home Continue SSI 09/14 add Basal Lantus due to persistent hyperglycemia (6) Acute exacerbation of chronic obstructive airways disease: Code(s): J44.1 - Chronic obstructive pulmonary disease with (acute) exacerbation Status: Acute Assessment and Plan: Present on admission. This appears to have resolved. -Continue fluticasone/salmeterol 2 puffs BID -Continue albuterol PRN - Continue home dose of prednisone 5mg every other day (7) Respiratory syncytial virus (RSV) infection: Code(s): B33.8 - Other specified viral diseases Status: Acute Assessment and Plan: Supportive care, as above (8) Elevated troponin: Code(s): R77.8 - Other specified abnormalities of plasma proteins Status: Acute Assessment and Plan: Echo showed EF of 50-55% with grade 1 diastolic dysfunction, no significant valvular abnormalities noted (9) Acute hypercapnic respiratory failure: Code(s): J96.02 - Acute respiratory failure with hypercapnia Status: Acute Assessment and Plan: As above (10) Hypertension: Code(s): I10 - Essential (primary) hypertension Status: Acute Assessment and Plan: BP improved but still elevated to SBP 150s at times, which may be due to pain from LUE swelling. Will continue antihypertensives at current dose and work on pain control. -Continue diltiazem 180 mg po qam -Continue carvedilol 6.25 mg BID (11) Hyperkalemia: Code(s): E87.5 - Hyperkalemia Status: Acute Assessment and Plan: Resolved. (12) CKD (chronic kidney disease): Code(s): N18.9 -
[2022-09-17 12:36] LABS: Glucose Point of Care 150 mg/dl (65-105)
[2022-09-17] MEDS: NEOMYCIN/POLYMYXIN/BACITRACIN OINTMENT PACKET 1 PACKET (12:52)
[2022-09-17 17:27] LABS: Glucose Point of Care 164 mg/dl (65-105)
[2022-09-17] MEDS: MIRTAZAPINE 15 MG TABLET PO (20:37)
[2022-09-17] MEDS: INSULIN GLARGINE (*BKC) 100 UNITS/ML 11 UNITS SUB-Q (20:42)
[2022-09-17] MEDS: FLUTICASONE/SALMETEROL 115-21 MCG INHALER 1 PUFF 2 PUFF INHALATION (21:48)
[2022-09-17 22:29] LABS: Vancomycin Trough 16.7 ug/mL (10.0-20.0)
[2022-09-18 01:15] LABS: Glucose Point of Care 144 mg/dl (65-105)
== END 2022-09-17 22:17 | DRG 853 ==
LOC: ANHED 09-03 01:24 → ANHIMU 09-03 03:54 → ANH2MED 09-06 00:17
PROVIDERS: Emergency Medicine; Family Medicine; Internal Medicine; Internal Medicine Gastroenterology; Nurse Practitioner; Plastic Surgery; Student in an Organized Health Care Education/Training Program; Admitting Provider Internal Medicine; Emergency Provider Emergency Medicine; PCP Internal Medicine Gastroenterology; Visit Provider Chiropractor
PROC: 0DJ08ZZ Inspection of Upper Intestinal Tract, Via Natural or Artificial Opening Endoscopic (ICD-10-PCS; CPT 43235; principal; 2022-09-13 11:30)
PROC: 01N50ZZ Release Median Nerve, Open Approach (ICD-10-PCS; principal; 2022-09-13 15:00)
DX: A41.9 Sepsis, unspecified organism (principal); J18.9 Pneumonia, unspecified organism; J96.02 Acute respiratory failure with hypercapnia; J44.1 Chronic obstructive pulmonary disease with (acute) exacerbation; J44.0 Chronic obstructive pulmonary disease with (acute) lower respiratory infection; T80.1XXA Vascular complications following infusion, transfusion and therapeutic injection, initial encounter; D62 Acute posthemorrhagic anemia; N17.9 Acute kidney failure, unspecified; T79.A12A Traumatic compartment syndrome of left upper extremity, initial encounter; B33.8 Other specified viral diseases; E87.5 Hyperkalemia; I12.9 Hypertensive chronic kidney disease with stage 1 through stage 4 chronic kidney disease, or unspecified chronic kidney disease; N18.30 Chronic kidney disease, stage 3 unspecified; D63.1 Anemia in chronic kidney disease; E11.22 Type 2 diabetes mellitus with diabetic chronic kidney disease; E78.5 Hyperlipidemia, unspecified; I48.91 Unspecified atrial fibrillation; R44.1 Visual hallucinations; Z20.822 Contact with and (suspected) exposure to COVID-19; R19.5 Other fecal abnormalities; K20.90 Esophagitis, unspecified without bleeding; K31.89 Other diseases of stomach and duodenum; T80.89XA Other complications following infusion, transfusion and therapeutic injection, initial encounter; Z83.3 Family history of diabetes mellitus; Z82.49 Family history of ischemic heart disease and other diseases of the circulatory system; Z80.3 Family history of malignant neoplasm of breast; Z87.891 Personal history of nicotine dependence; Z79.51 Long term (current) use of inhaled steroids; Z79.52 Long term (current) use of systemic steroids; Z79.82 Long term (current) use of aspirin; Z79.890 Hormone replacement therapy; Z79.899 Other long term (current) drug therapy
CPT/HCPCS: 36415; 36430; 36569; 36600; 71045; 71250; 73200; 74176; 76882; 80053; 80202; 81001; 82274; 82375; 82533; 82550; 82570; 82805; 82948; 83036; 83050; 83605; 83735; 83880; 84100; 84132; 84145; 84300; 84443; 84484; 85014; 85018; 85025; 85027; 85055; 85610; 85730; 86850; 86900; 86901; 86920; 86923; 87040; 87070; 87075; 87081; 87205; 87637; 93005; 93306; 94618; 94640; 96365; 96375; 97110; 97116; 97161; 97165; 97168; 97530; 97535; 99285; A4565; A9270; C1751; J0131; J0360; J0456; J0610; J0692; J0696; J1650; J1815; J1940; J2270; J2704; J2930; J3010; J3370; J3475; J7030; J7040; J7050; J7120; J7512; P9016; Q5105

== ENCOUNTER 2022-09-20 00:01 | Emergency (ER) | payer MEDICARE, OTHER, SELFPAY ==
[2022-09-20] VITALS (9 sets, daily range): BP systolic 120–176; BP diastolic 71–90; PULSE 74–96; RESP 18; TEMP 36.7–36.9; O2SAT 97–100
--- NOTE | 2022-09-20 00:16 | ED.WOUNDLAC ---
HPI - Wound/Laceration General Chief Complaint: Recheck/Abnormal Lab/Rx Stated Complaint: Wound Time Seen by Provider: 09/20/22 00:06 Source: patient and EMS Mode of arrival: EMS History of Present Illness HPI narrative: Patient 72 years old -[place] female got discharged from our facility on the to [place] long term facility with status postdebridement of hematoma of unknown etiology at the left forearm. At 10:30 PM today the long term facility nurse UNwrapped the wound and noticed that part of the wound anteriorly looks black and was concerned about necrotic tissue and called 911 to come to the emergency room. I did phone call Dr. Weiss who had take care of the patient during hospitalization and he reports that as long as no discharge of pus, patient can go back and he is planning to give them a call tomorrow for more information. Patient denies any fever, chills, nausea, vomiting. Related Data Home Medications Medication Instructions Recorded Confirmed albuterol sulfate 90 mcg/actuation 2 puff inhalation Q4H PRN 11/29/20 09/03/22 aerosol inhaler Shortness Of Breath Or Wheezing carvedilol 6.25 mg tablet 6.25 mg PO Q12H 11/29/20 09/03/22 hydralazine 10 mg tablet 10 mg PO DAILY 11/29/20 09/03/22 emkcxa-[id number] 1 cap PO TID 11/29/20 09/03/22 24,000-76,000-120,000 unit capsule,delayed rel (Creon) mirtazapine 15 mg tablet 15 mg PO QHS 11/29/20 09/03/22 prednisone 5 mg tablet 5 mg PO EVERY OTHER DAY 11/29/20 09/03/22 thiamine HCl (vitamin B1) 100 mg 100 mg PO DAILY 11/29/20 09/03/22 tablet cholecalciferol (vitamin D3) 50 50 mcg PO DAILY 06/19/22 09/03/22 mcg (2,000 unit) capsule folic acid 1 mg tablet 1 mg PO DAILY 06/19/22 09/03/22 tiotropium bromide 2.5 2 puff inhalation DAILY 06/19/22 09/03/22 mcg/actuation mist for inhalation (Spiriva Respimat) acetaminophen 500 mg tablet 500 mg PO QID PRN Pain 09/03/22 09/03/22 ferrous sulfate 325 mg (65 mg 325 mg PO DAILY 09/03/22 09/03/22 iron) capsule,extended release fluticasone 250 mcg-salmeterol 50 1 inh inhalation Q12H 09/03/22 09/03/22 mcg/dose blistr powdr for inhalation (Sergoxela Inhub) multivitamin 1 tablet PO DAILY 09/03/22 09/03/22 tramadol 50 mg tablet 100 mg PO DAILY 09/03/22 09/03/22 Allergies Allergy/AdvReac Type Severity Reaction Status Date / Time No Known Allergies Allergy Verified 09/13/22 10:53 Review of Systems Review of Systems: All systems reviewed & are unremarkable except as noted in HPI and below PMFSH Past Medical History Medical History CKD (chronic kidney disease) COPD (chronic obstructive pulmonary disease) CVA (cerebral vascular accident) Diabetes Hyperlipidemia Hypertension IV infiltrate Localized swelling of left forearm Pancreatitis Surgical History Surgical History History of hysterectomy Family History Family History Mother Hypertension Cerebrovascular accident Diabetes mellitus Sibling Hypertension Diabetes mellitus Breast cancer Father Hypertension Heart disease Social History Social History Social History: Patient elects Jazmine to be her surrogate with which is her . She wishes to be a full code at this time and denies any pets at the house. Smoking packs per day: 0.5 Smoking cigarettes per day: 10.0 Years smoked: 50 Smoking pack-years: 25.00 Smoking status: Former smoker Tobacco type: cigarettes Smoking end date: 09/29/19 Alcohol intake: never Alcohol use details: Quit About 4 years ago Substance use: never Lack of Transportation: No Lack of Food: Never True Current Housing: I Have Housing Concerned About Future Housing: No Difficulty Paying Gas/Electric Bills: No Difficulty Paying for Meds: No Currently Unemployed:
--- NOTE | 2022-09-20 01:25 | PC.NURSE ---
dressing to left arm removed. Patient with circumferential wound to left forearm. Patient with multiple spots of escar. Patient denies any pain. Area cleansed with normal saline and with xeroform applied and 4x4s applied
--- NOTE | 2022-09-20 02:43 | PC.NURSE ---
Report called to facility to [facility]. Awaiting transport for patient.
[2022-09-20] MEDS: HYDROcodone/acetaminophen (*CRX) 5-325 MG TABLET 1 TAB PO (07:16)
--- NOTE | 2022-09-20 09:49 | PC.NURSE ---
EMS called to check on transport status. Informed it would be 1200 before an ambulance would be available. pt updated on plan of care. pt resting on er bed
--- NOTE | 2022-09-20 11:16 | PC.NURSE ---
1100 Assumed pt care from Precious Larsen RN
== END 2022-09-20 12:37 ==
PROVIDERS: Emergency Provider Emergency Medicine; PCP Internal Medicine Gastroenterology
DX: Z48.01 Encounter for change or removal of surgical wound dressing (principal); E11.22 Type 2 diabetes mellitus with diabetic chronic kidney disease; I12.9 Hypertensive chronic kidney disease with stage 1 through stage 4 chronic kidney disease, or unspecified chronic kidney disease; N18.9 Chronic kidney disease, unspecified; Z86.73 Personal history of transient ischemic attack (TIA), and cerebral infarction without residual deficits; E78.5 Hyperlipidemia, unspecified; J44.9 Chronic obstructive pulmonary disease, unspecified; Z90.710 Acquired absence of both cervix and uterus; Z87.891 Personal history of nicotine dependence
CPT/HCPCS: 99283; A9270

== ENCOUNTER 2022-10-06 20:13 | Inpatient (IN) | payer MEDICARE, OTHER, SELFPAY ==
[2022-10-06] VITALS (41 sets, daily range): BP systolic 95–125; BP diastolic 59–70; PULSE 72–116; RESP 22–44; TEMP 36.4; O2SAT 94–100
--- NOTE | ~2022-10-06 | XR_ITS ---
EXAMINATION: XR chest 1V portable DATE: 10/06/2022 21:40 INDICATION: Shortness of breath. TECHNIQUE: A single frontal view of the chest was obtained. COMPARISON: Chest single view 09/12/2022, chest CT 10/07/2022 FINDINGS: There is a diffuse interstitial pattern in the lungs with lucencies, consistent with emphys isaías. There are mild airspace opacities in the lower lung zones and left midlung zone. No pleural effu nora or pneumothorax. The heart size is normal. There is a left shoulder arthroplasty. IMPRESSION: 1. Airspace opacities in right lower lung zone and left mid and lower lung zones, consistent with ate lectasis versus pneumonia. 2. Emphysema. Reviewed, dictated and finalized at location A. ARY OPERATOR IMPRESSION: 1. Airspace opacities in right lower lung zone and left mid and lower lung zone s, consistent with atelectasis versus pneumonia. 2. Emphysema.
--- NOTE | ~2022-10-06 | CT_ITS ---
EXAMINATION: CTA chest PE protocol DATE: 10/07/2022 01:15 INDICATION: Dyspnea. TECHNIQUE: Computed tomography angiography (CTA) of the chest was performed with 100 mL Omnipaque-350 intravenous contrast timed to evaluate the pulmonary arteries. Coronal maximum intensity projection 3D-reconstructions were created by the technologist. Automated exposure control and iterative reconst ruction technique were employed. The dose-length product was 165.90 mGy-cm. COMPARISON: Chest CT 09/11/2022 FINDINGS: There is severe emphysema. There are airspace opacities in posterior segment right upper lo be, the lower lobes, and apicoposterior segment left upper lobe. There are small pleural effusions, l eft worse than right. The heart size is normal. No pericardial effusion. There is no pulmonary embolu s. There is a left shoulder arthroplasty. There is advanced right glenohumeral joint osteoarthritis w ith large joint effusion with loose bodies. Calcifications in the pancreas and pancreatic duct dilata tion are consistent with chronic pancreatitis. There is a chronic compression fracture of L2. IMPRESSION: 1. No pulmonary embolus. 2. Airspace opacities in the lungs with a posterior and lower lung predominance, consistent with atel ectasis versus pneumonia. 3. Small pleural effusions, left worse than right. 4. Severe emphysema. Reviewed, dictated and finalized at location [facility] IMPRESSION: 1. No pulmonary embolus. 2. Airspace opacities in the lungs with a posterior and lower lung predominance , consistent with atelectasis versus pneumonia. 3. Small pleural effusions, left worse than right. 4. Severe emphysema.
--- NOTE | 2022-10-06 21:27 | ECG_ITS ---
Measurements Intervals [place] Rate: 79 P: 77 NC: 163 QRS: -29 QRSD: 100 T: 14 QT: 341 QTc: 391 Interpretive Statements SINUS RHYTHM CANNOT RULE OUT SEPTAL INFARCT, AGE INDETERMINATE BORDERLINE ST-T WAVE ABNORMALITY- ANTEROLAT/INF LEADS BASELINE ARTIFACT- II, III, AVR, AVL, AVF, V1-V5 ABNORMAL ECG COMPARED TO ECG 09/07/2022 22:37:18 SINUS RHYTHM NOW PRESENT Electronically Signed On 10-07-2022 6:40:58 [employer] by Barrington Castano D.O.
--- NOTE | 2022-10-06 21:47 | ED.GENADULT ---
HPI - General Adult General Chief complaint: Upper Respiratory Infection Stated complaint: covid positive History of Present Illness HPI narrative: This is a 72-year-old female with a history of COPD on home oxygen presenting ED with difficulty breathing. She has been having cough, fevers and shortness of breath for the last 2 days. she has also had decreased oral intake, some nausea and vomiting. She denies chest pain, abdominal pain, urinary symptoms or diarrhea. She was admitted to the hospital in early August for pneumonia and hematoma of her left arm. She has been doing well with that. Patient denies any other complaints this time. Related Data Home Medications Medication Instructions Recorded Confirmed albuterol sulfate 90 mcg/actuation 2 puff inhalation Q4H PRN 11/29/20 09/03/22 aerosol inhaler Shortness Of Breath Or Wheezing carvedilol 6.25 mg tablet 6.25 mg PO Q12H 11/29/20 09/03/22 hydralazine 10 mg tablet 10 mg PO DAILY 11/29/20 09/03/22 [id number]-dyzhbxsg-rvtcntc 1 cap PO TID 11/29/20 09/03/22 24,000-76,000-120,000 unit capsule,delayed rel (Creon) mirtazapine 15 mg tablet 15 mg PO QHS 11/29/20 09/03/22 prednisone 5 mg tablet 5 mg PO EVERY OTHER DAY 11/29/20 09/03/22 thiamine HCl (vitamin B1) 100 mg 100 mg PO DAILY 11/29/20 09/03/22 tablet cholecalciferol (vitamin D3) 50 50 mcg PO DAILY 06/19/22 09/03/22 mcg (2,000 unit) capsule folic acid 1 mg tablet 1 mg PO DAILY 06/19/22 09/03/22 tiotropium bromide 2.5 2 puff inhalation DAILY 06/19/22 09/03/22 mcg/actuation mist for inhalation (Spiriva Respimat) acetaminophen 500 mg tablet 500 mg PO QID PRN Pain 09/03/22 09/03/22 ferrous sulfate 325 mg (65 mg 325 mg PO DAILY 09/03/22 09/03/22 iron) capsule,extended release fluticasone 250 mcg-salmeterol 50 1 inh inhalation Q12H 09/03/22 09/03/22 mcg/dose blistr powdr for inhalation (Wixela Inhub) multivitamin 1 tablet PO DAILY 09/03/22 09/03/22 tramadol 50 mg tablet 100 mg PO DAILY 09/03/22 09/03/22 Allergies Allergy/AdvReac Type Severity Reaction Status Date / Time No Known Allergies Allergy Verified 10/06/22 20:19 [facility] Past Medical History Medical History CKD (chronic kidney disease) COPD (chronic obstructive pulmonary disease) CVA (cerebral vascular accident) Diabetes Hyperlipidemia Hypertension IV infiltrate Localized swelling of left forearm Pancreatitis Surgical History Surgical History History of hysterectomy Family History Family History Mother Hypertension Cerebrovascular accident Diabetes mellitus Sibling Hypertension Diabetes mellitus Breast cancer Father Hypertension Heart disease Social History Social History Social History: Patient elects Jazmine to be her surrogate with which is her . She wishes to be a full code at this time and denies any pets at the house. 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
[2022-10-06] MEDS: IPRATROPIUM BR 0.02% INH SOLN 0.5 MG/2.5 ML VIAL 1.5 MG INHALATION (22:04)
[2022-10-06] MEDS: ALBUTEROL SULFATE NEB 2.5 MG/3 ML INH 15 MG INHALATION (22:04)
[2022-10-06 22:24] LABS: Basophils Percent Auto 0.3 % (0.2-1.2); Eosinophils Absolute Auto 0.1 K/mm3 (0-0.3); Eosinophils Percent Auto 1.2 % (0-4.4); Hematocrit 31.7 % (37.0-47.0); Hemoglobin 9.4 g/dL (12.0-15.0); Immature Granulocyte Absolute 0.12 K/mm3 (0.00-0.031); Immature Granulocyte Percent A 1.5 % (0-0.5); Immature Platelet Fraction Pct 15.7 % (0.9-11.2); Lymphocytes Absolute Auto 1.81 K/mm3 (0.9-3.2); Lymphocytes Percent Auto 23.3 % (18.3-44.2); Mean Corpuscular HGB Conc 29.7 g/dl (32-36); Mean Corpuscular Hemoglobin 28.8 pg (26-34); Mean Corpuscular Volume 97.2 fl (80-100); Mean Platelet Volume 12.8 fl (7.4-10.4); Neutrophils Absolute Auto 4.7 K/mm3 (1.3-6.7); Neutrophils Percent Auto 60.7 % (45.5-73.1); Platelet Count Result 261 k/mm3 (150-375); Red Blood Count 3.26 M/mm3 (4.2-5.4); Red Cell Distribution Width 16.2 % (11.5-14.5); White Blood Count 7.8 K/mm3 (4.5-10.0)
[2022-10-06 22:33] LABS: INR 1.1; Partial Thromboplastin Time 23.1 SECONDS (22.3-36.8); Prothrombin Time 13.9 Seconds (11.1-14.7)
[2022-10-06] MEDS: SODIUM CHLORIDE 0.9% IV 1,000 ML 999 ML IV CONT (22:33)
[2022-10-06 22:38] LABS: Magnesium 1.7 mg/dL (1.6-2.3)
[2022-10-06 22:39] LABS: Add Urine Microscopic? YES; Anion Gap 6 mmol/L (8-16); Appearance Urine Clear (Clear); Bilirubin Urine Negative (Negative); Blood Urea Nitrogen 46 mg/dL (7-17); Blood Urine Negative (Negative); Calcium 8.6 mg/dL (8.4-10.2); Carbon Dioxide 28 mmol/L (22-30); Chloride 99 mmol/L (98-107); Color Urine Yellow (Yellow); Estimated CRCL calculation 19 ml/min; Estimated Glomerular Filt Rate 34; Glucose 81 mg/dL (65-110); Glucose Urine UA Negative (Negative); Ketones Urine Negative (Negative); Leukocyte Esterase Ur Negative LEU/UL (Negative); Nitrate Urine Negative (Negative); Potassium 5.4 mmol/L (3.4-5.0); Protein Urine 1+ mg/dL (Negative); Sodium 133 mmol/L (137-145); Urobilinogen Urine 0.2 mg/dL (<2.0)
[2022-10-06 22:46] LABS: Bacteria Urine Trace /hpf; Mucus Urine Rare /lpf; RBC Urine 0-2 /hpf (0-2); Squamous Epithelial Cell Urine Rare /hpf (Few); WBC Urine 21-30 /hpf
[2022-10-06 22:51] LABS: NT Pro B Type Natriuretic Pept 730 pg/mL (5-100); Troponin I 0.025 ng/mL (0.000-0.034)
[2022-10-06 23:08] LABS: Influenza A QL RT-PCR Negative (Negative); Influenza B QL RT-PCR Negative (Negative); RSV RNA, RT-PCR Negative (Negative); SARS-CoV-2 RNA PCR Positive
[2022-10-07] VITALS (55 sets, daily range): BP systolic 118–166; BP diastolic 51–74; PULSE 73–103; RESP 16–41; TEMP 35.7–37.2; O2SAT 69–100; BMI 18.8
[2022-10-07 00:35] LABS: Alveolar/Arterial O2 Gradient 235.9 mmHg; Base Excess ABG 0.4 mEq/l (+/-2.0); Fractional Inspired Oxygen 44 %; HCO3 ABG 24.6 mEq/l (22.0-26.0); Oxygen Content ABG 9.8 %vol (16.0-22.0); PCO2 ABG 37.5 mmHg (35.0-45.0); Total Hemoglobin 9.7 g/dL (12.0-18.0); pH ABG 7.434 (7.350-7.450)
[2022-10-07 00:40] LABS: PO2 ABG 35.1 mmHg (80.0-100.0)
[2022-10-07 00:41] LABS: Oxygen Saturation ABG 69.6 % (95.0-100.0)
[2022-10-07 00:45] LABS: Device NASAL CANNULA; Modified Allen's Test Pass; Oxyhemoglobin 72.1 % THb (90.0-100.0); Site Drawn RIGHT RADIAL
--- NOTE | 2022-10-07 00:50 | PM.IMHP ---
H&P: HPI History of Present Illness Date/Time: 10/07/22 00:50 Chief Complaint: No appetite, recent COVID diagnosis Narrative: 72-year-old female with past medical history of COPD, CVA, diabetes hyperlipidemia and pancreatic insufficiency due to prior pancreatitis who presented to the ER with decreased appetite. The patient was diagnosed with COVID on the . She had recently been hospitalized 09/03/2022 through 09/17/2022 due to RSV, hematoma of the left forearm and acute blood loss anemia. Her reports that they both became sick with RSV. Since she has been home she has been doing well until 3 or 4 days ago when she began having cough. This time her became ill just before she did he is recovered from COVID after taking paxlovid. The patient was having some increased cough and some clear sputum her adduction that was occasional. Her biggest complaint was decreased appetite. Her also reports that the patient has been drinking Ensure in is having frequent loose stools on the days that she drinks Ensure. She has been drinking the Ensure because she has no appetite. She has still been taking her Pancrease. She denies any abdominal pain. She reports chest pain with coughing only. Her breathing has improved on BiPAP. She is not having any confusion and is alert orient to of 4. Does no lower extremity edema. In the ER chest x-ray demonstrated pneumonia. The ER physician orders CTA of the chest which ruled out pulmonary embolism with bilateral airspace opacities posteriorly lower lung predominance consistent with atelectasis versus pneumonia. Small pleural effusions left worse than right with severe emphysematous changes. The patient has been afebrile here but did have fevers of 102 at home for the last 3 days. The patient was chilled at the time of my evaluation but her skin felt warm to touch. Her arm has been healing since her last hospitalization. She denies any other significant pain besides the pain in her chest with coughing. Review of Systems Review of Systems: 12 systems were reviewed with pertinent positives and negatives per HPI. Except as documented in the HPI, all other systems were reviewed and are negative. [facility] Past Medical History Medical History (Updated 10/07/22 @ 08:07 by Stephaine South DO) Chronic respiratory failure with hypoxia, on home O2 therapy COPD (chronic obstructive pulmonary disease) CVA (cerebral vascular accident) Diabetes Diastolic dysfunction Without history of heart failure. Echocardiogram 09/04/2022 demonstrated grade 1 diastolic dysfunction EF 55-60. Right ventricular systolic function normal, mild tricuspid regurgitation Hyperlipidemia Pancreatitis Stage 3a chronic kidney disease Surgical History Surgical History History of hysterectomy Family History Family History Mother Hypertension Cerebrovascular accident Diabetes mellitus Sibling Hypertension Diabetes mellitus Breast cancer Father Hypertension Heart disease Social History Social History (Updated 10/07/22 @ 07:57 by Stephanie South DO) Social History: She has been for 43 years. They have a 42-year-old daughter. Patient elects Jazmine to be her surrogate with which is her . She wishes to be a DNR/DNI at this time and denies any pets at the house. Smoking packs per day: 0.5 Smoking cigarettes per day: 10.0 Years smoked: 50 Smoking pack-years: 25.00 Smoking status: Former smoker Tobacco type: cigarettes Smoking end date: 09/29/19 Alcohol intake: never Alcohol use details: Quit About 4 years ago Substance use: never Lack of Transportation: No Lack of Food: Never True Current Housing: I Have Housing Concerned About Future Housing: No Difficulty Paying Gas/Electric Bills: No Difficulty Paying for Meds: No Currently Unemployed: No E
--- NOTE | 2022-10-07 00:50 | PC.NURSE ---
Patient placed on a nonrebreather at 15L for oxygen saturations of 74% on 5L per NC. Dr. Chauhan made aware of patient's low oxygen saturations and com writer called respiratory to place patient on Bipap.
[2022-10-07 00:54] LABS: Potassium 5.2 mmol/L (3.4-5.0)
--- NOTE | 2022-10-07 00:58 | PC.NURSE ---
Patient taken down to CT on nonrebreather at 15L.
--- NOTE | 2022-10-07 01:18 | PC.NURSE ---
Patient started on Bipap by respiratory therapist.
[2022-10-07] MEDS: DEXAMETHASONE SOD PHOS INJ 4 MG/ML VIAL 6 MG IV PUSH (02:15)
[2022-10-07] MEDS: LACTATED RINGERS 1,000 ML 50 ML IV CONT ×2 (04:02→20:25)
[2022-10-07 05:30] LABS: Estimated CRCL calculation 20 ml/min; Estimated Glomerular Filt Rate 36
--- NOTE | 2022-10-07 08:14 | ADMGEN ---
This patient, Conchita Espinoza, was admitted to IMU Room 210-01 on 10/07/22 at 0302. Patient/family oriented to hospital policies and general routines including ID bracelet, bed and alarms, visiting hours, pain management, procedures, bathroom and other care routines, personal items, smoking policy, room service/diet, and visiting hours. Information on how to activate the Rapid Response Team has been discussed. Patient/Family are encouraged to report perceived risks to care and to ask questions if they do not understand what they are told or what they should do.
[2022-10-07 08:32] LABS: Hematocrit 28.8 % (37.0-47.0); Hemoglobin 8.4 g/dL (12.0-15.0); Immature Platelet Fraction Pct 14.4 % (0.9-11.2); Mean Corpuscular HGB Conc 29.2 g/dl (32-36); Mean Corpuscular Hemoglobin 28.9 pg (26-34); Mean Platelet Volume 13.1 fl (7.4-10.4); Platelet Count Result 266 k/mm3 (150-375); Red Blood Count 2.91 M/mm3 (4.2-5.4); Red Cell Distribution Width 16.4 % (11.5-14.5); White Blood Count 6.9 K/mm3 (4.5-10.0)
[2022-10-07 08:40] LABS: Anion Gap 5 mmol/L (8-16); Blood Urea Nitrogen 36 mg/dL (7-17); CRP 5.7 mg/dL (<1.0); Calcium 7.6 mg/dL (8.4-10.2); Carbon Dioxide 25 mmol/L (22-30); Chloride 99 mmol/L (98-107); Estimated CRCL calculation 21 ml/min; Estimated Glomerular Filt Rate 36; Glucose 220 mg/dL (65-110); Lactate Dehydrogenase 219 U/L (120-246); Potassium 4.9 mmol/L (3.4-5.0); Sodium 129 mmol/L (137-145)
[2022-10-07] MEDS: CHOLECALCIFEROL 1,000 UNITS TABLET 2000 UNITS PO (09:36)
[2022-10-07] MEDS: carvediloL 6.25 MG TABLET PO ×2 (09:36→20:22)
[2022-10-07] MEDS: SODIUM ZIRCONIUM CYCLOSILICATE 10 GM POWD.PACK PO (09:36)
[2022-10-07] MEDS: ENOXAPARIN 30 MG/0.3 ML SYRINGE SUB-Q (09:36)
[2022-10-07] MEDS: FERROUS SULFATE 324 MG TABLET PO (09:37)
[2022-10-07] MEDS: MULTIVITAMINS THERAPEUTIC TAB (*BKC) 1 TABLET PO (09:37)
[2022-10-07] MEDS: THIAMINE HCL 100 MG TABLET PO (09:37)
[2022-10-07] MEDS: LIPASE/AMYLASE/PROTEASE 12,000 UNITS CAP 2 CAP PO ×3 (09:37→16:44)
[2022-10-07] MEDS: FOLIC ACID 1 MG TABLET PO (09:37)
[2022-10-07] MEDS: ALBUTEROL SULFATE NEB 2.5 MG/3 ML INH 5 MG INHALATION ×3 (09:47→21:20)
[2022-10-07] MEDS: IPRATROPIUM BR 0.02% INH SOLN 0.5 MG/2.5 ML VIAL INHALATION ×3 (09:47→21:20)
[2022-10-07] MEDS: FLUTICASONE/SALMETEROL 115-21 MCG INHALER 1 PUFF 2 PUFF INHALATION ×2 (09:58→21:26)
--- NOTE | 2022-10-07 16:43 | PM.IMPN ---
Progress Note: A&P Assessment and Plan (1) Acute respiratory failure: Code(s): J96.00 - Acute respiratory failure, unspecified whether with hypoxia or hypercapnia Status: Acute Assessment and Plan: In the ER the patient suddenly became hypoxic with pulse ox down to 69% on her home O2 of 3 L. This correlated with her ABG result.? She was subsequently placed on BiPAP in the ER.? She rapidly improved and able to back down to 4 L nasal cannula. (2) Pneumonia due to COVID-19 virus: Code(s): U07.1 - COVID-19; J12.82 - Pneumonia due to coronavirus disease 2018 Status: Acute Assessment and Plan: The patient recently diagnosed with COVID. CTA chest showing no PE but shows airspace opacities mostly in the lower lobes and sever emphysema. Patient was started on Decadron per COVID guidelines. No Remdesivir given her low eGFR. Will continue scheduled nebulizer treatments q.6 hours. Follow CBC, CMP and inflammatory markers including LDH ferritin CRP The patient was initially placed on broad-spectrum antibiotics due to recent hospitalization but these were stopped Will wean oxygen as as tolerated down to her home O2 of 3 L. Start PT/OT (3) Hyperkalemia: Code(s): E87.5 - Hyperkalemia Status: Acute Assessment and Plan: The patient does have some mild hyperkalemia. This was treated approrpaitely and now potassium normal. Follow (4) COPD exacerbation: Code(s): J44.1 - Chronic obstructive pulmonary disease with (acute) exacerbation Status: Acute Assessment and Plan: The patient is COPD exacerbation due to underlying COVID pneumonia. Patient was started on Decadron per COVID guidelines and nebulizer treatments. Wean oxygen as as tolerated down to her home O2 of 3 L. (5) Protein-calorie malnutrition, moderate: Code(s): E44.0 - Moderate protein-calorie malnutrition Status: Acute Assessment and Plan: Stable. Continue Creon. Supplements added (6) Chronic respiratory failure with hypoxia, on home O2 therapy: Code(s): J96.11 - Chronic respiratory failure with hypoxia; Z99.81 - Dependence on supplemental oxygen Status: Acute Assessment and Plan: On home O2 at 3L. Subjective Date/time seen: 10/07/22 16:43 Interval history: 72yo female with COPD, CVA, DM and pancreatic insufficiency due to prior pancreatitis who presented to the ER with decreased appetite.? Recently diagnosed with COVID on 10/02/22. Patient denies chest pain or shortness of breath. No abdominal pain. Minimal cough. Exam Narrative: AF 96.3 160/66 77 16 100% 4L Gen - NARD Chest - decreased BS with bibasialr crackles. CV - RRR S1/S2. Tele showing no significant dysrhythmias Abd - Soft, NT/ND, Positive BS - Branch secured draining clear yellow urine Ext - No pedal edema Neuro - Alert and orientedx4. Nonfocal exam. Psych - Nml mood and affect Skin - Warm and dry Objective Data Vital Signs Vital Signs: Vital Signs - 24 hr 10/06/22 20:14 10/06/22 20:19 10/06/22 20:19 Temperature 97.6 F Pulse Rate 76 Respiratory Rate 22 H Blood Pressure 125/63 Pulse Oximetry 96 100 100 Oxygen Delivery Nasal Cannula Oxygen Flow Rate 3 Fraction of Inspired Oxygen 10/06/22 22:04 10/06/22 20:19 10/06/22 20:52 Temperature Pulse Rate 80 73 73 Respiratory Rate 30 H 27 H 35 H Blood Pressure Pulse Oximetry 100 100 Oxygen Delivery Oxygen Flow Rate Fraction of Inspired Oxygen 10/06/22 21:00 10/06/22 21:01 10/06/22 21:15 Temperature Pulse Rate 72 75 74 Respiratory Rate 31 H 35 H 24 H Blood Pressure 100/59 L Pulse Oximetry Oxygen Delivery Oxygen Flow Rate Fraction of Inspired Oxygen 10/06/22 21:30 10/06/22 21:32 10/06/22 21:45 Temperature Pulse Rate 77 75 78 Respiratory Rate 23 H 32 H 32 H Blood Pressure 95/70 L Pulse Oximetry Oxygen Delivery Oxygen Flow Rate Fr
[2022-10-07] MEDS: MIRTAZAPINE 15 MG TABLET PO (20:22)
[2022-10-07] MEDS: traMADol HCL (*CRX) 50 MG TABLET 100 MG PO (20:23)
[2022-10-08] VITALS (24 sets, daily range): BP systolic 135–159; BP diastolic 61–73; PULSE 60–80; RESP 16–20; TEMP 36.4–37.2; O2SAT 96–100
[2022-10-08] MEDS: ALBUTEROL SULFATE NEB 2.5 MG/3 ML INH 5 MG INHALATION ×4 (02:45→22:46)
[2022-10-08] MEDS: IPRATROPIUM BR 0.02% INH SOLN 0.5 MG/2.5 ML VIAL INHALATION ×4 (02:45→22:46)
[2022-10-08] MEDS: traMADol HCL (*CRX) 50 MG TABLET 100 MG PO (05:25)
[2022-10-08 05:40] LABS: Basophils Percent Auto 0.1 % (0.2-1.2); Hemoglobin 7.9 g/dL (12.0-15.0); Immature Granulocyte Absolute 0.13 K/mm3 (0.00-0.031); Immature Granulocyte Percent A 1.9 % (0-0.5); Lymphocytes Percent Auto 15.8 % (18.3-44.2); Mean Corpuscular HGB Conc 30.4 g/dl (32-36); Mean Corpuscular Hemoglobin 28.2 pg (26-34); Mean Corpuscular Volume 92.9 fl (80-100); Mean Platelet Volume 12.7 fl (7.4-10.4); Monocytes Absolute Auto 0.6 K/mm3 (0.1-0.6); Monocytes Percent Auto 8.2 % (2.6-8.5); Neutrophils Absolute Auto 5.2 K/mm3 (1.3-6.7); Platelet Count Result 270 k/mm3 (150-375); Red Cell Distribution Width 15.8 % (11.5-14.5)
[2022-10-08 05:48] LABS: Alanine Aminotransferase 15 U/L (6-35); Albumin Level 2.8 g/dL (3.5-5.1); Alkaline Phosphatase 73 U/L (38-126); Anion Gap 2 mmol/L (8-16); Aspartate Amino Transferase 26 U/L (14-36); Bilirubin,Total 0.2 mg/dL (0.2-1.3); Blood Urea Nitrogen 27 mg/dL (7-17); Calcium 8.1 mg/dL (8.4-10.2); Carbon Dioxide 32 mmol/L (22-30); Chloride 102 mmol/L (98-107); Estimated CRCL calculation 23 ml/min; Estimated Glomerular Filt Rate 42; Glucose 136 mg/dL (65-110); Magnesium 1.2 mg/dL (1.6-2.3); Phosphorus 3.6 mg/dL (2.5-4.5); Sodium 136 mmol/L (137-145)
[2022-10-08] MEDS: FERROUS SULFATE 324 MG TABLET PO (08:47)
[2022-10-08] MEDS: carvediloL 6.25 MG TABLET PO ×2 (08:47→19:59)
[2022-10-08] MEDS: LIPASE/AMYLASE/PROTEASE 12,000 UNITS CAP 2 CAP PO ×3 (08:47→16:55)
[2022-10-08] MEDS: CHOLECALCIFEROL 1,000 UNITS TABLET 2000 UNITS PO (08:47)
[2022-10-08] MEDS: ENOXAPARIN 30 MG/0.3 ML SYRINGE SUB-Q (08:47)
[2022-10-08] MEDS: FOLIC ACID 1 MG TABLET PO (08:47)
[2022-10-08] MEDS: MULTIVITAMINS THERAPEUTIC TAB (*BKC) 1 TABLET PO (08:48)
[2022-10-08] MEDS: THIAMINE HCL 100 MG TABLET PO (08:48)
[2022-10-08] MEDS: FLUTICASONE/SALMETEROL 115-21 MCG INHALER 1 PUFF 2 PUFF INHALATION ×2 (08:59→22:46)
--- NOTE | 2022-10-08 12:19 | PM.IMPN ---
Progress Note: A&P Assessment and Plan (1) Acute respiratory failure: Code(s): J96.00 - Acute respiratory failure, unspecified whether with hypoxia or hypercapnia Status: Acute Assessment and Plan: In the ER the patient suddenly became hypoxic with pulse ox down to 69% on her home O2 of 3 L. This correlated with her ABG result.? She was subsequently placed on BiPAP in the ER.? She rapidly improved and able to back down to her baseline 4 L nasal cannula. Stable currently. (2) Pneumonia due to COVID-19 virus: Code(s): U07.1 - COVID-19; J12.82 - Pneumonia due to coronavirus disease 2019 Status: Acute Assessment and Plan: The patient recently diagnosed with COVID. CTA chest showing no PE but shows airspace opacities mostly in the lower lobes and sever emphysema. Patient was started on Decadron per COVID guidelines. No Remdesivir given her low eGFR. Continue scheduled nebulizer treatments q.6 hours. Continue Decadron. Change Azithro to oral (3) Hyperkalemia: Code(s): E87.5 - Hyperkalemia Status: Acute Assessment and Plan: The patient does have some mild hyperkalemia. This was treated approrpaitely and now potassium normal. Follow. Add low potassium diet (4) COPD exacerbation: Code(s): J44.1 - Chronic obstructive pulmonary disease with (acute) exacerbation Status: Acute Assessment and Plan: The patient with COPD exacerbation due to underlying COVID pneumonia. Patient was started on Decadron per COVID guidelines and nebulizer treatments. Wean oxygen as tolerated to her home O2 of 3 L. (5) Protein-calorie malnutrition, moderate: Code(s): E44.0 - Moderate protein-calorie malnutrition Status: Acute Assessment and Plan: Stable. Continue Creon. Supplements added (6) Chronic respiratory failure with hypoxia, on home O2 therapy: Code(s): J96.11 - Chronic respiratory failure with hypoxia; Z99.81 - Dependence on supplemental oxygen Status: Acute Assessment and Plan: On home O2 at 3L. (7) Anemia: Code(s): D64.9 - Anemia, unspecified Status: Acute Assessment and Plan: Hgb dropped to 7.9. Has chronic anemia. Iron studies essentially normal (but did have low %sat 13%). She is alredy on iron. Repeat HH today. Follow Plan UCx noted: await sensitivities but colony count not impressive Subjective Date/time seen: 10/08/22 12:19 Interval history: 72yo female with COPD, CVA, DM and pancreatic insufficiency due to prior pancreatitis who presented to the ER with decreased appetite.? Recently diagnosed with COVID on 10/02/22. No CP or SOB. Cough nonproductive. She states she does not want come back to the hospital once she returns home. She has been on hospice the past. On 4 L O2 nasal cannula at home. She walks with a walker at home. She lives with the but fears that he can not take care of her anymore. Exam Narrative: AF 99.0 150/73 64 20 99% 4L Gen - NARD Chest - distant BS, nml RR CV - RRR S1/S2. Tele showing no significant dysrhythmias Abd - Soft, NT/ND, Positive BS - Branch secured draining clear yellow urine Ext - No pedal edema Psych - Nml mood and affect Skin - Warm and dry Objective Data Vital Signs Vital Signs: Vital Signs - 24 hr 10/07/22 12:26 10/07/22 14:00 10/07/22 14:25 Temperature 97.8 F Pulse Rate 75 76 74 Respiratory Rate 18 20 Blood Pressure 143/67 H Pulse Oximetry 100 Oxygen Delivery Oxygen Flow Rate 10/07/22 14:47 10/07/22 15:34 10/07/22 17:01 Temperature 96.3 F L Pulse Rate 76 78 Respiratory Rate 20 16 Blood Pressure 160/66 H Pulse Oximetry 100 100 Oxygen Delivery Nasal Cannula Oxygen Flow Rate 4 10/07/22 16:00 10/07/22 17:38 10/07/22 20:00 Temperature 98.0 F Pulse Rate 74 77 82 Respiratory Rate 18 Blood Pressure 163/73 H Pulse Oximetry 98 Oxygen Delivery Oxygen Flow Rate
[2022-10-08] MEDS: MAGNESIUM SULFATE 3GM/D5W100ML 3 GM/100 ML BAG IVPB (13:04)
[2022-10-08] MEDS: AZITHROMYCIN 250 MG TABLET PO (13:04)
[2022-10-08 13:19] LABS: Hematocrit 27.6 % (37.0-47.0); Hemoglobin 8.4 g/dL (12.0-15.0)
[2022-10-08] MEDS: MIRTAZAPINE 15 MG TABLET PO (19:59)
[2022-10-08] MEDS: ACETAMINOPHEN 500 MG TABLET PO (20:00)
[2022-10-09] VITALS (10 sets, daily range): BP systolic 154–163; BP diastolic 66–82; PULSE 64–74; RESP 16; TEMP 36.4–36.7; O2SAT 95–100
[2022-10-09 06:28] LABS: Hematocrit 27.6 % (37.0-47.0); Hemoglobin 8.1 g/dL (12.0-15.0); Mean Corpuscular HGB Conc 29.3 g/dl (32-36); Mean Corpuscular Hemoglobin 28.3 pg (26-34); Mean Corpuscular Volume 96.5 fl (80-100); Mean Platelet Volume 12.4 fl (7.4-10.4); Platelet Count Result 284 k/mm3 (150-375); Red Blood Count 2.86 M/mm3 (4.2-5.4); Red Cell Distribution Width 15.9 % (11.5-14.5); White Blood Count 9.2 K/mm3 (4.5-10.0)
[2022-10-09 06:43] LABS: Anion Gap 1 mmol/L (8-16); Blood Urea Nitrogen 29 mg/dL (7-17); Calcium 8.4 mg/dL (8.4-10.2); Carbon Dioxide 33 mmol/L (22-30); Chloride 103 mmol/L (98-107); Estimated CRCL calculation 25 ml/min; Estimated Glomerular Filt Rate 45; Glucose 110 mg/dL (65-110); Magnesium 2.6 mg/dL (1.6-2.3); Sodium 137 mmol/L (137-145)
[2022-10-09] MEDS: CHOLECALCIFEROL 1,000 UNITS TABLET 2000 UNITS PO (09:29)
[2022-10-09] MEDS: ENOXAPARIN 30 MG/0.3 ML SYRINGE SUB-Q (09:29)
[2022-10-09] MEDS: MULTIVITAMINS THERAPEUTIC TAB (*BKC) 1 TABLET PO (09:30)
[2022-10-09] MEDS: LIPASE/AMYLASE/PROTEASE 12,000 UNITS CAP 2 CAP PO (09:30)
[2022-10-09] MEDS: carvediloL 6.25 MG TABLET PO (09:30)
[2022-10-09] MEDS: THIAMINE HCL 100 MG TABLET PO (09:30)
[2022-10-09] MEDS: AZITHROMYCIN 250 MG TABLET PO (09:31)
[2022-10-09] MEDS: FERROUS SULFATE 324 MG TABLET PO (09:31)
[2022-10-09] MEDS: FOLIC ACID 1 MG TABLET PO (09:31)
--- NOTE | 2022-10-09 10:13 | PM.DS ---
DS: Admitting Diagnosis Discharge Date 10/09/22 Admitting Diagnosis decreased appetite DS: Discharge Diagnosis Discharge Diagnosis (1) Acute respiratory failure: Code(s): J96.00 - Acute respiratory failure, unspecified whether with hypoxia or hypercapnia Status: Acute Assessment and Plan: In the ER the patient suddenly became hypoxic with pulse ox down to 69% on her home O2 of 3 L. This correlated with her ABG result.? She was subsequently placed on BiPAP in the ER.? She rapidly improved and able to back down to her baseline 4 L nasal cannula. Stable currently. (2) Pneumonia due to COVID-19 virus: Code(s): U07.1 - COVID-19; J12.82 - Pneumonia due to coronavirus disease 2018 Status: Acute Assessment and Plan: The patient recently diagnosed with COVID. CTA chest showing no PE but shows airspace opacities mostly in the lower lobes and sever emphysema. Patient was started on Decadron per COVID guidelines. No Remdesivir given her low eGFR. Continue scheduled nebulizer treatments q.6 hours. Continue Decadron. Change Azithro to oral to complete a 5 day course, started October 07 (3) Hyperkalemia: Code(s): E87.5 - Hyperkalemia Status: Acute Assessment and Plan: Resolved (4) COPD exacerbation: Code(s): J44.1 - Chronic obstructive pulmonary disease with (acute) exacerbation Status: Acute Assessment and Plan: The patient with COPD exacerbation due to underlying COVID pneumonia. Patient was started on Decadron per COVID guidelines on October 07 to complete a 10 day course and nebulizer treatments. Wean oxygen as tolerated to her home O2 of 3 L. (5) Protein-calorie malnutrition, moderate: Code(s): E44.0 - Moderate protein-calorie malnutrition Status: Acute Assessment and Plan: Stable. Continue Creon. Supplements added (6) Chronic respiratory failure with hypoxia, on home O2 therapy: Code(s): J96.11 - Chronic respiratory failure with hypoxia; Z99.81 - Dependence on supplemental oxygen Status: Acute Assessment and Plan: On home O2 at 3L. (7) Anemia: Code(s): D64.9 - Anemia, unspecified Status: Acute Assessment and Plan: Stable Plan UCx noted: await sensitivities but colony count not impressive DVT prophylaxis with Lovenox GI prophylaxis not indicated Code status DNR comfort care DS: Summary Hospital Course Hospital Course: 72-year-old female with past medical history of COPD, CVA, diabetes hyperlipidemia and pancreatic insufficiency due to prior pancreatitis who presented to the ER with decreased appetite.? The patient was diagnosed with COVID on the .? She had recently been hospitalized 09/03/2022 through 09/17/2022 due to RSV, hematoma of the left forearm and acute blood loss anemia.?She was placed on decadron for COVID to complete a 10 day course. She was started on azithromycin and was found to have a urine culture positive for klebsiella at 10-49K CFU and no symptoms. A hospital bed was arranged at home and patient was made comfort care and d/c home. Time Spent with Patient Time attestation: Total time spent providing and/or coordinating discharge services: Exam Narrative: General: No acute distress, alert and oriented per baseline HEENT: Atraumatic, normocephalic, mucous membranes moist CV: Regular rate and rhythm, S1, S2 Lungs: Clear to auscultation bilaterally, no rales or crackles noted, no wheezes, good air entry Abdomen: Soft, nontender, nondistended Extremities: Normal to inspection Skin: No rashes noted, no lesions or wounds seen Psych: Euthymic, normal affect DS: Data Data Completed and Pending Labs on day of discharge: Labs from last 24 hours 10/09/22 10/09/22 10/08/22 05:53 05:53 13:12 WBC 9.2 RBC 2.86 L Hgb 8.1 L 8.4 L Hct 27.6 L 27.6 L MCV 96.5 MCH 28.3 MCHC 29.3 L RDW 15.9 H Plt Count 284
[2022-10-09] MEDS: ALBUTEROL SULFATE NEB 2.5 MG/3 ML INH 5 MG INHALATION (10:15)
[2022-10-09] MEDS: IPRATROPIUM BR 0.02% INH SOLN 0.5 MG/2.5 ML VIAL INHALATION (10:16)
[2022-10-09] MEDS: FLUTICASONE/SALMETEROL 115-21 MCG INHALER 1 PUFF 2 PUFF INHALATION (10:16)
--- NOTE | 2022-10-09 10:17 | PM.IMPN ---
Progress Note: A&P Assessment and Plan (1) Acute respiratory failure: Code(s): J96.00 - Acute respiratory failure, unspecified whether with hypoxia or hypercapnia Status: Acute Assessment and Plan: In the ER the patient suddenly became hypoxic with pulse ox down to 69% on her home O2 of 3 L. This correlated with her ABG result.? She was subsequently placed on BiPAP in the ER.? She rapidly improved and able to back down to her baseline 4 L nasal cannula. Stable currently. (2) Pneumonia due to COVID-19 virus: Code(s): U07.1 - COVID-19; J12.82 - Pneumonia due to coronavirus disease 2018 Status: Acute Assessment and Plan: The patient recently diagnosed with COVID. CTA chest showing no PE but shows airspace opacities mostly in the lower lobes and sever emphysema. Patient was started on Decadron per COVID guidelines. No Remdesivir given her low eGFR. Continue scheduled nebulizer treatments q.6 hours. Continue Decadron. Change Azithro to oral to complete a 5 day course, started October 07 (3) Hyperkalemia: Code(s): E87.5 - Hyperkalemia Status: Acute Assessment and Plan: Resolved (4) COPD exacerbation: Code(s): J44.1 - Chronic obstructive pulmonary disease with (acute) exacerbation Status: Acute Assessment and Plan: The patient with COPD exacerbation due to underlying COVID pneumonia. Patient was started on Decadron per COVID guidelines on October 07 to complete a 10 day course and nebulizer treatments. Wean oxygen as tolerated to her home O2 of 3 L. (5) Protein-calorie malnutrition, moderate: Code(s): E44.0 - Moderate protein-calorie malnutrition Status: Acute Assessment and Plan: Stable. Continue Creon. Supplements added (6) Chronic respiratory failure with hypoxia, on home O2 therapy: Code(s): J96.11 - Chronic respiratory failure with hypoxia; Z99.81 - Dependence on supplemental oxygen Status: Acute Assessment and Plan: On home O2 at 3L. (7) Anemia: Code(s): D64.9 - Anemia, unspecified Status: Acute Assessment and Plan: Stable Plan UCx noted: await sensitivities but colony count not impressive DVT prophylaxis with Lovenox GI prophylaxis not indicated Code status DNR comfort care Subjective Date/time seen: 10/09/22 10:17 Interval history: No overnight events noted. No chest pain or shortness of breath. No nausea, vomiting or diarrhea. No fevers or chills. Review of Systems Review of Systems: 12 point review of systems was assessed and was negative except as noted in the HPI Exam Narrative: General: No acute distress, alert and oriented per baseline HEENT: Atraumatic, normocephalic, mucous membranes moist CV: Regular rate and rhythm, S1, S2 Lungs: Clear to auscultation bilaterally, no rales or crackles noted, no wheezes, good air entry Abdomen: Soft, nontender, nondistended Extremities: Normal to inspection Skin: No rashes noted, no lesions or wounds seen Psych: Euthymic, normal affect Objective Data Vital Signs Vital Signs: Vital Signs - 24 hr 10/08/22 11:36 10/08/22 11:00 10/08/22 12:28 Temperature 97.5 F L Pulse Rate 68 Respiratory Rate 18 Blood Pressure 135/66 Pulse Oximetry 99 100 Oxygen Delivery Nasal Cannula Nasal Cannula Oxygen Flow Rate 4 3 10/08/22 12:00 10/08/22 14:00 10/08/22 15:58 Temperature Pulse Rate 60 68 78 Respiratory Rate 18 Blood Pressure Pulse Oximetry Oxygen Delivery Oxygen Flow Rate 10/08/22 16:11 10/08/22 16:21 10/08/22 19:59 Temperature 98.2 F Pulse Rate 73 70 74 Respiratory Rate 18 16 Blood Pressure 152/68 H Pulse Oximetry 100 Oxygen Delivery Oxygen Flow Rate 10/08/22 20:00 10/08/22 22:46 10/08/22 22:54 Temperature Pulse Rate 77 Respiratory Rate 16 Blood Pressure Pulse Oximetry 97 96 Oxygen Delivery Nasal Cannula Nasal
== END 2022-10-09 15:20 | disposition home health service (06) | DRG 177 ==
LOC: ANHED 10-07 01:14 → ANHIMU 10-07 02:04 → ANH3MEDSUR 10-08 17:34
PROVIDERS: Internal Medicine; Admitting Provider Internal Medicine; Emergency Provider Emergency Medicine; PCP Internal Medicine Gastroenterology; Visit Provider Student in an Organized Health Care Education/Training Program
DX: U07.1 COVID-19 (principal); J12.82 Pneumonia due to coronavirus disease 2019; J96.21 Acute and chronic respiratory failure with hypoxia; E44.0 Moderate protein-calorie malnutrition; Z68.1 Body mass index [BMI] 19.9 or less, adult; J43.9 Emphysema, unspecified; E11.22 Type 2 diabetes mellitus with diabetic chronic kidney disease; I12.9 Hypertensive chronic kidney disease with stage 1 through stage 4 chronic kidney disease, or unspecified chronic kidney disease; N18.30 Chronic kidney disease, stage 3 unspecified; E87.5 Hyperkalemia; E78.5 Hyperlipidemia, unspecified; B96.1 Klebsiella pneumoniae [K. pneumoniae] as the cause of diseases classified elsewhere; D64.9 Anemia, unspecified; K86.89 Other specified diseases of pancreas; Z66 Do not resuscitate; Z99.81 Dependence on supplemental oxygen; Z86.73 Personal history of transient ischemic attack (TIA), and cerebral infarction without residual deficits; Z90.710 Acquired absence of both cervix and uterus; Z87.891 Personal history of nicotine dependence
CPT/HCPCS: 36415; 36600; 71045; 71275; 80048; 80053; 81001; 82565; 82728; 82805; 83605; 83615; 83735; 83880; 84100; 84132; 84484; 85014; 85018; 85025; 85027; 85055; 85610; 85730; 86140; 87040; 87077; 87086; 87147; 87181; 87186; 87637; 93005; 94002; 94640; 94660; 96361; 97161; 97166; 99285; A9270; J0456; J0692; J0696; J1100; J1650; J3370; J3475; J7030; J7120; Q9967

== ENCOUNTER 2023-07-31 17:11 | Emergency (ER) | payer MEDICARE, OTHER, SELFPAY ==
[2023-07-31 17:24] VITALS: BP 159/67; PULSE 77; RESP 18; TEMP 37.2; O2SAT 96
--- NOTE | 2023-07-31 17:33 | ED.GENADULT ---
HPI - General Adult General Chief complaint: Urogenital-Female Stated complaint: Left Side Body Pain Time Seen by Provider: 07/31/23 17:33 Source: patient, RN notes reviewed and old records reviewed Mode of arrival: ambulatory Limitations: no limitations History of Present Illness HPI narrative: 72-year-old female presents to the [facility] with left flank and left abdominal pain. History of UTIs. History of acute renal injury. Patient reports that symptoms started on Friday. Had taken Tylenol yesterday and day before with no improvement. Denies chest pain. Patient on 3 L of oxygen at all times. Denies new shortness of breath Denies fevers, nausea, vomiting. Unsure of last bowel movement Patient requesting a x-ray to check her kidneys. Explained to patient that she would need blood work due to her past medical history and we do not do that here Onset (ago): day(s) (2) Related Data Home Medications Medication Instructions Recorded Confirmed carvedilol 6.25 mg tablet 6.25 mg PO Q12H 11/29/20 10/07/22 mirtazapine 15 mg tablet 15 mg PO QHS 11/29/20 10/07/22 thiamine HCl (vitamin B1) 100 mg 100 mg PO DAILY 11/29/20 10/07/22 tablet cholecalciferol (vitamin D3) 50 50 mcg PO DAILY 06/19/22 10/07/22 mcg (2,000 unit) capsule folic acid 1 mg tablet 1 mg PO DAILY 06/19/22 10/07/22 tiotropium bromide 2.5 2 puff inhalation DAILY 06/19/22 10/07/22 mcg/actuation mist for inhalation (Spiriva Respimat) fluticasone 250 mcg-salmeterol 50 1 inh inhalation Q12H 09/03/22 10/07/22 mcg/dose blistr powdr for inhalation (Wixela Inhub) multivitamin 1 tablet PO DAILY 09/03/22 10/07/22 albuterol sulfate 2.5 mg/3 mL 2.5 mg inhalation TID PRN 10/07/22 10/07/22 (0.083 %) solution for nebulization Shortness Of Breath Allergies Allergy/AdvReac Type Severity Reaction Status Date / Time No Known Allergies Allergy Verified 07/31/23 17:34 Review of Systems Review of Systems: All systems reviewed & are unremarkable except as noted in HPI and below Constitutional: Constitutional: Reports no additional constitutional complaints Eyes: Eyes: Reports no additional eye complaints ENT: Reports system reviewed and no additional complaints, except as documented Cardiovascular: Cardiovascular: Reports no additional cardiovascular complaints, Denies chest pain and Denies dyspnea Respiratory: Respiratory: Reports no additional respiratory complaints, Denies chest congestion, Denies cough and Denies dyspnea Gastrointestinal: Gastrointestinal: Reports as per HPI, Reports abdominal pain (Left-sided), Denies nausea and Denies vomiting Genitourinary: Genitourinary: Reports as per HPI Musculoskeletal: Musculoskeletal: Reports no additional musculoskeletal complaints Integumentary/Breasts: Skin/Breast: Reports system reviewed and no additional complaints, except as docu Neurologic: Reports system reviewed and no additional complaints, except as documented Psychiatric: Psychiatric: Reports no additional psychiatric complaints Allergic/Immunologic: Allergic/Immunologic: Reports no additional allergic/immunologic complaints PMFSH Past Medical History Medical History Chronic respiratory failure with hypoxia, on home O2 therapy COPD (chronic obstructive pulmonary disease) CVA (cerebral vascular accident) Diabetes Diastolic dysfunction Without history of heart failure. Echocardiogram 09/04/2022 demonstrated grade 1 diastolic dysfunction EF 55-60. Right ventricular systolic function normal, mild tricuspid regurgitation Hyperlipidemia Pancreatitis Stage 3a chronic kidney disease Surgical History Surgical History History of hysterectomy Family History Family History Mother Hypertension Cerebrovascular accident Diabetes mellitus Sibling Hypertension Diabetes mellitus Br
== END 2023-07-31 17:44 | disposition short-term general hospital (02) ==
PROVIDERS: Emergency Provider Nurse Practitioner; PCP Internal Medicine Gastroenterology
DX: R10.9 Unspecified abdominal pain (principal); J44.9 Chronic obstructive pulmonary disease, unspecified; E78.5 Hyperlipidemia, unspecified; J96.10 Chronic respiratory failure, unspecified whether with hypoxia or hypercapnia; E11.22 Type 2 diabetes mellitus with diabetic chronic kidney disease; N18.31 Chronic kidney disease, stage 3a; Z86.73 Personal history of transient ischemic attack (TIA), and cerebral infarction without residual deficits; Z99.81 Dependence on supplemental oxygen; Z87.891 Personal history of nicotine dependence
CPT/HCPCS: 81003; 99212; G0463

== ENCOUNTER 2023-07-31 18:06 | Emergency (ER) | payer MEDICARE, OTHER, SELFPAY ==
[2023-07-31] VITALS (26 sets, daily range): BP systolic 168–199; BP diastolic 78–91; PULSE 73–95; RESP 16–39; TEMP 36.6; O2SAT 93–100
--- NOTE | ~2023-07-31 | CT_ITS ---
EXAMINATION: CT abdomen pelvis w con DATE: 07/31/2023 20:24 INDICATION: Left-sided abdominal pain TECHNIQUE: Computed tomography (CT) of the abdomen and pelvis was performed with 100 cc Omnipaque 350 intravenous contrast. The dose-length product was 262.72 mGy-cm. Automated exposure control and iter ative reconstruction technique were employed. COMPARISON: CT dated 09/11/2022. FINDINGS: Trace pericardial effusion. No significant pleural effusion. There is evidence for chronic pancreatitis. There is fat stranding at the root of the small bowel mesentery, improved since prior s tudy. No significant lymphadenopathy. Moderate atherosclerosis without evidence for aneurysm or disse ction. There is improved chronic bilateral lower lobe atelectasis/scarring. The liver, spleen, adrenal glands and kidneys are unremarkable. Gallbladder is present. Nonobstructiv e bowel gas pattern. There are accessory splenules. Moderate colonic fecal loading. There are bilater al hip arthroplasties creating streak artifact limiting evaluation of the pelvis. Mild superior endpl ate compression deformity of L2 with Schmorl's node, chronic. IMPRESSION: 1. Improved chronic linear infiltrates of the lower lobes, likely atelectasis/scarring. 2: Improved fat stranding at the root of the small bowel mesentery, likely benign mesenteric pannicu litis. Reviewed, dictated and finalized at location A. IMPRESSION: 1. Improved chronic linear infiltrates of the lower lobes, likely atelectasis/s carring. 2: Improved fat stranding at the root of the small bowel mesentery, likely kim ign mesenteric panniculitis.
--- NOTE | 2023-07-31 18:50 | PC.NURSE ---
Pt reports pain is LUQ and left lateral. Pain with palpation
--- NOTE | 2023-07-31 19:04 | ED.GENADULT ---
HPI - General Adult General Chief complaint: Unspecified Stated complaint: left side pain Time Seen by Provider: 07/31/23 18:51 History of Present Illness HPI narrative: Patient is a 72-year-old female with history of COPD, on 3 L nasal cannula at baseline, alcoholic pancreatitis here with left-sided flank pain. She states that the pain began about 2 days ago and is located on the left flank. She denies any radiation. She denies any associated nausea or vomiting. She denies any associated urinary symptoms. Last bowel movement was yesterday which she notes was normal for her. She has been taking Tylenol at home for the pain, did not believe this was helping so she did not take any doses today. Prior PEG tube due to malnourishment and not eating well, this has since been reversed. she denies any fever chills. Denies any chest pain, cough, congestion. She denies any trauma. Related Data Home Medications Medication Instructions Recorded Confirmed carvedilol 6.25 mg tablet 6.25 mg PO Q12H 11/29/20 10/07/22 mirtazapine 15 mg tablet 15 mg PO QHS 11/29/20 10/07/22 thiamine HCl (vitamin B1) 100 mg 100 mg PO DAILY 11/29/20 10/07/22 tablet cholecalciferol (vitamin D3) 50 50 mcg PO DAILY 06/19/22 10/07/22 mcg (2,000 unit) capsule folic acid 1 mg tablet 1 mg PO DAILY 06/19/22 10/07/22 tiotropium bromide 2.5 2 puff inhalation DAILY 06/19/22 10/07/22 mcg/actuation mist for inhalation (Spiriva Respimat) fluticasone 250 mcg-salmeterol 50 1 inh inhalation Q12H 09/03/22 10/07/22 mcg/dose blistr powdr for inhalation (Wixela Inhub) multivitamin 1 tablet PO DAILY 09/03/22 10/07/22 albuterol sulfate 2.5 mg/3 mL 2.5 mg inhalation TID PRN 10/07/22 10/07/22 (0.083 %) solution for nebulization Shortness Of Breath Allergies Allergy/AdvReac Type Severity Reaction Status Date / Time No Known Allergies Allergy Verified 07/31/23 18:07 Review of Systems Review of Systems: All systems reviewed & are unremarkable except as noted in HPI and below PMFSH Past Medical History Medical History Chronic respiratory failure with hypoxia, on home O2 therapy COPD (chronic obstructive pulmonary disease) CVA (cerebral vascular accident) Diabetes Diastolic dysfunction Without history of heart failure. Echocardiogram 09/04/2022 demonstrated grade 1 diastolic dysfunction EF 55-60. Right ventricular systolic function normal, mild tricuspid regurgitation Hyperlipidemia Pancreatitis Stage 3a chronic kidney disease Surgical History Surgical History History of hysterectomy Family History Family History Mother Hypertension Cerebrovascular accident Diabetes mellitus Sibling Hypertension Diabetes mellitus Breast cancer Father Hypertension Heart disease Social History Social History Social History: She has been for 43 years. They have a 42-year-old daughter. Patient elects Jazmine to be her surrogate with which is her . She wishes to be a DNR/DNI at this time and denies any pets at the house. Smoking packs per day: 0.5 Smoking cigarettes per day: 10.0 Years smoked: 50 Smoking pack-years: 25.00 Smoking status: Former smoker Tobacco type: cigarettes Smoking end date: 09/29/19 Alcohol intake: never Alcohol use details: Quit About 4 years ago Substance use: never Substance use type: does not use Lack of Transportation: No Lack of Food: Never True Current Housing: I Have Housing Concerned About Future Housing: No Difficulty Paying Gas/Electric Bills: No Difficulty Paying for Meds: No Currently Unemployed: No Education: High School Diploma/GED Difficulty w/ Childcare or Family Care: No Living arrangements: with family 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
--- NOTE | 2023-07-31 19:13 | PC.NURSE ---
This RN assumed care of patient. This RN took patient report from SHELIA Barba.
[2023-07-31 19:39] LABS: Appearance Urine Clear (Clear); Bilirubin Urine Negative (Negative); Blood Urine Negative (Negative); Color Urine Yellow (Yellow); Glucose Urine UA Negative (Negative); Ketones Urine Negative (Negative); Leukocyte Esterase Ur Negative LEU/UL (Negative); Nitrate Urine Negative (Negative); Protein Urine 1+ mg/dL (Negative); Urobilinogen Urine 0.2 mg/dL (<2.0); pH Urine 5.5 (5.0-9.0)
[2023-07-31 19:40] LABS: Basophils Percent Auto 0.4 % (0.2-1.2); Eosinophils Absolute Auto 0.3 K/mm3 (0-0.3); Eosinophils Percent Auto 3.5 % (0-4.4); Hematocrit 34.6 % (37.0-47.0); Hemoglobin 9.8 g/dL (12.0-15.0); Immature Granulocyte Absolute 0.03 K/mm3 (0.00-0.031); Immature Granulocyte Percent A 0.3 % (0-0.5); Immature Platelet Fraction Pct 16.3 % (0.9-11.2); Lymphocytes Absolute Auto 2.35 K/mm3 (0.9-3.2); Lymphocytes Percent Auto 25.4 % (18.3-44.2); Mean Corpuscular HGB Conc 28.3 g/dl (32-36); Mean Corpuscular Volume 105.8 fl (80-100); Mean Platelet Volume 13.6 fl (7.4-10.4); Monocytes Absolute Auto 0.7 K/mm3 (0.1-0.6); Neutrophils Absolute Auto 5.9 K/mm3 (1.3-6.7); Neutrophils Percent Auto 63.4 % (45.5-73.1); Platelet Count Result 127 k/mm3 (150-375); Red Blood Count 3.27 M/mm3 (4.2-5.4); Red Cell Distribution Width 13.1 % (11.5-14.5); White Blood Count 9.3 K/mm3 (4.5-10.0)
[2023-07-31 19:48] LABS: Alanine Aminotransferase 13 U/L (6-35); Albumin Level 4.4 g/dL (3.5-5.1); Alkaline Phosphatase 99 U/L (38-126); Anion Gap 9 mmol/L (8-16); Aspartate Amino Transferase 28 U/L (14-36); Bilirubin,Total 0.4 mg/dL (0.2-1.3); Blood Urea Nitrogen 44 mg/dL (7-17); Calcium 10.1 mg/dL (8.4-10.2); Carbon Dioxide 29 mmol/L (22-30); Chloride 99 mmol/L (98-107); Estimated CRCL calculation 18 ml/min; Estimated Glomerular Filt Rate 32; Glucose 89 mg/dL (65-110); Lipase 11 U/L (23-300); Potassium 5.2 mmol/L (3.4-5.0); Sodium 137 mmol/L (137-145)
[2023-07-31 19:53] LABS: Hypochromasia 1+ (NORMAL); Platelet Estimate Decreased (Adequate); Schistocytes None Seen (NORMAL); Stomatocytes 1+ (NORMAL)
[2023-07-31 19:59] LABS: Add Urine Microscopic? YES; RBC Urine 0-2 /hpf (0-2); Squamous Epithelial Cell Urine Rare /hpf (Few); WBC Urine 0-3 /hpf (0-3)
[2023-07-31 20:00] LABS: Bacteria Urine Trace /hpf
[2023-07-31] MEDS: ACETAMINOPHEN 500 MG TABLET 1000 MG PO (21:08)
[2023-07-31] MEDS: oxyCODONE HCL (*CRX) 5 MG TAB IR PO (22:30)
== END 2023-07-31 23:16 | disposition home or self-care (01) ==
PROVIDERS: Family Medicine; Emergency Provider Student in an Organized Health Care Education/Training Program; PCP Internal Medicine Gastroenterology
DX: N17.9 Acute kidney failure, unspecified (principal); R10.9 Unspecified abdominal pain; J44.9 Chronic obstructive pulmonary disease, unspecified; Z99.81 Dependence on supplemental oxygen; J96.11 Chronic respiratory failure with hypoxia; E11.22 Type 2 diabetes mellitus with diabetic chronic kidney disease; N18.31 Chronic kidney disease, stage 3a; E78.5 Hyperlipidemia, unspecified; Z66 Do not resuscitate; Z87.891 Personal history of nicotine dependence; Z86.73 Personal history of transient ischemic attack (TIA), and cerebral infarction without residual deficits; Z90.710 Acquired absence of both cervix and uterus
CPT/HCPCS: 36415; 74177; 80053; 81001; 81003; 83690; 85025; 85055; 99284; A9270; Q9967

== ENCOUNTER 2023-08-04 03:32 | Inpatient (IN) | payer MEDICARE, OTHER, SELFPAY ==
[2023-08-04] VITALS (13 sets, daily range): BP systolic 145–178; BP diastolic 55–66; PULSE 73–86; RESP 15–25; TEMP 36.2–36.6; O2SAT 100; BMI 21.1
--- NOTE | ~2023-08-04 | XR_ITS ---
EXAMINATION: XR chest 1V portable INDICATION: Shortness of breath TECHNIQUE: Portable AP chest at 1120 hours COMPARISON: 10/06/2022 FINDINGS: There are airspace opacities of the left mid and lower lung zones. There is a small left pl eural effusion. No pneumothorax is identified. The cardiomediastinal silhouette is stable. There are changes of left shoulder arthroplasty. A chronic healed fracture of the right proximal humerus is not ed. IMPRESSION: 1. Airspace opacities of the left mid and lower lung zones, consistent with pneumonia. 2. Small pleural effusion. Reviewed, dictated and finalized at location L. N RESOURCE ADVISOR IMPRESSION: 1. Airspace opacities of the left mid and lower lung zones, consistent with pne umonia. 2. Small pleural effusion.
--- NOTE | ~2023-08-04 | US_ITS ---
EXAMINATION: US renal BI DATE: 08/04/2023 20:46 INDICATION: acute kidney injury TECHNIQUE: Multiple grayscale and Doppler ultrasound images of the kidneys were obtained. COMPARISON: None. FINDINGS: The right kidney measures 10.3 x 3.7 x 4.9 cm. The left kidney measures 8.5 x 5.0 x 4.6 cm. The kidne ys demonstrate increased cortical echogenicity. There is no hydronephrosis. The bladder is partially distended. Left ureteral jet not visualized. IMPRESSION: Cortical findings suggestive of medical renal disease. Left ureteral jet not visualized during this examination, noting there was no left hydronephrosis. Reviewed, dictated and finalized at location K. ER IMPRESSION: Cortical findings suggestive of medical renal disease. Left ureteral jet not visualized during this examination, noting there was no l eft hydronephrosis.
--- NOTE | ~2023-08-04 | CT_ITS ---
Non-contrast CT scan of the Abdomen and Pelvis Clinical indication: Abdominal pain Technique: 2.5 mm axial scans were obtained through the abdomen and pelvis without intravenous or or al contrast. Dose reduction technique was used on this scan by utilizing automated exposure control a nd iterative reconstruction technique. The dose-length product (DLP) was 320.32 mGy-cm. COMPARISON: 07/31/2023 Findings: Images through the lung bases reveal bibasilar scarring or atelectasis and COPD change. The liver, spleen, gallbladder, and adrenals appear normal. Pancreatic calcifications are consistent with chronic pancreatitis. There are probable persistent residual contrast enhancement in the renal p arenchyma, especially at the medulla, suggestive of ATN. There are atherosclerotic calcifications of the aorta. There is no evidence of bowel obstruction. Images through the pelvis the degree by streak artifact from bilateral hip arthroplasty. There is no evidence of ascites or lymphadenopathy. No definite pelvic mass seen. Urinary bladder grossly unremar kable. Impression: Persistent hyperdensity in the kidneys, at the inner cortex/medulla. Appearance suggests ATN. Renal c ortical necrosis would be a potential alternative consideration. Correlate with renal function testin g. Bibasilar pulmonary COPD change with atelectasis or scarring. Reviewed, dictated and finalized at [facility]. T CASHIER Impression: Persistent hyperdensity in the kidneys, at the inner cortex/medulla. Appearance suggests ATN. Renal cortical necrosis would be a potential alternative conside ration. Correlate with renal function testing. Bibasilar pulmonary COPD change with atelectasis or scarring.
--- NOTE | ~2023-08-04 | XR_ITS ---
Portable chest x-ray Comparison: 08/07/2023 Clinical History: Line placement Findings: Right-sided internal jugular line extends peripherally, tip in the right axillary vein. Sm [id number] left pleural effusion present with left lower lobe atelectasis. There is mild bibasil ar pulmonary edema. Cardiomediastinal silhouette is stable. Bones and soft tissues are stable. Impression: Malpositioned right IJ line, with tip extending peripherally into the right axillary vein. Reposition ing advised. [id number] left pleural effusion with left lower lobe atelectasis and bibasilar pulmonary jason a. Reviewed, dictated and finalized at location M. CULTURE MECHANIC Impression: Malpositioned right IJ line, with tip extending peripherally into the right axi llary vein. Repositioning advised. [id number] left pleural effusion with left lower lobe atelectasis and bi basilar pulmonary edema.
--- NOTE | 2023-08-04 03:39 | ECG_ITS ---
Measurements Intervals Levasy Rate: 81 P: 80 IN: 204 QRS: -46 QRSD: 99 T: 68 QT: 355 QTc: 412 Interpretive Statements SINUS RHYTHM BORDERLINE AV CONDUCTION DELAY LEFT ANTERIOR FASCICULAR BLOCK NONSPECIFIC T-WAVE ABNORMALITY- INF/LAT LEADS BASELINE WANDER- II, III, AVR, AVL, AVF, V4-V6 ABNORMAL ECG COMPARED TO ECG 10/06/2022 22:41:52 LEFT ANTERIOR FASCICULAR BLOCK NOW PRESENT T-WAVE ABNORMALITY NOW PRESENT Electronically Signed On 08-04-2023 6:54:43 EXTENSION COURSE COUNSELOR by Barrington Castano D.O.
[2023-08-04] MEDS: MORPHINE SULFATE (*CRX) 2 MG/ML INJ IV PUSH (04:32)
[2023-08-04] MEDS: ONDANSETRON INJ 4 MG/2 ML VIAL IV PUSH (04:33)
[2023-08-04] MEDS: SODIUM CHLORIDE 0.9% IV 1,000 ML 999 ML IV CONT ×2 (04:33→08:44)
[2023-08-04 04:58] LABS: Basophils Percent Auto 0.2 % (0.2-1.2); Eosinophils Absolute Auto 0.3 K/mm3 (0-0.3); Eosinophils Percent Auto 3.5 % (0-4.4); Hematocrit 31.6 % (37.0-47.0); Hemoglobin 9.1 g/dL (12.0-15.0); Immature Granulocyte Absolute 0.03 K/mm3 (0.00-0.031); Immature Granulocyte Percent A 0.3 % (0-0.5); Immature Platelet Fraction Pct 16.2 % (0.9-11.2); Lymphocytes Absolute Auto 1.44 K/mm3 (0.9-3.2); Lymphocytes Percent Auto 16.1 % (18.3-44.2); Mean Corpuscular HGB Conc 28.8 g/dl (32-36); Mean Corpuscular Hemoglobin 30.1 pg (26-34); Mean Corpuscular Volume 104.6 fl (80-100); Mean Platelet Volume 14.4 fl (7.4-10.4); Monocytes Absolute Auto 0.6 K/mm3 (0.1-0.6); Monocytes Percent Auto 6.1 % (2.6-8.5); Neutrophils Absolute Auto 6.6 K/mm3 (1.3-6.7); Neutrophils Percent Auto 73.8 % (45.5-73.1); Platelet Count Result 125 k/mm3 (150-375); Red Blood Count 3.02 M/mm3 (4.2-5.4); Red Cell Distribution Width 13.3 % (11.5-14.5)
--- NOTE | 2023-08-04 05:08 | ED.GENADULT ---
HPI - General Adult General Chief complaint: Unspecified Stated complaint: L. Side pain Time Seen by Provider: 08/04/23 03:38 History of Present Illness HPI narrative: Patient presents to the emergency department by EMS from home. She was here 4 days ago for the same pain. Pain located in the left side of her abdomen and radiates around to her back. She says when she was here last time she was told testing was normal. However pain has been constant since she left. CT done at her last visit showed likely panniculitis. Patient denies fevers nausea and vomiting Related Data Home Medications Medication Instructions Recorded Confirmed carvedilol 6.25 mg tablet 6.25 mg PO Q12H 11/29/20 10/07/22 mirtazapine 15 mg tablet 15 mg PO QHS 11/29/20 10/07/22 thiamine HCl (vitamin B1) 100 mg 100 mg PO DAILY 11/29/20 10/07/22 tablet cholecalciferol (vitamin D3) 50 50 mcg PO DAILY 06/19/22 10/07/22 mcg (2,000 unit) capsule folic acid 1 mg tablet 1 mg PO DAILY 06/19/22 10/07/22 tiotropium bromide 2.5 2 puff inhalation DAILY 06/19/22 10/07/22 mcg/actuation mist for inhalation (Spiriva Respimat) fluticasone 250 mcg-salmeterol 50 1 inh inhalation Q12H 09/03/22 10/07/22 mcg/dose blistr powdr for inhalation (Wixela Inhub) multivitamin 1 tablet PO DAILY 09/03/22 10/07/22 albuterol sulfate 2.5 mg/3 mL 2.5 mg inhalation TID PRN 10/07/22 10/07/22 (0.083 %) solution for nebulization Shortness Of Breath Allergies Allergy/AdvReac Type Severity Reaction Status Date / Time No Known Allergies Allergy Verified 08/04/23 03:39 Review of Systems Review of Systems: Review of systems negative except what is documented in the [facility] Past Medical History Medical History Chronic respiratory failure with hypoxia, on home O2 therapy COPD (chronic obstructive pulmonary disease) CVA (cerebral vascular accident) Diabetes Diastolic dysfunction Without history of heart failure. Echocardiogram 09/04/2022 demonstrated grade 1 diastolic dysfunction EF 55-60. Right ventricular systolic function normal, mild tricuspid regurgitation Hyperlipidemia Pancreatitis Stage 3a chronic kidney disease Surgical History Surgical History History of hysterectomy Family History Family History Mother Hypertension Cerebrovascular accident Diabetes mellitus Sibling Hypertension Diabetes mellitus Breast cancer Father Hypertension Heart disease Social History Social History Social History: She has been for 43 years. They have a 42-year-old daughter. Patient elects Jazmine to be her surrogate with which is her . She wishes to be a DNR/DNI at this time and denies any pets at the house. Smoking packs per day: 0.5 Smoking cigarettes per day: 10.0 Years smoked: 50 Smoking pack-years: 25.00 Smoking status: Former smoker Tobacco type: cigarettes Smoking end date: 09/29/19 Alcohol intake: never Alcohol use details: Quit About 4 years ago Substance use: never Substance use type: does not use Lack of Transportation: No Lack of Food: Never True Current Housing: I Have Housing Concerned About Future Housing: No Difficulty Paying Gas/Electric Bills: No Difficulty Paying for Meds: No Currently Unemployed: No Education: High School Diploma/GED Difficulty w/ Childcare or Family Care: No Living arrangements: with family 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
[2023-08-04 05:25] LABS: Platelet Estimate Decreased (Adequate)
[2023-08-04 05:27] LABS: Hypochromasia 1+ (NORMAL); Schistocytes None Seen (NORMAL); Stomatocytes 1+ (NORMAL)
[2023-08-04 05:57] LABS: Alanine Aminotransferase 12 U/L (6-35); Albumin Level 3.7 g/dL (3.5-5.1); Alkaline Phosphatase 91 U/L (38-126); Anion Gap 4 mmol/L (8-16); Aspartate Amino Transferase 26 U/L (14-36); Bilirubin,Total 0.3 mg/dL (0.2-1.3); Blood Urea Nitrogen 58 mg/dL (7-17); Calcium 8.7 mg/dL (8.4-10.2); Carbon Dioxide 30 mmol/L (22-30); Chloride 102 mmol/L (98-107); Estimated CRCL calculation 11 ml/min; Estimated Glomerular Filt Rate 17; Glucose 108 mg/dL (65-110); Potassium 5.3 mmol/L (3.4-5.0); Sodium 136 mmol/L (137-145)
[2023-08-04 06:04] LABS: Appearance Urine Clear (Clear); Bacteria Urine None Seen /hpf; Bilirubin Urine Negative (Negative); Blood Urine Negative (Negative); Color Urine Yellow (Yellow); Glucose Urine UA Negative (Negative); Ketones Urine Negative (Negative); Leukocyte Esterase Ur 1+ LEU/UL (Negative); Need Manual Microscopic Reviewed; Nitrate Urine Negative (Negative); Protein Urine 1+ mg/dL (Negative); RBC Urine 0-2 /hpf (0-2); Specific Grav Ur 1.015 (1.001-1.035); Squamous Epithelial Cell Urine Occasional /hpf (Few); Urobilinogen Urine 0.2 mg/dL (<2.0); WBC Urine 0-5 /hpf
[2023-08-04 06:09] LABS: Add Urine Microscopic? YES
[2023-08-04] MEDS: MORPHINE SULFATE (*CRX) 2 MG/ML INJ 4 MG IV PUSH (06:30)
[2023-08-04] MEDS: ACETAMINOPHEN 325 MG TABLET 650 MG PO (08:43)
--- NOTE | 2023-08-04 09:02 | PC.NURSE ---
Pt informed of admission to hospital. Assist up to BSC placd in gown
[2023-08-04] MEDS: SODIUM CHLORIDE 0.9% IV 1,000 ML 125 ML IV CONT ×2 (10:38→19:00)
--- NOTE | 2023-08-04 12:06 | ED.GENADULT ---
HPI - General Adult General Chief complaint: Unspecified Stated complaint: L. Side pain Time Seen by Provider: 08/04/23 03:38 Related Data Home Medications Medication Instructions Recorded Confirmed carvedilol 6.25 mg tablet 6.25 mg PO Q12H 11/29/20 08/04/23 mirtazapine 15 mg tablet 15 mg PO QHS 11/29/20 08/04/23 folic acid 1 mg tablet 1 mg PO DAILY 06/19/22 08/04/23 tiotropium bromide 2.5 2 puff inhalation DAILY 06/19/22 08/04/23 mcg/actuation mist for inhalation (Spiriva Respimat) fluticasone 250 mcg-salmeterol 50 1 inh inhalation Q12H 09/03/22 08/04/23 mcg/dose blistr powdr for inhalation (Wixela Inhub) multivitamin 1 tablet PO DAILY 09/03/22 08/04/23 albuterol sulfate 2.5 mg/3 mL 2.5 mg inhalation TID PRN 10/07/22 08/04/23 (0.083 %) solution for nebulization Shortness Of Breath cholecalciferol (vitamin D3) 50 2,000 unit PO DAILY 08/04/23 08/04/23 mcg (2,000 unit) tablet clopidogrel 75 mg tablet 75 mg PO DAILY 08/04/23 08/04/23 pnzits-[id number] 1 cap PO TID 08/04/23 08/04/23 24,000-76,000-120,000 unit capsule,delayed rel (Creon) Allergies Allergy/AdvReac Type Severity Reaction Status Date / Time No Known Allergies Allergy Verified 08/04/23 03:39 [facility] Past Medical History Medical History Chronic respiratory failure with hypoxia, on home O2 therapy COPD (chronic obstructive pulmonary disease) CVA (cerebral vascular accident) Diabetes Diastolic dysfunction Without history of heart failure. Echocardiogram 09/04/2022 demonstrated grade 1 diastolic dysfunction EF 55-60. Right ventricular systolic function normal, mild tricuspid regurgitation Hyperlipidemia Pancreatitis Stage 3a chronic kidney disease Surgical History Surgical History History of hysterectomy Family History Family History Mother Hypertension Cerebrovascular accident Diabetes mellitus Sibling Hypertension Diabetes mellitus Breast cancer Father Hypertension Heart disease Social History Social History Social History: Surrogate medical decision maker: Chaitanya Espinoza, daughter. Code status: Full code. Smoking packs per day: 0.5 Smoking cigarettes per day: 10.0 Years smoked: 50 Smoking pack-years: 25.00 Smoking status: Former smoker Alcohol intake: former Alcohol use details: History of alcohol abuse, has abstained for over 4 years. 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 Spiritual care concerns: No Agree to blood products: Yes Course Vital Signs Vital signs: Vital Signs Temperature 97.4 F L 08/04/23 03:33 Pulse Rate 74 08/04/23 03:33 Respiratory Rate 24 H 08/04/23 03:33 Blood Pressure 170/66 H 08/04/23 03:33 Pulse Oximetry 100 08/04/23 03:33 Oxygen Delivery Nasal Cannula 08/04/23 03:33 Oxygen Flow Rate 3 08/04/23 03:33 Temperature 97.7 F 08/04/23 10:04 Pulse Rate 75 08/04/23 10:04 Respiratory Rate 17 08/04/23 10:04 Blood Pressure 146/55 H 08/04/23 10:04 Pulse Oximetry 100 08/04/23 10:31 Oxygen Delivery Nasal Cannula 08/04/23 10:31 Oxygen Flow Rate 3 08/04/23 10:31 Medical Decision Making Vital Signs Vital Signs: Vital Signs Temperature 97.4 F L 08/04/23 03:33 Pulse Rate 74 08/04/23 03:33 Respiratory Rate 24 H 08/04/23 03:33 B
--- NOTE | 2023-08-04 12:45 | PM.IMHP ---
H&P: HPI History of Present Illness Date/Time: 08/04/23 12:45 Chief Complaint: Left-sided pain. Narrative: This is a 72-year-old female with history of mesenteric panniculitis, pancreatitis, malnutrition with temporary G-tube, hypertension, hyperlipidemia, diet-controlled type 2 diabetes mellitus, chronic obstructive pulmonary disease on 3 L nasal cannula, and stroke presented to the emergency department via EMS from home for evaluation of left-sided pain. The patient provides the following history. About a week ago she developed nonradiating pain in the left flank for which she was evaluated in the emergency department. CT of the abdomen and pelvis showed improved fat stranding at the root of the small bowel mesentery, 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 Creatinine was 1.90 which is a bit higher than what she typically runs. She was hydrated and treated for pain with improvement and she was discharged home with follow-up plan. Unfortunately her pain continues and she return to the ER today. Her symptoms are somewhat similar to when she had pancreatitis in the past. She quit drinking over 4 years ago however. She denies fever, chills, sweats, chest pain, pleuritic pain, shortness a breath, vomiting, diarrhea, dysuria, hematuria. In the ED: She was afebrile on arrival with stable blood pressures. Labs were significant for a hemoglobin of 9.1, MCV 104.6, platelets 125, sodium 136, potassium 5.3, BUN 58, creatinine 3.30. Urine was positive for 1+ protein 1+ leukocyte esterase. CT scan of the abdomen and pelvis showed hyperdensities in the kidneys at the inner cortex/middle with the appearance suggestive of ATN or even renal cortical necrosis. She received 2 L normal saline, analgesics, and antiemetics and she is being admitted in this setting for workup of acute on chronic kidney disease and left-sided pain. At the time my evaluation she is ambulating back from the bathroom and she reports feeling better and she is without pain at this time. She has been getting up almost every hour to urinate, going approximately 100 mL at a time. She denies dysuria. She she feels as though she is emptying her bladder and does not believe she is retaining urine. She takes Tylenol for pain and has not taken NSAIDs for many months after she was told to stop taking them. Review of Systems Review of Systems: Twelve systems were reviewed and are negative except for as per HPI. [facility] Past Medical History Medical History Cerebrovascular accident Chronic anemia Chronic obstructive pulmonary disease Chronic respiratory failure with hypoxia, on home O2 therapy Diastolic dysfunction Echo in August 2022 showed grade 1 diastolic dysfunction the EF of 55 to 60%. Hyperlipidemia Osteoporosis Pancreatitis Paroxysmal atrial fibrillation Stage 3a chronic kidney disease Baseline creatinine appears to range between 1.30 and 1.90. Type 2 diabetes mellitus Surgical History Surgical History History of bilateral cataract extraction History of bilateral hip arthroplasty History of carpal tunnel release History of hysterectomy Family History Family History Mother Hypertension Cerebrovascular accident Diabetes mellitus Sibling Hypertension Diabetes mellitus Breast cancer Father Hypertension Heart disease Social History Social History Social History: Surrogate medical decision maker: Chaitanya Espinoza, daughter. Code status: Full code. Smoking packs per day: 0.5 Smoking cigarettes per day: 10.0 Years smoked: 50 Smoking pack-years: 25.00 Smoking status: Former smoker Alcohol intake: former Alcohol use details: History of alcohol abuse, has abstained for over 4 years. Substance use: never Substance use type: does n
[2023-08-04] MEDS: MORPHINE SULFATE (*CRX) 4 MG/ML INJ 2 MG IV PUSH (13:38)
--- NOTE | 2023-08-04 13:40 | PM.CNNEP ---
Assessment and Plan Assessment and plan (1) TUCKER (acute kidney injury): Code(s): N17.9 - Acute kidney failure, unspecified Status: Acute Assessment and Plan: etiology not clear she does report poor oral intake/hydration for a while prior to admission HOWEVER, admission CT scan with findings suggestive of acute tubular necrosis... noted contrast exposure with CT with contrast on 07/31/23 (ER visit) improvement in renal function with IVFs already check urine studies and CPK along with renal ultrasound follow trend of repeat labs and UOP (2) Stage 3b chronic kidney disease: Code(s): N18.32 - Chronic kidney disease, stage 3b Status: Chronic Assessment and Plan: baseline creatinine runs ~ 1.4 - 1.9mg/dl. appears to have had some slow progression over the last couple of years presumably due to HTN, DM, and vascular disease (3) Hyperkalemia: Code(s): E87.5 - Hyperkalemia Status: Acute Assessment and Plan: due to TUCKER/ARF medial management as needed follow trend of k+ (4) Anemia: Code(s): D64.9 - Anemia, unspecified Status: Chronic Assessment and Plan: chronic issues partly related to CKD follow trend of H/H (5) Left flank pain: Code(s): R10.9 - Unspecified abdominal pain Status: Acute Assessment and Plan: clinically better admission CT scan shows improvement in what appeared to be mesenteric panniculitis continue supportive therapy (6) Chronic obstructive pulmonary disease: Code(s): J44.9 - Chronic obstructive pulmonary disease, unspecified Status: Chronic Assessment and Plan: appears compensated continue home oxygen and inhalers I will continue to follow the patient with you while she remains hospitalized and make further recommendations as needed. Thank you for allowing me to participate in the care this patient. History of Present Illness Reason for Consult Consult date: 08/04/23 Reason for consult: acute renal failure (on chronic kidney disease) Chief Complaint Chief complaint: TUCKER/ATN History of Present Illness Narrative: The patient is a 72-year-old female with a past medical history as outlined below presented to [facility] Emergency room with complaints of left-sided flank pain. The patient reports about a week ago she developed pain in her left flank that did not appear to be radiating. She actually was seen at [facility] Emergency room at that time and underwent a CT scan of the abdomen pelvis which demonstrated evidence of mesenteric panniculitis. Interestingly, her creatinine was around 1.9 mg/dL at that time which was slightly higher than what she normally runs. She received IV fluids and pain management and was subsequently discharged home. Unfortunately, her pain continued be an issue and problem and she presented back to the emergency room today with the similar symptoms. Initially, the patient thought these were symptoms related to her previous history of pancreatitis. She gave no other symptoms with regard to fevers, chills, diaphoresis chest pain, shortness of breath, vomiting, diarrhea, hematuria, dysuria, dizziness, lightheadedness, or shortness of breath. As mentioned, given the persistence of the symptoms despite her previous ER visit, she returned back to the ER for further assessment. Workup and evaluation in the emergency room demonstrated the patient be hemodynamically stable but in mild discomfort secondary to her left flank pain. Routine blood tests were significant for mild anemia but a significant decline in her renal function with a BUN of 58 and a creatinine of 3.3 in association with mild hyperkalemia. Her UA was somewhat suggestive of urinary tract infection as well. A repeat CT scan of the abdomen and pelvis demonstrated hyperdensities in the kidney at the inner cortex with the appearance suggestive of ATN or poss
[2023-08-04 14:17] LABS: Anion Gap 4 mmol/L (8-16); Blood Urea Nitrogen 45 mg/dL (7-17); CRP 1.7 mg/dL (<1.0); Calcium 8.2 mg/dL (8.4-10.2); Carbon Dioxide 28 mmol/L (22-30); Chloride 106 mmol/L (98-107); Erythrocyte Sedimentation Rate 114 mm/hr (0-20); Estimated CRCL calculation 13 ml/min; Estimated Glomerular Filt Rate 21; Glucose 135 mg/dL (65-110); Magnesium 2.6 mg/dL (1.6-2.3); Phosphorus 4.3 mg/dL (2.5-4.5); Potassium 5.3 mmol/L (3.4-5.0); Sodium 138 mmol/L (137-145)
[2023-08-04 14:26] LABS: Thyroid Stimulating Hormone Reflex 0.827 uIU/mL (0.465-4.68)
[2023-08-04 14:27] LABS: Creatine Kinase 74 U/L (30-135)
[2023-08-04] MEDS: LIPASE/AMYLASE/PROTEASE 12,000 UNITS CAP 2 CAP PO (18:25)
[2023-08-04 18:58] LABS: Creatinine Urine 46.9 mg/dL; Total Protein Urine Random 39 mg/dL; Ur Ttl Prot Creatinine Ratio 0.83 mg/mg (0-0.20); Urea Random Urine 360 MG/DL
[2023-08-04 19:11] LABS: Sodium Urine Random 117 meq/L
[2023-08-04] MEDS: FLUTICASONE/SALMETEROL 115-21 MCG INHALER 1 PUFF 2 PUFF INHALATION (20:30)
[2023-08-04] MEDS: carvediloL 6.25 MG TABLET PO (21:01)
[2023-08-04] MEDS: MIRTAZAPINE 15 MG TABLET PO (21:02)
[2023-08-04] MEDS: HYDROcodone/acetaminophen (*CRX) 5-325 MG TABLET 1 TAB PO (21:05)
[2023-08-04 21:17] LABS: Eosinophil Urine None Seen % (None Seen); Urine Eos QC 2nd Tech Confirmed
[2023-08-04 23:43] LABS: Immature Reticulocyte Fraction 11.6 % (3.0-15.9); Reticulocyte Hemoglobin Conten 30.2 pg (28.2-35.7); Reticulocyte Percent 1.52 % (0.7-4.3); Reticulocytes Absolute 0.04 M/mm3 (0.02-0.1)
[2023-08-05] VITALS (18 sets, daily range): BP systolic 143–188; BP diastolic 55–82; PULSE 74–112; RESP 16–22; TEMP 36.1–36.8; O2SAT 95–100; BMI 21.2
[2023-08-05] MEDS: SODIUM CHLORIDE 0.9% IV 1,000 ML 125 ML IV CONT ×3 (03:00→21:00)
[2023-08-05 06:22] LABS: Hematocrit 30.3 % (37.0-47.0); Hemoglobin 8.2 g/dL (12.0-15.0); Immature Platelet Fraction Pct 16.6 % (0.9-11.2); Mean Corpuscular HGB Conc 27.1 g/dl (32-36); Mean Corpuscular Hemoglobin 29.6 pg (26-34); Mean Corpuscular Volume 109.4 fl (80-100); Mean Platelet Volume 13.9 fl (7.4-10.4); Platelet Count Result 101 k/mm3 (150-375); Red Blood Count 2.77 M/mm3 (4.2-5.4); Red Cell Distribution Width 13.3 % (11.5-14.5)
[2023-08-05 06:44] LABS: Anion Gap 3 mmol/L (8-16); Blood Urea Nitrogen 34 mg/dL (7-17); Calcium 8.2 mg/dL (8.4-10.2); Carbon Dioxide 26 mmol/L (22-30); Chloride 110 mmol/L (98-107); Creatine Kinase 72 U/L (30-135); Estimated CRCL calculation 15 ml/min; Estimated Glomerular Filt Rate 25; Glucose 78 mg/dL (65-110); Potassium 5.6 mmol/L (3.4-5.0); Sodium 139 mmol/L (137-145)
[2023-08-05 06:45] LABS: Complement C3 101 mg/dL (88-165)
[2023-08-05 06:53] LABS: Iron 43 ug/dL (37-170)
[2023-08-05 07:02] LABS: Percent Iron Saturation 19 % (20-50)
[2023-08-05 07:44] LABS: Folic Acid > 20.0 ng/mL (2.76->20)
[2023-08-05] MEDS: HYDROcodone/acetaminophen (*CRX) 5-325 MG TABLET 1 TAB PO ×2 (08:19→13:22)
[2023-08-05] MEDS: CLOPIDOGREL BISULFATE 75 MG TABLET PO (08:22)
[2023-08-05] MEDS: MULTIVITAMINS THERAPEUTIC TAB (*BKC) 1 TABLET PO (08:22)
[2023-08-05] MEDS: LIPASE/AMYLASE/PROTEASE 12,000 UNITS CAP 2 CAP PO ×3 (08:22→16:25)
[2023-08-05] MEDS: CHOLECALCIFEROL 1,000 UNITS TABLET 2000 UNITS PO (08:23)
[2023-08-05] MEDS: carvediloL 6.25 MG TABLET PO ×2 (08:23→20:18)
[2023-08-05] MEDS: FOLIC ACID 1 MG TABLET PO (08:23)
[2023-08-05] MEDS: UMECLIDINIUM BROMIDE 62.5 MCG ELLIPTA 1 PUFF INHALATION (08:45)
[2023-08-05] MEDS: FLUTICASONE/SALMETEROL 115-21 MCG INHALER 1 PUFF 2 PUFF INHALATION ×2 (08:45→19:39)
--- NOTE | 2023-08-05 10:02 | PM.IMPN ---
Progress Note: A&P Assessment and Plan (1) Acute on chronic kidney failure: Code(s): N17.9 - Acute kidney failure, unspecified; N18.9 - Chronic kidney disease, unspecified Status: Acute Assessment and Plan: She has acute on chronic kidney injury. Baseline creatinine appears to range between 1.3 and 1.90. Today it was 3.30. Etiology is not entirely clear however CT scan was read as showing findings suggestive of acute tubular necrosis. Why this would occur however is still on clear. She appears euvolemic on exam. Continue judicious IV fluid rehydration as creatinine is improving. Avoid nephrotoxic agents. Bladder scan to rule out urinary retention. Wrote for PVR today x2 and may need queen for retention. Renal ultrasound ordered for a.m.---Shows cortical findings suggestive of medical renal disease. Nephrology has been consulted, rec's are appreciated. Likely related to her chronic sclerosing mesenteritis as 24% of people with this develop obstructive/renal failure also she has had poor appetite and fluid intake given her abdominal pain. FeNA labs 4.16% indicate intra-renal insult. (2) Left flank pain: Code(s): R10.9 - Unspecified abdominal pain Status: Acute Assessment and Plan: Resolved. CT scan shows improvement in what appeared to be mesenteric panniculitis. I am wondering if perhaps she may have some component of chronic pancreatitis though not noted on CT; she is on Creon daily. (3) Hyperkalemia: Code(s): E87.5 - Hyperkalemia Status: Acute Assessment and Plan: Potassium is a bit elevated at 5.3 but should improve with IV fluids. Potassium 5.6 today. Lokoma x 2 ordered. Will repeat K+ level at 2100 08/05 Ordered telemetry but no tele in house (4) Thrombocytopenia: Code(s): D69.6 - Thrombocytopenia, unspecified Status: Acute Assessment and Plan: She has a mild thrombocytopenia which will be monitored daily. (5) Macrocytic anemia: Code(s): D53.9 - Nutritional anemia, unspecified Status: Acute Assessment and Plan: Check iron studies as well as B12 and folates. May be related to kidney disease. Fe 43, TIBC 231, Saturation 19%, Ferritin 255 Mildy Fe deficient. Start on replacement. Vitamin B12 and folate are elevated. (6) Chronic obstructive pulmonary disease: Code(s): J44.9 - Chronic obstructive pulmonary disease, unspecified Status: Acute Assessment and Plan: Patient states she is at her baseline. Continue maintenance inhalers. On baseline O2 at 3 L (7) Chronic respiratory failure with hypoxia, on home O2 therapy: Code(s): J96.11 - Chronic respiratory failure with hypoxia; Z99.81 - Dependence on supplemental oxygen Status: Acute Assessment and Plan: She is at her baseline oxygen requirement. Plan Feeding:Heart healthy with ensure Analgesia: Tylenol and morphine Thromboembolic prophylaxis: Lovenox renally dosed Ulcer prophylaxis: Protonix Glycemic control: Not indicated Bowel regimen: MiraLax Lines: PIV Antibiotics: Not indicated Disposition: Subjective Date/time seen: 08/05/23 10:02 Interval history: HPI obtained from the chart, This is a 72-year-old female with history of mesenteric panniculitis, pancreatitis, malnutrition with temporary G-tube, hypertension, hyperlipidemia, diet-controlled type 2 diabetes mellitus, chronic obstructive pulmonary disease on 3 L nasal cannula, and stroke presented to the emergency department via EMS from home for evaluation of left-sided pain. The patient provides the following history. About a week ago she developed nonradiating pain in the left flank for which she was evaluated in the emergency department. CT of the abdomen and pelvis showed improved fat stranding at the root of the small bowel mesentery, 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 Creatinine was 1.90 which is a bit higher than what she typica
--- NOTE | 2023-08-05 10:09 | P.PNNP_ITS ---
Progress Note: A&P Assessment and Plan (1) TUCKER (acute kidney injury): Code(s): N17.9 - Acute kidney failure, unspecified Status: Acute Assessment and Plan: * improvement noted * she does report poor oral intake/hydration for a while prior to admission * HOWEVER, admission CT scan with findings suggestive of acute tubular necrosis... * noted contrast exposure with CT with contrast on 07/31/23 (ER visit) * evaluation to date noted: * admission CT scan as noted * urine eosinophils negative * CPK normal * urine electrolytes non-prerenal * renal ultrasound c/w CKD * follow trend of repeat labs and UOP (2) Stage 3b chronic kidney disease: Code(s): N18.32 - Chronic kidney disease, stage 3b Status: Chronic Assessment and Plan: * baseline creatinine runs ~ 1.4 - 1.9mg/dl. * appears to have had some slow progression over the last couple of years * presumably due to HTN, DM, and vascular disease (3) Hyperkalemia: Code(s): E87.5 - Hyperkalemia Status: Acute Assessment and Plan: * due to TUCKER/ARF * medial management as needed (lokelma) * follow trend of k+ (4) Anemia: Code(s): D64.9 - Anemia, unspecified Status: Chronic Assessment and Plan: * chronic issues * partly related to CKD * follow trend of H/H (5) Left flank pain: Code(s): R10.9 - Unspecified abdominal pain Status: Acute Assessment and Plan: * better in comparison to admission * admission CT scan shows improvement in what appeared to be mesenteric panniculitis * continue supportive therapy (6) Chronic obstructive pulmonary disease: Code(s): J44.9 - Chronic obstructive pulmonary disease, unspecified Status: Chronic Assessment and Plan: * appears compensated * continue home oxygen and inhalers Will continue to follow. Subjective Date/time seen: 08/05/23 10:09 Interval history: Follow-up for acute kidney injury/acute renal failure on chronic kidney disease. Reports some onoging fluctuation in her abdominal pain but it is better in comparison to admission; still reports significant weakness and fatigue as well; no other issues/evetns overight or earlier this morning. Exam Narrative: General: elderly female in NAD Heart: normal S1 and S2; no rub Lungs: clear to auscultation Abdomen: soft, nontender, nondistended, positive bowel sounds Extremities: no cyanosis or clubbing; no edema Skin: warm and dry Objective Data Vital Signs Vital Signs: Vital Signs Temp Pulse Resp BP Pulse Ox O2 Del Method O2 Flow Rate 08/05/23 10:00 97.8 F 74 20 153/55 H 100 08/05/23 08:50 80 18 08/05/23 08:50 100 Nasal Cannula 3 08/05/23 08:40 81 173/63 H 100 08/05/23 08:23 81 08/05/23 08:00 18 100 Nasal Cannula 3 08/05/23 04:38 97.1 F L 77 18 143/62 H 100 08/04/23 21:00 Nasal Cannula 3 08/04/23 21:01 76 08/04/23 20:49 76 100 Nasal Cannula 3 08/04/23 20:13 97.2 F L 86 18 178/63 H 100 08/04/23 14:22 97.3 F L 73 17 157/59 H 100 Intake/Output Intake/Output: Intake & Output 08/03/23 08/03/23 08/04/23 08/05/23 00:59 23:59 23:59 23:5
--- NOTE | 2023-08-05 10:09 | PM.PNNEP ---
Progress Note: A&P Assessment and Plan (1) TUCKER (acute kidney injury): Code(s): N17.9 - Acute kidney failure, unspecified Status: Acute Assessment and Plan: improvement noted she does report poor oral intake/hydration for a while prior to admission HOWEVER, admission CT scan with findings suggestive of acute tubular necrosis... noted contrast exposure with CT with contrast on 07/31/23 (ER visit) evaluation to date noted: admission CT scan as noted urine eosinophils negative CPK normal urine electrolytes non-prerenal renal ultrasound c/w CKD follow trend of repeat labs and UOP (2) Stage 3b chronic kidney disease: Code(s): N18.32 - Chronic kidney disease, stage 3b Status: Chronic Assessment and Plan: baseline creatinine runs ~ 1.4 - 1.9mg/dl. appears to have had some slow progression over the last couple of years presumably due to HTN, DM, and vascular disease (3) Hyperkalemia: Code(s): E87.5 - Hyperkalemia Status: Acute Assessment and Plan: due to TUCKER/ARF medial management as needed (lokelma) follow trend of k+ (4) Anemia: Code(s): D64.9 - Anemia, unspecified Status: Chronic Assessment and Plan: chronic issues partly related to CKD follow trend of H/H (5) Left flank pain: Code(s): R10.9 - Unspecified abdominal pain Status: Acute Assessment and Plan: better in comparison to admission admission CT scan shows improvement in what appeared to be mesenteric panniculitis continue supportive therapy (6) Chronic obstructive pulmonary disease: Code(s): J44.9 - Chronic obstructive pulmonary disease, unspecified Status: Chronic Assessment and Plan: appears compensated continue home oxygen and inhalers Will continue to follow. Subjective Date/time seen: 08/05/23 10:09 Interval history: Follow-up for acute kidney injury/acute renal failure on chronic kidney disease. Reports some onoging fluctuation in her abdominal pain but it is better in comparison to admission; still reports significant weakness and fatigue as well; no other issues/evetns overight or earlier this morning. Exam Narrative: General: elderly female in NAD Heart: normal S1 and S2; no rub Lungs: clear to auscultation Abdomen: soft, nontender, nondistended, positive bowel sounds Extremities: no cyanosis or clubbing; no edema Skin: warm and dry Objective Data Vital Signs Vital Signs: Vital Signs Temp Pulse Resp BP Pulse Ox O2 Del Method O2 Flow Rate 08/05/23 10:00 97.8 F 74 20 153/55 H 100 08/05/23 08:50 80 18 08/05/23 08:50 100 Nasal Cannula 3 08/05/23 08:40 81 173/63 H 100 08/05/23 08:23 81 08/05/23 08:00 18 100 Nasal Cannula 3 08/05/23 04:38 97.1 F L 77 18 143/62 H 100 08/04/23 21:00 Nasal Cannula 3 08/04/23 21:01 76 08/04/23 20:49 76 100 Nasal Cannula 3 08/04/23 20:13 97.2 F L 86 18 178/63 H 100 08/04/23 14:22 97.3 F L 73 17 157/59 H 100 Intake/Output Intake/Output: Intake & Output 08/03/23 08/03/23 08/04/23 08/05/23 00:59 23:59 23:59 23:59 Intake Total 3480 1294 Output Total 750 600 Balance 2730 694 Meds/Results Medications: Active Medications Generic Name Dose Route Start Last Admin Trade Name Freq PRN Reason Stop Dose Admin Acetaminophen 650 mg 08/04/23 08:39 Acetaminophen 325 Mg Tablet PO Q4H PRN Mild Pain (1-3) or Fever Hydrocodone Bitart/Acetaminophen 1 tab 08/04/23 08:39 08/05/23 08:19 Hydrocodone/Acetaminophen (*Crx) 5-325 Mg Tablet PO 1 tab Q4H PRN Administration Pain Rated 4-6 Albuterol 2.5 mg 08/04/23 13:13 Albuterol Sulfate Neb 2.5 Mg/3 Ml Inh INHALATION TID PRN Shortness Of Breath Lipase/Protease/Amylase 2 cap 08/04/23 17:00 08/05/23 08:22 Lipase/Amylase/Protease 12,000 Un
[2023-08-05] MEDS: SODIUM ZIRCONIUM CYCLOSILICATE 10 GM POWD.PACK PO ×2 (10:30→18:22)
[2023-08-05] MEDS: SIMETHICONE 80 MG TAB.CHEW PO ×2 (12:00→16:24)
--- NOTE | 2023-08-05 12:57 | PC.NURSE ---
On 08/05/23, the student, [Monica Linton], provided care and completed [facility] documentation on this patient. I have reviewed the student's documentation and agree with the findings.
[2023-08-05] MEDS: MORPHINE SULFATE (*CRX) 4 MG/ML INJ 2 MG IV PUSH (16:24)
[2023-08-05 17:43] LABS: Erythrocyte Sedimentation Rate 72 mm/hr (0-20)
[2023-08-05] MEDS: hydrALAZINE HCL 20 MG/ML VIAL 10 MG IV PUSH (18:22)
[2023-08-05] MEDS: ALBUTEROL SULFATE NEB 2.5 MG/3 ML INH INHALATION (19:39)
[2023-08-05 19:59] LABS: Potassium 5.1 mmol/L (3.4-5.0)
[2023-08-05] MEDS: MIRTAZAPINE 15 MG TABLET PO (20:18)
[2023-08-05] MEDS: MORPHINE SULFATE (*CRX) 2 MG/ML INJ IV PUSH (23:33)
[2023-08-06] VITALS (14 sets, daily range): BP systolic 140–175; BP diastolic 56–68; PULSE 74–97; RESP 16–20; TEMP 36.4; O2SAT 94–100
[2023-08-06] MEDS: MORPHINE SULFATE (*CRX) 2 MG/ML INJ IV PUSH (04:09)
[2023-08-06 05:30] LABS: Basophils Percent Auto 0.2 % (0.2-1.2); Eosinophils Absolute Auto 0.2 K/mm3 (0-0.3); Eosinophils Percent Auto 1.3 % (0-4.4); Hematocrit 31.4 % (37.0-47.0); Hemoglobin 8.7 g/dL (12.0-15.0); Immature Granulocyte Absolute 0.25 K/mm3 (0.00-0.031); Immature Platelet Fraction Pct 19.5 % (0.9-11.2); Lymphocytes Absolute Auto 1.19 K/mm3 (0.9-3.2); Lymphocytes Percent Auto 9.5 % (18.3-44.2); Mean Corpuscular HGB Conc 27.7 g/dl (32-36); Mean Corpuscular Hemoglobin 29.8 pg (26-34); Mean Corpuscular Volume 107.5 fl (80-100); Mean Platelet Volume 14.3 fl (7.4-10.4); Monocytes Absolute Auto 0.7 K/mm3 (0.1-0.6); Monocytes Percent Auto 5.9 % (2.6-8.5); Neutrophils Absolute Auto 10.2 K/mm3 (1.3-6.7); Neutrophils Percent Auto 81.1 % (45.5-73.1); Platelet Count Result 93 k/mm3 (150-375); Red Blood Count 2.92 M/mm3 (4.2-5.4); Red Cell Distribution Width 13.7 % (11.5-14.5); White Blood Count 12.5 K/mm3 (4.5-10.0)
[2023-08-06 05:40] LABS: Alanine Aminotransferase 13 U/L (6-35); Albumin Level 3.6 g/dL (3.5-5.1); Alkaline Phosphatase 83 U/L (38-126); Anion Gap 4 mmol/L (8-16); Aspartate Amino Transferase 29 U/L (14-36); Bilirubin,Total 0.3 mg/dL (0.2-1.3); Blood Urea Nitrogen 26 mg/dL (7-17); Calcium 8.5 mg/dL (8.4-10.2); Carbon Dioxide 25 mmol/L (22-30); Chloride 108 mmol/L (98-107); Estimated CRCL calculation 19 ml/min; Estimated Glomerular Filt Rate 34; Glucose 132 mg/dL (65-110); Magnesium 2.2 mg/dL (1.6-2.3); Phosphorus 3.9 mg/dL (2.5-4.5); Potassium 5.1 mmol/L (3.4-5.0); Sodium 137 mmol/L (137-145)
[2023-08-06 07:32] LABS: Burr Cells 1+ (NORMAL); Poikilocytosis 1+ (NORMAL)
[2023-08-06 07:33] LABS: Basophilic Stippling 1+ (NORMAL); Schistocytes None Seen (NORMAL)
[2023-08-06] MEDS: FLUTICASONE/SALMETEROL 115-21 MCG INHALER 1 PUFF 2 PUFF INHALATION ×2 (08:07→20:41)
[2023-08-06] MEDS: UMECLIDINIUM BROMIDE 62.5 MCG ELLIPTA 1 PUFF INHALATION (08:07)
[2023-08-06] MEDS: FOLIC ACID 1 MG TABLET PO (08:43)
[2023-08-06] MEDS: LIPASE/AMYLASE/PROTEASE 12,000 UNITS CAP 2 CAP PO ×3 (08:43→18:07)
[2023-08-06] MEDS: carvediloL 6.25 MG TABLET PO ×2 (08:43→22:01)
[2023-08-06] MEDS: CHOLECALCIFEROL 1,000 UNITS TABLET 2000 UNITS PO (08:43)
[2023-08-06] MEDS: CLOPIDOGREL BISULFATE 75 MG TABLET PO (08:43)
[2023-08-06] MEDS: ENOXAPARIN 30 MG/0.3 ML SYRINGE SUB-Q (08:43)
[2023-08-06] MEDS: polyethylene glycoL 3350 17 GM POWD.PACK PO (08:43)
[2023-08-06] MEDS: PANTOPRAZOLE 40 MG TABLET PO (08:43)
[2023-08-06] MEDS: MULTIVITAMINS THERAPEUTIC TAB (*BKC) 1 TABLET PO (08:44)
[2023-08-06] MEDS: FERROUS SULFATE 325 MG TABLET DR PO (08:44)
[2023-08-06] MEDS: HYDROcodone/acetaminophen (*CRX) 5-325 MG TABLET 1 TAB PO ×2 (09:22→22:03)
[2023-08-06] MEDS: SODIUM CHLORIDE 0.9% IV 1,000 ML 75 ML IV CONT (11:00)
--- NOTE | 2023-08-06 12:18 | PM.IMPN ---
Progress Note: A&P Assessment and Plan (1) Acute on chronic kidney failure: Code(s): N17.9 - Acute kidney failure, unspecified; N18.9 - Chronic kidney disease, unspecified Status: Acute Assessment and Plan: She has acute on chronic kidney injury. Baseline creatinine appears to range between 1.3 and 1.90. Today it was 3.30. Etiology is not entirely clear however CT scan was read as showing findings suggestive of acute tubular necrosis. Why this would occur however is still on clear. She appears euvolemic on exam. Continue judicious IV fluid rehydration as creatinine is improving. Avoid nephrotoxic agents. Bladder scan to rule out urinary retention. Wrote for PVR today x2 and may need queen for retention. Renal ultrasound ordered for a.m.---Shows cortical findings suggestive of medical renal disease. Nephrology has been consulted, rec's are appreciated. Likely related to her chronic sclerosing mesenteritis as 24% of people with this develop obstructive/renal failure also she has had poor appetite and fluid intake given her abdominal pain. FeNA labs 4.16% indicate intra-renal insult. 08/06: Serum creatinine 1.8 and estimated GFR 34. (2) Left flank pain: Code(s): R10.9 - Unspecified abdominal pain Status: Acute Assessment and Plan: Resolved. CT scan shows improvement in what appeared to be mesenteric panniculitis. I am wondering if perhaps she may have some component of chronic pancreatitis though not noted on CT; she is on Creon daily. (3) Hyperkalemia: Code(s): E87.5 - Hyperkalemia Status: Acute Assessment and Plan: Potassium is a bit elevated at 5.3 but should improve with IV fluids. Potassium 5.6 today. Lokoma x 2 ordered. Will repeat K+ level at 2100 08/05 Ordered telemetry but no tele in house 08/06: Telemetry reviewed. Patient had 1 instance approximately 12 seconds of paroxysmal supraventricular tachycardia on day of application telemetry. Since then no other evidence of dysrhythmia. Telemetry discontinued. Potassium 5.1 this morning. Nephrology consulted appreciate recommendations. Additional dose of Lokelma ordered. (4) Thrombocytopenia: Code(s): D69.6 - Thrombocytopenia, unspecified Status: Acute Assessment and Plan: She has a mild thrombocytopenia which will be monitored daily. 08/06: Patient accidentally received subcutaneous Lovenox 30 mg for DVT prophylaxis even though platelet count was under 100,000. This medication has since been placed on hold and will pay special attention tomorrow to platelet count. (5) Macrocytic anemia: Code(s): D53.9 - Nutritional anemia, unspecified Status: Acute Assessment and Plan: Check iron studies as well as B12 and folates. May be related to kidney disease. Fe 43, TIBC 231, Saturation 19%, Ferritin 255 Mildy Fe deficient. Start on replacement. Vitamin B12 and folate are elevated. (6) Chronic obstructive pulmonary disease: Code(s): J44.9 - Chronic obstructive pulmonary disease, unspecified Status: Acute Assessment and Plan: Patient states she is at her baseline. Continue maintenance inhalers. On baseline O2 at 3 L 08/06: Patient reports increased dyspnea on exertion unable to ambulate to the bathroom so she is using a bedside commode to diminish exertional dyspnea. Oxygen saturations remain adequate on 2-3 L per minute at rest. (7) Chronic respiratory failure with hypoxia, on home O2 therapy: Code(s): J96.11 - Chronic respiratory failure with hypoxia; Z99.81 - Dependence on supplemental oxygen Status: Acute Assessment and Plan: She is at her baseline oxygen requirement. (8) Protein-calorie malnutrition, moderate: Code(s): E44.0 - Moderate protein-calorie malnutrition Status: Acute Assessment and Plan: 08/06: Poor nutritional intake, patient refusing to eat meals provided, states no appetite, complains o
--- NOTE | 2023-08-06 15:00 | P.PNNP_ITS ---
Progress Note: A&P Assessment and Plan (1) TUCKER (acute kidney injury): Code(s): N17.9 - Acute kidney failure, unspecified Status: Acute Assessment and Plan: * improvement noted * she does report poor oral intake/hydration for a while prior to admission * HOWEVER, admission CT scan with findings suggestive of acute tubular necrosis... * noted contrast exposure with CT with contrast on 07/31/23 (ER visit) * evaluation to date noted: * admission CT scan as noted * urine eosinophils negative * CPK normal * urine electrolytes non-prerenal * renal ultrasound c/w CKD * follow trend of repeat labs and UOP (2) Stage 3b chronic kidney disease: Code(s): N18.32 - Chronic kidney disease, stage 3b Status: Chronic Assessment and Plan: * baseline creatinine runs ~ 1.4 - 1.9mg/dl. * appears to have had some slow progression over the last couple of years * presumably due to HTN, DM, and vascular disease (3) Hyperkalemia: Code(s): E87.5 - Hyperkalemia Status: Acute Assessment and Plan: * due to TUCKER/ARF * medial management as needed (lokelma) * follow trend of k+ (4) Anemia: Code(s): D64.9 - Anemia, unspecified Status: Chronic Assessment and Plan: * chronic issues * partly related to CKD * follow trend of H/H (5) Left flank pain: Code(s): R10.9 - Unspecified abdominal pain Status: Acute Assessment and Plan: * better in comparison to admission * admission CT scan shows improvement in what appeared to be mesenteric panniculitis * continue supportive therapy (6) Chronic obstructive pulmonary disease: Code(s): J44.9 - Chronic obstructive pulmonary disease, unspecified Status: Chronic Assessment and Plan: * appears compensated * continue home oxygen and inhalers Will continue to follow. Subjective Date/time seen: 08/06/23 15:00 Interval history: Follow-up for acute kidney injury/acute renal failure on chronic kidney disease. Poor oral intake noted in general since admission; abdominal pain seems a bit better; notes more shortness of breath with exertional activity but was having generalized weakness and fatigue even prior to admission; renal function improving by trend of labs. Exam Narrative: General: elderly female in NAD Heart: normal S1 and S2; no rub Lungs: coarse breath sounds Abdomen: soft, nontender, nondistended, positive bowel sounds Extremities: no cyanosis or clubbing; no edema Skin: no rash Objective Data Vital Signs Vital Signs: Vital Signs Temp Pulse Resp BP Pulse Ox O2 Del Method O2 Flow Rate 08/06/23 13:56 97.6 F 78 16 140/56 L 100 08/06/23 08:00 95 Nasal Cannula 3 08/06/23 08:43 91 08/06/23 08:07 94 20 08/06/23 08:07 100 Nasal Cannula 2 08/06/23 04:00 96 08/06/23 00:00 97 08/05/23 20:00 108 H 08/06/23 04:02 97.6 F 95 18 175/68 H 100 08/05/23 20:15 Nasal Cannula 3 08/05/23 21:04 169/67 H 08/05/23 20:18 106 H 08/05/23 20:01 98.1 F 106 H 18 188/71 H 95 08/05/23 19:50 91 22 H 08/05/23 19:45 95 100 Nasal Cannula 3 08/05/23 19:39 95 22 H 08/05/23 16:0
--- NOTE | 2023-08-06 15:00 | PM.PNNEP ---
Progress Note: A&P Assessment and Plan (1) TUCKER (acute kidney injury): Code(s): N17.9 - Acute kidney failure, unspecified Status: Acute Assessment and Plan: improvement noted she does report poor oral intake/hydration for a while prior to admission HOWEVER, admission CT scan with findings suggestive of acute tubular necrosis... noted contrast exposure with CT with contrast on 07/31/23 (ER visit) evaluation to date noted: admission CT scan as noted urine eosinophils negative CPK normal urine electrolytes non-prerenal renal ultrasound c/w CKD follow trend of repeat labs and UOP (2) Stage 3b chronic kidney disease: Code(s): N18.32 - Chronic kidney disease, stage 3b Status: Chronic Assessment and Plan: baseline creatinine runs ~ 1.4 - 1.9mg/dl. appears to have had some slow progression over the last couple of years presumably due to HTN, DM, and vascular disease (3) Hyperkalemia: Code(s): E87.5 - Hyperkalemia Status: Acute Assessment and Plan: due to TUCKER/ARF medial management as needed (lokelma) follow trend of k+ (4) Anemia: Code(s): D64.9 - Anemia, unspecified Status: Chronic Assessment and Plan: chronic issues partly related to CKD follow trend of H/H (5) Left flank pain: Code(s): R10.9 - Unspecified abdominal pain Status: Acute Assessment and Plan: better in comparison to admission admission CT scan shows improvement in what appeared to be mesenteric panniculitis continue supportive therapy (6) Chronic obstructive pulmonary disease: Code(s): J44.9 - Chronic obstructive pulmonary disease, unspecified Status: Chronic Assessment and Plan: appears compensated continue home oxygen and inhalers Will continue to follow. Subjective Date/time seen: 08/06/23 15:00 Interval history: Follow-up for acute kidney injury/acute renal failure on chronic kidney disease. Poor oral intake noted in general since admission; abdominal pain seems a bit better; notes more shortness of breath with exertional activity but was having generalized weakness and fatigue even prior to admission; renal function improving by trend of labs. Exam Narrative: General: elderly female in NAD Heart: normal S1 and S2; no rub Lungs: coarse breath sounds Abdomen: soft, nontender, nondistended, positive bowel sounds Extremities: no cyanosis or clubbing; no edema Skin: no rash Objective Data Vital Signs Vital Signs: Vital Signs Temp Pulse Resp BP Pulse Ox O2 Del Method O2 Flow Rate 08/06/23 13:56 97.6 F 78 16 140/56 L 100 08/06/23 08:00 95 Nasal Cannula 3 08/06/23 08:43 91 08/06/23 08:07 94 20 08/06/23 08:07 100 Nasal Cannula 2 08/06/23 04:00 96 08/06/23 00:00 97 08/05/23 20:00 108 H 08/06/23 04:02 97.6 F 95 18 175/68 H 100 08/05/23 20:15 Nasal Cannula 3 08/05/23 21:04 169/67 H 08/05/23 20:18 106 H 08/05/23 20:01 98.1 F 106 H 18 188/71 H 95 08/05/23 19:50 91 22 H 08/05/23 19:45 95 100 Nasal Cannula 3 08/05/23 19:39 95 22 H 08/05/23 16:03 112 H 08/05/23 18:02 98.2 F 90 18 182/82 H 100 Intake/Output Intake/Output: Intake & Output 08/03/23 08/04/23 08/05/23 08/06/23 23:59 23:59 23:59 23:59 Intake Total 3480 4064 1390 Output Total 750 1650 Balance 2730 2414 1390 Meds/Results Medications: Active Medications Generic Name Dose Route Start Last Admin Trade Name Freq PRN Reason Stop Dose Admin Acetaminophen 650 mg 08/04/23 08:39 Acetaminophen 325 Mg Tablet PO Q4H PRN Mild Pain (1-3) or Fever Hydrocodone Bitart/Acetaminophen 1 tab 08/04/23 08:39 08/06/23 09:22 Hydrocodone/Acetaminophen (*Crx) 5-325 Mg Tablet PO 1 tab Q4H PRN Administration Pain Rated 4-6 Albuterol
[2023-08-06] MEDS: SODIUM ZIRCONIUM CYCLOSILICATE 10 GM POWD.PACK PO (16:11)
[2023-08-06 16:18] LABS: Erythrocyte Sedimentation Rate 45 mm/hr (0-20)
[2023-08-06] MEDS: MIRTAZAPINE 15 MG TABLET PO (22:01)
[2023-08-06] MEDS: ALBUTEROL SULFATE NEB 2.5 MG/3 ML INH INHALATION (22:22)
[2023-08-07] VITALS (16 sets, daily range): BP systolic 94–118; BP diastolic 42–60; PULSE 59–93; RESP 16–24; TEMP 34.7–36.4; O2SAT 98–100
--- NOTE | 2023-08-07 | ECHO_ITS ---
Patient Info Name: Conchita Espinoza Age: 72 years : 1950 Gender: Female Ht: 60 in Wt: 111 lbs BSA: 1.46 m2 HR: 77 bpm Heart Rhythm: Sinus Rhythm Technical Quality: Poor Exam Date: 08/07/2023 1:46 PM Exam Location: Echo Lab Patient Status: Inpatient Admit Date: 08/06/2023 Staff Ordering Physician: Gm Brown APRN [employer] [facility] [employer] Supervisor: Westley Sweeney RDCS Attending Provider: Roosevelt Burgos MD Referring Physician: Kevin GLOVER; Exam Type: CA echo doppler color flow Study Info Indications - pul edema Complete two-dimensional, color flow and Doppler transthoracic echocardiogram is performed. Reason for Poor Study: poor echocardiographic windows Summary 1. Technically difficult study with limited views. 2. Left ventricular chamber dimension is normal. 3. Left ventricular systolic function is normal, estimated at 60-65%. 4. There is moderately increased left ventricular wall thickness. 5. The left ventricular diastolic function is grade I diastolic dysfunction. 6. Right ventricular systolic function is normal. 7. Left atrial chamber dimension is mildly enlarged. 8. Right atrial chamber dimension is moderately enlarged. 9. There is moderate to severe tricuspid valve regurgitation. 10. Pulmonary hypertension, estimated pulmonary arterial systolic pressure is 59 mmHg. 11. Left pleural effusion seen. Left Ventricle Left ventricular chamber dimension is normal. Left ventricular systolic function is normal, estimated at 60-65%. There is moderately increased left ventricular wall thickness. The left ventricular diastolic function is grade I diastolic dysfunction. Right Ventricle Right ventricular chamber dimension is normal. Right ventricular systolic function is normal. Left Atria Left atrial chamber dimension is mildly enlarged. Right Atria Right atrial chamber dimension is moderately enlarged. Atrial Septum Intact interatrial septum visualized by color flow imaging. Aortic Valve The aortic valve is trileaflet. There is moderate aortic valve sclerosis. There is no aortic valve regurgitation. Pulmonic Valve The pulmonic valve is not well visualized. Mitral Valve There is trace mitral valve regurgitation. Tricuspid Valve There is moderate to severe tricuspid valve regurgitation. Pulmonary hypertension, estimated pulmonary arterial systolic pressure is 59 mmHg. Pericardium/Pleural Left pleural effusion seen. There is no pericardial effusion. Inferior Vena Cava Normal inferior vena cava with >50% collapse upon inspiration consistent with normal right atrial pressure, 3 mmHg. Aorta The aortic root size at the sinus of Valsalva is normal. Left Ventricular Outflow Tract Name Value Normal LVOT Doppler LVOT Peak Gradient 4 mmHg LVOT Mean Gradient 2 mmHg LVOT VTI 22 cm LVOT VTI/AV VTI Ratio 0.7 Pulmonic Valve Name Value Normal RVOT Doppler RVOT Peak Gradient 1 mmHg PV Doppler
[2023-08-07] MEDS: SODIUM CHLORIDE 0.9% IV 1,000 ML 75 ML IV CONT ×2 (00:25→13:09)
--- NOTE | 2023-08-07 03:22 | ECG_ITS ---
Measurements Intervals [place] Rate: 93 P: 76 [place]: 163 QRS: -53 QRSD: 101 T: 77 QT: 354 QTc: 441 Interpretive Statements SINUS RHYTHM LEFT ANTERIOR FASCICULAR BLOCK BORDERLINE ST-T WAVE ABNORMALITY- LAT/HIGH LAT LEADS BASELINE WANDER- V6 ABNORMAL ECG COMPARED TO ECG 08/04/2023 05:34:47 NO SIGNIFICANT CHANGES Electronically Signed On 08-07-2023 7:13:53 FILM NUMBERER by Barrington Castano D.O.
[2023-08-07] MEDS: MORPHINE SULFATE (*CRX) 2 MG/ML INJ IV PUSH ×2 (03:30→09:37)
[2023-08-07] MEDS: ALBUTEROL SULFATE NEB 2.5 MG/3 ML INH INHALATION ×3 (03:45→21:56)
[2023-08-07 05:11] LABS: Basophils Absolute Auto 0.1 K/mm3 (0.0-0.1); Basophils Percent Auto 0.7 % (0.2-1.2); Eosinophils Absolute Auto 0.2 K/mm3 (0-0.3); Eosinophils Percent Auto 1.4 % (0-4.4); Hematocrit 32.3 % (37.0-47.0); Hemoglobin 8.6 g/dL (12.0-15.0); Immature Granulocyte Absolute 0.33 K/mm3 (0.00-0.031); Immature Granulocyte Percent A 2.4 % (0-0.5); Immature Platelet Fraction Pct 21.4 % (0.9-11.2); Lymphocytes Percent Auto 12.4 % (18.3-44.2); Mean Corpuscular HGB Conc 26.6 g/dl (32-36); Mean Corpuscular Hemoglobin 30.1 pg (26-34); Mean Corpuscular Volume 112.9 fl (80-100); Mean Platelet Volume 14.3 fl (7.4-10.4); Monocytes Percent Auto 7.1 % (2.6-8.5); Neutrophils Absolute Auto 10.4 K/mm3 (1.3-6.7); Nucleated Red Blood Cells Perc 0.1 % (0.0-0.2); Platelet Count Result 92 k/mm3 (150-375); Red Blood Count 2.86 M/mm3 (4.2-5.4); Red Cell Distribution Width 13.9 % (11.5-14.5); White Blood Count 13.7 K/mm3 (4.5-10.0)
[2023-08-07 05:18] LABS: Alanine Aminotransferase 12 U/L (6-35); Albumin Level 3.5 g/dL (3.5-5.1); Alkaline Phosphatase 76 U/L (38-126); Anion Gap 11 mmol/L (8-16); Aspartate Amino Transferase 30 U/L (14-36); Bilirubin,Total 0.4 mg/dL (0.2-1.3); Blood Urea Nitrogen 26 mg/dL (7-17); Calcium 8.6 mg/dL (8.4-10.2); Carbon Dioxide 19 mmol/L (22-30); Chloride 110 mmol/L (98-107); Estimated CRCL calculation 16 ml/min; Estimated Glomerular Filt Rate 28; Glucose 96 mg/dL (65-110); Magnesium 2.4 mg/dL (1.6-2.3); Potassium 4.8 mmol/L (3.4-5.0); Sodium 140 mmol/L (137-145)
[2023-08-07 05:59] LABS: Anisocytosis 1+ (NORMAL); Basophilic Stippling 1+ (NORMAL); Platelet Estimate Decreased (Adequate); Poikilocytosis 1+ (NORMAL); Schistocytes None Seen (NORMAL)
[2023-08-07] MEDS: UMECLIDINIUM BROMIDE 62.5 MCG ELLIPTA 1 PUFF INHALATION (08:00)
[2023-08-07] MEDS: FLUTICASONE/SALMETEROL 115-21 MCG INHALER 1 PUFF 2 PUFF INHALATION ×2 (08:01→21:55)
[2023-08-07] MEDS: LIPASE/AMYLASE/PROTEASE 12,000 UNITS CAP 2 CAP PO ×3 (08:46→16:58)
[2023-08-07] MEDS: CLOPIDOGREL BISULFATE 75 MG TABLET PO (08:47)
[2023-08-07] MEDS: MULTIVITAMINS THERAPEUTIC TAB (*BKC) 1 TABLET PO (08:47)
[2023-08-07] MEDS: CHOLECALCIFEROL 1,000 UNITS TABLET 2000 UNITS PO (08:47)
[2023-08-07] MEDS: FOLIC ACID 1 MG TABLET PO (08:47)
[2023-08-07] MEDS: FERROUS SULFATE 325 MG TABLET DR PO (08:48)
[2023-08-07] MEDS: carvediloL 6.25 MG TABLET PO (08:48)
[2023-08-07] MEDS: polyethylene glycoL 3350 17 GM POWD.PACK PO (08:49)
[2023-08-07] MEDS: PANTOPRAZOLE 40 MG TABLET PO (08:49)
--- NOTE | 2023-08-07 11:29 | PM.IMPN ---
Progress Note: A&P Assessment and Plan (1) Pneumonia: Code(s): J18.9 - Pneumonia, unspecified organism Status: Acute Assessment and Plan: 08/07: Dyspnea and WBC trending worse over past 3 days. Today patient dyspneic at rest. Suspected CHF exacerbation. Obtained CXR and ordered IV Lasix and Echocardiogram. CXR report read by Radiology with Left mid/lower opacities consistent with pneumonia and small pleural effusion. Ordered antibiotics which were adjusted after talking with [facility], MRSA nares, pneumococcal antigen, Legionella antigen, sputum culture, blood cultures. Treating as Severe Community Acquired pneumonia as symptoms developed 3-4 days ago and have been worsening since then. (2) Acute on chronic kidney failure: Code(s): N17.9 - Acute kidney failure, unspecified; N18.9 - Chronic kidney disease, unspecified Status: Acute Assessment and Plan: She has acute on chronic kidney injury. Baseline creatinine appears to range between 1.3 and 1.90. Today it was 3.30. Etiology is not entirely clear however CT scan was read as showing findings suggestive of acute tubular necrosis. Why this would occur however is still on clear. She appears euvolemic on exam. Continue judicious IV fluid rehydration as creatinine is improving. Avoid nephrotoxic agents. Bladder scan to rule out urinary retention. Wrote for PVR today x2 and may need queen for retention. Renal ultrasound ordered for a.m.---Shows cortical findings suggestive of medical renal disease. Nephrology has been consulted, rec's are appreciated. Likely related to her chronic sclerosing mesenteritis as 24% of people with this develop obstructive/renal failure also she has had poor appetite and fluid intake given her abdominal pain. FeNA labs 4.16% indicate intra-renal insult. 08/06: Serum creatinine 1.8 and estimated GFR 34. 08/07: Serum Cr 2.1, eGFR 28 (3) Left flank pain: Code(s): R10.9 - Unspecified abdominal pain Status: Acute Assessment and Plan: Resolved. CT scan shows improvement in what appeared to be mesenteric panniculitis. I am wondering if perhaps she may have some component of chronic pancreatitis though not noted on CT; she is on Creon daily. (4) Hyperkalemia: Code(s): E87.5 - Hyperkalemia Status: Acute Assessment and Plan: Potassium is a bit elevated at 5.3 but should improve with IV fluids. Potassium 5.6 today. Lokoma x 2 ordered. Will repeat K+ level at 2100 08/05 Ordered telemetry but no tele in house 08/06: Telemetry reviewed. Patient had 1 instance approximately 12 seconds of paroxysmal supraventricular tachycardia on day of application telemetry. Since then no other evidence of dysrhythmia. Telemetry discontinued. Potassium 5.1 this morning. Nephrology consulted appreciate recommendations. Additional dose of Lokelma ordered. 08/07: Improvement to 4.8 after Lokelma yesterday (5) Thrombocytopenia: Code(s): D69.6 - Thrombocytopenia, unspecified Status: Acute Assessment and Plan: She has a mild thrombocytopenia which will be monitored daily. 08/06: Patient accidentally received subcutaneous Lovenox 30 mg for DVT prophylaxis even though platelet count was under 100,000. This medication has since been placed on hold and will pay special attention tomorrow to platelet count. (6) Macrocytic anemia: Code(s): D53.9 - Nutritional anemia, unspecified Status: Acute Assessment and Plan: Check iron studies as well as B12 and folates. May be related to kidney disease. Fe 43, TIBC 231, Saturation 19%, Ferritin 255 Mildy Fe deficient. Start on replacement. Vitamin B12 and folate are elevated. (7) Chronic obstructive pulmonary disease: Code(s): J44.9 - Chronic obstructive pulmonary disease, unspecified Status: Acute Assessment and Plan: Patient states she is at her baseline. Continue maintenance inhalers. On base
[2023-08-07] MEDS: FUROSEMIDE INJ 40 MG/4 ML VIAL IV PUSH (11:55)
--- NOTE | 2023-08-07 13:17 | P.PNNP_ITS ---
Progress Note: A&P Assessment and Plan (1) TUCKER (acute kidney injury): Code(s): N17.9 - Acute kidney failure, unspecified Status: Acute Assessment and Plan: * improvement noted * she does report poor oral intake/hydration for a while prior to admission * HOWEVER, admission CT scan with findings suggestive of acute tubular necrosis... * noted contrast exposure with CT with contrast on 07/31/23 (ER visit) * evaluation to date noted: * admission CT scan as noted * urine eosinophils negative * CPK normal * urine electrolytes non-prerenal * renal ultrasound c/w CKD * follow trend of repeat labs and UOP (2) Stage 3b chronic kidney disease: Code(s): N18.32 - Chronic kidney disease, stage 3b Status: Chronic Assessment and Plan: * baseline creatinine runs ~ 1.4 - 1.9mg/dl. * appears to have had some slow progression over the last couple of years * presumably due to HTN, DM, and vascular disease (3) Hyperkalemia: Code(s): E87.5 - Hyperkalemia Status: Acute Assessment and Plan: * due to TUCKER/ARF * medial management as needed (lokelma) * follow trend of k+ (4) Pneumonia: Code(s): J18.9 - Pneumonia, unspecified organism Status: Acute Assessment and Plan: * as suggested by reent CXR * follow culture data * on antibiotics (5) Anemia: Code(s): D64.9 - Anemia, unspecified Status: Chronic Assessment and Plan: * chronic issues * partly related to CKD * follow trend of H/H (6) Left flank pain: Code(s): R10.9 - Unspecified abdominal pain Status: Acute Assessment and Plan: * better in comparison to admission * admission CT scan shows improvement in what appeared to be mesenteric panniculitis * continue supportive therapy (7) Protein-calorie malnutrition, moderate: Code(s): E44.0 - Moderate protein-calorie malnutrition Status: Acute Assessment and Plan: * poor nutritional intake * patient refusing to eat meals provided * liberalizing diet but states no appetite (8) Chronic obstructive pulmonary disease: Code(s): J44.9 - Chronic obstructive pulmonary disease, unspecified Status: Chronic Assessment and Plan: * appears compensated * continue home oxygen and inhalers Will continue to follow. Subjective Date/time seen: 08/07/23 13:17 Interval history: Follow-up for acute kidney injury/acute renal failure on chronic kidney disease. Patient noted to have worsening shortness of breath earlier today in associating with increased work of breathing; CXR with reported pneumonia (and possible PVC) so antibiotics initiated after approprate cultures taken along with IV diuretics; still with poor appetite as well. Exam Narrative: General: elderly female in NAD Heart: normal S1 and S2; no rub Lungs: coarse breath sounds Abdomen: soft, nontender, nondistended, positive bowel sounds Extremities: no cyanosis or clubbing; no edema Skin: no nodules Objective Data Vital Signs Vital Signs: Vital Signs Temp Pulse Resp BP Pulse Ox O2 Del Method O2 Flow Rate 08/07/23 13:12 70 20 107/47 L 100 Nasal Cannula 3 08/07/23 09:56 89 22 H 08/07/23 09:45 90 22 H 08/07/23 08:49 72 18 98 Nasal Cannula 3
--- NOTE | 2023-08-07 13:17 | PM.PNNEP ---
Progress Note: A&P Assessment and Plan (1) TUCKER (acute kidney injury): Code(s): N17.9 - Acute kidney failure, unspecified Status: Acute Assessment and Plan: improvement noted she does report poor oral intake/hydration for a while prior to admission HOWEVER, admission CT scan with findings suggestive of acute tubular necrosis... noted contrast exposure with CT with contrast on 07/31/23 (ER visit) evaluation to date noted: admission CT scan as noted urine eosinophils negative CPK normal urine electrolytes non-prerenal renal ultrasound c/w CKD follow trend of repeat labs and UOP (2) Stage 3b chronic kidney disease: Code(s): N18.32 - Chronic kidney disease, stage 3b Status: Chronic Assessment and Plan: baseline creatinine runs ~ 1.4 - 1.9mg/dl. appears to have had some slow progression over the last couple of years presumably due to HTN, DM, and vascular disease (3) Hyperkalemia: Code(s): E87.5 - Hyperkalemia Status: Acute Assessment and Plan: due to TUCKER/ARF medial management as needed (lokelma) follow trend of k+ (4) Pneumonia: Code(s): J18.9 - Pneumonia, unspecified organism Status: Acute Assessment and Plan: as suggested by reent CXR follow culture data on antibiotics (5) Anemia: Code(s): D64.9 - Anemia, unspecified Status: Chronic Assessment and Plan: chronic issues partly related to CKD follow trend of H/H (6) Left flank pain: Code(s): R10.9 - Unspecified abdominal pain Status: Acute Assessment and Plan: better in comparison to admission admission CT scan shows improvement in what appeared to be mesenteric panniculitis continue supportive therapy (7) Protein-calorie malnutrition, moderate: Code(s): E44.0 - Moderate protein-calorie malnutrition Status: Acute Assessment and Plan: poor nutritional intake patient refusing to eat meals provided liberalizing diet but states no appetite (8) Chronic obstructive pulmonary disease: Code(s): J44.9 - Chronic obstructive pulmonary disease, unspecified Status: Chronic Assessment and Plan: appears compensated continue home oxygen and inhalers Will continue to follow. Subjective Date/time seen: 08/07/23 13:17 Interval history: Follow-up for acute kidney injury/acute renal failure on chronic kidney disease. Patient noted to have worsening shortness of breath earlier today in associating with increased work of breathing; CXR with reported pneumonia (and possible PVC) so antibiotics initiated after approprate cultures taken along with IV diuretics; still with poor appetite as well. Exam Narrative: General: elderly female in NAD Heart: normal S1 and S2; no rub Lungs: coarse breath sounds Abdomen: soft, nontender, nondistended, positive bowel sounds Extremities: no cyanosis or clubbing; no edema Skin: no nodules Objective Data Vital Signs Vital Signs: Vital Signs Temp Pulse Resp BP Pulse Ox O2 Del Method O2 Flow Rate 08/07/23 13:12 70 20 107/47 L 100 Nasal Cannula 3 08/07/23 09:56 89 22 H 08/07/23 09:45 90 22 H 08/07/23 08:49 72 18 98 Nasal Cannula 3 08/07/23 08:48 72 08/07/23 08:04 98 Nasal Cannula 3 08/07/23 06:00 97.6 F 73 18 118/47 L 99 08/07/23 03:45 93 24 H 08/06/23 22:35 89 20 08/06/23 21:50 96 Nasal Cannula 3 08/06/23 22:25 87 20 08/06/23 22:01 87 08/06/23 20:40 94 Nasal Cannula 3 08/06/23 19:44 97.5 F L 87 18 152/67 H 100 Intake/Output Intake/Output: Intake & Output 08/04/23 08/05/23 08/06/23 08/07/23 23:59 23:59 23:59 23:59 Intake Total 3480 4064 1440 2050 Output Total 750 1650 100 150 Balance 2730 2414 1340 1900 Meds/Results Medications: Active Medications Generic Name Dose Route Star
[2023-08-07] MEDS: CEFEPIME 1 GM/NS 50 ML 1 GM/50 ML BAG IVPB (14:28)
[2023-08-07] MEDS: AZITHROMYCIN 500 MG/NS 250 ML 500 MG/250 ML BAG 250 MG IVPB (15:02)
--- NOTE | 2023-08-07 15:04 | PC.NURSE ---
On 08/07/23, the student, [Eric Sow], provided care and completed [facility] documentation on this patient. I have reviewed the student's documentation and agree with the findings.
[2023-08-07 15:52] LABS: MRSA (PCR) NOT DETECTED (NOT DETECTE)
--- NOTE | 2023-08-07 16:51 | PC.NURSE ---
Notified Jose Brown RN LAMP ASSEMBLER of low urine output.
[2023-08-07 17:15] LABS: Erythrocyte Sedimentation Rate 53 mm/hr (0-20)
[2023-08-07 21:28] LABS: Anion Gap 10 mmol/L (8-16); Blood Urea Nitrogen 35 mg/dL (7-17); Calcium 8.4 mg/dL (8.4-10.2); Carbon Dioxide 18 mmol/L (22-30); Chloride 112 mmol/L (98-107); Estimated CRCL calculation 14 ml/min; Estimated Glomerular Filt Rate 24; Glucose 124 mg/dL (65-110); Potassium 5.5 mmol/L (3.4-5.0); Sodium 140 mmol/L (137-145)
[2023-08-07] MEDS: LACTATED RINGERS 500 ML 999 ML IV CONT (21:48)
[2023-08-07] MEDS: LACTATED RINGERS 1,000 ML 100 ML IV CONT (22:22)
[2023-08-07 23:11] LABS: Lactic Acid Reflex 0.8 mmol/L (0.7-2.0)
[2023-08-08] VITALS (43 sets, daily range): BP systolic 78–132; BP diastolic 40–85; PULSE 64–78; RESP 22–28; TEMP 33.8–36.7; O2SAT 99–100
[2023-08-08] MEDS: DEXTROSE 50% 25 GM/50 ML SYRINGE IV PUSH (00:54)
[2023-08-08] MEDS: INSULIN HUMAN REGULAR (*BKC) 100 UNITS/ML 10 UNITS IV PUSH (00:54)
--- NOTE | 2023-08-08 00:59 | PC.NURSE ---
This patient, Conchita Espinoza, was received from [[facility] room 244 ] on 08/08/23 at 0020. Patient/family oriented to unit policies and routines
--- NOTE | 2023-08-08 01:02 | PM.EVENT ---
Event Note Event Note Event Note: Nursing staff alerted provider that patient was becoming more hypotensive and hypothermic. BP 94/42 and temperature 94.7? F, checked rectally. Currently 92.9F. Given 500 mL bolus of LR. Maintenance fluids of 100 mL/hour LR infusing. Lactic and repeat BMP ordered stat. No response in BP to 500 mL bolus. Labs revealed K of 5.5, worsening creatinine 2.4 (2.1 at 04:30, same day), lactate 0.8. Hyperkalemia treated: 1 G of glucose, insulin, dextrose. Branch placed for more accurate I&Os. Night RN noted that she has had a decrease in output. Hydralazine and Coreg held/discontinued. Discussed findings with patient and concerns. Transfer to IMU for tele, closer monitoring, and rewarming with myahsusan juan. Add viral PCR. Cheetah done in ICU, not currently fluid responsive. Fluids d/c'd - total of 550-600 given to patient. Patient currently A&O x1. Awakens easily to voice, mildly somnolent. Diminished lung sounds on left. S1-S2 present without murmur, rub, ectopy. No peripheral edema. Critical Care Time: I personally spent 35 minutes of direct patient care including (but not limited to) the physical examination, decision-making, bedside evaluation, review of medical records, review of labs and imaging, discussion with nursing staff and other providers for collaborative, critical care management of this patient.
[2023-08-08] MEDS: CALCIUM GLUC 1,000 MG/NS 100ML 1,000 MG/100 ML BAG 200 MG IVPB (01:08)
[2023-08-08] MEDS: CEFEPIME 1 GM/NS 50 ML 1 GM/50 ML BAG IVPB ×3 (01:27→23:49)
[2023-08-08 01:34] LABS: Glucose Point of Care 204 mg/dl (65-105)
[2023-08-08 01:34] LABS: Glucose Point of Care 104 mg/dl (65-105)
[2023-08-08] MEDS: ACETAMINOPHEN 325 MG TABLET 650 MG PO ×2 (01:45→11:17)
[2023-08-08 02:30] LABS: Influenza A QL RT-PCR Negative (Negative); Influenza B QL RT-PCR Negative (Negative); RSV RNA, RT-PCR Negative (Negative); SARS-CoV-2 RNA PCR Negative (Negative)
[2023-08-08 03:33] LABS: Basophils Percent Auto 0.2 % (0.2-1.2); Eosinophils Percent Auto 0.1 % (0-4.4); Hematocrit 28.5 % (37.0-47.0); Hemoglobin 7.6 g/dL (12.0-15.0); Immature Granulocyte Absolute 0.09 K/mm3 (0.00-0.031); Immature Granulocyte Percent A 0.9 % (0-0.5); Immature Platelet Fraction Pct 24.8 % (0.9-11.2); Lymphocytes Absolute Auto 0.75 K/mm3 (0.9-3.2); Lymphocytes Percent Auto 7.2 % (18.3-44.2); Mean Corpuscular HGB Conc 26.7 g/dl (32-36); Mean Corpuscular Hemoglobin 29.7 pg (26-34); Mean Corpuscular Volume 111.3 fl (80-100); Mean Platelet Volume 14.2 fl (7.4-10.4); Monocytes Absolute Auto 1.1 K/mm3 (0.1-0.6); Monocytes Percent Auto 10.1 % (2.6-8.5); Neutrophils Absolute Auto 8.5 K/mm3 (1.3-6.7); Neutrophils Percent Auto 81.5 % (45.5-73.1); Nucleated Red Blood Cells Perc 0.3 % (0.0-0.2); Platelet Count Result 76 k/mm3 (150-375); Red Blood Count 2.56 M/mm3 (4.2-5.4); Red Cell Distribution Width 13.7 % (11.5-14.5); White Blood Count 10.4 K/mm3 (4.5-10.0)
[2023-08-08] MEDS: NOREPINEPHRINE 8 MG/D5W 250 ML 8 MG/250 ML BAG 3.75 MG IV CONT (03:38)
[2023-08-08 03:44] LABS: Alanine Aminotransferase 15 U/L (6-35); Albumin Level 3.1 g/dL (3.5-5.1); Alkaline Phosphatase 66 U/L (38-126); Anion Gap 10 mmol/L (8-16); Aspartate Amino Transferase 23 U/L (14-36); Bilirubin,Total 0.3 mg/dL (0.2-1.3); Blood Urea Nitrogen 34 mg/dL (7-17); Calcium 8.6 mg/dL (8.4-10.2); Carbon Dioxide 20 mmol/L (22-30); Chloride 111 mmol/L (98-107); Estimated CRCL calculation 13 ml/min; Estimated Glomerular Filt Rate 21; Glucose 142 mg/dL (65-110); Potassium 4.6 mmol/L (3.4-5.0); Sodium 141 mmol/L (137-145)
[2023-08-08 03:46] LABS: Magnesium 2.3 mg/dL (1.6-2.3); Phosphorus 5.6 mg/dL (2.5-4.5)
[2023-08-08 04:06] LABS: Platelet Estimate Decreased (Adequate)
[2023-08-08 04:08] LABS: Anisocytosis 1+ (NORMAL); Basophilic Stippling 1+ (NORMAL); Hypochromasia 1+ (NORMAL); Schistocytes None Seen (NORMAL)
--- NOTE | 2023-08-08 05:20 | P.PNCROSS_ITS ---
Event Note Event Note Event Note: I was called to see this patient who was transferred to ICU from floor for hypo thermia and hypotension. She was admitted for sepsis and she ahs been on cefepime and azithromycin. Fluid bolus could not improve blood pressure and patient was initated on levophed. central access was placed through RIJ and CXr showed abnormal position in right axillary/subclavian vein and recommended adjustment. Line had adready been taken out. Failed right femoral attempt. Will continue on low dose of levophed at 2mcg/min through peripheral IV till and wean patient off gradually, however if this could be achieved, a central access will be placed this AM.
--- NOTE | 2023-08-08 06:31 | PC.NURSE ---
Addendum entered by Shonda Good RN 08/08/23 06:42: 0445: Discussed pt's respiratory status with Dr. Hathaway, who states that a bipap would not be beneficial to the pt at this time. Original Note: 0117: Amberly, OVEN TENDER at pt's bedside following transfer from room 244. Discussed results of NICOM Cheetah. Pt is not fluid responsive. IV fluids discontinued. Discussed pt's labored breathing. No new orders at this time. 0325: Notified Dr. Hathaway in person of pt's low BP. Per MD, start Levophed at a low dose through peripheral IV while he sets up for central line insertion. 0338: Levophed initiated. Central line insertion unsuccessful to right IJ. 0415: Attempt to place central line in right femoral unsuccessful. Continue to administer Levophed per peripheral line. Dr. Hathaway to notify Dr. Barraza of pt's ICU status.
[2023-08-08] MEDS: AZITHROMYCIN 500 MG/NS 250 ML 500 MG/250 ML BAG 250 MG IVPB (08:56)
[2023-08-08] MEDS: VANCOMYCIN 750 MG/NS 250 ML 750 MG/250 ML BAG 250 MG IVPB (08:56)
[2023-08-08] MEDS: FLUTICASONE/SALMETEROL 115-21 MCG INHALER 1 PUFF 2 PUFF INHALATION ×2 (09:29→19:47)
[2023-08-08] MEDS: UMECLIDINIUM BROMIDE 62.5 MCG ELLIPTA 1 PUFF INHALATION (09:29)
[2023-08-08] MEDS: BUMETANIDE INJ 2.5 MG/10 ML VIAL 2 MG IV PUSH (09:32)
--- NOTE | 2023-08-08 09:44 | WPDCNINT ---
Assessment and Plan Assessment and plan (1) Septic shock: Code(s): A41.9 - Sepsis, unspecified organism; R65.21 - Severe sepsis with septic shock Status: Acute Assessment and Plan: 08/08: Patient was transferred from intermediate Unit with hypotension, hypothermia, acute on chronic kidney disease, anemia -patient received IV fluid bolus overnight, with no improvement of blood pressures, - started on Levophed, maintain MAP > 65-70 mmHg at all times -likely source of infection could be urine, blood and/or pneumonia -continue azithromycin, vancomycin and cefepime -08/07/2023 blood cultures have been obtained and pending -08/08/2023 able urine cultures have been obtained and pending -check UA -check lactic acid -check procalcitonin (2) [id number] kidney injury: Code(s): N17.9 - Acute kidney failure, unspecified; N18.9 - Chronic kidney disease, unspecified Status: Acute Assessment and Plan: Patient presented with acute on chronic kidney disease could be related to hypotension, hypovolemia, could be related to contrast induced nephropathy as receive contrast on 07/31/[address] scan -patient has been adequately volume resuscitated, currently in volume overload positive 8700 mL since admission -nephrology following the patient -urine output has been minimal, creatinine is trending up -discussed with jewel sorter, will try a dose of Bumex 2 mg IV x1 08/04: Renal ultrasound showed cortical findings as to medical renal disease, left ureteral jet not visualized due to his examination, noting there was no left hydronephrosis (3) Pneumonia: Code(s): J18.9 - Pneumonia, unspecified organism Status: Acute Assessment and Plan: Chest x-ray shows airspace opacities in left mid and lower lung zones consistent with pneumonia, -continue treatment as above (4) Paroxysmal atrial fibrillation: Code(s): I48.0 - Paroxysmal atrial fibrillation Status: Acute Assessment and Plan: Patient has a history of proximal AFib, currently in sinus rhythm, rate controlled, will continue to monitor -TSH levels on 08/04/2023 are normal (5) Type 2 diabetes mellitus: Code(s): E11.9 - Type 2 diabetes mellitus without complications Status: Acute Assessment and Plan: Patient has history of diabetes, blood sugars have been stable -will place her on sliding scale insulin Accu-Chek (6) COPD (chronic obstructive pulmonary disease): Code(s): J44.9 - Chronic obstructive pulmonary disease, unspecified Status: Acute Assessment and Plan: Patient has a history of COPD, on 3 L nasal cannula at home -currently on home O2 settings -bronchodilator -continue to monitor (7) Protein-calorie malnutrition, moderate: Code(s): E44.0 - Moderate protein-calorie malnutrition Status: Acute Assessment and Plan: Patient has history of protein calorie malnutrition -once she starts eating, will give her feeding supplements with diet (8) Left flank pain: Code(s): R10.9 - Unspecified abdominal pain Status: Acute Assessment and Plan: Left flank plain, -could be related to pneumonia versus UTI -CT CT abdomen and pelvis as under 08/04: CT scan of the abdomen and pelvis without contrast: Persistent hyperdensity in the kidneys, at the inner cortex/medulla. Appearance suggests ATN. Renal cortical necrosis would be a potential alternative consideration. Correlate with renal function testing. Bibasilar pulmonary COPD change with atelectasis or scarring. 07/31: CT scan of the abdomen and pelvis with contrast: Improved chronic linear infiltrates of the lower lobes, likely atelectasis/scarring.? 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 (9) Anemia: Code(s): D64.9 - Anemia, unspecified Status: Acute Assessment and Plan: Patient with anemia, hemoglobin 7.6 this morning. (patient
--- NOTE | 2023-08-08 09:48 | P.PNNP_ITS ---
Progress Note: A&P Assessment and Plan (1) TUCKER (acute kidney injury): Code(s): N17.9 - Acute kidney failure, unspecified Status: Acute Assessment and Plan: * was improvingbut has declined again * she does report poor oral intake/hydration for a while prior to admission * HOWEVER, admission CT scan with findings suggestive of acute tubular necrosis... * noted contrast exposure with CT with contrast on 07/31/23 (ER visit) * evaluation to date noted: * admission CT scan as noted * urine eosinophils negative * CPK normal * urine electrolytes non-prerenal * renal ultrasound c/w CKD * suspect elementa of ATN due to hypotension/shock along with sepsis * follow trend of repeat labs and UOP (2) Stage 3b chronic kidney disease: Code(s): N18.32 - Chronic kidney disease, stage 3b Status: Chronic Assessment and Plan: * baseline creatinine runs ~ 1.4 - 1.9mg/dl. * appears to have had some slow progression over the last couple of years * presumably due to HTN, DM, and vascular disease (3) Septic shock: Code(s): A41.9 - Sepsis, unspecified organism; R65.21 - Severe sepsis with septic shock Status: Acute Assessment and Plan: * transferred from IMU with hypotension and hypotehrmia * no imporvement in blood presssure with IVF boluses * started on vasopressor therapy * follow culture data * on antibiotics * follow trend of hemodynamics (4) Hyperkalemia: Code(s): E87.5 - Hyperkalemia Status: Acute Assessment and Plan: * due to TUCKER/ARF * medial management as needed (lokeltn) * follow trend of k+ (5) Pneumonia: Code(s): J18.9 - Pneumonia, unspecified organism Status: Acute Assessment and Plan: * as suggested by reent CXR * follow culture data * on antibiotics (6) Anemia: Code(s): D64.9 - Anemia, unspecified Status: Chronic Assessment and Plan: * chronic issues * partly related to CKD * follow trend of H/H (7) Left flank pain: Code(s): R10.9 - Unspecified abdominal pain Status: Acute Assessment and Plan: * better in comparison to admission * admission CT scan shows improvement in what appeared to be mesenteric panniculitis * continue supportive therapy (8) Protein-calorie malnutrition, moderate: Code(s): E44.0 - Moderate protein-calorie malnutrition Status: Acute Assessment and Plan: * poor nutritional intake * patient refusing to eat meals provided * liberalizing diet but states no appetite (9) Chronic obstructive pulmonary disease: Code(s): J44.9 - Chronic obstructive pulmonary disease, unspecified Status: Chronic Assessment and Plan: * appears compensated * continue home oxygen and inhalers Case discussed with Dr. Barraza. Will continue to follow. Subjective Date/time seen: 08/08/23 09:48 Interval history: Follow-up for acute kidney injury/acute renal failure on chronic kidney disease. EVents noted overnight/earlier today -- issues with hypotension and hypothermia concerning for sepsis; minimal response to IVF bolues so moved to ICU for central line placement and vasopressor support; myah michelleer applied for hypotheramia; urine outut has declined as well. Exam Narrative: General: elderly female in NAD Heart: normal S1 and S2; no rub Lungs: coarse breath sounds Abdomen: soft, nontender, nondistended, positive bowel
--- NOTE | 2023-08-08 09:48 | PM.PNNEP ---
Progress Note: A&P Assessment and Plan (1) TUCKER (acute kidney injury): Code(s): N17.9 - Acute kidney failure, unspecified Status: Acute Assessment and Plan: was improvingbut has declined again she does report poor oral intake/hydration for a while prior to admission HOWEVER, admission CT scan with findings suggestive of acute tubular necrosis... noted contrast exposure with CT with contrast on 07/31/23 (ER visit) evaluation to date noted: admission CT scan as noted urine eosinophils negative CPK normal urine electrolytes non-prerenal renal ultrasound c/w CKD suspect elementa of ATN due to hypotension/shock along with sepsis follow trend of repeat labs and UOP (2) Stage 3b chronic kidney disease: Code(s): N18.32 - Chronic kidney disease, stage 3b Status: Chronic Assessment and Plan: baseline creatinine runs ~ 1.4 - 1.9mg/dl. appears to have had some slow progression over the last couple of years presumably due to HTN, DM, and vascular disease (3) Septic shock: Code(s): A41.9 - Sepsis, unspecified organism; R65.21 - Severe sepsis with septic shock Status: Acute Assessment and Plan: transferred from IMU with hypotension and hypotehrmia no imporvement in blood presssure with IVF boluses started on vasopressor therapy follow culture data on antibiotics follow trend of hemodynamics (4) Hyperkalemia: Code(s): E87.5 - Hyperkalemia Status: Acute Assessment and Plan: due to TUCKER/ARF medial management as needed (lokelma) follow trend of k+ (5) Pneumonia: Code(s): J18.9 - Pneumonia, unspecified organism Status: Acute Assessment and Plan: as suggested by reent CXR follow culture data on antibiotics (6) Anemia: Code(s): D64.9 - Anemia, unspecified Status: Chronic Assessment and Plan: chronic issues partly related to CKD follow trend of H/H (7) Left flank pain: Code(s): R10.9 - Unspecified abdominal pain Status: Acute Assessment and Plan: better in comparison to admission admission CT scan shows improvement in what appeared to be mesenteric panniculitis continue supportive therapy (8) Protein-calorie malnutrition, moderate: Code(s): E44.0 - Moderate protein-calorie malnutrition Status: Acute Assessment and Plan: poor nutritional intake patient refusing to eat meals provided liberalizing diet but states no appetite (9) Chronic obstructive pulmonary disease: Code(s): J44.9 - Chronic obstructive pulmonary disease, unspecified Status: Chronic Assessment and Plan: appears compensated continue home oxygen and inhalers Case discussed with Dr. Barraza. Will continue to follow. Subjective Date/time seen: 08/08/23 09:48 Interval history: Follow-up for acute kidney injury/acute renal failure on chronic kidney disease. EVents noted overnight/earlier today -- issues with hypotension and hypothermia concerning for sepsis; minimal response to IVF bolues so moved to ICU for central line placement and vasopressor support; myah juan applied for hypotheramia; urine outut has declined as well. Exam Narrative: General: elderly female in NAD Heart: normal S1 and S2; no rub Lungs: coarse breath sounds Abdomen: soft, nontender, nondistended, positive bowel sounds Extremities: no cyanosis or clubbing; no edema Skin: warm and inake Objective Data Vital Signs Vital Signs: Vital Signs Temp Pulse Resp BP Pulse Ox O2 Del Method O2 Flow Rate 08/08/23 09:35 67 80/40 L 08/08/23 09:31 100 Nasal Cannula 3 08/08/23 08:00 97.0 F L 08/08/23 08:30 97.5 F L 08/08/23 07:30 96.8 F L 08/08/23 07:52 97.0 F L 71 119/44 L 99 08/08/23 07:00 96.8 F L 08/08/23 06:30 96.7 F L 08/08/23 02:00 64 08/08/23 06:28 96.6
--- NOTE | 2023-08-08 10:44 | PCFNICU ---
Addendum entered by Destini Hooper, RD, LDN 08/08/23 10:51: Additional notes: Appetite is poor. Pt on pressor support. Continue to monitor. Original Note: ICU Rounding Note: Pt current nutrition is Regular diet. 0% intakes, refusing meals. Appetite is poor. Ensure Enlive BID for additional 350 kcal and 20 g protein each. Nutrition recommendation: Increase Ensure Enlive to TID Last recorded weight is 43.8 kg. Bowel Motility: Last BM 08/03/23 Labs Reviewed: Hgb 7.6, Hct 28.5, Alb 3.1, GFR 21, BUN 34, Cre 2.7, Glu 204 Meds Noted: Bumex Skin: WNL Additional Notes: WNL Following daily in ICU rounds. Will monitor weight, labs, skin, meds, oral intake every 3 days. .
[2023-08-08] MEDS: PANTOPRAZOLE SODIUM IV 40 MG VIAL IV PUSH (10:48)
[2023-08-08 11:37] LABS: Appearance Urine Turbid (Clear); Bacteria Urine None Seen /hpf; Bilirubin Urine Negative (Negative); Blood Urine 3+ (Negative); Color Urine Dark Yellow (Yellow); Glucose Urine UA Negative (Negative); Hyaline Casts Urine Present /lpf; Ketones Urine Trace mg/dL (Negative); Leukocyte Esterase Ur 2+ LEU/UL (NEGATIVE); Nitrate Urine Negative (Negative); Non Pathogenic Casts >20; Protein Urine 3+ mg/dL (Negative); RBC Urine >100 /hpf (0-2); Specific Grav Ur 1.018 (1.001-1.035); Squamous Epithelial Cell Urine Moderate /hpf (Few); Urobilinogen Urine 0.2 mg/dL (<2.0); WBC Urine 21-50 /hpf (0-3)
[2023-08-08 11:38] LABS: Add Urine Microscopic? YES
[2023-08-08 11:39] LABS: Glucose Point of Care 95 mg/dl (65-105)
[2023-08-08 12:03] LABS: Lactic Acid Reflex 0.6 mmol/L (0.7-2.0)
--- NOTE | 2023-08-08 12:35 | P.PCNBED_ITS ---
Procedures Central Line Placement Left Femoral: Central Line Date: 08/08/23 Central Line Time: 08:25 Discussed w/ the patient/family/POA,the placement of a central venous catheter, including its clinical necessity/indication & associated potential risks, benifits and alternatives.: Yes The patient/family/POA understand(s) and acknowledge(s) the need to proceed with central venous catheter insertion as an important element of the patient's clinical management.: Yes Consent: I have discussed with the patient and/or surrogate, the non-emergent placement of a central venous catheter, including its clinical necessity/indication and associated potential risks and complications. The patient and/or surrogate understand(s) and acknowledge(s) the need to proceed with central venous catheter insertion as an important element of the patient's clinical management. Time Out Performed: Yes Patient Position: supine Patient placed on monitor/pulse ox: Yes Provider Prep: sterile gown, sterile gloves, Max. sterile barrier precautions, cap and hand hygiene with conventional soap/water or alcohol based hand rub Central line prep: 2% Chlorhexidine scrub Local anesthesia used: lidocaine 1% Amount of anesthesia used (ml): 3 Sterile US Technique with sterile gel/sterile probe covers: Yes Central line lumen inserted: triple [place]: 12 Length (cm): 16 Depth of Insertion (cm): 16 Post Procedure: sutured in place, good blood return, all ports aspirated, flushed, capped, transparent dressing, hemostatic product, antimicrobial product and securement product Post procedure x-ray: other (Not indicated) Patient tolerated procedure: well Complications: none Additional comments: I placed the left femoral line since the right IJ and right femoral was accessed overnight by the hospitalist and could not place the central line.
[2023-08-08 12:40] LABS: Erythrocyte Sedimentation Rate 71 mm/hr (0-20)
[2023-08-08 12:44] LABS: Procalcitonin 1.4 ng/mL
[2023-08-08] MEDS: CENTRAL LINE FLUSH 10 ML IV PUSH ×2 (13:30→23:50)
--- NOTE | 2023-08-08 13:58 | PCSTNOTE ---
CHRONOMETER ASSEMBLER AND ADJUSTER attempted to complete BSE with patient; however, nurse stated that pt was having a rough day and would not be up for BSE. To be completed at a later date.
[2023-08-08] MEDS: ALBUTEROL SULFATE NEB 2.5 MG/3 ML INH INHALATION ×2 (14:10→19:47)
[2023-08-08] MEDS: IPRATROPIUM BR 0.02% INH SOLN 0.5 MG/2.5 ML VIAL INHALATION ×2 (14:10→19:47)
[2023-08-08] MEDS: BUMETANIDE INJ 1 MG/4 ML VIAL 2 MG IV PUSH (17:40)
[2023-08-08 17:51] LABS: Glucose Point of Care 124 mg/dl (65-105)
[2023-08-08 23:56] LABS: Glucose Point of Care 112 mg/dl (65-105)
[2023-08-09] VITALS (24 sets, daily range): BP systolic 116–186; BP diastolic 47–74; PULSE 70–97; RESP 18–33; TEMP 35.9–36.9; O2SAT 95–100
[2023-08-09] MEDS: IPRATROPIUM BR 0.02% INH SOLN 0.5 MG/2.5 ML VIAL INHALATION (02:20)
[2023-08-09] MEDS: ALBUTEROL SULFATE NEB 2.5 MG/3 ML INH INHALATION ×4 (02:20→20:22)
[2023-08-09 06:27] LABS: Basophils Percent Auto 0.3 % (0.2-1.2); Eosinophils Absolute Auto 0.1 K/mm3 (0-0.3); Eosinophils Percent Auto 0.8 % (0-4.4); Hematocrit 26.2 % (37.0-47.0); Hemoglobin 7.3 g/dL (12.0-15.0); Immature Granulocyte Absolute 0.08 K/mm3 (0.00-0.031); Immature Granulocyte Percent A 0.7 % (0-0.5); Immature Platelet Fraction Pct 19.2 % (0.9-11.2); Lymphocytes Absolute Auto 1.14 K/mm3 (0.9-3.2); Lymphocytes Percent Auto 9.6 % (18.3-44.2); Mean Corpuscular HGB Conc 27.9 g/dl (32-36); Mean Corpuscular Hemoglobin 29.9 pg (26-34); Mean Corpuscular Volume 107.4 fl (80-100); Mean Platelet Volume 14.2 fl (7.4-10.4); Monocytes Percent Auto 8.4 % (2.6-8.5); Neutrophils Absolute Auto 9.5 K/mm3 (1.3-6.7); Neutrophils Percent Auto 80.2 % (45.5-73.1); Nucleated Red Blood Cells Perc 0.2 % (0.0-0.2); Platelet Count Result 93 k/mm3 (150-375); Red Blood Count 2.44 M/mm3 (4.2-5.4); Red Cell Distribution Width 14.3 % (11.5-14.5); White Blood Count 11.9 K/mm3 (4.5-10.0)
[2023-08-09 06:39] LABS: Alanine Aminotransferase 11 U/L (6-35); Alkaline Phosphatase 69 U/L (38-126); Anion Gap 7 mmol/L (8-16); Aspartate Amino Transferase 20 U/L (14-36); Bilirubin,Total 0.4 mg/dL (0.2-1.3); Blood Urea Nitrogen 39 mg/dL (7-17); Calcium 8.5 mg/dL (8.4-10.2); Carbon Dioxide 23 mmol/L (22-30); Chloride 111 mmol/L (98-107); Estimated CRCL calculation 11 ml/min; Estimated Glomerular Filt Rate 18; Glucose 101 mg/dL (65-110); Magnesium 2.2 mg/dL (1.6-2.3); Phosphorus 4.9 mg/dL (2.5-4.5); Potassium 4.5 mmol/L (3.4-5.0); Sodium 141 mmol/L (137-145)
[2023-08-09] MEDS: CENTRAL LINE FLUSH 10 ML IV PUSH ×3 (06:39→23:05)
[2023-08-09 06:43] LABS: Vancomycin Trough 9.2 ug/mL (10.0-20.0)
[2023-08-09 07:44] LABS: Glucose Point of Care 104 mg/dl (65-105)
[2023-08-09] MEDS: FLUTICASONE/SALMETEROL 115-21 MCG INHALER 1 PUFF 2 PUFF INHALATION ×2 (08:48→20:22)
[2023-08-09] MEDS: UMECLIDINIUM BROMIDE 62.5 MCG ELLIPTA 1 PUFF INHALATION (08:48)
[2023-08-09] MEDS: PANTOPRAZOLE SODIUM IV 40 MG VIAL IV PUSH (09:03)
[2023-08-09] MEDS: VANCOMYCIN 750 MG/NS 250 ML 750 MG/250 ML BAG 250 MG IVPB (09:03)
[2023-08-09] MEDS: AZITHROMYCIN 500 MG/NS 250 ML 500 MG/250 ML BAG 250 MG IVPB (09:03)
--- NOTE | 2023-08-09 09:16 | WPDINTPN ---
Progress Note: A&P Assessment and Plan (1) Septic shock: Code(s): A41.9 - Sepsis, unspecified organism; R65.21 - Severe sepsis with septic shock Status: Acute Assessment and Plan: 08/08: Patient was transferred from intermediate Unit with hypotension, hypothermia, acute on chronic kidney disease, anemia -patient received IV fluid bolus overnight, with no improvement of blood pressures, - started on Levophed, maintain MAP > 65-70 mmHg at all times -likely source of infection could be urine, blood and/or pneumonia -continue azithromycin, vancomycin and cefepime -08/07/2023 blood cultures have been obtained and pending -08/08/2023 able urine cultures have been obtained and pending -lactic acid level is normal -procalcitonin level is 1.4 -UA: Reflective of UTI (2) Vudfu-vd-ndexmco kidney injury: Code(s): N17.9 - Acute kidney failure, unspecified; N18.9 - Chronic kidney disease, unspecified Status: Acute Assessment and Plan: Patient presented with acute on chronic kidney disease could be related to hypotension, hypovolemia, could be related to contrast induced nephropathy as receive contrast on 07/31/[address] scan -patient has been adequately volume resuscitated, currently in volume overload positive 8700 mL since admission with minimal urine output -nephrology following the patient -urine output has been minimal, creatinine is trending up -08/08: Patient had good urine output in response to diuresis -08/09: Discussed with Nephrology, okay with diuresing again as patient is still 8200 mL in fluid balance since admission 08/04: Renal ultrasound showed cortical findings as to medical renal disease, left ureteral jet not visualized due to his examination, noting there was no left hydronephrosis (3) Pneumonia: Code(s): J18.9 - Pneumonia, unspecified organism Status: Acute Assessment and Plan: Chest x-ray shows airspace opacities in left mid and lower lung zones consistent with pneumonia, -continue treatment as above (4) Paroxysmal atrial fibrillation: Code(s): I48.0 - Paroxysmal atrial fibrillation Status: Acute Assessment and Plan: Patient has a history of proximal AFib, currently in sinus rhythm, rate controlled, will continue to monitor -TSH levels on 08/04/2023 are normal (5) Type 2 diabetes mellitus: Code(s): E11.9 - Type 2 diabetes mellitus without complications Status: Acute Assessment and Plan: Patient has history of diabetes, blood sugars have been stable -continue Accu-Cheks and sliding scale insulin (6) COPD (chronic obstructive pulmonary disease): Code(s): J44.9 - Chronic obstructive pulmonary disease, unspecified Status: Acute Assessment and Plan: Patient has a history of COPD, on 3 L nasal cannula at home -currently on home O2 settings -continue bronchodilators -continue to monitor (7) Protein-calorie malnutrition, moderate: Code(s): E44.0 - Moderate protein-calorie malnutrition Status: Acute Assessment and Plan: Patient has history of protein calorie malnutrition -speech therapy for bedside swallow evaluation -once she starts eating, will give her feeding supplements with diet (8) Left flank pain: Code(s): R10.9 - Unspecified abdominal pain Status: Acute Assessment and Plan: Left flank plain, -could be related to pneumonia versus UTI -CT scans abdomen and pelvis as under 08/04: CT scan of the abdomen and pelvis without contrast: Persistent hyperdensity in the kidneys, at the inner cortex/medulla. Appearance suggests ATN. Renal cortical necrosis would be a potential alternative consideration. Correlate with renal function testing. Bibasilar pulmonary COPD change with atelectasis or scarring. 07/31: CT scan of the abdomen and pelvis with contrast: Improved chronic linear infiltrates of the lower lobes, likely atelectasis/scarring.? Improved fat stranding at the root of
[2023-08-09] MEDS: BUMETANIDE INJ 2.5 MG/10 ML VIAL 2 MG IV PUSH (09:23)
--- NOTE | 2023-08-09 10:06 | WPDINTPN ---
Subjective Date/time seen: 08/09/23 10:06 Interval history: PLEASE CANCEL THIS NOTE Objective Data Vital Signs Vital Signs: Vital Signs - 24 hr 08/08/23 10:32 08/08/23 11:50 08/08/23 12:00 Temperature Pulse Rate 75 Respiratory Rate Blood Pressure 109/42 L 120/85 Pulse Oximetry 100 Oxygen Delivery Nasal Cannula Oxygen Flow Rate 3 08/08/23 12:00 08/08/23 12:00 08/08/23 14:00 Temperature 97.6 F Pulse Rate 75 74 76 Respiratory Rate Blood Pressure 113/46 L Pulse Oximetry 100 Oxygen Delivery Oxygen Flow Rate 08/08/23 14:00 08/08/23 14:11 08/08/23 14:22 Temperature 97.5 F L Pulse Rate 76 76 73 Respiratory Rate 28 H 24 H 22 H Blood Pressure 130/50 L Pulse Oximetry 100 Oxygen Delivery Oxygen Flow Rate 08/08/23 16:00 08/08/23 16:00 08/08/23 16:00 Temperature 97.5 F L Pulse Rate 75 74 Respiratory Rate 25 H Blood Pressure 132/49 L Pulse Oximetry 100 100 Oxygen Delivery Nasal Cannula Oxygen Flow Rate 3 08/08/23 18:00 08/08/23 18:00 08/08/23 14:00 Temperature 98.0 F Pulse Rate 75 75 76 Respiratory Rate 24 H Blood Pressure 122/50 L 130/50 L Pulse Oximetry 100 Oxygen Delivery Oxygen Flow Rate 08/08/23 16:00 08/08/23 18:00 08/08/23 19:49 Temperature Pulse Rate 75 75 77 Respiratory Rate 23 H Blood Pressure 132/49 L 122/50 L Pulse Oximetry Oxygen Delivery Oxygen Flow Rate 08/08/23 19:49 08/08/23 20:09 08/08/23 20:00 Temperature 98.0 F Pulse Rate 77 78 75 Respiratory Rate 23 H 22 H 22 H Blood Pressure 110/49 L Pulse Oximetry 100 100 Oxygen Delivery Nasal Cannula Oxygen Flow Rate 3 08/08/23 20:00 08/08/23 20:00 08/08/23 20:00 Temperature Pulse Rate 75 72 Respiratory Rate Blood Pressure 110/49 L Pulse Oximetry 100 Oxygen Delivery Nasal Cannula Oxygen Flow Rate 3 08/08/23 22:00 08/08/23 22:00 08/08/23 23:29 Temperature 97.8 F Pulse Rate 75 77 Respiratory Rate 22 H Blood Pressure 116/53 L Pulse Oximetry 100 100 Oxygen Delivery Nasal Cannula Oxygen Flow Rate 3 08/09/23 00:00 08/09/23 00:00 08/09/23 01:30 Temperature 97.9 F Pulse Rate 76 77 79 Respiratory Rate 26 H Blood Pressure 143/59 H 143/54 H Pulse Oximetry 99 Oxygen Delivery Oxygen Flow Rate 08/09/23 01:53 08/09/23 02:00 08/09/23 02:48 Temperature 98.0 F Pulse Rate 74 72 79 Respiratory Rate 22 H Blood Pressure 126/50 L 136/52 L Pulse Oximetry 100 Oxygen Delivery Oxygen Flow Rate 08/09/23 02:22 08/09/23 02:28 08/09/23 04:00 Temperature Pulse Rate 76 78 70 Respiratory Rate 18 20 Blood Pressure Pulse Oximetry Oxygen Delivery Oxygen Flow Rate 08/09/23 04:00 08/09/23 04:00 08/09/23 06:00 Temperature 98.0 F Pulse Rate 73 74 Respiratory Rate 20 Blood Pressure 135/51 L Pulse Oximetry 100 100 Oxygen Delivery Nasal Cannula Oxygen Flow Rate 3 08/09/23 06:00 08/09/23 08:48 08/09/23 08:48 Temperature 98.1 F Pulse Rate 74 74 74 Respiratory Rate 23 H 30 H Blood Pressure 116/47 L Pulse Oximetry 100 100 Oxygen Delivery Nasal Cannula Oxygen Flow Rate 3 08/09/23 08:58 08/09/23 08:00 08/09/23 08:00 Temperature 98.1 F Pulse Rate 74 74 74 Respiratory Rate 25 H 29 H Blood Pressure 134/51 L 134/51 L Pulse Oximetry 100 Oxygen Delivery Oxygen Flow Rate Intake/Output Intake/Output: Intake & Output 08/06/23 08/07/23 08/08/23 08/09/23 23:59 23:59 23:59 23:59 Intake Total 1440 2420 858 50 Output Total 100 350 270 950 Balance 1340 2070 588 -900 Meds/Results Medications: Active Medications Generic Name Dose Route Start Last Admin Trade Name Freq PRN Reason Stop Dose Admin Acetaminophen 650 mg 08/04/23 08:39 08/08/23 11:17 Acetaminophen 325 Mg Tablet PO 650 mg Q4H PRN Administration Mild Pain (1-3) or Fever Hydrocodone Bitart/Acetaminophen 1 tab 08/04/23 08:39
--- NOTE | 2023-08-09 10:09 | PM.IMPN ---
Progress Note: A&P Assessment and Plan (1) Septic shock: Code(s): A41.9 - Sepsis, unspecified organism; R65.21 - Severe sepsis with septic shock Status: Acute Assessment and Plan: 08/08: Patient was transferred from intermediate Unit with hypotension, hypothermia, acute on chronic kidney disease, anemia -patient received IV fluid bolus overnight, with no improvement of blood pressures, - started on Levophed, maintain MAP > 65-70 mmHg at all times -likely source of infection could be urine, blood and/or pneumonia -continue azithromycin, vancomycin and cefepime -08/07/2023 blood cultures have been obtained and pending -08/08/2023 able urine cultures have been obtained and pending -lactic acid level is normal -procalcitonin level is 1.4 -UA: Reflective of UTI (2) [id number] kidney injury: Code(s): N17.9 - Acute kidney failure, unspecified; N18.9 - Chronic kidney disease, unspecified Status: Acute Assessment and Plan: Patient presented with acute on chronic kidney disease could be related to hypotension, hypovolemia, could be related to contrast induced nephropathy as receive contrast on 07/31/[address] scan -patient has been adequately volume resuscitated, currently in volume overload positive 8700 mL since admission with minimal urine output -nephrology following the patient Consult drying machine back tender, diuresing again (3) Pneumonia: Code(s): J18.9 - Pneumonia, unspecified organism Status: Acute Assessment and Plan: Chest x-ray shows airspace opacities in left mid and lower lung zones consistent with pneumonia, -continue treatment as above (4) Paroxysmal atrial fibrillation: Code(s): I48.0 - Paroxysmal atrial fibrillation Status: Acute Assessment and Plan: Patient has a history of proximal AFib, currently in sinus rhythm, rate controlled, will continue to monitor -TSH levels on 08/04/2023 are normal (5) Type 2 diabetes mellitus: Code(s): E11.9 - Type 2 diabetes mellitus without complications Status: Acute Assessment and Plan: Patient has history of diabetes, blood sugars have been stable -continue Accu-Cheks and sliding scale insulin (6) COPD (chronic obstructive pulmonary disease): Code(s): J44.9 - Chronic obstructive pulmonary disease, unspecified Status: Acute Assessment and Plan: Patient has a history of COPD, on 3 L nasal cannula at home -currently on home O2 settings -continue bronchodilators -continue to monitor (7) Protein-calorie malnutrition, moderate: Code(s): E44.0 - Moderate protein-calorie malnutrition Status: Acute Assessment and Plan: Patient has history of protein calorie malnutrition -speech therapy for bedside swallow evaluation -once she starts eating, will give her feeding supplements with diet (8) Left flank pain: Code(s): R10.9 - Unspecified abdominal pain Status: Acute Assessment and Plan: Left flank plain, -could be related to pneumonia versus UTI 07/31: CT scan of the abdomen and pelvis with contrast: Improved fat stranding at the root of the small bowel mesentery, 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 No abdomen pain (9) Anemia: Code(s): D64.9 - Anemia, unspecified Status: Acute Assessment and Plan: Patient with anemia, hemoglobin 7.3 this morning. (patient has had anemia in the recent past). Iron panel reflective of anemia chronic disease. Folic acid and vitamin B12 are normal -continue to monitor, will transfuse if hemoglobin <7.0 Plan DVT prophylaxis: SCDs, no chemoprophylaxis secondary to thrombosis Stress ulcer prophylaxis: Protonix IV Nutrition: NPO, speech therapy for bedside swallow evaluation Code Status: DNR/DNI Subjective Date/time seen: 08/09/23 10:09 Interval history: I saw and examined patient in ICU, patient daughter at bedside. Patient is not feeling good, feeling tired patient is afebr
[2023-08-09] MEDS: CEFEPIME 1 GM/NS 50 ML 1 GM/50 ML BAG IVPB ×2 (11:56→23:01)
--- NOTE | 2023-08-09 12:23 | P.PNNP_ITS ---
Progress Note: A&P Assessment and Plan (1) TUCKER (acute kidney injury): Code(s): N17.9 - Acute kidney failure, unspecified Status: Acute Assessment and Plan: * was improvingbut has declined again * she does report poor oral intake/hydration for a while prior to admission * HOWEVER, admission CT scan with findings suggestive of acute tubular necrosis... * noted contrast exposure with CT with contrast on 07/31/23 (ER visit) * evaluation to date noted: * admission CT scan as noted * urine eosinophils negative * CPK normal * urine electrolytes non-prerenal * renal ultrasound c/w CKD * suspect elementa of ATN due to hypotension/shock along with sepsis * follow trend of repeat labs and UOP (2) Stage 3b chronic kidney disease: Code(s): N18.32 - Chronic kidney disease, stage 3b Status: Chronic Assessment and Plan: * baseline creatinine runs ~ 1.4 - 1.9mg/dl. * appears to have had some slow progression over the last couple of years * presumably due to HTN, DM, and vascular disease (3) Septic shock: Code(s): A41.9 - Sepsis, unspecified organism; R65.21 - Severe sepsis with septic shock Status: Acute Assessment and Plan: * transferred from IMU with hypotension and hypotehrmia * no imporvement in blood presssure with IVF boluses * started on vasopressor therapy * follow culture data * on antibiotics * follow trend of hemodynamics (4) Hyperkalemia: Code(s): E87.5 - Hyperkalemia Status: Acute Assessment and Plan: * due to TUCKER/ARF * medial management as needed (lokelut) * follow trend of k+ (5) Pneumonia: Code(s): J18.9 - Pneumonia, unspecified organism Status: Acute Assessment and Plan: * as suggested by reent CXR * follow culture data * on antibiotics (6) Anemia: Code(s): D64.9 - Anemia, unspecified Status: Chronic Assessment and Plan: * chronic issues * partly related to CKD * follow trend of H/H (7) Left flank pain: Code(s): R10.9 - Unspecified abdominal pain Status: Acute Assessment and Plan: * better in comparison to admission * admission CT scan shows improvement in what appeared to be mesenteric panniculitis * continue supportive therapy (8) Protein-calorie malnutrition, moderate: Code(s): E44.0 - Moderate protein-calorie malnutrition Status: Acute Assessment and Plan: * poor nutritional intake * patient refusing to eat meals provided * liberalizing diet but states no appetite (9) Chronic obstructive pulmonary disease: Code(s): J44.9 - Chronic obstructive pulmonary disease, unspecified Status: Chronic Assessment and Plan: * appears compensated * continue home oxygen and inhalers Case discussed with Dr. Barraza; patient and family maybe moving towards comfort care; patient already DNR/DNI. Will continue to follow. Subjective Date/time seen: 08/09/23 12:23 Interval history: Follow-up for acute kidney injury/acute renal failure on chronic kidney disease. Mentation seems to be doing better at the time of my visit -- more talkative/conversive than when I saw her yesterday; she reports that she feels better as well; weaned off levophed at the time of my visit with relative stability in hemodynamics; reasonable response to IV diuretics yesterday with relative stability in renal function/creatinine; respiratory status stable at this time as well; no apparent distress note
--- NOTE | 2023-08-09 12:23 | PM.PNNEP ---
Progress Note: A&P Assessment and Plan (1) TUCKER (acute kidney injury): Code(s): N17.9 - Acute kidney failure, unspecified Status: Acute Assessment and Plan: was improvingbut has declined again she does report poor oral intake/hydration for a while prior to admission HOWEVER, admission CT scan with findings suggestive of acute tubular necrosis... noted contrast exposure with CT with contrast on 07/31/23 (ER visit) evaluation to date noted: admission CT scan as noted urine eosinophils negative CPK normal urine electrolytes non-prerenal renal ultrasound c/w CKD suspect elementa of ATN due to hypotension/shock along with sepsis follow trend of repeat labs and UOP (2) Stage 3b chronic kidney disease: Code(s): N18.32 - Chronic kidney disease, stage 3b Status: Chronic Assessment and Plan: baseline creatinine runs ~ 1.4 - 1.9mg/dl. appears to have had some slow progression over the last couple of years presumably due to HTN, DM, and vascular disease (3) Septic shock: Code(s): A41.9 - Sepsis, unspecified organism; R65.21 - Severe sepsis with septic shock Status: Acute Assessment and Plan: transferred from IMU with hypotension and hypotehrmia no imporvement in blood presssure with IVF boluses started on vasopressor therapy follow culture data on antibiotics follow trend of hemodynamics (4) Hyperkalemia: Code(s): E87.5 - Hyperkalemia Status: Acute Assessment and Plan: due to TUCKER/ARF medial management as needed (lokelma) follow trend of k+ (5) Pneumonia: Code(s): J18.9 - Pneumonia, unspecified organism Status: Acute Assessment and Plan: as suggested by reent CXR follow culture data on antibiotics (6) Anemia: Code(s): D64.9 - Anemia, unspecified Status: Chronic Assessment and Plan: chronic issues partly related to CKD follow trend of H/H (7) Left flank pain: Code(s): R10.9 - Unspecified abdominal pain Status: Acute Assessment and Plan: better in comparison to admission admission CT scan shows improvement in what appeared to be mesenteric panniculitis continue supportive therapy (8) Protein-calorie malnutrition, moderate: Code(s): E44.0 - Moderate protein-calorie malnutrition Status: Acute Assessment and Plan: poor nutritional intake patient refusing to eat meals provided liberalizing diet but states no appetite (9) Chronic obstructive pulmonary disease: Code(s): J44.9 - Chronic obstructive pulmonary disease, unspecified Status: Chronic Assessment and Plan: appears compensated continue home oxygen and inhalers Case discussed with Dr. Barraza; patient and family maybe moving towards comfort care; patient already DNR/DNI. Will continue to follow. Subjective Date/time seen: 08/09/23 12:23 Interval history: Follow-up for acute kidney injury/acute renal failure on chronic kidney disease. Mentation seems to be doing better at the time of my visit -- more talkative/conversive than when I saw her yesterday; she reports that she feels better as well; weaned off levophed at the time of my visit with relative stability in hemodynamics; reasonable response to IV diuretics yesterday with relative stability in renal function/creatinine; respiratory status stable at this time as well; no apparent distress noted. Exam Narrative: General: elderly female in NAD Heart: normal S1 and S2; no rub Lungs: coarse breath sounds Abdomen: soft, nontender, nondistended, positive bowel sounds Extremities: no cyanosis or clubbing; no edema Skin: warm and inake Objective Data Vital Signs Vital Signs: Vital Signs Temp Pulse Resp BP Pulse Ox O2 Del Method O2 Flow Rate 08/09/23 12:00 98.2 F 83 32 H 144/74 H 98 08/09/23 12:00 97 Nasal Cannula 2 08/09/23 08:00
[2023-08-09 12:29] LABS: Glucose Point of Care 110 mg/dl (65-105)
[2023-08-09 15:42] LABS: Erythrocyte Sedimentation Rate 65 mm/hr (0-20)
[2023-08-09] MEDS: hydrALAZINE HCL 20 MG/ML VIAL 10 MG IV PUSH ×2 (16:48→23:10)
[2023-08-09] MEDS: BUMETANIDE INJ 1 MG/4 ML VIAL IV PUSH (16:48)
[2023-08-09] MEDS: ACETAMINOPHEN 325 MG TABLET 650 MG PO ×2 (16:49→22:53)
[2023-08-09] MEDS: ALPRAZolam (*CRX) 0.125 MG TABLET PO (17:07)
[2023-08-09 18:40] LABS: Glucose Point of Care 118 mg/dl (65-105)
[2023-08-09 23:06] LABS: Glucose Point of Care 123 mg/dl (65-105)
[2023-08-10] VITALS (25 sets, daily range): BP systolic 144–177; BP diastolic 54–77; PULSE 72–86; RESP 19–36; TEMP 35.7–36.9; O2SAT 96–100
[2023-08-10] MEDS: ALPRAZolam (*CRX) 0.125 MG TABLET PO (00:25)
[2023-08-10] MEDS: ALBUTEROL SULFATE NEB 2.5 MG/3 ML INH INHALATION ×4 (02:32→20:00)
[2023-08-10] MEDS: CENTRAL LINE FLUSH 10 ML IV PUSH ×3 (06:14→22:03)
[2023-08-10 06:41] LABS: Estimated CRCL calculation 13 ml/min; Estimated Glomerular Filt Rate 22
[2023-08-10 06:47] LABS: Vancomycin Trough 15.2 ug/mL (10.0-20.0)
--- NOTE | 2023-08-10 08:35 | PM.IMPN ---
Progress Note: A&P Assessment and Plan (1) Septic shock: Code(s): A41.9 - Sepsis, unspecified organism; R65.21 - Severe sepsis with septic shock Status: Acute Assessment and Plan: 08/08: Patient was transferred from intermediate Unit with hypotension, hypothermia, acute on chronic kidney disease, anemia -patient received IV fluid bolus overnight, with no improvement of blood pressures, - started on Levophed, maintain MAP > 65-70 mmHg at all times -likely source of infection could be urine, blood and/or pneumonia -continue azithromycin, vancomycin and cefepime -08/07/2023 blood cultures have been obtained and pending -08/08/2023 able urine cultures have been obtained and pending -lactic acid level is normal -procalcitonin level is 1.4 08/10 urine culture and blood culture negative so far (2) Dzoyd-ec-[id number] kidney injury: Code(s): N17.9 - Acute kidney failure, unspecified; N18.9 - Chronic kidney disease, unspecified Status: Acute Assessment and Plan: Patient presented with acute on chronic kidney disease could be related to hypotension, hypovolemia, could be related to contrast induced nephropathy as receive contrast on 07/31/[address] scan -patient has been adequately volume resuscitated, currently in volume overload positive 8700 mL since admission with minimal urine output -nephrology following the patient Consult user experience architect, didonnaing again (3) Pneumonia: Code(s): J18.9 - Pneumonia, unspecified organism Status: Acute Assessment and Plan: Chest x-ray shows airspace opacities in left mid and lower lung zones consistent with pneumonia, -continue treatment as above (4) Paroxysmal atrial fibrillation: Code(s): I48.0 - Paroxysmal atrial fibrillation Status: Acute Assessment and Plan: Patient has a history of proximal AFib, currently in sinus rhythm, rate controlled, will continue to monitor -TSH levels on 08/04/2023 are normal (5) Type 2 diabetes mellitus: Code(s): E11.9 - Type 2 diabetes mellitus without complications Status: Acute Assessment and Plan: Patient has history of diabetes, blood sugars have been stable -continue Accu-Cheks and sliding scale insulin (6) COPD (chronic obstructive pulmonary disease): Code(s): J44.9 - Chronic obstructive pulmonary disease, unspecified Status: Acute Assessment and Plan: Patient has a history of COPD, on 3 L nasal cannula at home -currently on home O2 settings -continue bronchodilators -continue to monitor (7) Protein-calorie malnutrition, moderate: Code(s): E44.0 - Moderate protein-calorie malnutrition Status: Acute Assessment and Plan: Patient has history of protein calorie malnutrition -speech therapy for bedside swallow evaluation -once she starts eating, will give her feeding supplements with diet (8) Left flank pain: Code(s): R10.9 - Unspecified abdominal pain Status: Acute Assessment and Plan: Left flank plain, -could be related to pneumonia versus UTI 07/31: CT scan of the abdomen and pelvis with contrast: Improved fat stranding at the root of the small bowel mesentery, 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 No abdomen pain (9) Anemia: Code(s): D64.9 - Anemia, unspecified Status: Acute Assessment and Plan: Patient with anemia, hemoglobin 7.3 this morning. (patient has had anemia in the recent past). Iron panel reflective of anemia chronic disease. Folic acid and vitamin B12 are normal -continue to monitor, will transfuse if hemoglobin <7.0 Plan DVT prophylaxis: SCDs, no chemoprophylaxis secondary to thrombosis Stress ulcer prophylaxis: Protonix IV Nutrition: NPO, speech therapy for bedside swallow evaluation Code Status: DNR/DNI I had long discussion with the patient's son above patient condition, he understand his mom's condition, he would like to take her mom back to home for hospice car
[2023-08-10] MEDS: VANCOMYCIN 750 MG/NS 250 ML 750 MG/250 ML BAG 250 MG IVPB (08:50)
[2023-08-10] MEDS: PANTOPRAZOLE SODIUM IV 40 MG VIAL IV PUSH (08:50)
[2023-08-10] MEDS: AZITHROMYCIN 500 MG/NS 250 ML 500 MG/250 ML BAG 250 MG IVPB (08:50)
[2023-08-10 09:07] LABS: Basophils Percent Auto 0.4 % (0.2-1.2); Eosinophils Absolute Auto 0.2 K/mm3 (0-0.3); Eosinophils Percent Auto 2.3 % (0-4.4); Hematocrit 24.3 % (37.0-47.0); Hemoglobin 7.1 g/dL (12.0-15.0); Immature Granulocyte Absolute 0.04 K/mm3 (0.00-0.031); Immature Granulocyte Percent A 0.4 % (0-0.5); Immature Platelet Fraction Pct 15.4 % (0.9-11.2); Lymphocytes Absolute Auto 1.16 K/mm3 (0.9-3.2); Lymphocytes Percent Auto 12.1 % (18.3-44.2); Mean Corpuscular HGB Conc 29.2 g/dl (32-36); Mean Corpuscular Hemoglobin 30.1 pg (26-34); Mean Platelet Volume 13.3 fl (7.4-10.4); Monocytes Absolute Auto 0.9 K/mm3 (0.1-0.6); Monocytes Percent Auto 9.7 % (2.6-8.5); Neutrophils Absolute Auto 7.2 K/mm3 (1.3-6.7); Neutrophils Percent Auto 75.1 % (45.5-73.1); Platelet Count Result 111 k/mm3 (150-375); Red Blood Count 2.36 M/mm3 (4.2-5.4); Red Cell Distribution Width 14.6 % (11.5-14.5); White Blood Count 9.6 K/mm3 (4.5-10.0)
[2023-08-10 09:22] LABS: Anion Gap 8 mmol/L (8-16); Blood Urea Nitrogen 41 mg/dL (7-17); Calcium 8.9 mg/dL (8.4-10.2); Carbon Dioxide 29 mmol/L (22-30); Chloride 106 mmol/L (98-107); Estimated CRCL calculation 13 ml/min; Estimated Glomerular Filt Rate 22; Glucose 90 mg/dL (65-110); Potassium 3.5 mmol/L (3.4-5.0); Sodium 143 mmol/L (137-145)
[2023-08-10] MEDS: FLUTICASONE/SALMETEROL 115-21 MCG INHALER 1 PUFF 2 PUFF INHALATION ×2 (09:26→20:01)
[2023-08-10] MEDS: UMECLIDINIUM BROMIDE 62.5 MCG ELLIPTA 1 PUFF INHALATION (09:26)
[2023-08-10 10:01] LABS: Hypochromasia 1+ (NORMAL); Macrocytosis 1+ (NORMAL); Platelet Estimate Adequate (Adequate); Schistocytes None Seen (NORMAL)
[2023-08-10 10:17] LABS: Procalcitonin 1.1 ng/mL
[2023-08-10] MEDS: CEFEPIME 1 GM/NS 50 ML 1 GM/50 ML BAG IVPB (12:18)
--- NOTE | 2023-08-10 12:21 | P.PNNP_ITS ---
Progress Note: A&P Assessment and Plan (1) TUCKER (acute kidney injury): Code(s): N17.9 - Acute kidney failure, unspecified Status: Acute Assessment and Plan: * was improvingbut has declined again * she does report poor oral intake/hydration for a while prior to admission * HOWEVER, admission CT scan with findings suggestive of acute tubular necrosis... * noted contrast exposure with CT with contrast on 07/31/23 (ER visit) * evaluation to date noted: * admission CT scan as noted * urine eosinophils negative * CPK normal * urine electrolytes non-prerenal * renal ultrasound c/w CKD * suspect elementa of ATN due to hypotension/shock along with sepsis * follow trend of repeat labs and UOP (2) Stage 3b chronic kidney disease: Code(s): N18.32 - Chronic kidney disease, stage 3b Status: Chronic Assessment and Plan: * baseline creatinine runs ~ 1.4 - 1.9mg/dl. * appears to have had some slow progression over the last couple of years * presumably due to HTN, DM, and vascular disease (3) Septic shock: Code(s): A41.9 - Sepsis, unspecified organism; R65.21 - Severe sepsis with septic shock Status: Acute Assessment and Plan: * transferred from IMU with hypotension and hypotehrmia * no imporvement in blood presssure with IVF boluses * started on vasopressor therapy * follow culture data * on antibiotics * follow trend of hemodynamics (4) Hyperkalemia: Code(s): E87.5 - Hyperkalemia Status: Acute Assessment and Plan: * due to TUCKER/ARF * medial management as needed (lokelwa) * follow trend of k+ (5) Pneumonia: Code(s): J18.9 - Pneumonia, unspecified organism Status: Acute Assessment and Plan: * as suggested by reent CXR * follow culture data * on antibiotics (6) Anemia: Code(s): D64.9 - Anemia, unspecified Status: Chronic Assessment and Plan: * chronic issues * partly related to CKD * follow trend of H/H (7) Left flank pain: Code(s): R10.9 - Unspecified abdominal pain Status: Acute Assessment and Plan: * better in comparison to admission * admission CT scan shows improvement in what appeared to be mesenteric panniculitis * continue supportive therapy (8) Protein-calorie malnutrition, moderate: Code(s): E44.0 - Moderate protein-calorie malnutrition Status: Acute Assessment and Plan: * poor nutritional intake * patient refusing to eat meals provided * liberalizing diet but states no appetite (9) Chronic obstructive pulmonary disease: Code(s): J44.9 - Chronic obstructive pulmonary disease, unspecified Status: Chronic Assessment and Plan: * appears compensated * continue home oxygen and inhalers As patient and family has decided on hospice on discharge, will sign off. Subjective Date/time seen: 08/10/23 12:21 Interval history: Follow-up for acute kidney injury/acute renal failure on chronic kidney disease. Stable hemodynamics noted without the need for vasopressor therapy; continues to have good urine output; informed by nursing the patient plans to transition to comfort care measures/hospice on discharge; no apparent distress noted. Exam Narrative: General: elderly female in NAD Heart: normal S1 and S2; no rub Lungs: coarse breath sounds Abdomen: soft, nontender, nondistended, positive bowel sounds Extremities: no cyanosis or clu
--- NOTE | 2023-08-10 12:21 | PM.PNNEP ---
Progress Note: A&P Assessment and Plan (1) TUCKER (acute kidney injury): Code(s): N17.9 - Acute kidney failure, unspecified Status: Acute Assessment and Plan: was improvingbut has declined again she does report poor oral intake/hydration for a while prior to admission HOWEVER, admission CT scan with findings suggestive of acute tubular necrosis... noted contrast exposure with CT with contrast on 07/31/23 (ER visit) evaluation to date noted: admission CT scan as noted urine eosinophils negative CPK normal urine electrolytes non-prerenal renal ultrasound c/w CKD suspect elementa of ATN due to hypotension/shock along with sepsis follow trend of repeat labs and UOP (2) Stage 3b chronic kidney disease: Code(s): N18.32 - Chronic kidney disease, stage 3b Status: Chronic Assessment and Plan: baseline creatinine runs ~ 1.4 - 1.9mg/dl. appears to have had some slow progression over the last couple of years presumably due to HTN, DM, and vascular disease (3) Septic shock: Code(s): A41.9 - Sepsis, unspecified organism; R65.21 - Severe sepsis with septic shock Status: Acute Assessment and Plan: transferred from IMU with hypotension and hypotehrmia no imporvement in blood presssure with IVF boluses started on vasopressor therapy follow culture data on antibiotics follow trend of hemodynamics (4) Hyperkalemia: Code(s): E87.5 - Hyperkalemia Status: Acute Assessment and Plan: due to TUCKER/ARF medial management as needed (lokelma) follow trend of k+ (5) Pneumonia: Code(s): J18.9 - Pneumonia, unspecified organism Status: Acute Assessment and Plan: as suggested by reent CXR follow culture data on antibiotics (6) Anemia: Code(s): D64.9 - Anemia, unspecified Status: Chronic Assessment and Plan: chronic issues partly related to CKD follow trend of H/H (7) Left flank pain: Code(s): R10.9 - Unspecified abdominal pain Status: Acute Assessment and Plan: better in comparison to admission admission CT scan shows improvement in what appeared to be mesenteric panniculitis continue supportive therapy (8) Protein-calorie malnutrition, moderate: Code(s): E44.0 - Moderate protein-calorie malnutrition Status: Acute Assessment and Plan: poor nutritional intake patient refusing to eat meals provided liberalizing diet but states no appetite (9) Chronic obstructive pulmonary disease: Code(s): J44.9 - Chronic obstructive pulmonary disease, unspecified Status: Chronic Assessment and Plan: appears compensated continue home oxygen and inhalers As patient and family has decided on hospice on discharge, will sign off. Subjective Date/time seen: 08/10/23 12:21 Interval history: Follow-up for acute kidney injury/acute renal failure on chronic kidney disease. Stable hemodynamics noted without the need for vasopressor therapy; continues to have good urine output; informed by nursing the patient plans to transition to comfort care measures/hospice on discharge; no apparent distress noted. Exam Narrative: General: elderly female in NAD Heart: normal S1 and S2; no rub Lungs: coarse breath sounds Abdomen: soft, nontender, nondistended, positive bowel sounds Extremities: no cyanosis or clubbing; no edema Skin: no rash or nodules Objective Data Vital Signs Vital Signs: Vital Signs Temp Pulse Resp BP Pulse Ox O2 Del Method O2 Flow Rate 08/10/23 12:00 97.5 F L 77 36 H 145/54 H 98 08/10/23 10:00 73 08/10/23 08:00 74 08/10/23 08:00 96 Nasal Cannula 2 08/10/23 09:37 74 34 H 08/10/23 09:28 76 33 H 96 Nasal Cannula 2 08/10/23 09:27 76 33 H 08/10/23 08:00 97.9 F 75 21 H 146/57 H 100 08/10/23 06:00 72 08/10/23 04:00 96.4 F
[2023-08-10 12:29] LABS: Glucose Point of Care 98 mg/dl (65-105)
[2023-08-10] MEDS: hydrALAZINE HCL 20 MG/ML VIAL 10 MG IV PUSH (18:21)
[2023-08-10 18:43] LABS: Glucose Point of Care 115 mg/dl (65-105)
--- NOTE | 2023-08-10 19:29 | PC.NURSE ---
This patient, Conchita Espinoza, was received from ICU-6 on 08/10/23 at 1845. Patient/family oriented to unit policies and routines
[2023-08-11] VITALS (17 sets, daily range): BP systolic 151–165; BP diastolic 60–79; PULSE 64–96; RESP 22–26; TEMP 36.5–37.3; O2SAT 98–100
[2023-08-11 00:01] LABS: Glucose Point of Care 108 mg/dl (65-105)
[2023-08-11] MEDS: CEFEPIME 1 GM/NS 50 ML 1 GM/50 ML BAG IVPB ×2 (00:26→11:14)
[2023-08-11] MEDS: ALBUTEROL SULFATE NEB 2.5 MG/3 ML INH INHALATION ×4 (02:31→21:30)
[2023-08-11 05:49] LABS: Glucose Point of Care 103 mg/dl (65-105)
[2023-08-11] MEDS: MORPHINE SULFATE (*CRX) 2 MG/ML INJ 1 MG IV PUSH (06:48)
[2023-08-11 06:49] LABS: Basophils Percent Auto 0.3 % (0.2-1.2); Eosinophils Absolute Auto 0.3 K/mm3 (0-0.3); Eosinophils Percent Auto 2.6 % (0-4.4); Hemoglobin 7.3 g/dL (12.0-15.0); Immature Granulocyte Absolute 0.06 K/mm3 (0.00-0.031); Immature Granulocyte Percent A 0.5 % (0-0.5); Lymphocytes Absolute Auto 1.32 K/mm3 (0.9-3.2); Lymphocytes Percent Auto 11.4 % (18.3-44.2); Mean Corpuscular HGB Conc 29.2 g/dl (32-36); Mean Corpuscular Hemoglobin 29.6 pg (26-34); Mean Corpuscular Volume 101.2 fl (80-100); Mean Platelet Volume 12.5 fl (7.4-10.4); Neutrophils Absolute Auto 8.8 K/mm3 (1.3-6.7); Neutrophils Percent Auto 76.2 % (45.5-73.1); Platelet Count Result 130 k/mm3 (150-375); Red Blood Count 2.47 M/mm3 (4.2-5.4); Red Cell Distribution Width 14.5 % (11.5-14.5); White Blood Count 11.6 K/mm3 (4.5-10.0)
[2023-08-11] MEDS: CENTRAL LINE FLUSH 10 ML IV PUSH ×3 (06:49→20:26)
[2023-08-11 07:03] LABS: Anion Gap 6 mmol/L (8-16); Blood Urea Nitrogen 35 mg/dL (7-17); Calcium 8.8 mg/dL (8.4-10.2); Carbon Dioxide 33 mmol/L (22-30); Chloride 103 mmol/L (98-107); Estimated CRCL calculation 16 ml/min; Estimated Glomerular Filt Rate 28; Glucose 108 mg/dL (65-110); Potassium 3.4 mmol/L (3.4-5.0); Sodium 142 mmol/L (137-145)
[2023-08-11 07:21] LABS: Vancomycin Trough 19.8 ug/mL (10.0-20.0)
[2023-08-11 07:35] LABS: Procalcitonin 0.7 ng/mL
[2023-08-11] MEDS: FLUTICASONE/SALMETEROL 115-21 MCG INHALER 1 PUFF 2 PUFF INHALATION ×2 (07:37→21:30)
--- NOTE | 2023-08-11 07:44 | PM.IMPN ---
Progress Note: A&P Assessment and Plan (1) Septic shock: Code(s): A41.9 - Sepsis, unspecified organism; R65.21 - Severe sepsis with septic shock Status: Acute Assessment and Plan: 08/08: Patient was transferred from intermediate Unit with hypotension, hypothermia, acute on chronic kidney disease, anemia -patient received IV fluid bolus overnight, with no improvement of blood pressures, - started on Levophed, maintain MAP > 65-70 mmHg at all times -likely source of infection could be urine, blood and/or pneumonia -continue azithromycin, vancomycin and cefepime -08/07/2023 blood cultures have been obtained and pending -08/08/2023 able urine cultures have been obtained and pending -lactic acid level is normal -procalcitonin level is 1.4 08/10 urine culture and blood culture negative so far 08/10, patient is afebrile, blood pressure stable (2) Ovqxa-xm-zcfdwfq kidney injury: Code(s): N17.9 - Acute kidney failure, unspecified; N18.9 - Chronic kidney disease, unspecified Status: Acute Assessment and Plan: Patient presented with acute on chronic kidney disease could be related to hypotension, hypovolemia, could be related to contrast induced nephropathy as receive contrast on 07/31/[address] scan -patient has been adequately volume resuscitated, currently in volume overload positive 8700 mL since admission with minimal urine output -nephrology following the patient Consult furnace attendant, diuresing again Kidney function stable (3) Pneumonia: Code(s): J18.9 - Pneumonia, unspecified organism Status: Acute Assessment and Plan: Chest x-ray shows airspace opacities in left mid and lower lung zones consistent with pneumonia, -continue treatment as above (4) Paroxysmal atrial fibrillation: Code(s): I48.0 - Paroxysmal atrial fibrillation Status: Acute Assessment and Plan: Patient has a history of proximal AFib, currently in sinus rhythm, rate controlled, will continue to monitor -TSH levels on 08/04/2023 are normal (5) Type 2 diabetes mellitus: Code(s): E11.9 - Type 2 diabetes mellitus without complications Status: Acute Assessment and Plan: Patient has history of diabetes, blood sugars have been stable -continue Accu-Cheks and sliding scale insulin (6) COPD (chronic obstructive pulmonary disease): Code(s): J44.9 - Chronic obstructive pulmonary disease, unspecified Status: Acute Assessment and Plan: Patient has a history of COPD, on 3 L nasal cannula at home -currently on home O2 settings -continue bronchodilators -continue to monitor (7) Protein-calorie malnutrition, moderate: Code(s): E44.0 - Moderate protein-calorie malnutrition Status: Acute Assessment and Plan: Patient has history of protein calorie malnutrition -speech therapy for bedside swallow evaluation -once she starts eating, will give her feeding supplements with diet (8) Left flank pain: Code(s): R10.9 - Unspecified abdominal pain Status: Acute Assessment and Plan: Left flank plain, -could be related to pneumonia versus UTI 07/31: CT scan of the abdomen and pelvis with contrast: Improved fat stranding at the root of the small bowel mesentery, 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 No abdomen pain (9) Anemia: Code(s): D64.9 - Anemia, unspecified Status: Acute Assessment and Plan: Patient with anemia, hemoglobin 7.3 this morning. (patient has had anemia in the recent past). Iron panel reflective of anemia chronic disease. Folic acid and vitamin B12 are normal -continue to monitor, will transfuse if hemoglobin <7.0 Plan DVT prophylaxis: SCDs, no chemoprophylaxis secondary to thrombosis Stress ulcer prophylaxis: Protonix IV Nutrition: NPO, speech therapy for bedside swallow evaluation Code Status: DNR/DNI Plan to discharge to patient to home hospice care tomorrow Subjective Date/time
[2023-08-11] MEDS: PANTOPRAZOLE SODIUM IV 40 MG VIAL IV PUSH (08:18)
[2023-08-11 08:34] LABS: Anisocytosis 1+ (NORMAL); Hypochromasia 1+ (NORMAL); Platelet Estimate Decreased (Adequate); Schistocytes None Seen (NORMAL)
[2023-08-11] MEDS: UMECLIDINIUM BROMIDE 62.5 MCG ELLIPTA 1 PUFF INHALATION (09:38)
--- NOTE | 2023-08-11 11:26 | PCNFU ---
Nutrition Follow-Up Complete: Increased Energy Expenditure as related to COPD as evidenced by decreased po intake reported. Goal: Adequate Intake of at least 75% of meals/supplements - Not meeting goal PO. No additional interventions as patient will be going home on hospice Pt current nutrition is Puree diet. Intakes 0-50%. Nutrition recommendation: Continue with current nutrition care plan, no additional interventions due to hospice pending status Last recorded weight is 57.1 kg. Bowel Motility: Not recorded Labs Reviewed: Hgb 7.3, Hct 2.5, BUN 35, Cre 2.1 Meds Noted: Remeron Skin: WNL Additional Notes: Pt and family electing for patient to go home on hospice. Awaiting hospice arrangements. Will monitor weight, labs, skin, meds, oral intake every 3 days.
[2023-08-11 12:22] LABS: Glucose Point of Care 157 mg/dl (65-105)
[2023-08-11 12:28] LABS: Pneumococcal Antigen Urine Not Detected (Not Detected)
--- NOTE | 2023-08-11 12:36 | PM.DS ---
DS: Summary Time Spent with Patient Time attestation: Total time spent providing and/or coordinating discharge services: DS: Data Data Completed and Pending Labs on day of discharge: Labs from last 24 hours 08/11/23 08/11/23 08/11/23 12:15 06:37 06:36 WBC 11.6 H RBC 2.47 L Hgb 7.3 L Hct 25.0 L MCV 101.2 H MCH 29.6 MCHC 29.2 L RDW 14.5 Plt Count 130 L MPV 12.5 H Immature Gran % (Auto) 0.5 Neut % (Auto) 76.2 H Lymph % (Auto) 11.4 L [place] % (Auto) 9.0 H Eos % (Auto) 2.6 Baso % (Auto) 0.3 Lymph # (Auto) 1.32 [place] # (Auto) 1.0 H Eos # (Auto) 0.3 Baso # (Auto) 0.0 Abs Immat Gran (auto) 0.06 H Absolute Neuts (auto) 8.8 H Absolute Nucleated RBC 0.0 Nucleated RBC % 0.0 Platelet Estimate Decreased Hypochromasia 1+ Anisocytosis 1+ Schistocytes None seen Sodium 142 Potassium 3.4 Chloride 103 Carbon Dioxide 33 H Anion Gap 6 L BUN 35 H Creatinine 2.10 H Estim Creat Clear Calc 16 Estimated GFR 28 L Glucose 108 POC Capillary Glucose 157 H Calcium 8.8 Procalcitonin 0.7 Vancomycin Trough 19.8 Urine Pneumococcal Ag 08/11/23 08/10/23 08/10/23 05:45 23:58 18:05 WBC RBC Hgb Hct MCV MCH MCHC RDW Plt Count MPV Immature Gran % (Auto) Neut % (Auto) Lymph % (Auto) [place] % (Auto) Eos % (Auto) Baso % (Auto) Lymph # (Auto) [place] # (Auto) Eos # (Auto) Baso # (Auto) Abs Immat Gran (auto) Absolute Neuts (auto) Absolute Nucleated RBC Nucleated RBC % Platelet Estimate Hypochromasia Anisocytosis Schistocytes Sodium Potassium Chloride Carbon Dioxide Anion Gap BUN Creatinine Estim Creat Clear Calc Estimated GFR Glucose POC Capillary Glucose 103 108 H 115 H Calcium Procalcitonin Vancomycin Trough Urine Pneumococcal Ag 08/08/23 00:48 WBC RBC Hgb Hct MCV MCH MCHC RDW Plt Count MPV Immature Gran % (Auto) Neut % (Auto) Lymph % (Auto) [place] % (Auto) Eos % (Auto) Baso % (Auto) Lymph # (Auto) [place] # (Auto) Eos # (Auto) Baso # (Auto) Abs Immat Gran (auto) Absolute Neuts (auto) Absolute Nucleated RBC Nucleated RBC % Platelet Estimate Hypochromasia Anisocytosis Schistocytes Sodium Potassium Chloride Carbon Dioxide Anion Gap BUN Creatinine Estim Creat Clear Calc Estimated GFR Glucose POC Capillary Glucose Calcium Procalcitonin Vancomycin Trough Urine Pneumococcal Ag Not detected Preliminary micro results at discharge 08/07/23 16:31 Blood Culture - Preliminary Blood 08/07/23 15:59 Blood Culture - Preliminary Blood Discharge Plan Discharge Attending physician on discharge: Roosevelt Burgos Consulting providers: Nya Meza; Dawood Barraza Discharging Clinician: Roosevelt Burgos Anticipated Discharge Date/Time: 08/11/23 12:32 Patient Disposition: Hospice - Home Activity: as tolerated Diet: as tolerated Stand Alone Forms: General Discharge Information Discharge Medications: New hydrocodone-acetaminophen 5-325 mg Tablet 1 tablet PO Q4H PRN (Reason: Pain Rated 4-6) Qty: 20 0RF Continued carvedilol 6.25 mg tablet 6.25 mg PO Q12H mirtazapine 15 mg tablet 15 mg PO QHS folic acid 1 mg tablet 1 mg PO DAILY Spiriva Respimat 2.5 mcg/actuation Mist 2 puff INHALATION DAILY albuterol sulfate 2.5 mg /3 mL (0.083 %) solution for nebulization 2.5 mg inhalation TID PRN (Reason: Shortness Of Breath) clopidogrel 75 mg tablet 75 mg PO DAILY Creon 24,000-76,000 -120,000 unit capsule,delayed release(DR/EC) 1 cap PO TID cholecalciferol (vitamin D3) 50 mcg (2,000 unit) Tablet 2,000 unit PO DAILY multivitamin Tablet 1 tablet PO DAILY fluticasone propion-salmeterol [Wixela Inhub] 250-50 mcg
--- NOTE | 2023-08-11 13:13 | PC.NURSE ---
RN spoke with Yvonne from [facility] and Angie with Care Coordination. Patient to go home on hospice with [facility] tomorrow 08/12/2023.
[2023-08-11 17:05] LABS: Glucose Point of Care 195 mg/dl (65-105)
[2023-08-11] MEDS: MORPHINE SULFATE (*CRX) 2 MG/ML INJ IV PUSH (20:26)
[2023-08-12] VITALS (22 sets, daily range): BP systolic 157–183; BP diastolic 55–78; PULSE 67–89; RESP 16–24; TEMP 36.2–37.2; O2SAT 97–100
[2023-08-12] MEDS: MORPHINE SULFATE (*CRX) 2 MG/ML INJ IV PUSH ×3 (01:19→16:24)
[2023-08-12] MEDS: ALBUTEROL SULFATE NEB 2.5 MG/3 ML INH INHALATION ×4 (02:02→19:35)
[2023-08-12 03:16] LABS: Legionella pneumophila Ag Ur Not Detected (Not Detected)
[2023-08-12 04:18] LABS: Glucose Point of Care 99 mg/dl (65-105)
[2023-08-12] MEDS: CENTRAL LINE FLUSH 10 ML IV PUSH ×3 (06:38→22:08)
[2023-08-12 06:39] LABS: Glucose Point of Care 75 mg/dl (65-105)
[2023-08-12 06:42] LABS: Basophils Percent Auto 0.3 % (0.2-1.2); Eosinophils Absolute Auto 0.4 K/mm3 (0-0.3); Eosinophils Percent Auto 3.2 % (0-4.4); Hematocrit 24.3 % (37.0-47.0); Immature Granulocyte Absolute 0.06 K/mm3 (0.00-0.031); Immature Granulocyte Percent A 0.5 % (0-0.5); Lymphocytes Absolute Auto 1.92 K/mm3 (0.9-3.2); Lymphocytes Percent Auto 16.5 % (18.3-44.2); Mean Corpuscular HGB Conc 28.4 g/dl (32-36); Mean Corpuscular Hemoglobin 29.4 pg (26-34); Mean Corpuscular Volume 103.4 fl (80-100); Mean Platelet Volume 12.8 fl (7.4-10.4); Monocytes Absolute Auto 1.2 K/mm3 (0.1-0.6); Neutrophils Absolute Auto 8.1 K/mm3 (1.3-6.7); Neutrophils Percent Auto 69.5 % (45.5-73.1); Nucleated Red Blood Cells Perc 0.2 % (0.0-0.2); Platelet Count Result 131 k/mm3 (150-375); Red Blood Count 2.35 M/mm3 (4.2-5.4); Red Cell Distribution Width 14.4 % (11.5-14.5); White Blood Count 11.7 K/mm3 (4.5-10.0)
[2023-08-12 06:46] LABS: Hemoglobin 6.9 g/dL (12.0-15.0)
[2023-08-12 06:52] LABS: Anion Gap 3 mmol/L (8-16); Blood Urea Nitrogen 34 mg/dL (7-17); Calcium 8.7 mg/dL (8.4-10.2); Carbon Dioxide 38 mmol/L (22-30); Chloride 100 mmol/L (98-107); Estimated CRCL calculation 19 ml/min; Estimated Glomerular Filt Rate 34; Glucose 93 mg/dL (65-110); Potassium 3.5 mmol/L (3.4-5.0); Sodium 141 mmol/L (137-145)
[2023-08-12 07:15] LABS: Hypochromasia 2+ (NORMAL); Poikilocytosis 1+ (NORMAL)
[2023-08-12 07:16] LABS: Anisocytosis 1+ (NORMAL)
[2023-08-12 07:17] LABS: Schistocytes None Seen (NORMAL)
[2023-08-12] MEDS: FLUTICASONE/SALMETEROL 115-21 MCG INHALER 1 PUFF 2 PUFF INHALATION ×2 (07:43→19:35)
[2023-08-12] MEDS: PANTOPRAZOLE SODIUM IV 40 MG VIAL IV PUSH (08:41)
[2023-08-12] MEDS: UMECLIDINIUM BROMIDE 62.5 MCG ELLIPTA 1 PUFF INHALATION (10:13)
[2023-08-12 12:16] LABS: Glucose Point of Care 138 mg/dl (65-105)
[2023-08-12] MEDS: CEFEPIME 1 GM/NS 50 ML 1 GM/50 ML BAG IVPB ×2 (12:24)
--- NOTE | 2023-08-12 13:28 | PM.IMPN ---
Progress Note: A&P Assessment and Plan (1) Septic shock: Code(s): A41.9 - Sepsis, unspecified organism; R65.21 - Severe sepsis with septic shock Status: Acute Assessment and Plan: 08/08: Patient was transferred from intermediate Unit with hypotension, hypothermia, acute on chronic kidney disease, anemia -patient received IV fluid bolus overnight, with no improvement of blood pressures, - started on Levophed, maintain MAP > 65-70 mmHg at all times -likely source of infection could be urine, blood and/or pneumonia -continue azithromycin, vancomycin and cefepime -08/07/2023 blood cultures have been obtained and pending -08/08/2023 able urine cultures have been obtained and pending -lactic acid level is normal -procalcitonin level is 1.4 08/10 urine culture and blood culture negative so far 08/10, patient is afebrile, blood pressure stable (2) Fnvev-cs-qmakypu kidney injury: Code(s): N17.9 - Acute kidney failure, unspecified; N18.9 - Chronic kidney disease, unspecified Status: Acute Assessment and Plan: Patient presented with acute on chronic kidney disease could be related to hypotension, hypovolemia, could be related to contrast induced nephropathy as receive contrast on 07/31/[address] scan -patient has been adequately volume resuscitated, currently in volume overload positive 8700 mL since admission with minimal urine output -nephrology following the patient Consult zigzag tunnel elastic operator, diuresing again Kidney function stable (3) Pneumonia: Code(s): J18.9 - Pneumonia, unspecified organism Status: Acute Assessment and Plan: Chest x-ray shows airspace opacities in left mid and lower lung zones consistent with pneumonia, -continue treatment as above (4) Paroxysmal atrial fibrillation: Code(s): I48.0 - Paroxysmal atrial fibrillation Status: Acute Assessment and Plan: Patient has a history of proximal AFib, currently in sinus rhythm, rate controlled, will continue to monitor -TSH levels on 08/04/2023 are normal (5) Type 2 diabetes mellitus: Code(s): E11.9 - Type 2 diabetes mellitus without complications Status: Acute Assessment and Plan: Patient has history of diabetes, blood sugars have been stable -continue Accu-Cheks and sliding scale insulin (6) COPD (chronic obstructive pulmonary disease): Code(s): J44.9 - Chronic obstructive pulmonary disease, unspecified Status: Acute Assessment and Plan: Patient has a history of COPD, on 3 L nasal cannula at home -currently on home O2 settings -continue bronchodilators -continue to monitor (7) Protein-calorie malnutrition, moderate: Code(s): E44.0 - Moderate protein-calorie malnutrition Status: Acute Assessment and Plan: Patient has history of protein calorie malnutrition -speech therapy for bedside swallow evaluation -once she starts eating, will give her feeding supplements with diet (8) Left flank pain: Code(s): R10.9 - Unspecified abdominal pain Status: Acute Assessment and Plan: Left flank plain, -could be related to pneumonia versus UTI 07/31: CT scan of the abdomen and pelvis with contrast: Improved fat stranding at the root of the small bowel mesentery, 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 No abdomen pain (9) Anemia: Code(s): D64.9 - Anemia, unspecified Status: Acute Assessment and Plan: Patient with anemia, hemoglobin 7.3 this morning. (patient has had anemia in the recent past). Iron panel reflective of anemia chronic disease. Folic acid and vitamin B12 are normal -continue to monitor, will transfuse if hemoglobin <7.0 Plan Code Status: DNR/DNI Plan to discharge to patient to home hospice care tomorrow after blood tranfusion today Subjective Date/time seen: 08/12/23 13:28 Interval history: 72-year-old female with history of mesenteric panniculitis, pancreatitis, malnutrition with t
[2023-08-12] MEDS: SODIUM CHLORIDE 0.9% IV 250 ML 30 ML IV CONT (15:15)
[2023-08-12 18:17] LABS: Glucose Point of Care 89 mg/dl (65-105)
[2023-08-12 20:34] LABS: Hematocrit 30.1 % (37.0-47.0); Hemoglobin 9.3 g/dL (12.0-15.0)
[2023-08-13] VITALS (12 sets, daily range): BP systolic 169–172; BP diastolic 59–80; PULSE 65–88; RESP 16–24; TEMP 36.3–36.7; O2SAT 97–100
[2023-08-13] MEDS: MORPHINE SULFATE (*CRX) 2 MG/ML INJ IV PUSH ×2 (01:04→05:53)
[2023-08-13] MEDS: CENTRAL LINE FLUSH 10 ML IV PUSH (05:54)
[2023-08-13 06:01] LABS: Hematocrit 30.3 % (37.0-47.0); Hemoglobin 9.1 g/dL (12.0-15.0); Mean Corpuscular Hemoglobin 30.1 pg (26-34); Mean Corpuscular Volume 100.3 fl (80-100); Mean Platelet Volume 12.8 fl (7.4-10.4); Platelet Count Result 126 k/mm3 (150-375); Red Blood Count 3.02 M/mm3 (4.2-5.4); Red Cell Distribution Width 15.5 % (11.5-14.5); White Blood Count 13.9 K/mm3 (4.5-10.0)
[2023-08-13 06:20] LABS: Glucose Point of Care 88 mg/dl (65-105)
[2023-08-13] MEDS: ALBUTEROL SULFATE NEB 2.5 MG/3 ML INH INHALATION ×2 (07:57→13:13)
[2023-08-13] MEDS: FLUTICASONE/SALMETEROL 115-21 MCG INHALER 1 PUFF 2 PUFF INHALATION (07:57)
[2023-08-13] MEDS: UMECLIDINIUM BROMIDE 62.5 MCG ELLIPTA 1 PUFF INHALATION (07:58)
[2023-08-13] MEDS: PANTOPRAZOLE SODIUM IV 40 MG VIAL IV PUSH (08:32)
--- NOTE | 2023-08-13 09:31 | PM.DS ---
DS: Admitting Diagnosis Discharge Date 08/13/2023 Admitting Diagnosis Left-sided pain. DS: Discharge Diagnosis Discharge Diagnosis (1) Septic shock: Code(s): A41.9 - Sepsis, unspecified organism; R65.21 - Severe sepsis with septic shock Status: Acute Assessment and Plan: 08/08: Patient was transferred from intermediate Unit with hypotension, hypothermia, acute on chronic kidney disease, anemia -patient received IV fluid bolus overnight, with no improvement of blood pressures, - started on Levophed, maintain MAP > 65-70 mmHg at all times -likely source of infection could be urine, blood and/or pneumonia -continue azithromycin, vancomycin and cefepime -08/07/2023 blood cultures have been obtained and pending -08/08/2023 able urine cultures have been obtained and pending -lactic acid level is normal -procalcitonin level is 1.4 08/10 urine culture and blood culture negative so far 08/10, patient is afebrile, blood pressure stable 08/12, pt to have 2 units of blood 08/13, pt ok to dc (2) Qklzs-wj-klmiqnk kidney injury: Code(s): N17.9 - Acute kidney failure, unspecified; N18.9 - Chronic kidney disease, unspecified Status: Acute Assessment and Plan: Patient presented with acute on chronic kidney disease could be related to hypotension, hypovolemia, could be related to contrast induced nephropathy as receive contrast on 07/31/[address] scan -patient has been adequately volume resuscitated, currently in volume overload positive 8700 mL since admission with minimal urine output -nephrology following the patient Consult civil engineering technician, diuresing again Kidney function stable (3) Pneumonia: Code(s): J18.9 - Pneumonia, unspecified organism Status: Acute Assessment and Plan: Chest x-ray shows airspace opacities in left mid and lower lung zones consistent with pneumonia, -continue treatment as above (4) Paroxysmal atrial fibrillation: Code(s): I48.0 - Paroxysmal atrial fibrillation Status: Acute Assessment and Plan: Patient has a history of proximal AFib, currently in sinus rhythm, rate controlled, will continue to monitor -TSH levels on 08/04/2023 are normal (5) Type 2 diabetes mellitus: Code(s): E11.9 - Type 2 diabetes mellitus without complications Status: Acute Assessment and Plan: Patient has history of diabetes, blood sugars have been stable (6) COPD (chronic obstructive pulmonary disease): Code(s): J44.9 - Chronic obstructive pulmonary disease, unspecified Status: Acute Assessment and Plan: Patient has a history of COPD, on 3 L nasal cannula at home -currently on home O2 settings -continue bronchodilators -continue to monitor (7) Protein-calorie malnutrition, moderate: Code(s): E44.0 - Moderate protein-calorie malnutrition Status: Acute Assessment and Plan: Patient has history of protein calorie malnutrition -speech therapy for bedside swallow evaluation -once she starts eating, will give her feeding supplements with diet (8) Left flank pain: Code(s): R10.9 - Unspecified abdominal pain Status: Acute Assessment and Plan: Left flank plain, -could be related to pneumonia versus UTI 07/31: CT scan of the abdomen and pelvis with contrast: Improved fat stranding at the root of the small bowel mesentery, 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 No abdomen pain (9) Anemia: Code(s): D64.9 - Anemia, unspecified Status: Acute Assessment and Plan: Patient with anemia, hemoglobin 7.3 this morning. (patient has had anemia in the recent past). Iron panel reflective of anemia chronic disease. Folic acid and vitamin B12 are normal sp blood transfusion DS: Summary Hospital Course Hospital Course: 72-year-old female with history of mesenteric panniculitis, pancreatitis, malnutrition with temporary G-tube, hypertension, hyperlipidemia, diet-controlled type 2 diabe
[2023-08-13] MEDS: NEOMYCIN/POLYMYXIN/BACITRACIN OINTMENT PACKET 1 PACKET TOPICAL (11:20)
[2023-08-13 12:05] LABS: Glucose Point of Care 127 mg/dl (65-105)
[2023-08-13 20:18] LABS: Glucose Point of Care 91 mg/dl (65-105)
== END 2023-08-13 14:40 | disposition hospice, home (50) | DRG 871 ==
LOC: ANHED 07:53 → ANH2MED 09:38 → ANHICU 08-08 00:10 → ANH3MED 08-10 19:16
PROVIDERS: Internal Medicine; Internal Medicine Nephrology; Nurse Practitioner; Nurse Practitioner Acute Care; Physician Assistant; Student in an Organized Health Care Education/Training Program; Admitting Provider Hospitalist; Emergency Provider Emergency Medicine; PCP Internal Medicine Gastroenterology; Visit Provider Family Medicine
DX: A41.9 Sepsis, unspecified organism (principal); J18.9 Pneumonia, unspecified organism; R65.21 Severe sepsis with septic shock; N17.0 Acute kidney failure with tubular necrosis; E44.0 Moderate protein-calorie malnutrition; J96.11 Chronic respiratory failure with hypoxia; K65.4 Sclerosing mesenteritis; I47.19 Other supraventricular tachycardia; N39.0 Urinary tract infection, site not specified; N18.31 Chronic kidney disease, stage 3a; E11.21 Type 2 diabetes mellitus with diabetic nephropathy; Z79.84 Long term (current) use of oral hypoglycemic drugs; I12.9 Hypertensive chronic kidney disease with stage 1 through stage 4 chronic kidney disease, or unspecified chronic kidney disease; E11.22 Type 2 diabetes mellitus with diabetic chronic kidney disease; J44.9 Chronic obstructive pulmonary disease, unspecified; D53.9 Nutritional anemia, unspecified; D69.6 Thrombocytopenia, unspecified; E87.5 Hyperkalemia; I36.1 Nonrheumatic tricuspid (valve) insufficiency; E78.5 Hyperlipidemia, unspecified; I48.0 Paroxysmal atrial fibrillation; Z86.73 Personal history of transient ischemic attack (TIA), and cerebral infarction without residual deficits; Z99.81 Dependence on supplemental oxygen; Z68.24 Body mass index [BMI] 24.0-24.9, adult; Z87.891 Personal history of nicotine dependence
CPT/HCPCS: 36415; 36430; 71045; 74176; 76775; 80048; 80053; 80202; 81001; 81050; 82550; 82565; 82570; 82607; 82728; 82746; 82948; 83540; 83550; 83605; 83735; 84100; 84132; 84145; 84156; 84300; 84443; 84540; 85014; 85018; 85025; 85027; 85046; 85055; 85652; 85999; 86038; 86140; 86160; 86225; 86850; 86900; 86901; 86923; 87040; 87086; 87449; 87637; 87641; 87899; 92610; 93005; 93306; 94640; 96361; 96372; 96374; 96375; 96376; 99285; A9270; C1751; C9113; G0378; J0360; J0456; J0612; J0692; J1650; J1815; J1940; J2270; J2405; J3370; J7030; J7050; J7120; P9016

== ENCOUNTER 2024-04-18 10:38 | Emergency (ER) | payer MEDICARE, OTHER, SELFPAY ==
--- NOTE | ~2024-04-18 | XR_ITS ---
XR lumbar spine 2-3V DATE: 04/18/2024 11:22 INDICATION: Back pain after bending over 2 days ago. TECHNIQUE: AP, lateral, cone-down lateral lumbosacral views COMPARISON: that 08/04 CT abdomen pelvis FINDINGS: There is osteopenia. There is suggestion of a new mild anterior wedge compression fracture at L5 08/04/2023. Chronic L2 mild anterior wedge compression fracture, present on 08/04/2023. No other fracture is evident. The lumbar pedicles are intact. The sacroiliac joints are intact. Status post bilateral total hip arthroplasty. Old left superior and inferior pubic ramus fractures, probable old right pubic fracture. Multiple pancreatic calcifications consistent with chronic pancreatitis. IMPRESSION: New mild L5 anterior wedge compression fracture since 08/04/2023 is suggested Chronic L2 compression fracture Old left superior pubic ramus and inferior pubic ramus fractures, probable old right pubic fracture Reviewed, dictated and finalized at location A.
[2024-04-18 10:36] VITALS: BP 188/79; PULSE 81; RESP 26; TEMP 37; O2SAT 94
--- NOTE | 2024-04-18 11:31 | ED.GENADULT ---
HPI - General Adult General Chief complaint: Back Pain/Injury Stated complaint: back pain Time Seen by Provider: 04/18/24 10:41 History of Present Illness HPI narrative: Patient is a 73-year-old female with COPD who is on hospice at presents ER with low back pain. 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 No radiation of pain down the leg. No saddle anesthesia. No difficulty with urination/defecation. Denies fevers or chills or sweats. She had been taking morphine for pain but feels that may be a bit too strong. Family was hoping to have her evaluated further here. Related Data Home Medications Medication Instructions Recorded Confirmed carvedilol 6.25 mg tablet 6.25 mg PO Q12H 11/29/20 04/18/24 mirtazapine 15 mg tablet 15 mg PO QHS 11/29/20 04/18/24 folic acid 1 mg tablet 1 mg PO DAILY 06/19/22 08/04/23 tiotropium bromide 2.5 2 puff inhalation DAILY 06/19/22 04/18/24 mcg/actuation mist for inhalation (Spiriva Respimat) fluticasone 250 mcg-salmeterol 50 1 inh inhalation Q12H 09/03/22 04/18/24 mcg/dose blistr powdr for inhalation (Wixela Inhub) multivitamin 1 tablet PO DAILY 09/03/22 08/04/23 albuterol sulfate 2.5 mg/3 mL 2.5 mg inhalation TID PRN 10/07/22 04/18/24 (0.083 %) solution for nebulization Shortness Of Breath cholecalciferol (vitamin D3) 50 2,000 unit PO DAILY 08/04/23 08/04/23 mcg (2,000 unit) tablet clopidogrel 75 mg tablet 75 mg PO DAILY 08/04/23 04/18/24 rpijew-zfiyzngu-juhfqmb 1 cap PO TID 08/04/23 04/18/24 24,000-76,000-120,000 unit capsule,delayed rel (Creon) albuterol sulfate 90 mcg/actuation 1 puff inhalation PRN PRN rescue 04/18/24 04/18/24 aerosol inhaler inhaler lorazepam 0.5 mg tablet 0.5 mg PO PRN PRN SOB 04/18/24 04/18/24 morphine 100 mg/5 mL oral 5 mg PO Q4H 04/18/24 04/18/24 concentrate tiotropium bromide 2.5 inhalation 04/18/24 mcg/actuation mist for inhalation (Spiriva Respimat) Allergies Allergy/AdvReac Type Severity Reaction Status Date / Time No Known Allergies Allergy Verified 04/18/24 10:57 Review of Systems Review of Systems: All systems reviewed & are unremarkable except as noted in HPI and below Constitutional: Constitutional: Reports no additional constitutional complaints Cardiovascular: Cardiovascular: Reports no additional cardiovascular complaints Respiratory: Respiratory: Reports no additional respiratory complaints Gastrointestinal: Gastrointestinal: Reports no additional gastrointestinal complaints Musculoskeletal: Musculoskeletal: Reports back pain [facility] Past Medical History Medical History (Updated 04/18/24 @ 12:04 by Juve Thornton MD) Cerebrovascular accident Chronic anemia Chronic obstructive pulmonary disease Chronic respiratory failure with hypoxia, on home O2 therapy Diastolic dysfunction Echo in August 2022 showed grade 1 diastolic dysfunction the EF of 55 to 60%. Hyperlipidemia Osteoporosis Pancreatitis Paroxysmal atrial fibrillation Stage 3a chronic kidney disease Baseline creatinine appears to range between 1.30 and 1.90. Type 2 diabetes mellitus Surgical History Surgical History History of bilateral cataract extraction History of bilateral hip arthroplasty History of carpal tunnel release History of hysterectomy Family History Family History Mother Hypertension Cerebrovascular accident Diabetes mellitus Sibling Hypertension Diabetes mellitus Breast cancer Father Hypertension Heart disease Social History Social History Social History: Surrogate medical decision maker: Chaitanya Espinoza, daughter. Code status: Full code. Smoking packs per day: 0.5 Smoking cigarettes per day: 10.0 Years smoked: 50 Smoking pack-years: 25.00 Smoki
[2024-04-18] MEDS: HYDROcodone/acetaminophen (*CRX) 5-325 MG TABLET 1 TAB PO (11:39)
[2024-04-18 11:40] VITALS: O2SAT 99
[2024-04-18 11:41] VITALS: BP 187/73; PULSE 88; RESP 26; O2SAT 99
[2024-04-18 12:44] VITALS: BP 183/77; PULSE 78; RESP 27; TEMP 37.1; O2SAT 100
== END 2024-04-18 13:10 | disposition home or self-care (01) ==
PROVIDERS: Emergency Provider Emergency Medicine; PCP Internal Medicine Gastroenterology
DX: S32.059A Unspecified fracture of fifth lumbar vertebra, initial encounter for closed fracture (principal); J44.9 Chronic obstructive pulmonary disease, unspecified; E78.5 Hyperlipidemia, unspecified; I48.0 Paroxysmal atrial fibrillation; E11.22 Type 2 diabetes mellitus with diabetic chronic kidney disease; N18.31 Chronic kidney disease, stage 3a; Z87.891 Personal history of nicotine dependence; X58.XXXA Exposure to other specified factors, initial encounter
CPT/HCPCS: 72100; 99283; A9270